=== PATIENT | male | born 1965 | race Caucasian/White ===

== ENCOUNTER 2016-09-28 15:09 | Emergency (ER) | payer OTHER ==
[2016-09-28 15:30] VITALS: BMI 36.4
--- NOTE | 2016-09-28 16:57 | PDOC ---
History of Present Illness - General History Source: Patient Exam Limitations: No Limitations - History of Present Illness Initial Comments: CHIEF COMPLAINT: 51 y/o afebrile male with PMH HTN, HLD, daily drinker (1/2 pint vodka daily) c/o lower extremity cramping. HISTORY OF PRESENT ILLNESS: The patient states he was at his doctor's office today when he got very sweaty and vomited once. The patient was also c/o left lower chest "heaviness" so his PCP called an ambulance to bring him here. He states his only symptom now is lower extremity cramping. He denies f/c, LYNN, dizziness, nausea, SOB, abd pain, back pain, hematuria, dysuria. Vital signs on arrival are within normal limits. REVIEW OF SYSTEMS: GENERAL/CONSTITUTIONAL: No fever/chills. No weakness. No weight change. HEAD, EYES, EARS, NOSE AND THROAT: No change in vision. No ear pain or discharge. No sore throat. CARDIOVASCULAR: +chest "heaviness". No shortness of breath. RESPIRATORY: No cough, wheezing, or hemoptysis. GASTROINTESTINAL: +vomiting x 1. No nausea, diarrhea, constipation. GENITOURINARY: No dysuria, frequency, or change in urination. MUSCULOSKELETAL: +lower extremity cramping. No neck or back pain. SKIN: No rash or easy bruising. NEUROLOGIC: No headache, vertigo, loss of consciousness, or loss of sensation. PHYSICAL EXAM: GENERAL: The patient is awake, alert, and fully oriented, in no acute distress. he is well appearing and ambulatory. He is currently chewing tobacco in the ER. HEAD: Normal with no signs of trauma. ENT: Pupils equal, round and reactive to light, extraocular movements intact, sclera anicteric, conjunctiva clear. Neck supple. LUNGS: Clear to auscultation bilaterally. Normal excursion. No respiratory distress or use of accessory muscles. CV: RRR, S1/S2, no MRG. Cap refill < 2 sec. CHEST WALL: No reproducible chest wall pain with palpation. ABDOMEN: Soft, non-distended, non-tender even to deep palpation, no hepatomegaly or splenomegaly, no masses. EXTREMITIES: Normal range of motion, no edema. NEUROLOGICAL: Normal speech, normal gait. CN II-XII grossly intact. PSYCH: Normal mood, normal affect. SKIN: Warm, dry, normal turgor, no rashes or lesions noted. <Doreen Santiago - Last Filed: 09/28/16 18:41> <Liliana Toro - Last Filed: 09/29/16 00:34> - General Chief Complaint: Nausea/Vomiting Stated Complaint: Nausea/Vomiting Time Seen by Provider: 09/28/16 16:54 Past History - Past Medical History Anemia: No Asthma: No Cancer: No Cardiac Disorders: Yes CVA: No COPD: No CHF: No Dementia: No Diabetes: No GI Disorders: No Disorders: No HTN: Yes Hypercholesterolemia: Yes Liver Disease: No Seizures: No Thyroid Disease: No - Surgical History Abdominal Surgery: No Appendectomy: No Cardiac Surgery: Yes (CARDIAC STENTS,OPEN HEART SX) Cholecystectomy: No Lung Surgery: No Neurologic Surgery: No Orthopedic Surgery: No - Psycho/Social/Smoking Cessation Hx Anxiety: No Suicidal Ideation: No Smoking Status: Yes Smoking History: Former smoker Have you smoked in the past 12 months: No Number of Cigarettes Smoked Daily: 10 Information on smoking cessation initiated: No 'Breaking Loose' booklet given: 01/16/15 Hx Alcohol Use: Yes (DAILY) Drug/Substance Use Hx: No Substance Use Type: None Hx Substance Use Treatment: No <Doreen Santiago - Last Filed: 09/28/16 18:41> <Liliana Toro - Last Filed: 09/29/16 00:34> - Past Medical History Allergies/Adverse Reactions: Allergies Allergy/AdvReac Type Severity Reaction Status Date / Time No Known Allergies Allergy Verified 04/27/16 13:14 Home Medications: Ambulatory Orders Aspirin [Aspirin EC] 162 mg PO DAILY #60 tablet. 01/16/15 Atorvastatin Ca [Lipitor -] 80 mg PO HS #30 tab 01/16/15 Lisinopril 5 mg PO DAILY #30 tablet 01/16/15 Ibuprofen [Motrin -] 800 mg PO Q6H #30 tablet 09/24/15 *Physical Exam - Vital Signs Last Vital Signs Temp Pulse Resp BP Pulse Ox 97.5 F L 68 18 120/70 97 09/28/16 15:27 09/28/16 15:27 09/28/16 15:27 09/28/16 15:27 09/28/16 15:27 <Doreen Santiago - Last Filed: 09/28/16 18:41> - Vital Signs Last Vital Signs Temp Pulse Resp BP Pulse Ox 97.5 F L 68 18 120/70 97 09/28/16 15:27 09/28/16 15:27 09/28/16 15:27 09/28/16 15:27 09/28/16 15:27 <Liliana Toro - Last Filed: 09/29/16 00:34> Heart Score/ECG Review - ECG Intrepretation Comment:: Twelve-lead EKG was performed and reviewed by Dr. Jung. There is normal sinus rhythm with a normal rate. The axis is normal. The intervals are normal. Nonspecific T wave abnormality. Impression: Abnormal twelve-lead EKG <Doreen Santiago - Last Filed: 09/28/16 18:41> ED Treatment Course - LABORATORY CBC & Chemistry Diagram: 09/28/16 17:47 09/28/16 17:47 <Doreen Santiago - Last Filed: 09/28/16 18:41> - LABORATORY CBC & Chemistry Diagram: 09/28/16 17:47 09/28/16 17:47 - ADDITIONAL ORDERS Additional order review: Laboratory Results 09/28/16 09/28/16 17:47 17:47 Sodium 141 Potassium 3.5 Chloride 103 Carbon Dioxide 29 Anion Gap 9 BUN 13 Creatinine 0.8 Creat Clearance w eGFR > 60 Random Glucose 90 Calcium 9.3 Magnesium 1.8 Total Bilirubin 2.8 H D AST 224 H D ALT 96 H D Alkaline Phosphatase 117 D Creatine Kinase 228 D Creatine Kinase Index CK-MB (CK-2) < 1.000 CK-MB (CK-2) Rel Index Cancelled Troponin I < 0.02 D Total Protein 7.6 Albumin 4.1 09/28/16 17:47 RBC 4.21 MCV 93.1 MCHC 33.2 RDW 14.4 MPV 8.5 D Neutrophils % 70.0 D Lymphocytes % 21.2 D Monocytes % 7.7 Eosinophils % 0.4 Basophils % 0.7 <Liliana Toro - Last Filed: 09/29/16 00:34> Medical Decision Making - Medical Decision Making A/P: 51 y/o male with HTN, HLD and daily ETOH use c/o 1 episode of vomiting, chest heaviness, and leg cramping today. All symptoms have resolved except for leg cramping. Plan is as follows: 1. Labs 2. EKG 3. CXR I am signing this patient out to my colleague: EFFIE Toro In brief, this patient is being seen in the ED for a chief complaint of: vomiting x 1, leg cramps, chest "heaviness" I have completed the initial assessment interview note and have ordered: labs, ekg, CXR I have reviewed the following results: Ekg, some labs Pending results are: Cardiac profile Please call the PCP: Dr. Crowley Plan for disposition is as follows: 2nd troponin at midnight, CXR, reassess <Doreen Santiago - Last Filed: 09/28/16 18:41> *DC/Admit/Observation/Transfer <Doreen Santiago - Last Filed: 09/28/16 18:41> - Discharge Dispostion Admit: No <Liliana Toro - Last Filed: 09/29/16 00:34> Diagnosis at time of Disposition: Leg cramping, Atypical chest pain Vomiting Qualifiers: Vomiting type: unspecified Vomiting Intractability: non-intractable Nausea presence: without nausea Qualified Code(s): R11.11 - Vomiting without nausea - Discharge Dispostion Disposition: HOME Condition at time of disposition: Improved - Referrals Referrals: Nikolas Crowley MD [Primary Care Provider] - - Patient Instructions Printed Discharge Instructions: DI for Vomiting -- Adult, DI for Atypical Chest Pain Additional Instructions: Follow up with your primary care provider this week for further evaluation. Return if symptoms worsen, or return, or any concerns for further evaluation. Print Language: TELUGU
[2016-09-28 18:03] LABS: BASOPHIL 0.7 % (0-2.0); EOSINOPHIL 0.4 % (0-4.5); MCH 30.9 pg (25.7-33.7); MCHC 33.2 g/dl (32.0-35.9); MEAN CELL VOLUME 93.1 fl (80-96); MEAN PLT VOLUME 8.5 fl (7.5-11.1); PLATELET COUNT 136 K/MM3 (134-434); RDW 14.4 % (11.9-15.9); WHITE BLOOD COUNT 7.9 K/mm3 (4.0-10.0)
[2016-09-28 18:26] LABS: ALBUMIN 4.1 g/dl (3.4-5.0); ANION GAP 9 (8-16); CALCIUM 9.3 mg/dL (8.5-10.1); CO2 29 mmol/L (21-32); COCKROFT - GAULT 160.17; CREATININE 0.8 mg/dL (0.7-1.3); GLUCOSE,RANDOM 90 mg/dL (74-106); MAGNESIUM 1.8 mg/dL (1.8-2.4); SGOT/AST 224 U/L (15-37); SGPT/ALT 96 U/L (12-78)
[2016-09-28 18:29] LABS: ALK PHOS 117 U/L (45-117); BILIRUBIN,TOTAL 2.8 mg/dL (0.2-1.0); TOT PROT 7.6 g/dl (6.4-8.2); TROPONIN I < 0.02 ng/ml (0.00-0.05)
[2016-09-28 23:50] VITALS: BP 134/77; PULSE 72; TEMP 98.1
[2016-09-29 00:01] LABS: TROPONIN I < 0.02 ng/ml (0.00-0.05)
--- NOTE | 2016-09-29 19:18 | EKG ---
Test Reason : Blood Pressure : / mmHG Vent. Rate : 059 BPM Atrial Rate : 059 BPM P-R Int : 126 ms QRS Dur : 088 ms QT Int : 448 ms P-R-T Axes : 060 045 092 degrees QTc Int : 443 ms POOR DATA QUALITY, INTERPRETATION MAY BE ADVERSELY AFFECTED SINUS BRADYCARDIA NONSPECIFIC ST AND T WAVE ABNORMALITY ABNORMAL ECG WHEN COMPARED WITH ECG OF 16-JAN-2015 10:33, QRS DURATION HAS DECREASED Confirmed by PABLO GRIGSBY MD ([id number]) on 09/29/2016 7:18:02 PM Referred By: Confirmed By:PABLO GRIGSBY MD
--- NOTE | 2016-09-30 16:29 | EKG ---
Test Reason : Blood Pressure : / mmHG Vent. Rate : 061 BPM Atrial Rate : 061 BPM P-R Int : 128 ms QRS Dur : 092 ms QT Int : 454 ms P-R-T Axes : 020 038 085 degrees QTc Int : 457 ms NORMAL SINUS RHYTHM NONSPECIFIC T WAVE ABNORMALITY ABNORMAL ECG WHEN COMPARED WITH ECG OF 28-SEP-2016 15:59, NO SIGNIFICANT CHANGE WAS FOUND Confirmed by PABLO GRIGSBY MD ([id number]) on 09/30/2016 4:29:23 PM Referred By: Confirmed By:PABLO GRIGSBY MD
== END 2016-09-29 00:47 | disposition home or self-care (01) ==
LOC: JER 15:09
DX: R07.89 Other chest pain (principal); R25.2 Cramp and spasm; I10 Essential (primary) hypertension; E78.5 Hyperlipidemia, unspecified; Z87.891 Personal history of nicotine dependence; Z95.5 Presence of coronary angioplasty implant and graft
CPT/HCPCS: 36415; 71020-TC; 76705-TC; 80053; 82550; 82553; 83735; 84484; 85025; 93005; 93010; 99283-25

== ENCOUNTER 2017-07-09 18:41 | Emergency (ER) | payer OTHER ==
--- NOTE | 2017-07-09 18:47 | PDOC ---
Rapid Medical Evaluation Time Seen by Provider: 07/09/17 18:46 Medical Evaluation: Allergies Allergy/AdvReac Type Severity Reaction Status Date / Time No Known Allergies Allergy Verified 07/09/17 18:43 07/09/17 18:48 52 year old male with a history of HTN, HLD, CAD s/p CABG x 4 yrs ago at [facility] and chronic EtOH abuse (1 pint vodka daily, last drink this morning, history of withdrawal tremors) presenting with hiccups x 4 hours. Also endorses left-sided chest "tightness". Stopped taking all meds about 2 months ago because they gave him "suicide feelings." Denies SI currently. Wants detox. V/s notable for HR 107, BP 149/96. No tremors EKG CXR Cardiac labs To Main ED for further evaluation
[2017-07-09 19:00] VITALS: BMI 36.0
[2017-07-09 19:04] LABS: BASO % 0.8 % (0-2.0); EOS % 0.3 % (0-4.5); LYMPH % 18.8 % (8-40); MCH 32.9 pg (25.7-33.7); MCHC 34.3 g/dl (32.0-35.9); MEAN CELL VOLUME 95.8 fl (80-96); MEAN PLT VOLUME 9.2 fl (7.5-11.1); MONO % 11.3 % (3.8-10.2); NEUT % 68.8 % (42.8-82.8); PLATELET COUNT 102 K/MM3 (134-434); RBC 3.97 M/mm3 (4.00-5.60); RDW 15.8 % (11.9-15.9); WHITE BLOOD COUNT 6.8 K/mm3 (4.0-10.0)
[2017-07-09 19:16] LABS: INR 1.66 (0.82-1.09); PROTHROMBIN TIME (PATIENT) 18.8 SEC (9.98-11.88)
[2017-07-09] MEDS ORDERED: ASPIRIN 81 MG CHEWABLE TABLETS PO ONE (19:23)
--- NOTE | 2017-07-09 19:23 | PDOC ---
History of Present Illness - General History Source: Patient Exam Limitations: No Limitations - History of Present Illness Initial Comments: 07/09/17 19:30 The patient is a 52 year old male with a significant PMH of CAD (s/p CABG 2013) , HTN, hyperlipidemia, and chronic EtOH abuse (1 pt. yumiko daily) who presents to the emergency department with chest pain beginning approximately 2 weeks ago. He describes his chest pain as a pressure-like squeezing sensation localized in the left sternal border with radiation to his left shoulder. He also notes intermittent hiccups over the past 4 hours. He currently denies hiccups. As per triage, the patient has been non-compliant with his medications for about 2 months. The patient reports he generally does not have PCP follow- up care. The patient denies shortness of breath, headache and dizziness. Denies fever, chills, nausea, vomit, diarrhea and constipation. Denies dysuria, frequency, urgency and hematuria. Allergies: NKA Past surgical history: CABG 2013. Cardiac stent placement. Social history: Everyday alcohol abuse. Chewing tobacco use. No reported drug use. PCP: None reported. <Issa Richard - Last Filed: 07/09/17 19:47> <Edmund Nguyen - Last Filed: 07/10/17 07:23> - General History Source: Patient <Venancio Rojas - Last Filed: 07/10/17 19:24> - General Chief Complaint: Chest Pain Stated Complaint: HICCUPS Time Seen by Provider: 07/09/17 18:46 Past History <Issa Richard - Last Filed: 07/09/17 19:47> <Edmund Nguyen - Last Filed: 07/10/17 07:23> - Past Medical History Anemia: No Asthma: No Cancer: No Cardiac Disorders: Yes CVA: No COPD: No CHF: No Dementia: No Diabetes: No GI Disorders: No Disorders: No HTN: Yes (non compliant with meds) Hypercholesterolemia: Yes Liver Disease: No Seizures: No Thyroid Disease: No - Surgical History Abdominal Surgery: No Appendectomy: No Cardiac Surgery: Yes (CARDIAC STENTS,OPEN HEART SX) Cholecystectomy: No Lung Surgery: No Neurologic Surgery: No Orthopedic Surgery: No - Immunization History Immunization Up to Date: No - Suicide/Smoking/Psychosocial Hx Smoking Status: Yes Smoking History: Never smoked Have you smoked in the past 12 months: No Number of Cigarettes Smoked Daily: 10 Information on smoking cessation initiated: No 'Breaking Loose' booklet given: 01/16/15 Hx Alcohol Use: Yes Drug/Substance Use Hx: No Substance Use Type: None Hx Substance Use Treatment: No <Venancio Rojas - Last Filed: 07/10/17 19:24> - Past Medical History Allergies/Adverse Reactions: Allergies Allergy/AdvReac Type Severity Reaction Status Date / Time No Known Allergies Allergy Verified 07/10/17 11:20 Home Medications: Ambulatory Orders Atorvastatin Ca [Lipitor -] 80 mg PO HS #30 tab 01/16/15 Lisinopril 5 mg PO DAILY #30 tablet 01/16/15 Aspirin [Aspirin EC] 81 mg PO DAILY 07/10/17 Review of Systems - Review of Systems Able to Perform ROS?: Yes Comments:: 07/09/17 19:31 CONSTITUTIONAL: Absent: fever, chills, diaphoresis, generalized weakness, malaise, loss of appetite HEENT: Absent: rhinorrhea, nasal congestion, throat pain, throat swelling, difficulty swallowing, mouth swelling, ear pain, eye pain, visual Changes CARDIOVASCULAR: (+) Chest pressure. Absent: syncope, palpitations, irregular heart rate, lightheadedness, peripheral edema RESPIRATORY: (+) Hiccups (resolved). Absent: cough, shortness of breath, dyspnea with exertion, orthopnea, wheezing, stridor, hemoptysis GASTROINTESTINAL: Absent: abdominal pain, abdominal distension, nausea, vomiting, diarrhea, constipation, melena, hematochezia GENITOURINARY: Absent: dysuria, frequency, urgency, hesitancy, hematuria, flank pain, genital pain MUSCULOSKELETAL: Absent: myalgia, arthralgia, joint swelling SKIN: Absent: rash, itching, pallor HEMATOLOGIC/IMMUNOLOGIC: Absent: easy bleeding, easy bruising, lymphadenopathy, frequent infections ENDOCRINE: Absent: unexplained weight gain, unexplained weight loss, heat intolerance, cold intolerance NEUROLOGIC: Absent: headache, focal weakness or paresthesias, dizziness, unsteady gait, seizure, mental status changes, bladder or bowel incontinence PSYCHIATRIC: Absent: anxiety, depression, suicidal or homicidal ideation, hallucinations. <Issa Richard - Last Filed: 07/09/17 19:47> *Physical Exam - Vital Signs Last Vital Signs Temp Pulse Resp BP Pulse Ox 98.4 F 108 H 20 149/96 97 07/09/17 18:43 07/09/17 18:43 07/09/17 18:43 07/09/17 18:43 07/09/17 18:43 - Physical Exam Comments: 07/09/17 19:31 GENERAL: Well developed, well nourished. Awake and alert. No acute distress. HEENT: Normocephalic, atraumatic. PERRLA, EOMI. No conjunctival pallor. Sclera are non- icteric. Moist mucous membranes. Oropharynx is clear. NECK: Supple. Full ROM. No JVD. Carotid pulses 2+ and symmetric, without bruits. No thyromegaly. No lymphadenopathy. CARDIOVASCULAR: Regular rate and rhythm. No murmurs, rubs, or gallops. Distal pulses are 2+ and symmetric. PULMONARY: No evidence of respiratory distress. Lungs clear to auscultation bilaterally. No wheezing, rales or rhonchi. ABDOMINAL: Soft. Non-tender. Non-distended. No rebound or guarding. No organomegaly. Normoactive bowel sounds. MUSCULOSKELETAL Normal range of motion at all joints. No bony deformities or tenderness. No CVA tenderness. EXTREMITIES: No cyanosis. No clubbing. No edema. No calf tenderness. SKIN: Warm and dry. Normal capillary refill. No rashes. No jaundice. NEUROLOGICAL: Alert, awake, appropriate. Cranial nerves 2-12 intact. No deficits to light touch and temperature in face, upper extremities and lower extremities. No motor deficits in the in face, upper extremities and lower extremities. Normoreflexic in the upper and lower extremities. Normal speech. Toes are downgoing bilaterally. Gait is normal without ataxia. PSYCHIATRIC: Cooperative. Good eye contact. Appropriate mood and affect. <Issa Richard - Last Filed: 07/09/17 19:47> - Vital Signs Last Vital Signs Temp Pulse Resp BP Pulse Ox 98.4 F 100 H 18 138/87 96 07/09/17 18:43 07/09/17 23:00 07/09/17 23:00 07/09/17 23:00 07/09/17 23:00 <Edmund Nguyen - Last Filed: 07/10/17 07:23> - Vital Signs Last Vital Signs Temp Pulse Resp BP Pulse Ox 98.4 F 108 H 20 149/96 97 07/09/17 18:43 07/09/17 18:43 07/09/17 18:43 07/09/17 18:43 07/09/17 18:43 <Venancio Rojas - Last Filed: 07/10/17 19:24> Heart Score/ECG Review #1 07/09/17 19:32 Vent rate 99 bpm Normal sinus rhythm Nonspecific T wave abnormality Prolonged QT Abnormal ECG <Issa Richard - Last Filed: 07/09/17 19:47> ED Treatment Course - LABORATORY CBC & Chemistry Diagram: 07/09/17 18:55 07/09/17 18:55 - ADDITIONAL ORDERS Additional order review: 07/09/17 18:55 RBC 3.97 L MCV 95.8 MCHC 34.3 RDW 15.8 MPV 9.2 Neutrophils % 68.8 Lymphocytes % 18.8 Monocytes % 11.3 H Eosinophils % 0.3 Basophils % 0.8 - Medications Given in the ED: ED Medications Discontinued Medications Generic Name Dose Route Start Last Admin Trade Name Freq PRN Reason Stop Dose Admin Aspirin 324 mg 07/09/17 19:23 07/09/17 19:28 Asa - PO 07/09/17 19:24 324 mg ONCE ONE Administration <Issa Richard - Last Filed: 07/09/17 19:47> - LABORATORY CBC & Chemistry Diagram: 07/09/17 18:55 07/10/17 01:03 - ADDITIONAL ORDERS Additional order review: Laboratory Results 07/10/17 07/10/17 07/09/17 01:03 00:29 18:55 PT with INR 18.80 H INR 1.66 H Sodium 140 Potassium 3.7 Chloride 101 Carbon Dioxide 25 Anion Gap 14 BUN 7 Creatinine 0.5 L Creat Clearance w eGFR > 60 Random Glucose 76 Calcium 8.1 L Total Bilirubin 5.8 H AST 209 H ALT 51 Alkaline Phosphatase 92 Creatine Kinase 469 H Creatine Kinase Index 0.5 CK-MB (CK-2) 2.396 Troponin I 0.03 D Total Protein 7.1 Albumin 2.7 L 07/09/17 18:55 PT with INR INR Sodium 137 Potassium 3.3 L Chloride 98 Carbon Dioxide 24 Anion Gap 15 BUN 8 D Creatinine 0.6 L D Creat Clearance w eGFR > 60 Random Glucose 93 Calcium 7.7 L Total Bilirubin 6.8 H D AST 241 H ALT 61 D Alkaline Phosphatase 110 Creatine Kinase 542 H Creatine Kinase Index 0.5 CK-MB (CK-2) 3.048 Troponin I 0.02 Total Protein 8.1 Albumin 3.2 L D 07/09/17 18:55 RBC 3.97 L MCV 95.8 MCHC 34.3 RDW 15.8 MPV 9.2 Neutrophils % 68.8 Lymphocytes % 18.8 Monocytes % 11.3 H Eosinophils % 0.3 Basophils % 0.8 - Medications Given in the ED: ED Medications Discontinued Medications Generic Name Dose Route Start Last Admin Trade Name Freq PRN Reason Stop Dose Admin Aspirin 324 mg 07/09/17 19:23 07/09/17 19:28 Asa - PO 07/09/17 19:24 324 mg ONCE ONE Administration Calcium Gluconate 1,000 mg 07/09/17 19:46 07/09/17 20:09 Calcium Gluconate 10% - IVPB 07/09/17 19:47 1,000 mg ONCE ONE Administration Chlordiazepoxide HCl 50 mg 07/09/17 22:48 07/09/17 22:49 Librium - PO 07/09/17 22:49 50 mg ONCE ONE Administration Pantoprazole Sodium 40 mg/ 100 mls @ 200 mls/hr 07/09/17 20:00 07/09/17 20:14 Sodium Chloride IVPB 07/09/17 20:29 200 mls/hr ONCE ONE Administration Ondansetron HCl 4 mg 07/09/17 20:08 07/09/17 20:14 Zofran Injection IVPUSH 07/09/17 20:09 4 mg ONCE STA Administration Potassium Chloride 20 meq 07/09/17 19:47 07/09/17 20:09 K-Dur - PO 07/09/17 19:48 20 meq ONCE ONE Administration <Edmund Nguyen - Last Filed: 07/10/17 07:23> - LABORATORY CBC & Chemistry Diagram: 07/09/17 18:55 07/10/17 01:03 - ADDITIONAL ORDERS Additional order review: 07/09/17 18:55 RBC 3.97 L MCV 95.8 MCHC 34.3 RDW 15.8 MPV 9.2 Neutrophils % 68.8 Lymphocytes % 18.8 Monocytes % 11.3 H Eosinophils % 0.3 Basophils % 0.8 <Venancio Rojas - Last Filed: 07/10/17 19:24> Medical Decision Making - Medical Decision Making 07/10/17 07:23 pt with mild tremor, [facility] will administer librium-50mg po. <Edmund Nguyen - Last Filed: 07/10/17 07:23> - Medical Decision Making 07/10/17 19:24 Dr. Rojas: The scribe's documentation has been prepared under my direction and personally reviewed by me in its entirery. I confirm that the note above accurately reflects all work, treatment, procedures, and medical decision making performed by me. <Venancio Rojas - Last Filed: 07/10/17 19:24> *DC/Admit/Observation/Transfer - Attestations Scribe Attestion: 07/09/17 19:31 Documentation prepared by Issa Richard, acting as medical equipment sales for Venancio Rojas DO. <Issa Richard - Last Filed: 07/09/17 19:47> <Edmund Nguyen - Last Filed: 07/10/17 07:23> - Discharge Dispostion Admit: No <Venancio Rojas - Last Filed: 07/10/17 19:24> Diagnosis at time of Disposition: Atypical chest pain, Alcohol dependence - Discharge Dispostion Disposition: HOME Condition at time of disposition: Stable - Patient Instructions Printed Discharge Instructions: DI for Alcohol Abuse, DI for Chest Pain Additional Instructions: Please report to [facility] after 8 am.
[2017-07-09] MEDS ORDERED: ASPIRIN 81 MG CHEWABLE TABLETS ONE (19:24)
[2017-07-09 19:38] LABS: ALBUMIN 3.2 g/dl (3.4-5.0); ANION GAP 15 (8-16); BILIRUBIN,TOTAL 6.8 mg/dL (0.2-1.0); BLOOD UREA NITROGEN 8 mg/dL (7-18); CALCIUM 7.7 mg/dL (8.5-10.1); CHLORIDE 98 mmol/L (98-107); CO2 24 mmol/L (21-32); CREATININE 0.6 mg/dL (0.7-1.3); GLUCOSE,RANDOM 93 mg/dL (74-106); SGPT/ALT 61 U/L (12-78); SODIUM 137 mmol/L (136-145); TOT PROT 8.1 g/dl (6.4-8.2)
[2017-07-09 19:40] LABS: ALK PHOS 110 U/L (45-117)
[2017-07-09 19:41] LABS: POTASSIUM 3.3 mmol/L (3.5-5.1); SGOT/AST 241 U/L (15-37)
[2017-07-09] MEDS ORDERED: CALCIUM GLUCONATE 10% - 1,000 MG/10 ML VIAL IVPB ONE (19:46)
[2017-07-09] MEDS ORDERED: POTASSIUM CHLORIDE TABS 10 MEQ TABLET.ER (FP) PO ONE (19:47)
[2017-07-09] MEDS ORDERED: CALCIUM GLUCONATE 10% - 1,000 MG/10 ML VIAL ONE (19:56)
[2017-07-09] MEDS ORDERED: POTASSIUM CHLORIDE TABS 20 MEQ TABLET.ER (FP) PO ONE (19:56)
[2017-07-09] MEDS ORDERED: PANTOPRAZOLE SODIUM 40 MG in SODIUM CHLORIDE 100 ML IVPB ONE (20:00)
[2017-07-09] MEDS ORDERED: PANTOPRAZOLE SODIUM 40 MG VIAL ONE (20:00)
[2017-07-09] MEDS ORDERED: ONDANSETRON 4 MG/2 ML VIAL IVPUSH STA (20:08)
[2017-07-09] MEDS ORDERED: ONDANSETRON 4 MG/2 ML VIAL ONE (20:09)
[2017-07-09] MEDS ORDERED: chlordiazePOXIDE HCL 25 MG CAPSULE ONE (22:48)
[2017-07-09] MEDS ORDERED: chlordiazePOXIDE HCL 25 MG CAPSULE PO ONE (22:48)
[2017-07-10 04:04] LABS: ALBUMIN 2.7 g/dl (3.4-5.0); ANION GAP 14 (8-16); BILIRUBIN,TOTAL 5.8 mg/dL (0.2-1.0); BLOOD UREA NITROGEN 7 mg/dL (7-18); CALCIUM 8.1 mg/dL (8.5-10.1); CHLORIDE 101 mmol/L (98-107); CO2 25 mmol/L (21-32); CREATININE 0.5 mg/dL (0.7-1.3); GLUCOSE,RANDOM 76 mg/dL (74-106); POTASSIUM 3.7 mmol/L (3.5-5.1); SGOT/AST 209 U/L (15-37); SGPT/ALT 51 U/L (12-78); SODIUM 140 mmol/L (136-145); TOT PROT 7.1 g/dl (6.4-8.2)
[2017-07-10 04:05] LABS: ALK PHOS 92 U/L (45-117)
[2017-07-10] MEDS ORDERED: chlordiazePOXIDE HCL 25 MG CAPSULE PO ONE (07:23)
[2017-07-10] MEDS ORDERED: chlordiazePOXIDE HCL 25 MG CAPSULE ONE (07:28)
[2017-07-10 08:34] VITALS: BP 130/77; PULSE 92; TEMP 98.1
--- NOTE | 2017-07-10 12:37 | EKG ---
Test Reason : Blood Pressure : / mmHG Vent. Rate : 099 BPM Atrial Rate : 099 BPM P-R Int : 140 ms QRS Dur : 098 ms QT Int : 390 ms P-R-T Axes : 043 057 066 degrees QTc Int : 500 ms NORMAL SINUS RHYTHM NONSPECIFIC T WAVE ABNORMALITY PROLONGED QT ABNORMAL ECG WHEN COMPARED WITH ECG OF 28-SEP-2016 18:01, VENT. RATE HAS INCREASED BY 38 BPM NONSPECIFIC T WAVE ABNORMALITY HAS REPLACED INVERTED T WAVES IN ANTEROLATERAL LEADS Confirmed by WILDER CHURCH MD ([id number]) on 07/10/2017 12:36:48 PM Referred By: Confirmed By:WILDER CHURCH MD
== END 2017-07-10 08:33 | disposition home or self-care (01) ==
LOC: JER 18:41
PROC: 3E033GC Introduction of Other Therapeutic Substance into Peripheral Vein, Percutaneous Approach (ICD-10-PCS; principal; 2017-07-09)
PROC: 3E0337Z Introduction of Electrolytic and Water Balance Substance into Peripheral Vein, Percutaneous Approach (ICD-10-PCS; 2017-07-09)
PROC: 3E033GC Introduction of Other Therapeutic Substance into Peripheral Vein, Percutaneous Approach (ICD-10-PCS; 2017-07-09)
DX: R07.89 Other chest pain (principal); F10.20 Alcohol dependence, uncomplicated; I25.10 Atherosclerotic heart disease of native coronary artery without angina pectoris; I25.83 Coronary atherosclerosis due to lipid rich plaque; I10 Essential (primary) hypertension; Z95.1 Presence of aortocoronary bypass graft; Z95.5 Presence of coronary angioplasty implant and graft; E78.00 Pure hypercholesterolemia, unspecified; Z91.14 Patient's other noncompliance with medication regimen
CPT/HCPCS: 36415; 71046-TC-FY; 80053; 82550; 82553; 84484; 85025; 85610; 93005; 93010; 99285-25

== ENCOUNTER 2017-07-13 13:44 | Inpatient (IN) | payer OTHER ==
--- NOTE | 2017-07-13 13:53 | PDOC ---
History of Present Illness - General Chief Complaint: Revisit, Lab Variance Stated Complaint: ABNORMAL LABS Time Seen by Provider: 07/13/17 13:51 - History of Present Illness Initial Comments: 52 year old male with PMH of CAD (s/p CABG 2013), HTN, hyperlipidemia, and chronic EtOH abuse (1 pt. vodka daily) who presents to the emergency department from 5 days of detox for worsening liver synthetic function. The patient appears well and only admits top occasional diarrhea. He hasn't seen anyone for his liver pathology in [address] in our system from 4 years prior was fine but ultrasound from 8 months ago demonstrates some fatty infiltration. Admits to some occasional diarrhea since starting detox. Denies nausea, vomiting, constipation,or chest pain. 07/13/17 14:36 Past History - Past Medical History Allergies/Adverse Reactions: Allergies Allergy/AdvReac Type Severity Reaction Status Date / Time No Known Allergies Allergy Verified 07/13/17 13:52 Home Medications: Ambulatory Orders Amlodipine Besylate [Norvasc -] 10 mg PO DAILY 07/13/17 Benzocaine Ointment [Americaine] 1 applic TP ASDIR 07/13/17 Chlordiazepoxide [Librium -] 25 mg PO TID 07/13/17 Clonidine HCl [Clonidine HCl ER] 0.1 mg PO BID 07/13/17 Lactulose 20 gm PO DAILY 07/13/17 Loperamide HCl [Loperamide] 4 mg PO QID 07/13/17 Mag Hydrox/Al Hydrox/Simeth [Mylanta *Suspension*] 30 ml PO Q6H 07/13/17 Magnesium Citrate [Citroma] 296 ml PO ASDIR 07/13/17 Magnesium Hydroxide [Milk of Magnesia] 400 mg PO DAILY 07/13/17 Multivitamins [Tab-A-Vit -] 1 tab PO DAILY 07/13/17 Potassium Chloride 20 meq PO DAILY 07/13/17 Thiamine HCl [B-1] 100 mg PO DAILY 07/13/17 Zolpidem Tartrate [Ambien] 5 mg PO DAILY 07/13/17 Anemia: No Asthma: No Cancer: No Cardiac Disorders: Yes (Hx. of Arterial Blockage.) CVA: No COPD: No CHF: No Dementia: No Diabetes: No GI Disorders: Yes (acid reflux) Disorders: No HTN: Yes (Non-Compliant with meds. due to sdie effects.) Hypercholesterolemia: Yes Kidney Stones: No Liver Disease: No Seizures: No Thyroid Disease: No - Surgical History Abdominal Surgery: No Appendectomy: No Cardiac Surgery: Yes (3 cardiac stents/open heart sx in 2012) Cholecystectomy: No Lung Surgery: No Neurologic Surgery: No Orthopedic Surgery: No - Reproductive History Testicular Surgery: No - Immunization History Immunization Up to Date: No - Suicide/Smoking/Psychosocial Hx Smoking Status: Yes Smoking History: Former smoker Have you smoked in the past 12 months: No Number of Cigarettes Smoked Daily: 10 If you are a former smoker, when did you quit?: 2010 Cigars Per Day: 0 'Breaking Loose' booklet given: 07/10/17 Hx Alcohol Use: Yes Drug/Substance Use Hx: Yes Substance Use Type: Alcohol Hx Substance Use Treatment: No Review of Systems - Review of Systems Constitutional: No: Chills, Diaphoresis, Fever HEENTM: No: Blurred Vision, Recent change in vision Respiratory: No: Cough, Orthopnea, Shortness of Breath Cardiac (ROS): No: Chest Pain, Lightheadedness, Palpitations ABD/GI: Yes: Diarrhea. No: Constipated, Nausea, Vomiting, Indigestion, Tarry Stools Musculoskeletal: No: Back Pain, Joint Pain, Muscle Weakness Integumentary: No: Bruising, Change in Color, Erythema Neurological: No: Headache, Numbness, Paresthesia Psychiatric: No: Anxiety, Depression *Physical Exam - Physical Exam General Appearance: Yes: Nourished, Appropriately Dressed. No: Apparent Distress HEENT: positive: EOMI, MARLENY, Scleral Icterus (R), Scleral Icterus (L), Other ( Poor dentition and gingivitis). negative: Normal ENT Inspection Neck: positive: Trachea midline, Normal Thyroid, Supple. negative: Tender, Rigid Respiratory/Chest: positive: Lungs Clear, Normal Breath Sounds. negative: Chest Tender, Respiratory Distress Cardiovascular: positive: Regular Rate, Tachycardia. negative: Regular Rhythm, Edema, JVD, Murmur Gastrointestinal/Abdominal: positive: Normal Bowel Sounds, Flat, Soft. negative : Tender Musculoskeletal: positive: Normal Inspection. negative: CVA Tenderness Extremity: positive: Normal Capillary Refill, Normal Inspection, Normal Range of Motion. negative: Tender Integumentary: positive: Normal Color, Dry, Warm Neurologic: positive: Fully Oriented, Alert, Normal Mood/Affect, Normal Response , Motor Strength 5/5. negative: Numbness ED Treatment Course - LABORATORY CBC & Chemistry Diagram: 07/13/17 14:20 07/13/17 14:25 Medical Decision Making - Medical Decision Making 52 year old worsening EtOH abuse history currently at detox but presenting to the ED for worsening liver synthetic function. Patient has no GI follow up and has a MELD of 22 which carries a 7-8% 90 day mortality. Although there is no acute intervention to perform, this gentleman deserves admission for his liver lab derangement. Will admit to med/ surg with agreement to stay at least 2 days. 07/13/17 15:12 *DC/Admit/Observation/Transfer Diagnosis at time of Disposition: Hepatic failure due to alcoholism - Discharge Dispostion Condition at time of disposition: Stable Admit: Yes - Referrals Referrals: Bebeto Yu MD [Primary Care Provider] - - Patient Instructions - Post Discharge Activity
[2017-07-13] MEDS ORDERED: LACTULOSE 20 GM/30 ML UDC (FOR ORAL USE ONLY) PO PRN (14:56)
[2017-07-13 15:10] LABS: ALBUMIN 2.5 g/dl (3.4-5.0); ANION GAP 8 (8-16); BLOOD UREA NITROGEN 7 mg/dL (7-18); CALCIUM 8.3 mg/dL (8.5-10.1); CHLORIDE 104 mmol/L (98-107); CO2 29 mmol/L (21-32); CREATININE 0.8 mg/dL (0.7-1.3); GLUCOSE,RANDOM 91 mg/dL (74-106); SGOT/AST 148 U/L (15-37); SGPT/ALT 50 U/L (12-78); SODIUM 141 mmol/L (136-145); TOT PROT 7.1 g/dl (6.4-8.2)
[2017-07-13 15:11] LABS: ALK PHOS 104 U/L (45-117)
[2017-07-13 15:16] LABS: INR 2.03 (0.82-1.09); PROTHROMBIN TIME (PATIENT) 22.9 SEC (9.98-11.88)
--- NOTE | 2017-07-13 15:32 | PDOC ---
Attending Attestation - Resident Resident Name: Romulo Talamantes - ED Attending Attestation I have performed the following: I have examined & evaluated the patient, The case was reviewed & discussed with the resident, I agree w/resident's findings & plan, Exceptions are as noted - HPI HPI: 07/13/17 15:26 "The patient is a 52-year-old male with a significant past medical history of HTN, HLD, CAD s/p CABG, chronic ETOH abuse, who is sent from [facility] to the emergency department for abnormal labs. He was at [facility] for about 5 days and blood tests were taken that demonstrated elevated ammonia levels. The patient states that he is feeling fine however, and denies any acute symptoms. He denies any changes in mental status, changes in movement, slurred speech, or other changes in behavior. The patient denies chest pain, shortness of breath, headache and dizziness. The patient denies fever, chills, nausea, vomit, diarrhea and constipation. The patient denies dysuria, frequency, urgency and hematuria. Allergies: NKDA Past Surgical History: s/p CABG Social History: ETOH abuse. " - Physicial Exam PE: 07/13/17 15:28 "GENERAL: Awake, alert, and fully oriented, in no acute distress HEAD: No signs of trauma EYES: PERRLA, EOMI, sclera anicteric, conjunctiva clear ENT: Auricles normal inspection, hearing grossly normal, nares patent, oropharynx clear without exudates. Moist mucosa NECK: Nontender, no stepoffs, Normal ROM, supple, no lymphadenopathy, JVD, or masses LUNGS: Breath sounds equal, clear to auscultation bilaterally. No wheezes, and no crackles HEART: Regular rate and rhythm, normal S1 and S2, no murmurs, rubs or gallops ABDOMEN: Soft, nontender, normoactive bowel sounds. No guarding, no rebound. No masses EXTREMITIES: Normal range of motion, no edema. No clubbing or cyanosis. No cords, erythema, or tenderness NEUROLOGICAL: No asterixis, Cranial nerves II through XII intact. 5/5 strength and sensation in all extremities, Normal speech, normal cerebellar function SKIN: +Jaundice, Warm, Dry, normal turgor, no rashes or lesions noted. - Medical Decision Making 07/13/17 15:32 52 M with h/o ETOH dependence presenting from [facility] with elevated ammonia levels. Pt with labs also notable for increasing INR (not on AC), elevated bilirubin, and low protein, concerning for worsening liver failure. Pt at this time without signs of hepatic encephalopathy but has been treated with lactulose in the past. Possible cirrhosis but no obvious fluid wave on exam. no abdominal pain or tenderness to suggest SBP. - Repeat labs - Lactulose - Admit for GI consultation
--- NOTE | 2017-07-13 15:41 | HP ---
CHIEF COMPLAINT: abnormal labs PCP: does not remember HISTORY OF PRESENT ILLNESS: This is a 52 year old male with PMHx of cardiac stents (10 years ago), CAD s/p CABG 5 years ago (on ASA 81mg daily), who presented to the ED from [facility] with elevated ammonia level, total bili, INR. The patient denies any liver disease, stating he has never been told he has liver dysfunction. The patient denies having a pcp or GI doctor. He states he drinks about 5.5 pints of vodka per day. He finished detox at [facility] today. He states over the past few months he has noticed yellowing of his skin and eyes and an increase in abdominal girth. He denies any nausea, vomiting, diarrhea, abdominal pain, dizziness, chest pain, palpitations, syncope, headache, urinary symptoms. The patient does state that for about 1 month he has noticed that his urine is " very dark". ER course was notable for: (1) INR 2.03 (2) Total bilirubin 7, AST 148 (3) Liver ultrasound pending Recent Travel: denies PAST MEDICAL HISTORY: as above PAST SURGICAL HISTORY: as above Social History: Smoking: denies Alcohol: 5.5 pints of vodka per day Drugs: denies Family History: Allergies No Known Allergies Allergy (Verified 07/13/17 13:52) HOME MEDICATIONS: Home Medications Medication Instructions Recorded Amlodipine Besylate [Norvasc -] 10 mg PO DAILY 07/13/17 Benzocaine Ointment [Americaine] 1 applic TP ASDIR 07/13/17 Chlordiazepoxide [Librium -] 25 mg PO TID 07/13/17 Clonidine HCl [Clonidine HCl ER] 0.1 mg PO BID 07/13/17 Lactulose 20 gm PO DAILY 07/13/17 Loperamide HCl [Loperamide] 4 mg PO QID 07/13/17 Mag Hydrox/Al Hydrox/Simeth 30 ml PO Q6H 07/13/17 [Mylanta *Suspension*] Magnesium Citrate [Citroma] 296 ml PO ASDIR 07/13/17 Magnesium Hydroxide [Milk of 400 mg PO DAILY 07/13/17 Magnesia] Multivitamins [Tab-A-Vit -] 1 tab PO DAILY 07/13/17 Potassium Chloride 20 meq PO DAILY 07/13/17 Thiamine HCl [B-1] 100 mg PO DAILY 07/13/17 Zolpidem Tartrate [Ambien] 5 mg PO DAILY 07/13/17 REVIEW OF SYSTEMS CONSTITUTIONAL: Absent: fever, chills, diaphoresis, generalized weakness, malaise, loss of appetite, weight change HEENT: Absent: rhinorrhea, nasal congestion, throat pain, throat swelling, difficulty swallowing, mouth swelling, ear pain, eye pain, visual changes CARDIOVASCULAR: Absent: chest pain, syncope, palpitations, irregular heart rate , lightheadedness, peripheral edema RESPIRATORY: Absent: cough, shortness of breath, dyspnea with exertion, orthopnea, wheezing, stridor, hemoptysis GASTROINTESTINAL:Absent: abdominal pain, abdominal distension, nausea, vomiting , diarrhea, constipation, melena, hematochezia GENITOURINARY: Dark colored urine Absent: dysuria, frequency, urgency, hesitancy , hematuria, flank pain, genital pain MUSCULOSKELETAL: Absent: myalgia, arthralgia, joint swelling, back pain, neck pain SKIN: Skin yellowing and increased abdominal girth for a few months. Absent: rash, itching, pallor HEMATOLOGIC/IMMUNOLOGIC: Absent: easy bleeding, easy bruising, lymphadenopathy, frequent infections ENDOCRINE:Absent: unexplained weight gain, unexplained weight loss, heat intolerance, cold intolerance NEUROLOGIC: Absent: headache, focal weakness or paresthesias, dizziness, unsteady gait, seizure, mental status changes, bladder or bowel incontinence PSYCHIATRIC: Absent: anxiety, depression, suicidal or homicidal ideation, hallucinations. PHYSICAL EXAMINATION Vital Signs - 24 hr 07/13/17 13:53 Temperature 98.9 F Pulse Rate 96 H Respiratory 17 Rate Blood Pressure 125/79 O2 Sat by Pulse 98 Oximetry (%) GENERAL: Awake, alert, and fully oriented, in no acute distress. HEAD: Normal with no signs of trauma. EYES: Sclera icteric. Pupils equal, round and reactive to light, extraocular movements intact, conjunctiva clear. No lid lag. EARS, NOSE, THROAT: Ears normal, nares patent, oropharynx clear without exudates. Moist mucous membranes. NECK: Normal range of motion, supple without lymphadenopathy, or masses. LUNGS: Breath sounds equal, clear to auscultation bilaterally. No wheezes, and no crackles. No accessory muscle use. HEART: Regular rate and rhythm, normal S1 and S2 without murmur ABDOMEN: Abdominal distention R>L. Soft, nontender, normoactive bowel sounds, no guarding, no rebound MUSCULOSKELETAL: Normal range of motion at all joints. No bony deformities or tenderness. No CVA tenderness. UPPER EXTREMITIES: 2+ pulses, warm, well-perfused. No cyanosis. No clubbing. No peripheral edema. LOWER EXTREMITIES: 2+ pulses, warm, well-perfused. No calf tenderness. No peripheral edema. NEUROLOGICAL: Cranial nerves II-XII intact. Normal speech. Gait not observed PSYCHIATRIC: Cooperative. Good eye contact. Appropriate mood and affect. SKIN: Jaundice. Warm, dry, normal turgor, no rashes or lesions noted, normal capillary refill. Laboratory Results - last 24 hr 07/13/17 07/13/17 07/13/17 14:20 14:20 14:25 WBC Cancelled Corrected WBC (auto) Cancelled RBC Cancelled Hgb Cancelled Hct Cancelled MCV Cancelled MCH Cancelled MCHC Cancelled RDW Cancelled Plt Count Cancelled MPV Cancelled Neutrophils % Cancelled Lymphocytes % Cancelled Monocytes % Cancelled Eosinophils % Cancelled Basophils % Cancelled Nucleated RBC % Cancelled Platelet Estimate Cancelled Platelet Comment Cancelled PT with INR 22.90 H INR 2.03 H Sodium 141 Potassium 4.0 Chloride 104 Carbon Dioxide 29 Anion Gap 8 BUN 7 Creatinine 0.8 D Creat Clearance w eGFR > 60 Random Glucose 91 Calcium 8.3 L Total Bilirubin 7.0 H AST 148 H ALT 50 Alkaline Phosphatase 104 Ammonia Total Protein 7.1 Albumin 2.5 L 07/13/17 14:25 WBC Corrected WBC (auto) RBC Hgb Hct MCV MCH MCHC RDW Plt Count MPV Neutrophils % Lymphocytes % Monocytes % Eosinophils % Basophils % Nucleated RBC % Platelet Estimate Platelet Comment PT with INR INR Sodium Potassium Chloride Carbon Dioxide Anion Gap BUN Creatinine Creat Clearance w eGFR Random Glucose Calcium Total Bilirubin AST ALT Alkaline Phosphatase Ammonia 31.49 Total Protein Albumin Assessment: This is a 52 year old male with PMHx of cardiac stents (10 years ago ), CAD s/p CABG 5 years ago (on ASA 81mg daily), who presented to the ED from [facility] with elevated ammonia level, total bili, INR. Plan: 1) Liver failure Acute alcoholic hepatitis - MELD score 22 - Discriminant function 62. May benefit from steroids, will defer starting to GI at this time - F/u direct bili - F/u liver ultrasound - Ammonia level 101.9->31.5. Continue Lactulose - F/u GI consult 2) Chronic alcohol abuse - Completed detox today - Folic acid - MVI - Thiamine 3) CAD s/p CABG, cardiac stents - Hold ASA 2/2 thrombocytopenia and coagulopathy 4) F/E/N: - Regular diet - Monitor electrolytes 5) Prophylaxis: - Hold all chemical DVT prophylaxis 2/2 elevated INR and thrombocytopenia 6) Dispo: - Requires continued inpatient care CODE STATUS: FULL CODE Visit type - Emergency Visit Emergency Visit: Yes ED Registration Date: 07/13/17 Care time: The patient presented to the Emergency Department on the above date and was hospitalized for further evaluation of their emergent condition. - New Patient This patient is new to me today: Yes Date on this admission: 07/13/17 - Critical Care Critical Care patient: No Hospitalist Screening - Colonoscopy Questionnaire Colonoscopy Questionnaire: Colonoscopy Questionnaire - Patient: 50 - 75 years old and never had a screening colonoscopy: Yes History of colon or rectal polyps, or CA: Unknown History of IBD, Crohn's disease or UC: Unknown History of abdominal radiation therapy as a child: Unknown - Relative: 1 with colon or rectal CA, or polyps at age 60 or younger: Unknown Colon or rectal CA diagnosed at age 45 or younger: Unknown Multiple relatives with colon or rectal CA: Unknown - Outcome: Screening Result: Positive Screen
[2017-07-13 16:31] LABS: BASO % 1.1 % (0-2.0); EOS % 1.5 % (0-4.5); HEMATOCRIT 40.8 % (35.4-49); HEMOGLOBIN 13.5 GM/dL (11.7-16.9); LYMPH % 20.8 % (8-40); MCHC 33.2 g/dl (32.0-35.9); MEAN CELL VOLUME 99.3 fl (80-96); MEAN PLT VOLUME 9.5 fl (7.5-11.1); MONO % 10.5 % (3.8-10.2); NEUT % 66.1 % (42.8-82.8); PLATELET COUNT 121 K/MM3 (134-434); RBC 4.11 M/mm3 (4.00-5.60); RDW 16.3 % (11.9-15.9); WHITE BLOOD COUNT 8.7 K/mm3 (4.0-10.0)
[2017-07-13 17:41] VITALS: BMI 35.6
--- NOTE | 2017-07-13 18:13 | CON.GI ---
Consult Consult Specialty:: GI: Dr. Amezquita covering for Dr. Grace Referred by:: Hospitalist Reason for Consultation:: Abnormal liver chemistries - History of Present Illness Chief Complaint: "I was sent from detox" History of Present Illness: 52M admitted through [facility] for evaluation. He was initially seen at the [facility] ER 07/09 for tremors (He has been drinking a pint and a half of Vodka daily for the last 2 years and he says prior to that he drank socially) and was transferred to [facility]. He was there from 07/10-07/13 and was transferred back to the [facility] ER for eval of elevated liver chemistries. of note LFTs on 07/09: AST: 241 ALT: 61 ALP: 110 TB: 6.8 Alb: 3.2. Transaminases improved while bilirubin remained elevated. On 07/10 bilirubin was 7.6 and 07/13 it was 7.0 (direct of 6.2). Abdominal US performed today revealed an enlarged heterogeneous liver with ascites in the upper abdomen. Abdominal US 09/28/16 revealed a normal sized liver with steatosis and a non contrast CT scan 06/13 was read as normal. He denies any abdominal pain. He denies any previous knowledge of liver disease / family history of liver disease and has poor medical follow-up. He denies a h/o IVDA/ DU. He has never had a colonoscopy. - History Source History Provided By: Patient, Medical Record - Past Medical History Cardio/Vascular: Yes: CAD, HTN, Hyperlipdemia Pulmonary: Yes: Sleep Apnea (pt may have this; ? 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 (year[place] 1995 History of Recent Travel: No Home Medications - Allergies Allergies/Adverse Reactions: Allergies Allergy/AdvReac Type Severity Reaction Status Date / Time No Known Allergies Allergy Verified 07/13/17 13:52 - Home Medications Home Medications: Ambulatory Orders Amlodipine Besylate [Norvasc -] 10 mg PO DAILY 07/13/17 Benzocaine Ointment [Americaine] 1 applic TP ASDIR 07/13/17 Chlordiazepoxide [Librium -] 25 mg PO TID 07/13/17 Clonidine HCl [Clonidine HCl ER] 0.1 mg PO BID 07/13/17 Lactulose 20 gm PO DAILY 07/13/17 Loperamide HCl [Loperamide] 4 mg PO QID 07/13/17 Mag Hydrox/Al Hydrox/Simeth [Mylanta *Suspension*] 30 ml PO Q6H 07/13/17 Magnesium Citrate [Citroma] 296 ml PO ASDIR 07/13/17 Magnesium Hydroxide [Milk of Magnesia] 400 mg PO DAILY 07/13/17 Multivitamins [Tab-A-Vit -] 1 tab PO DAILY 07/13/17 Potassium Chloride 20 meq PO DAILY 07/13/17 Thiamine HCl [B-1] 100 mg PO DAILY 07/13/17 Zolpidem Tartrate [Ambien] 5 mg PO DAILY 07/13/17 Family Disease History - Family Disease History Family Disease History: Diabetes: Grandparent (- GA), Heart Disease: Grandparent, Father (Alive: CAD), CA: Mother (: 35 Ovarian Ca.), Other: Brother (2 and 2 1/2 brothers: Healthy), Sister (2: 1 with BCA), Son (Down's Syndrome.) Other Family History: no family history of colorectal cancer / Liver disease Review of Systems - Review of Systems Constitutional: denies: Chills, Fever Cardiovascular: denies: Chest Pain Respiratory: denies: SOB Gastrointestinal: denies: Abdominal Pain, Constipation, Diarrhea, Melena, Nausea , Rectal Bleeding, Vomiting, Vomiting Blood Physical Exam-GI Vital Signs: Vital Signs Temperature 98.2 F 07/13/17 17:24 Pulse Rate 83 07/13/17 17:24 Respiratory Rate 18 07/13/17 17:24 Blood Pressure 124/72 07/13/17 17:24 O2 Sat by Pulse Oximetry (%) 100 07/13/17 17:24 Constitutional: Yes: Calm Eyes: Yes: Sclera Icterus Cardiovascular: Yes: Regular Rate and Rhythm. No: Murmur Respiratory: Yes: CTA Bilaterally Gastrointestinal Inspection: Yes: Scars (sternotomy scar extending to upper abdomen). No: Distention ...Auscultate: Yes: Normoactive Bowel Sounds ...Palpate: Yes: Hepatomegaly, Soft (large pannus). No: Guarding, Splenomegaly , Tenderness ...Percussion: No: Tympanitic Edema: LLE: Trace, RLE: Trace Neurological: Yes: Alert, Oriented (x3). No: Asterixis Labs: CBC, BMP 07/13/17 16:10 07/13/17 14:25 INR, PTT INR 2.03 (0.82-1.09) H 07/13/17 14:20 Hepatic Panel Total Bilirubin 7.0 mg/dL (0.2-1.0) H 07/13/17 14:25 Direct Bilirubin 6.2 mg/dL (0.0-0.2) H 07/13/17 16:10 AST 148 U/L (15-37) H 07/13/17 14:25 ALT 50 U/L (12-78) 07/13/17 14:25 Alkaline Phosphatase 104 U/L (45-117) 07/13/17 14:25 Albumin 2.5 g/dl (3.4-5.0) L 07/13/17 14:25 Laboratory Tests 07/11/17 07/13/17 07/13/17 08:00 07:40 14:25 Ammonia 71.19 H 101.90 H 31.49 Laboratory Tests 07/10/17 07/13/17 13:00 16:10 Hepatitis A IgM Ab Pending Hep Bs Antigen Pending Hep B Core IgM Ab Pending Hep C Ab Diagnostic <0.1 Pending Hepatitis C Antibody Pending Hepatitis Discriminant Function: 58 Problem List - Problems (1) Alcoholic hepatitis with ascites Assessment/Plan: Suspected acute alcoholic hepatitis superimposed over chronic liver disease. Patient without cliical evidence of hepatic encephalopathy and ammonia level has normalized Bilirubin levels may lag in improvement as compared to transaminases so would continue to monitor for now. Ordered triple phase MRI of the abdomen wiht MRCP for further evaluation of biliary tract and liver parenchyma If hyperbilirubinemia fail to continue to impprove or development of encephalopathy, trial of Prednisolone would considered Acute hepatitis serologies are pending. Would check hepatitis B surface antibody. Will need Immunization of not. Will need EGD to exclude varices and screening colonoscopy. These can be pursued as an outpatient once acute issues are resolved Advised patient he will need complete abstinence from alcohol. Aware fo potential diagnosis of cirrhosis and complications from that as well and need for follow-up. Code(s): K70.11 - ALCOHOLIC HEPATITIS WITH ASCITES
[2017-07-13] MEDS ORDERED: PNEUMOC 13-VAL CONJ-DIP CRM/PF 0.5 ML DISP.SYRIN IM ONE (19:00)
[2017-07-13] MEDS ORDERED: FLU VACCINE QUAD 60 MCG/0.5 ML (MDV 17-18) IM ONE (19:00)
[2017-07-13 19:04] LABS: URINE APPEARANCE CLEAR; URINE BLOOD NEGATIVE (NEGATIVE); URINE COLOR AMBER; URINE GLUCOSE (UA) NEGATIVE (NEGATIVE); URINE KETONE NEGATIVE (NEGATIVE); URINE LEUK ESTERASE NEGATIVE (NEGATIVE); URINE NITRITE NEGATIVE (NEGATIVE); URINE PROTEIN NEGATIVE (NEGATIVE); URINE UROBILINOGEN 4.0 E.U/dl mg/dL (0.2-1.0)
[2017-07-14 07:47] LABS: EOS % 2.8 % (0-4.5); HEMATOCRIT 36.3 % (35.4-49); HEMOGLOBIN 12.2 GM/dL (11.7-16.9); LYMPH % 25.5 % (8-40); MCH 33.4 pg (25.7-33.7); MCHC 33.7 g/dl (32.0-35.9); MEAN CELL VOLUME 99.1 fl (80-96); MEAN PLT VOLUME 9.4 fl (7.5-11.1); MONO % 12.9 % (3.8-10.2); NEUT % 57.8 % (42.8-82.8); PLATELET COUNT 98 K/MM3 (134-434); RBC 3.66 M/mm3 (4.00-5.60); WHITE BLOOD COUNT 6.5 K/mm3 (4.0-10.0)
[2017-07-14 08:16] LABS: INR 2.1 (0.82-1.09); PROTHROMBIN TIME (PATIENT) 23.7 SEC (9.98-11.88)
[2017-07-14 08:32] LABS: ALBUMIN 2.4 g/dl (3.4-5.0); ALK PHOS 83 U/L (45-117); ANION GAP 19 (8-16); BILIRUBIN,TOTAL 6.8 mg/dL (0.2-1.0); BLOOD UREA NITROGEN 7 mg/dL (7-18); CALCIUM 7.9 mg/dL (8.5-10.1); CHLORIDE 104 mmol/L (98-107); CO2 16 mmol/L (21-32); CREATININE 0.7 mg/dL (0.7-1.3); GLUCOSE,RANDOM 78 mg/dL (74-106); POTASSIUM 3.8 mmol/L (3.5-5.1); SGOT/AST 115 U/L (15-37); SGPT/ALT 43 U/L (12-78); SODIUM 139 mmol/L (136-145); TOT PROT 6.3 g/dl (6.4-8.2)
[2017-07-14 08:39] LABS: MAGNESIUM 0.3 mg/dL (1.8-2.4)
[2017-07-14] MEDS ORDERED: FLU VACCINE QUAD 60 MCG/0.5 ML (MDV 17-18) IM ONE (09:00)
[2017-07-14] MEDS ORDERED: PNEUMOC 13-VAL CONJ-DIP CRM/PF 0.5 ML DISP.SYRIN IM ONE (09:00)
[2017-07-14] MEDS ORDERED: MAGNESIUM SULF 50% (8.12 MEQ/2 ML-1 GM VIAL) IVPB ONE ×2 (09:02→12:00)
[2017-07-14] MEDS: FOLIC ACID 1 MG TABLET (FP) PO SCH (09:40)
[2017-07-14] MEDS: MULTIVITAMINS (DAILY MVI) TABLET (FP) PO SCH (09:40)
[2017-07-14] MEDS: THIAMINE HCL 100 MG TABLET (FP) PO SCH (09:40)
--- NOTE | 2017-07-14 11:13 | PN ---
Progress Note (short form) - Note Progress Note: Subjective: the patient was seen and examined at the bedside, he reports left upper tooth pain, appears more lethargic today. Only received Lactulose this AM once Current Medications Generic Name Dose Route Start Last Admin Trade Name Mikey PRN Reason Stop Dose Admin Folic Acid 1 mg 07/14/17 10:00 07/14/17 09:40 Folic Acid - PO 1 mg DAILY NABILA Administration Lactulose 20 gm 07/14/17 14:00 Cephulac (Oral Use) PO TID NABILA Magnesium Sulfate 2 gm 07/14/17 12:00 Magnesium Sulfate IVPB 07/14/17 12:01 ONCE ONE Multivitamins/Minerals/Vitamin C 1 tab 07/14/17 10:00 07/14/17 09:40 Tab-A-Vit - PO 1 tab DAILY NABILA Administration Thiamine HCl 100 mg 07/14/17 10:00 07/14/17 09:40 Vitamin B1 - PO 100 mg DAILY NABILA Administration Objective: Vital Signs Period Temp Pulse Resp BP Sys/Wolfe Pulse Ox Last 24 Hr 98.1 F-98.9 F 76-96 17-18 109-126/70-85 98-100 Physical Exam: General: NAD, A&Ox3, lethargic HEENT: Sclera icteric. No mandibular tenderness. No obvious lesions in oral cavity Lungs: CTA bilaterally Heart: RRR, S1S2 Abd: Soft, non-tender, non-distended. Normoactive bowel sounds Ext: Warm, well-perfused. 2+ DP/PT bilaterally Skin: Jaundice CBCD WBC 6.5 K/mm3 (4.0-10.0) 07/14/17 06:35 RBC 3.66 M/mm3 (4.00-5.60) L 07/14/17 06:35 Hgb 12.2 GM/dL (11.7-16.9) 07/14/17 06:35 Hct 36.3 % (35.4-49) 07/14/17 06:35 MCV 99.1 fl (80-96) H 07/14/17 06:35 MCHC 33.7 g/dl (32.0-35.9) 07/14/17 06:35 RDW 16.0 % (11.9-15.9) H 07/14/17 06:35 Plt Count 98 K/MM3 (134-434) L 07/14/17 06:35 MPV 9.4 fl (7.5-11.1) 07/14/17 06:35 CMP Sodium 139 mmol/L (136-145) 07/14/17 06:35 Potassium 3.8 mmol/L (3.5-5.1) 07/14/17 06:35 Chloride 104 mmol/L (98-107) 07/14/17 06:35 Carbon Dioxide 16 mmol/L (21-32) L D 07/14/17 06:35 Anion Gap 19 (8-16) H 07/14/17 06:35 BUN 7 mg/dL (7-18) 07/14/17 06:35 Creatinine 0.7 mg/dL (0.7-1.3) 07/14/17 06:35 Creat Clearance w eGFR > 60 (>60) 07/14/17 06:35 Random Glucose 78 mg/dL (74-106) 07/14/17 06:35 Calcium 7.9 mg/dL (8.5-10.1) L 07/14/17 06:35 Total Bilirubin 6.8 mg/dL (0.2-1.0) H 07/14/17 06:35 AST 115 U/L (15-37) H D 07/14/17 06:35 ALT 43 U/L (12-78) 07/14/17 06:35 Alkaline Phosphatase 83 U/L (45-117) D 07/14/17 06:35 Total Protein 6.3 g/dl (6.4-8.2) L 07/14/17 06:35 Albumin 2.4 g/dl (3.4-5.0) L 07/14/17 06:35 Assessment: This is a 52 year old male with PMHx of cardiac stents (10 years ago ), CAD s/p CABG 5 years ago (on ASA 81mg daily), who presented to the ED from [facility] with elevated ammonia level, total bili, INR. Plan: 1) Liver failure Acute alcoholic hepatitis - MELD score 22 - Discriminant function 60.6, steroids per GI - Direct bili 6.2 - Liver ultrasound: cirrhosis and ascites - Patient more lethargic today, f/u ammonia level, change Lactulose to scheduled - F/u triple phase MRI - Appreciate GI consult 2) Chronic alcohol abuse - Completed detox prior to arrival in ED - Folic acid - MVI - Thiamine 3) CAD s/p CABG, cardiac stents - Hold ASA 2/2 thrombocytopenia and coagulopathy 4) F/E/N: - Regular diet - Monitor electrolytes 5) Prophylaxis: - Hold all chemical DVT prophylaxis 2/2 elevated INR and thrombocytopenia 6) Dispo: - Requires continued inpatient care CODE STATUS: FULL CODE Visit type - Emergency Visit Emergency Visit: Yes ED Registration Date: 07/13/17 Care time: The patient presented to the Emergency Department on the above date and was hospitalized for further evaluation of their emergent condition. - New Patient This patient is new to me today: No - Critical Care Critical Care patient: No
[2017-07-14] MEDS ORDERED: LACTULOSE 20 GM/30 ML UDC (FOR ORAL USE ONLY) PO SCH (14:00)
--- NOTE | 2017-07-14 15:19 | PN ---
GI Progress Note Subjective: GI: For Dr. Grace No acute events States feeling well - Objective Vital Signs: Vital Signs Temperature 99 F 07/14/17 14:10 Pulse Rate 107 H 07/14/17 14:10 Respiratory Rate 17 07/14/17 14:10 Blood Pressure 136/77 07/14/17 14:10 O2 Sat by Pulse Oximetry (%) 98 07/14/17 09:00 Constitutional: Calm Eyes: Yes: Sclera Icterus Cardiovascular: Yes: Regular Rate and Rhythm Respiratory: Yes: CTA Bilaterally Gastrointestinal Inspection: No: Distention ...Auscultate: Yes: Normoactive Bowel Sounds ...Palpate: Yes: Hepatomegaly. No: Tenderness ...Percussion: No: Tympanitic Edema: Yes Edema: LLE: Trace, RLE: Trace Neurological: Yes: Alert, Oriented (x3). No: Asterixis Labs: CBC, BMP 07/14/17 06:35 07/14/17 06:35 INR, PTT INR 2.10 (0.82-1.09) H 07/14/17 06:35 Laboratory Tests 07/14/17 11:20 Ammonia 60.76 H Laboratory Tests 07/13/17 16:10 Hepatitis A IgM Ab Pending Hep Bs Antigen Pending Hep B Core IgM Ab Pending Hep C Ab Diagnostic Pending Hepatitis C Antibody Pending Hepatic Panel Total Bilirubin 6.8 mg/dL (0.2-1.0) H 07/14/17 06:35 Direct Bilirubin 6.2 mg/dL (0.0-0.2) H 07/13/17 16:10 AST 115 U/L (15-37) H D 07/14/17 06:35 ALT 43 U/L (12-78) 07/14/17 06:35 Alkaline Phosphatase 83 U/L (45-117) D 07/14/17 06:35 Albumin 2.4 g/dl (3.4-5.0) L 07/14/17 06:35 Problem List - Problems (1) Alcoholic hepatitis with ascites Assessment/Plan: Bilirubin with a slight downward trend Continue to monitor For MRI/MRCP today hopefully Correct lytes Code(s): K70.11 - ALCOHOLIC HEPATITIS WITH ASCITES
[2017-07-14] MEDS: LACTULOSE 20 GM/30 ML UDC (FOR ORAL USE ONLY) PO SCH (15:46)
[2017-07-14] MEDS ORDERED: MORPHINE SULFATE 10 MG/1 ML *VIAL IVPUSH ONE (20:20)
--- NOTE | 2017-07-15 00:14 | EKG ---
Test Reason : Blood Pressure : / mmHG Vent. Rate : 094 BPM Atrial Rate : 094 BPM P-R Int : 140 ms QRS Dur : 088 ms QT Int : 366 ms P-R-T Axes : 029 028 070 degrees QTc Int : 457 ms POOR DATA QUALITY, INTERPRETATION MAY BE ADVERSELY AFFECTED NORMAL SINUS RHYTHM NORMAL ECG WHEN COMPARED WITH ECG OF 10-JUL-2017 13:41, NO SIGNIFICANT CHANGE WAS FOUND Confirmed by CALISTA ROACH, PABLO ([id number]) on 07/15/2017 12:13:34 AM Referred By: Confirmed By:PABLO GRIGSBY MD
[2017-07-15] MEDS ORDERED: BENZOCAINE 20 % GEL 9 GM TUBE MM PRN (04:36)
[2017-07-15 08:03] LABS: BASO % 0.9 % (0-2.0); EOS % 2.4 % (0-4.5); HEMATOCRIT 37.5 % (35.4-49); HEMOGLOBIN 12.7 GM/dL (11.7-16.9); LYMPH % 14.2 % (8-40); MCH 33.4 pg (25.7-33.7); MCHC 33.9 g/dl (32.0-35.9); MEAN CELL VOLUME 98.8 fl (80-96); MEAN PLT VOLUME 8.9 fl (7.5-11.1); MONO % 13.4 % (3.8-10.2); NEUT % 69.1 % (42.8-82.8); PLATELET COUNT 107 K/MM3 (134-434); RBC 3.79 M/mm3 (4.00-5.60); RDW 16.2 % (11.9-15.9)
[2017-07-15 08:20] LABS: ALBUMIN 2.6 g/dl (3.4-5.0); ANION GAP 8 (8-16); BLOOD UREA NITROGEN 8 mg/dL (7-18); CALCIUM 7.6 mg/dL (8.5-10.1); CHLORIDE 103 mmol/L (98-107); CO2 27 mmol/L (21-32); CREATININE 0.6 mg/dL (0.7-1.3); GLUCOSE,RANDOM 77 mg/dL (74-106); MAGNESIUM 1.9 mg/dL (1.8-2.4); POTASSIUM 3.6 mmol/L (3.5-5.1); SGOT/AST 104 U/L (15-37); SGPT/ALT 38 U/L (12-78); SODIUM 138 mmol/L (136-145)
[2017-07-15 08:21] LABS: INR 1.89 (0.82-1.09); PROTHROMBIN TIME (PATIENT) 21.4 SEC (9.98-11.88)
[2017-07-15 08:23] LABS: ALK PHOS 89 U/L (45-117); BILIRUBIN,TOTAL 7.6 mg/dL (0.2-1.0); TOT PROT 6.6 g/dl (6.4-8.2)
[2017-07-15] MEDS ORDERED: PT OWN MED DRAWER 7, Y5N ONE (10:37)
[2017-07-15] MEDS: THIAMINE HCL 100 MG TABLET (FP) PO SCH (10:40)
[2017-07-15] MEDS: FOLIC ACID 1 MG TABLET (FP) PO SCH (10:40)
[2017-07-15] MEDS: LACTULOSE 20 GM/30 ML UDC (FOR ORAL USE ONLY) PO SCH (10:40)
[2017-07-15] MEDS: MULTIVITAMINS (DAILY MVI) TABLET (FP) PO SCH (10:40)
--- NOTE | 2017-07-15 12:04 | PN ---
Physical Exam: SUBJECTIVE: Patient seen and examined. He has had 2 bowel movements today, watery brown. Denies n/v, abdominal pain. OBJECTIVE: Vital Signs Period Temp Pulse Resp BP Sys/Wolfe Pulse Ox Last 24 Hr 98.3 F-99.6 F 98-121 17-20 120-156/63-87 96-98 PE: Neuro: alert, awake, cn 2-12intact HEENT: sclera icteric Pulm: CTAB CV: s1 s2 rrr no mrg Abd: s nt nd +bs Ext: +1 pitting edema LLE Skin: jaundice Laboratory Results - last 24 hr 07/14/17 07/14/17 07/15/17 11:20 16:05 06:30 WBC 6.0 RBC 3.79 L Hgb 12.7 Hct 37.5 MCV 98.8 H MCH 33.4 MCHC 33.9 RDW 16.2 H Plt Count 107 L MPV 8.9 Neutrophils % 69.1 Lymphocytes % 14.2 D Monocytes % 13.4 H Eosinophils % 2.4 Basophils % 0.9 PT with INR INR Sodium Potassium Chloride Carbon Dioxide Anion Gap BUN Creatinine Creat Clearance w eGFR Random Glucose Calcium Magnesium 2.5 H D Total Bilirubin AST ALT Alkaline Phosphatase Ammonia 60.76 H Total Protein Albumin 07/15/17 07/15/17 07/15/17 06:30 06:30 06:30 WBC RBC Hgb Hct MCV MCH MCHC RDW Plt Count MPV Neutrophils % Lymphocytes % Monocytes % Eosinophils % Basophils % PT with INR 21.40 H INR 1.89 H Sodium 138 Potassium 3.6 Chloride 103 Carbon Dioxide 27 D Anion Gap 8 BUN 8 Creatinine 0.6 L Creat Clearance w eGFR > 60 Random Glucose 77 Calcium 7.6 L Magnesium 1.9 D Total Bilirubin 7.6 H AST 104 H ALT 38 Alkaline Phosphatase 89 Ammonia 57.79 H Total Protein 6.6 Albumin 2.6 L Active Medications Generic Name Dose Route Start Last Admin Trade Name Freq PRN Reason Stop Dose Admin Benzocaine 1 applic 07/15/17 04:36 07/15/17 04:44 Anbesol - MM 1 applic Q2H PRN Administration MODERATE PAIN Folic Acid 1 mg 07/14/17 10:00 07/15/17 10:40 Folic Acid - PO 1 mg DAILY NABILA Administration Lactulose 20 gm 07/14/17 15:30 07/15/17 10:40 Cephulac (Oral Use) PO 20 gm DAILY NABILA Administration Multivitamins/Minerals/Vitamin C 1 tab 07/14/17 10:00 07/15/17 10:40 Tab-A-Vit - PO 1 tab DAILY NABILA Administration Thiamine HCl 100 mg 07/14/17 10:00 07/15/17 10:40 Vitamin B1 - PO 100 mg DAILY NABILA Administration Assessment: 52 year old male with PMHx of cardiac stents (10 years ago), CAD s/ p CABG 5 years ago (on ASA 81mg daily), who presented to the ED from [facility] with elevated ammonia level, total bili, INR. Plan: 1. Liver failure/Acute alcoholic hepatitis - Ammonia level down, can hold on prednisolone - Increase lactulose 20mg daily - For triple phase MRI/MRCP today - Hep panel pending - Pt does not want to return to rehab, he would like to go home 2 Chronic alcohol abuse - Completed detox prior to arrival in ED - Folic acid - MVI - Thiamine 3 CAD s/p CABG, cardiac stents - Hold ASA 2/2 thrombocytopenia and coagulopathy 4. DVT - Hold all chemical DVT prophylaxis 2/2 elevated INR and thrombocytopenia Visit type - Emergency Visit Emergency Visit: Yes ED Registration Date: 07/13/17 Care time: The patient presented to the Emergency Department on the above date and was hospitalized for further evaluation of their emergent condition. - New Patient This patient is new to me today: Yes Date on this admission: 07/15/17 - Critical Care Critical Care patient: No
--- NOTE | 2017-07-15 12:34 | PN ---
Progress Note, Physician History of Present Illness: Chart reviewed. Events noted. No new developments overnight. AAOx3. NO astirexis. Awaiting MRI - Current Medication List Current Medications: Active Medications Benzocaine (Anbesol -) 1 applic MM Q2H PRN PRN Reason: MODERATE PAIN Last Admin: 07/15/17 04:44 Dose: 1 applic Folic Acid (Folic Acid -) 1 mg PO DAILY [facility] Last Admin: 07/15/17 10:40 Dose: 1 mg Lactulose (Cephulac (Oral Use)) 20 gm PO DAILY [facility] Last Admin: 07/15/17 10:40 Dose: 20 gm Multivitamins/Minerals/Vitamin C (Tab-A-Vit -) 1 tab PO DAILY [facility] Last Admin: 07/15/17 10:40 Dose: 1 tab Thiamine HCl (Vitamin B1 -) 100 mg PO DAILY [facility] Last Admin: 07/15/17 10:40 Dose: 100 mg - Objective Vital Signs: Vital Signs Temperature 98.3 F 07/15/17 08:02 Pulse Rate 101 H 07/15/17 08:02 Respiratory Rate 18 07/15/17 08:02 Blood Pressure 120/63 07/15/17 08:02 O2 Sat by Pulse Oximetry (%) 98 07/15/17 09:00 Constitutional: Yes: Well Nourished, No Distress, Calm Eyes: Yes: Sclera Icterus HENT: Yes: Atraumatic Neck: Yes: Supple Cardiovascular: Yes: Regular Rate and Rhythm Respiratory: Yes: Regular Gastrointestinal: Yes: Soft, Distention. No: Melena, Rectal Bleeding, Tenderness, Tenderness, Rebound, Vomiting Edema: No Neurological: Yes: Alert, Oriented. No: Asterixis, Lethargy, Tremors Labs: CBC, BMP 07/15/17 06:30 07/15/17 06:30 INR, PTT INR 1.89 (0.82-1.09) H 07/15/17 06:30 Problem List - Problems (1) Alcoholic hepatitis with ascites Code(s): K70.11 - ALCOHOLIC HEPATITIS WITH ASCITES (2) Hepatic failure due to alcoholism Code(s): K70.40 - ALCOHOLIC HEPATIC FAILURE WITHOUT COMA (3) Alcohol dependence with uncomplicated withdrawal Code(s): F10.230 - ALCOHOL DEPENDENCE WITH WITHDRAWAL, UNCOMPLICATED (4) History of coronary artery stent placement Code(s): Z95.5 - PRESENCE OF CORONARY ANGIOPLASTY IMPLANT AND GRAFT Assessment/Plan A 52F with ongoing alcohol abuse and very likely underlying liver cirrhosis. MELD 21 Await MRI AFP, viral, autoimmune serologies Consider empiric nadolol while planing for screening EGD Total abstinence from alcohol/rehab
[2017-07-15] MEDS: NADOLOL 20 MG TABLET (FP) PO SCH (13:28)
[2017-07-15 14:12] LABS: HEP.C VIRUS AB <0.1 s/co ratio (0.0-0.9)
[2017-07-16 08:46] LABS: ALBUMIN 2.5 g/dl (3.4-5.0); ANION GAP 8 (8-16); BILIRUBIN,TOTAL 6.5 mg/dL (0.2-1.0); BLOOD UREA NITROGEN 7 mg/dL (7-18); CALCIUM 7.8 mg/dL (8.5-10.1); CHLORIDE 104 mmol/L (98-107); CO2 25 mmol/L (21-32); CREATININE 0.6 mg/dL (0.7-1.3); GLUCOSE,RANDOM 86 mg/dL (74-106); MAGNESIUM 1.9 mg/dL (1.8-2.4); POTASSIUM 3.8 mmol/L (3.5-5.1); SGOT/AST 94 U/L (15-37); SGPT/ALT 38 U/L (12-78); SODIUM 137 mmol/L (136-145); TOT PROT 6.8 g/dl (6.4-8.2)
[2017-07-16 08:47] LABS: ALK PHOS 91 U/L (45-117)
[2017-07-16] MEDS ORDERED: PT OWN MED DRAWER 7, Y5N ONE (10:31)
[2017-07-16] MEDS: NADOLOL 20 MG TABLET (FP) PO SCH (10:32)
[2017-07-16] MEDS: LACTULOSE 20 GM/30 ML UDC (FOR ORAL USE ONLY) PO SCH (10:32)
[2017-07-16] MEDS: FOLIC ACID 1 MG TABLET (FP) PO SCH (10:32)
[2017-07-16] MEDS: THIAMINE HCL 100 MG TABLET (FP) PO SCH (10:32)
[2017-07-16] MEDS: MULTIVITAMINS (DAILY MVI) TABLET (FP) PO SCH (10:32)
[2017-07-16 12:15] VITALS: TEMP 98.2
[2017-07-16] MEDS ORDERED: traMADol HCL 50 MG TABLET PO ONE (12:30)
[2017-07-16 14:27] VITALS: BP 124/95; PULSE 78
--- NOTE | 2017-07-16 14:47 | DS ---
Physical Exam: SUBJECTIVE: Patient seen and examined. He feels well, no complaints, eager to go home and return to work OBJECTIVE: Vital Signs Period Temp Pulse Resp BP Sys/Wolfe Pulse Ox Last 24 Hr 98.2 F-99.2 F 78-94 18-20 108-124/68-95 96-96 PE: Neuro: alert, awake, cn 2-12intact HEENT: sclera icteric Pulm: CTAB CV: s1 s2 rrr no mrg Abd: s nt nd +bs Ext: +1 pitting edema LLE Skin: jaundice Laboratory Results - last 24 hr 07/16/17 07/16/17 07/16/17 07:35 07:35 07:35 Sodium 137 Potassium 3.8 Chloride 104 Carbon Dioxide 25 Anion Gap 8 BUN 7 Creatinine 0.6 L Creat Clearance w eGFR > 60 Random Glucose 86 Calcium 7.8 L Magnesium 1.9 Ferritin Cancelled Total Bilirubin 6.5 H AST 94 H ALT 38 Alkaline Phosphatase 91 Ammonia 57.93 H Total Protein 6.8 Albumin 2.5 L HOSPITAL COURSE: Date of Admission:07/13/17 Date of Discharge: 07/16/17 Minutes to complete discharge: 37 Discharge Summary Reason For Visit: ALCOHOL LIVER FAILURE Current Active Problems Alcoholic hepatitis with ascites (Acute) Hepatic failure due to alcoholism (Acute) Hospital Course: Initial Hospital Course: Briefly, this 52 year old male with PMHx of cardiac stents (10 years ago), CAD s /p CABG 5 years ago (on ASA 81mg daily) presented to the ED from [facility] with elevated ammonia level, total bili, INR. The patient denies any liver disease, stating he has never been told he has liver dysfunction. The patient denied having a pcp or GI doctor. He drinks about 5.5 pints of vodka per day. He finished detox at [facility]. He stated over the past few months he has noticed yellowing of his skin and eyes and an increase in abdominal girth. He denies any nausea, vomiting, diarrhea, abdominal pain, dizziness, chest pain, palpitations, syncope, headache, urinary symptoms. The patient does state that for about 1 month he has noticed that his urine is "very dark". Subsequent Hospital Course/Progress Note/DC summary: Assessment: 52 year old male with PMHx of cardiac stents (10 years ago), CAD s/ p CABG 5 years ago (on ASA 81mg daily), who presented to the ED from [facility] with elevated ammonia level, total bili, INR. Plan: 1. Liver failure/Acute alcoholic hepatitis - Abd MRI shows liver cirrhosis, mild spleanomegaly - Ammonia level down, pt MS at baseline - Lactulose 20mg daily - Nadolol 20mg daily - Stop norvasc - Outpt follow up with Dr. Cisneros in 1 week for blood work and EGD evaluation for esophageal varices - Hep panel neg thus far 2 Chronic alcohol abuse - Completed detox prior to arrival in ED - Folic acid - MVI - Thiamine 3 CAD s/p CABG, cardiac stents - Hold ASA 2/2 thrombocytopenia and coagulopathy Dispo: - Home with above meds and GI follow up -Pt and aware and agree to above plan Condition: Stable - Instructions Diet, Activity, Other Instructions: Please return to the ED for any new, persistent, or worsening symptoms. Follow up with Dr. Cisneros in 1 week for blood work and EGD evaluation Resume home medications as directed Take new medication nadolol 20mg daily and lactulose 20mg daily Referrals: Jesús Cisneros MD [Staff Physician] - 1 Week (Follow up in 1 week for blood work and EGD evaluation ) Disposition: HOME - Home Medications Comprehensive Discharge Medication List: Ambulatory Orders Benzocaine Ointment [Americaine Ointment -] 1 applic TP ASDIR 07/13/17 Chlordiazepoxide [Librium -] 25 mg PO TID 07/13/17 Clonidine HCl [Clonidine HCl ER] 0.1 mg PO BID 07/13/17 Lactulose 20 gm PO DAILY 07/13/17 Loperamide HCl [Loperamide] 4 mg PO QID 07/13/17 Magnesium Citrate [Citroma -] 296 ml PO ASDIR 07/13/17 Multivitamins [Multivit ([facility] Formulary)] 1 tab PO DAILY 07/13/17 Thiamine HCl [B-1] 100 mg PO DAILY 07/13/17 Zolpidem Tartrate [Ambien] 5 mg PO DAILY 07/13/17 Lactulose (Oral Use) [Cephulac -] 20 gm PO DAILY #30 udc 07/16/17 Nadolol 20 mg PO DAILY #30 tablet 07/16/17 This patient is new to me today: No Emergency Visit: Yes ED Registration Date: 07/13/17 Care time: The patient presented to the Emergency Department on the above date and was hospitalized for further evaluation of their emergent condition. Critical Care patient: No - Discharge Referral [facility]erred to [facility] No
[2017-07-17 08:08] LABS: SERUM IRON SATURATION 36 % (15-55); TOTAL IRON BINDING CAPACITY 179 ug/dL (250-450); UIBC 114 ug/dL (111-343)
[2017-07-17 14:14] LABS: TRANSGLUTAMINASE IGA 6 U/mL (0-3); TRANSGLUTAMINASE IGG 3 U/mL (0-5)
[2017-07-20 00:06] LABS: HBSAG SCREEN Negative (Negative); HEP A AB, IGM Negative (Negative); HEP B CORE AB, TOT Negative (Negative)
== END 2017-07-16 17:39 | disposition home or self-care (01) | DRG 433 ==
LOC: JER 13:44 → JERBED 15:31 → J6S 16:56
PROVIDERS: ADMIT Internal Medicine; ATTEND Nurse Practitioner Acute Care
PROC: HZ2ZZZZ Detoxification Services for Substance Abuse Treatment (ICD-10-PCS; principal; 2017-07-13)
DX: K70.40 Alcoholic hepatic failure without coma (principal); I25.110 Atherosclerotic heart disease of native coronary artery with unstable angina pectoris; K70.11 Alcoholic hepatitis with ascites; F10.230 Alcohol dependence with withdrawal, uncomplicated; D69.6 Thrombocytopenia, unspecified; I10 Essential (primary) hypertension; E78.5 Hyperlipidemia, unspecified; G47.30 Sleep apnea, unspecified; K76.0 Fatty (change of) liver, not elsewhere classified; Z95.1 Presence of aortocoronary bypass graft; Z95.5 Presence of coronary angioplasty implant and graft; Z87.891 Personal history of nicotine dependence
CPT/HCPCS: 36415; 74183-TC; 76705-TC; 80053; 80074; 81003; 82105; 82140; 82248; 83516; 83540; 83550; 83735; 84100; 85025; 85610; 86038; 86704; 86706; 86708; 87340; 90670; 90688; 93005; 93010; 99283-25; G0008; G0009

== ENCOUNTER 2019-12-21 05:16 | Inpatient (IN) | payer BC ==
--- NOTE | 2019-12-21 05:21 | PDOC ---
History of Present Illness - General Stated Complaint: SHORTNESS OF BREATH AND DIZZY Time Seen by Provider: 12/21/19 05:20 History Source: Patient Exam Limitations: No Limitations - History of Present Illness Initial Comments: 12/21/19 05:28 54yM w PMHx morbid obesity, constipation, etoh abuse, HTN, HLD, CAD s/p CABG and 3 stents, GI bleed, hepatic cirrhosis presenting w 2d nausea, vomiting w bright red blood, tarry stool, mild epigastric pain. Had bright red hematemesis on day 2 after vomiting brown emesis 1st day. Takes aspirin, not on anticoagulation. Admitted at [facility] last year for similar hematemesis and rectal bleeding attributed to liver dysfunction. Denies recent etoh use, drank a lot in past leading to cirrhosis. Didnt drink etoh in the past 2wks. Denies fever, cough, chest pain, SOB, dysuria. Past History - Medical History Allergies/Adverse Reactions: Allergies Allergy/AdvReac Type Severity Reaction Status Date / Time No Known Allergies Allergy Verified 12/21/19 05:43 Home Medications: Ambulatory Orders Benzocaine Ointment [Americaine Ointment -] 1 applic TP ASDIR 07/13/17 Chlordiazepoxide [Librium -] 25 mg PO TID 07/13/17 Clonidine HCl [Clonidine HCl ER] 0.1 mg PO BID 07/13/17 Lactulose 20 gm PO DAILY 07/13/17 Loperamide HCl [Loperamide] 4 mg PO QID 07/13/17 Magnesium Citrate [Citroma -] 296 ml PO ASDIR 07/13/17 Multivitamins [Multivit ([facility] Formulary)] 1 tab PO DAILY 07/13/17 Thiamine HCl [B-1] 100 mg PO DAILY 07/13/17 Zolpidem Tartrate [Ambien] 5 mg PO DAILY 07/13/17 Lactulose (Oral Use) [Cephulac -] 20 gm PO DAILY #30 udc 07/16/17 Nadolol 20 mg PO DAILY #30 tablet 07/16/17 Anemia: No Asthma: No Cancer: No Cardiac Disorders: Yes (Hx. of Arterial Blockage.) CVA: No COPD: No CHF: No Dementia: No Diabetes: No GI Disorders: Yes (acid reflux) Disorders: No HTN: Yes (Non-Compliant with meds. due to sdie effects.) Hypercholesterolemia: Yes Kidney Stones: No Liver Disease: Yes Seizures: No Thyroid Disease: No - Surgical History Abdominal Surgery: No Appendectomy: No Cardiac Surgery: Yes (3 cardiac stents/open heart sx in 2012) Cholecystectomy: No Lung Surgery: No Neurologic Surgery: No Orthopedic Surgery: No - Reproductive History Testicular Surgery: No - Immunization History Immunization Up to Date: No - Psycho-Social/Smoking History Smoking Status: Yes Smoking History: Former smoker Have you smoked in the past 12 months: No Number of Cigarettes Smoked Daily: 10 If you are a former smoker, when did you quit?: 2010 Cigars Per Day: 0 'Breaking Loose' booklet given: 07/10/17 Review of Systems - Review of Systems Constitutional: No: Chills, Fever HEENTM: No: Eye Pain, Nose Congestion Respiratory: No: Cough, Shortness of Breath Cardiac (ROS): No: Chest Pain, Palpitations ABD/GI: Yes: Blood Streaked Bowels, Nausea, Vomiting. No: Abdominal Distended : No: Burning, Dysuria Musculoskeletal: No: Back Pain, Joint Pain Integumentary: No: Bruising, Flushing Neurological: No: Headache, Seizure Psychiatric: No: Anxiety, Depression Endocrine: No: Intolerance to Cold, Intolerance to Heat Hematologic/Lymphatic: No: Anemia, Blood Clots *Physical Exam - Physical Exam General Appearance: Yes: Nourished, Appropriately Dressed, Moderate Distress, Obese HEENT: positive: EOMI, MARLENY, Normal Voice, Scleral Icterus (R), Scleral Icterus (L), Hearing Grossly Normal Respiratory/Chest: positive: Lungs Clear, Normal Breath Sounds. negative: Chest Tender, Respiratory Distress Cardiovascular: positive: Regular Rhythm, Regular Rate, S1, S2. negative: Murmur Gastrointestinal/Abdominal: positive: Tender (minimal epigastric), Flat, Soft Rectal Exam: positive: normal exam, heme positive stool. negative: hemorrhoids Extremity: positive: Delayed Capillary Refill Integumentary: positive: Normal Color, Dry, Warm Neurologic: positive: Fully Oriented, Alert, Normal Mood/Affect, Normal Response ED Treatment Course - LABORATORY CBC & Chemistry Diagram: 12/21/19 05:45 12/21/19 05:45 Medical Decision Making - Medical Decision Making 12/21/19 05:59 EKG - NSR, HR 99, QTc 456, unchanged TWI V2 CXR INR 2.2, AST 350 ALT 110, bili 9.6 --- 54yM w PMHx morbid obesity, constipation, etoh abuse, HTN, HLD, CAD s/p CABG and 3 stents, GI bleed, hepatic cirrhosis presenting w 2d nausea, vomiting w bright red blood, tarry stool, mild epigastric pain. 1. Gastritis. Low concern for ACS (neg trop, unchanged EKG) 2. GI bleed. Hematemesis likely [place] from persistent vomiting. Cannot r/o variceal bleed 3. HERI Cr 1.5 likely dehydration 4. elevated bili 9.6, jaundice Low concern for hepatic encephalopathy (AOx3) Given 2L NS, 8 zofran, protonix push/drip, octreotide, rocephin Anticipate admit tele for GI bleed, HERI Signed out to day team - pending lab results, CXR Discharge - Discharge Information Problems reviewed: Yes Clinical Impression/Diagnosis: GI bleed Qualifiers: GI bleed type/associated pathology: unspecified gastrointestinal hemorrhage type Qualified Code(s): K92.2 - Gastrointestinal hemorrhage, unspecified Vomiting Qualifiers: Vomiting type: unspecified Vomiting Intractability: non-intractable Nausea presence: with nausea Qualified Code(s): R11.2 - Nausea with vomiting, unspecified Condition: Guarded - Follow up/Referral Referrals: Devan Hagen MD [Primary Care Provider] - - Patient Discharge Instructions - Post Discharge Activity
--- NOTE | 2019-12-21 05:42 | PDOC ---
Attending Attestation - Resident Resident Name: Rodriguez Lora - ED Attending Attestation I have performed the following: I have examined & evaluated the patient, The case was reviewed & discussed with the resident, I agree w/resident's findings & plan - HPI HPI: 12/21/19 07:03 Pt comes with multiple complaints: abd pain and chest discomfort that kept him awake all night - Physicial Exam PE: 12/21/19 07:03 Agree with resident exam; pt has a GI bleed; guaiac + stool - Medical Decision Making 12/21/19 07:04 pt will be admitted to the day team all labs pending Heart Score/ECG Review - ECG Intrepretation Rhythm: Regular Rhythm - [place]: Normal - P and [place] Wave(s) Present: No WPW: No - QRS Poor R Wave Progression: No Q Wave Present: No - ST and T Early Repolarization: No Non Specific ST-T Wave changes: No Flattened T Waves: No Prolonged Q-T Interval: No - ECG Impressions Normal ECG: Yes Non-specific ST Elevation: No Ischemic Changes: No Bradycardia: No Torsades ahsan Pointes: No WPW: No Discharge - Discharge Information Problems reviewed: Yes Clinical Impression/Diagnosis: GI bleed Qualifiers: GI bleed type/associated pathology: unspecified gastrointestinal hemorrhage type Qualified Code(s): K92.2 - Gastrointestinal hemorrhage, unspecified Vomiting Qualifiers: Vomiting type: unspecified Vomiting Intractability: non-intractable Nausea presence: with nausea Qualified Code(s): R11.2 - Nausea with vomiting, unspecified Condition: Good Disposition: HOME - Follow up/Referral - Patient Discharge Instructions - Post Discharge Activity
[2019-12-21] MEDS ORDERED: SODIUM CHLORIDE 0.9% 500 ML INFUS.BAG IV ONE ×2 (05:47→06:45)
[2019-12-21] MEDS ORDERED: ONDANSETRON 4 MG/2 ML VIAL IVPUSH ONE ×2 (05:47→06:54)
[2019-12-21 06:06] LABS: INR 2.29 (0.83-1.09); PROTHROMBIN TIME (PATIENT) 27.2 SEC (9.7-13.0)
[2019-12-21] MEDS ORDERED: PANTOPRAZOLE SODIUM 40 MG VIAL IVPUSH ONE (06:08)
[2019-12-21 06:25] LABS: ALBUMIN 2.8 g/dl (3.4-5.0); ALK PHOS 124 U/L (45-117); ANION GAP 15 MMOL/L (8-16); BILIRUBIN,TOTAL 9.6 mg/dL (0.2-1); BLOOD UREA NITROGEN 18.7 mg/dL (7-18); CALCIUM 8.1 mg/dL (8.5-10.1); CHLORIDE 101 mmol/L (98-107); CO2 20 mmol/L (21-32); CREATININE 1.5 mg/dL (0.55-1.3); GLUCOSE,RANDOM 113 mg/dL (74-106); POTASSIUM 3.7 mmol/L (3.5-5.1); SGOT/AST 356 U/L (15-37); SGPT/ALT 118 U/L (13-61); SODIUM 136 mmol/L (136-145); TOT PROT 6.4 g/dl (6.4-8.2)
[2019-12-21] MEDS ORDERED: PANTOPRAZOLE SODIUM 40 MG VIAL ONE ×2 (06:28→13:53)
[2019-12-21] MEDS ORDERED: OCTREOTIDE ACETATE 500 MCG/1 ML - 1 ML VIAL IVPUSH ONE (06:36)
[2019-12-21] MEDS: PANTOPRAZOLE SODIUM 80 MG in SODIUM CHLORIDE 100 ML IVPB SCH ×2 (06:44→15:30)
[2019-12-21] MEDS ORDERED: OCTREOTIDE ACETATE 500 MCG/1 ML - 1 ML VIAL ONE ×2 (06:47→12:33)
[2019-12-21] MEDS ORDERED: CEFTRIAXONE 1 GM in DEXTROSE 5%-WATER - 100 ML IVPB ONE (06:48)
[2019-12-21] MEDS ORDERED: CEFTRIAXONE 1 GM/50 ML BAG ONE (06:56)
--- NOTE | 2019-12-21 07:24 | PDOC ---
*Physical Exam - Vital Signs Last Vital Signs Temp Pulse Resp BP Pulse Ox 98.1 F 72 20 107/62 100 12/21/19 05:26 12/21/19 05:26 12/21/19 05:26 12/21/19 05:26 12/21/19 06:52 ED Treatment Course - LABORATORY CBC & Chemistry Diagram: 12/24/19 06:15 12/24/19 06:15 - ADDITIONAL ORDERS Additional order review: Laboratory Results 12/21/19 12/21/19 05:45 05:45 PT with INR 27.20 H INR 2.29 H Sodium 136 Potassium 3.7 Chloride 101 Carbon Dioxide 20 L Anion Gap 15 BUN 18.7 H Creatinine 1.5 H Est GFR (CKD-EPI)AfAm 60.73 Est GFR (CKD-EPI)NonAf 52.40 Random Glucose 113 H Calcium 8.1 L Total Bilirubin 9.6 H AST 356 H ALT 118 H Alkaline Phosphatase 124 H Creatine Kinase 224 Creatine Kinase Index 0.6 CK-MB (CK-2) 1.5 Troponin I < 0.02 Total Protein 6.4 Albumin 2.8 L - Medications Given in the ED: ED Medications Discontinued Medications Generic Name Dose Route Start Last Admin Trade Name Freq PRN Reason Stop Dose Admin Ceftriaxone Sodium 1 gm/ 100 mls @ 200 mls/hr 12/21/19 06:48 12/21/19 07:16 Dextrose IVPB 12/21/19 07:17 200 mls/hr ONCE ONE Administration Octreotide Acetate 500 mcg 12/21/19 06:36 12/21/19 06:51 Sandostatin - IVPUSH 12/21/19 06:37 500 mcg ONCE ONE Administration Ondansetron HCl 4 mg 12/21/19 05:47 12/21/19 05:58 Zofran Injection IVPUSH 12/21/19 05:48 4 mg ONCE ONE Administration Ondansetron HCl 4 mg 12/21/19 06:54 12/21/19 07:16 Zofran Injection IVPUSH 12/21/19 06:55 4 mg ONCE ONE Administration Pantoprazole Sodium 40 mg 12/21/19 06:08 12/21/19 06:35 Protonix Iv IVPUSH 12/21/19 06:09 40 mg ONCE ONE Administration Sodium Chloride 1,000 ml 12/21/19 05:47 12/21/19 05:58 Normal Saline - IV 08/24/20 05:48 1,000 ml ONCE ONE Administration Sodium Chloride 1,000 ml 12/21/19 06:45 12/21/19 07:17 Normal Saline - IV 12/21/19 06:46 1,000 ml ONCE ONE Administration Medical Decision Making - Medical Decision Making 12/21/19 07:25 54yM w PMHx morbid obesity, constipation, etoh abuse, HTN, HLD, CAD s/p CABG and 3 stents, GI bleed, hepatic cirrhosis presenting w 2d nausea, vomiting w bright red blood, tarry stool, mild epigastric pain ddx: gi bleed, hai meds; zofran x 2, NS 2L, protonix, push+ drip octreotide cbc pending admit for gi bleed, Pt still feels nauseous but not actively retching at this time. 12/21/19 07:29 12/21/19 09:[address] Pacheco, 2 units of FFP due to patients elevated INR 2.29 Discharge - Discharge Information Problems reviewed: Yes Clinical Impression/Diagnosis: Vomiting GI bleed Qualifiers: GI bleed type/associated pathology: unspecified gastrointestinal hemorrhage type Qualified Code(s): K92.2 - Gastrointestinal hemorrhage, unspecified Condition: Good Disposition: HOME - Follow up/Referral - Patient Discharge Instructions - Post Discharge Activity
[2019-12-21] MEDS: OCTREOTIDE ACETATE 200 MCG, OCTREOTIDE ACETATE 1,000 MCG in DEXTROSE 5%-WATER - 496 ML IVPB SCH ×2 (07:30→12:27)
[2019-12-21 07:56] LABS: BASO % 0.7 % (0-2.0); EOS % 0.1 % (0-4.5); HEMOGLOBIN 8.9 GM/dL (11.7-16.9); MCH 23.1 pg (25.7-33.7); MCHC 30.7 g/dl (32.0-35.9); MEAN CELL VOLUME 75.2 fl (80-96); MEAN PLT VOLUME 9.4 fl (7.5-11.1); MONO % 10.8 % (3.8-10.2); NEUT % 65.4 % (42.8-82.8); PLATELET COUNT 166 K/MM3 (134-434); RBC 3.86 M/mm3 (4.00-5.60); RDW 24.6 % (11.9-15.9); WHITE BLOOD COUNT 13.1 K/mm3 (4.0-10.0)
[2019-12-21] MEDS: METOCLOPRAMIDE HCL INJECTION 10 MG/2 ML VIAL IVPB SCH ×2 (10:02→22:40)
[2019-12-21] MEDS ORDERED: METOCLOPRAMIDE HCL INJECTION 10 MG/2 ML VIAL ONE (10:03)
[2019-12-21 13:52] LABS: OVALOCYTE 1+; TARGET CELLS 1+; TEAR DROP CELLS 1+
[2019-12-21 13:53] LABS: PLATELET ESTIMATE ADEQUATE
[2019-12-21] MEDS ORDERED: DEXTROSE 5%-0.45% SALINE 1,000 ML IV SCH (17:45)
[2019-12-21] MEDS ORDERED: ONDANSETRON 4 MG/2 ML VIAL IVPUSH PRN (17:47)
--- NOTE | 2019-12-21 18:14 | EKG ---
Test Reason : Blood Pressure : / mmHG Vent. Rate : 099 BPM Atrial Rate : 099 BPM P-R Int : 136 ms QRS Dur : 096 ms QT Int : 356 ms P-R-T Axes : 052 060 071 degrees QTc Int : 456 ms NORMAL SINUS RHYTHM NORMAL ECG WHEN COMPARED WITH ECG OF 13-JUL-2017 13:48, NO SIGNIFICANT CHANGE WAS FOUND Confirmed by EDDIE LEVIN MD ([id number]) on 12/21/2019 6:13:33 PM Referred By: Confirmed By:EDDIE LEVIN MD
[2019-12-21 20:48] VITALS: BMI 41.2
--- NOTE | 2019-12-21 21:48 | HP ---
Admitting History and Physical - Past Medical History Cardiovascular: Yes: CAD, HTN, Hyperlipdemia Pulmonary: Yes: Sleep Apnea (pt may have this; ? not worked up in the past) Hepatobiliary: Yes: Other (Fatty liver) - Past Surgical History Past Surgical History: Yes: CABG, Stent - Smoking History Smoking history: Former smoker Have you smoked in the past 12 months: No Aproximately how many cigarettes per day: 10 If you are a former smoker, when did you quit?: 2010 - Alcohol/Substance Use Hx Alcohol Use: Yes (1 1/2 pints of vodka daily) History of Substance Use: reports: None - Social History ADL: Independent Occupation: [employer] History of Recent Travel: No Home Medications - Allergies Allergies/Adverse Reactions: Allergies Allergy/AdvReac Type Severity Reaction Status Date / Time No Known Allergies Allergy Verified 12/21/19 05:43 - Home Medications Home Medications: Ambulatory Orders Benzocaine Ointment [Americaine Ointment -] 1 applic TP ASDIR 07/13/17 Chlordiazepoxide [Librium -] 25 mg PO TID 07/13/17 Clonidine HCl [Clonidine HCl ER] 0.1 mg PO BID 07/13/17 Lactulose 20 gm PO DAILY 07/13/17 Loperamide HCl [Loperamide] 4 mg PO QID 07/13/17 Magnesium Citrate [Citroma -] 296 ml PO ASDIR 07/13/17 Multivitamins [Multivit ([facility] Formul[facility])] 1 tab PO DAILY 07/13/17 Thiamine HCl [B-1] 100 mg PO DAILY 07/13/17 Zolpidem Tartrate [Ambien] 5 mg PO DAILY 07/13/17 Lactulose (Oral Use) [Cephulac -] 20 gm PO DAILY #30 udc 07/16/17 Nadolol 20 mg PO DAILY #30 tablet 07/16/17 Physical Examination Vital Signs: Vital Signs Temperature 98.7 F 12/21/19 20:00 Pulse Rate 78 12/21/19 20:00 Respiratory Rate 20 12/21/19 20:00 Blood Pressure 108/62 12/21/19 20:00 O2 Sat by Pulse Oximetry (%) 97 12/21/19 20:00 Labs: CBC, BMP 12/21/19 05:45 12/21/19 05:45
[2019-12-22] MEDS: METOCLOPRAMIDE HCL INJECTION 10 MG/2 ML VIAL IVPB SCH ×2 (03:10→09:57)
[2019-12-22] MEDS: PANTOPRAZOLE SODIUM 80 MG in SODIUM CHLORIDE 100 ML IVPB SCH ×2 (04:43→14:48)
[2019-12-22] MEDS: OCTREOTIDE ACETATE 200 MCG, OCTREOTIDE ACETATE 1,000 MCG in DEXTROSE 5%-WATER - 496 ML IVPB SCH (06:13)
--- NOTE | 2019-12-22 07:01 | CON.GI ---
Consult Consult Specialty:: GI - History of Present Illness History of Present Illness: I saw the patient yesterday in the ED 54 y/o with PMH of ALcohol cirrhosis, elevated Ca19-9 (156) was admitted with 2 days of intermittent hematemesis.His last episode was yesterday morning. He is receiving IV Pantoprazole and IV OCtreotide. - Past Medical History Cardio/Vascular: Yes: CAD, HTN, Hyperlipdemia Pulmonary: Yes: Sleep Apnea (pt may have this; ? 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 [employer] History of Recent Travel: No Home Medications - Allergies Allergies/Adverse Reactions: Allergies Allergy/AdvReac Type Severity Reaction Status Date / Time No Known Allergies Allergy Verified 12/21/19 05:43 - Home Medications Home Medications: Ambulatory Orders Benzocaine Ointment [Americaine Ointment -] 1 applic TP ASDIR 07/13/17 Chlordiazepoxide [Librium -] 25 mg PO TID 07/13/17 Clonidine HCl [Clonidine HCl ER] 0.1 mg PO BID 07/13/17 Lactulose 20 gm PO DAILY 07/13/17 Loperamide HCl [Loperamide] 4 mg PO QID 07/13/17 Magnesium Citrate [Citroma -] 296 ml PO ASDIR 07/13/17 Multivitamins [Multivit ([facility] Formul[facility])] 1 tab PO DAILY 07/13/17 Thiamine HCl [B-1] 100 mg PO DAILY 07/13/17 Zolpidem Tartrate [Ambien] 5 mg PO DAILY 07/13/17 Lactulose (Oral Use) [Cephulac -] 20 gm PO DAILY #30 udc 07/16/17 Nadolol 20 mg PO DAILY #30 tablet 07/16/17 Physical Exam-GI Vital Signs: Vital Signs Temperature 98.7 F 08/24/20 20:00 Pulse Rate 78 12/21/19 20:00 Respiratory Rate 20 12/21/19 20:00 Blood Pressure 108/62 12/21/19 20:00 O2 Sat by Pulse Oximetry (%) 97 12/21/19 20:00 Constitutional: Yes: No Distress Eyes: Yes: Sclera Icterus Neck: No: Lymphadenopathy Cardiovascular: Yes: Regular Rate and Rhythm Respiratory: Yes: CTA Bilaterally ...Palpate: Yes: Soft. No: Firm/Rigid, Guarding, Hepatomegaly, Mass, Pulsatile Mass, Splenomegaly, Tenderness Labs: CBC, BMP 12/21/19 05:45 12/21/19 05:45 INR, PTT INR 2.29 (0.83-1.09) H 12/21/19 05:45 Problem List - Problems (1) Hematemesis Assessment/Plan: R. for EGD awaitng COVID test continue Octreotide and Pantoprazole drip repeat CBC Code(s): K92.0 - HEMATEMESIS
[2019-12-22 08:20] LABS: EOS % 2.1 % (0-4.5); HEMATOCRIT 22.5 % (35.4-49); HEMOGLOBIN 7.1 GM/dL (11.7-16.9); LYMPH % 29.4 % (8-40); MCH 23.3 pg (25.7-33.7); MCHC 31.5 g/dl (32.0-35.9); MEAN CELL VOLUME 74.1 fl (80-96); MEAN PLT VOLUME 9.3 fl (7.5-11.1); MONO % 16.3 % (3.8-10.2); NEUT % 51.2 % (42.8-82.8); PLATELET COUNT 96 K/MM3 (134-434); RBC 3.04 M/mm3 (4.00-5.60); RDW 23.7 % (11.9-15.9); WHITE BLOOD COUNT 5.5 K/mm3 (4.0-10.0)
[2019-12-22 08:49] LABS: ALBUMIN 2.3 g/dl (3.4-5.0); BLOOD UREA NITROGEN 17.6 mg/dL (7-18); CALCIUM 7.5 mg/dL (8.5-10.1); CREATININE 1.2 mg/dL (0.55-1.3); POTASSIUM 3.5 mmol/L (3.5-5.1); TOT PROT 5.3 g/dl (6.4-8.2)
[2019-12-22 08:54] LABS: BILIRUBIN,TOTAL 7.2 mg/dL (0.2-1)
[2019-12-22] MEDS ORDERED: cefTRIAXone SODIUM 1 GM VIAL ONE (09:19)
[2019-12-22] MEDS ORDERED: DEXTROSE 5%-WATER - 50 ML IVPB ONE (09:19)
[2019-12-22] MEDS ORDERED: CEFTRIAXONE 1 GM in DEXTROSE 5%-WATER - 50 ML IVPB SCH (10:00)
[2019-12-22] MEDS: THIAMINE HCL 100 MG TABLET (FP) PO SCH (10:00)
[2019-12-22] MEDS: NADOLOL 20 MG TABLET (FP) PO SCH (10:01)
--- NOTE | 2019-12-22 11:15 | CON.ID ---
Consult Consult Specialty:: infectious diseases Referred by:: Reason for Consultation:: leukocytosis, uti - History of Present Illness Chief Complaint: vomiting of blood,blood perrectum,abd discomfort History of Present Illness: 54yM w PMHx morbid obesity, constipation, etoh abuse, HTN, HLD, CAD s/p CABG and 3 stents, GI bleed, hepatic cirrhosis presenting w 2d nausea, vomiting w bright red blood, tarry stool, mild epigastric pain. Had bright red hematemesis on day 2 after vomiting brown emesis 1st day. Takes aspirin, not on anticoagulation. Admitted at [facility] last year for similar hematemesis and rectal bleeding attributed to liver dysfunction. Denies recent etoh use, drank a lot in past leading to cirrhosis. Didnt drink etoh in the past 2wks. Denies fever, cough, chest pain, SOB, dysuria. also mentions that he was treated that had uti and was treated for the same - History Source History Provided By: Patient Limitations to Obtaining History: No Limitations - Past Medical History Cardio/Vascular: Yes: CAD, HTN, Hyperlipdemia Pulmonary: Yes: Sleep Apnea (pt may have this; ? 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 History of Recent Travel: No Home Medications - Allergies Allergies/Adverse Reactions: Allergies Allergy/AdvReac Type Severity Reaction Status Date / Time No Known Allergies Allergy Verified 12/21/19 05:43 - Home Medications Home Medications: Ambulatory Orders Benzocaine Ointment [Americaine Ointment -] 1 applic TP ASDIR 07/13/17 Chlordiazepoxide [Librium -] 25 mg PO TID 07/13/17 Clonidine HCl [Clonidine HCl ER] 0.1 mg PO BID 07/13/17 Lactulose 20 gm PO DAILY 07/13/17 Loperamide HCl [Loperamide] 4 mg PO QID 07/13/17 Magnesium Citrate [Citroma -] 296 ml PO ASDIR 07/13/17 Multivitamins [Multivit ([facility])] 1 tab PO DAILY 07/13/17 Thiamine HCl [B-1] 100 mg PO DAILY 07/13/17 Zolpidem Tartrate [Ambien] 5 mg PO DAILY 07/13/17 Lactulose (Oral Use) [Cephulac -] 20 gm PO DAILY #30 udc 07/16/17 Nadolol 20 mg PO DAILY #30 tablet 07/16/17 Review of Systems - Review of Systems Constitutional: reports: No Symptoms Eyes: reports: No Symptoms HENT: reports: No Symptoms Neck: reports: No Symptoms Cardiovascular: reports: No Symptoms Respiratory: reports: No Symptoms Gastrointestinal: reports: Abdominal Pain, Nausea, Rectal Bleeding, Vomiting Blood Genitourinary: reports: No Symptoms Musculoskeletal: reports: No Symptoms Integumentary: reports: No Symptoms Neurological: reports: No Symptoms Endocrine: reports: No Symptoms Hematology/Lymphatic: reports: No Symptoms Psychiatric: reports: No Symptoms Physical Exam Vital Signs: Vital Signs Temperature 98.7 F 12/22/19 06:00 Pulse Rate 77 12/22/19 06:00 Respiratory Rate 20 12/22/19 06:00 Blood Pressure 105/51 L 12/22/19 06:00 O2 Sat by Pulse Oximetry (%) 96 12/22/19 06:00 Constitutional: Yes: Well Nourished, Calm Eyes: Yes: Conjunctiva Clear HENT: Yes: Atraumatic, Normocephalic Cardiovascular: Yes: Regular Rate and Rhythm Respiratory: Yes: Regular, CTA Bilaterally Gastrointestinal: Yes: Normal Bowel Sounds, Soft Musculoskeletal: Yes: WNL Extremities: Yes: WNL Integumentary: Yes: WNL Neurological: Yes: Alert, Oriented Psychiatric: Yes: Alert, Oriented Labs: CBC, BMP 12/22/19 06:40 12/22/19 06:40 Imaging - Results Chest X-ray: Report Reviewed, Image Reviewed Assessment/Plan Problem List - Problems (1) Hematemesis Code(s): K92.0 - HEMATEMESIS cirrhoesis rectal bleed plan continue as per gi might need endoscopy txins as needed will old off on starting abx rest as per the team
[2019-12-22] MEDS ORDERED: PHENYLEPHRINE HCL 10 MG/1 ML SINGLE DOSE VIAL ONE (14:53)
--- NOTE | 2019-12-22 17:42 | PN ---
Progress Note, Physician History of Present Illness: s/p egd - Current Medication List Current Medications: Active Medications Ceftriaxone Sodium 1 gm/ (Dextrose) 50 mls @ 100 mls/hr IVPB DAILY NABILA; Prot ocol Last Admin: 12/22/19 10:00 Dose: 100 mls/hr Documented by: Nadolol (Corgard -) 20 mg PO DAILY [facility] Last Admin: 12/22/19 10:01 Dose: 20 mg Documented by: Ondansetron HCl (Zofran Injection) 4 mg IVPUSH Q8H PRN PRN Reason: NAUSEA Pantoprazole Sodium (Protonix -) 40 mg PO BID [facility] Thiamine HCl (Vitamin B1 -) 100 mg PO DAILY [facility] Last Admin: 12/22/19 10:00 Dose: 100 mg Documented by: - Objective Vital Signs: Vital Signs Temperature 98.3 F 12/22/19 15:42 Pulse Rate 64 12/22/19 16:48 Respiratory Rate 14 12/22/19 16:48 Blood Pressure 124/68 12/22/19 16:48 O2 Sat by Pulse Oximetry (%) 100 12/22/19 16:48 Constitutional: Yes: No Distress HENT: Yes: Atraumatic Neck: Yes: Supple Cardiovascular: Yes: Regular Rate and Rhythm Respiratory: Yes: CTA Bilaterally Gastrointestinal: Yes: Normal Bowel Sounds Extremities: Yes: WNL Edema: No Neurological: Yes: Alert, Oriented Labs: CBC, BMP 12/22/19 06:40 12/22/19 06:40 INR, PTT INR 2.29 (0.83-1.09) H 12/21/19 05:45 Problem List - Problems (1) GI bleed Assessment/Plan: s/p egd varices /ulcers probably bleeding is variceal?on iv protonix BB monitor cbc Code(s): K92.2 - GASTROINTESTINAL HEMORRHAGE, UNSPECIFIED Qualifiers: GI bleed type/associated pathology: unspecified gastrointestinal hemorrhage type Qualified Code(s): K92.2 - Gastrointestinal hemorrhage, unspecified (2) Hematemesis Code(s): K92.0 - HEMATEMESIS (3) Alcohol dependence Assessment/Plan: monitor for withdrawl Code(s): F10.20 - ALCOHOL DEPENDENCE, UNCOMPLICATED (4) Alcoholic hepatitis with ascites Code(s): K70.11 - ALCOHOLIC HEPATITIS WITH ASCITES (5) HLD (hyperlipidemia) Code(s): E78.5 - HYPERLIPIDEMIA, UNSPECIFIED Qualifiers: Hyperlipidemia type: unspecified Qualified Code(s): E78.5 - Hyperlipidemia, unspecified (6) Hypertension Code(s): I10 - ESSENTIAL (PRIMARY) HYPERTENSION Qualifiers: Hypertension type: essential hypertension Qualified Code(s): I10 - Essential (primary) hypertension Assessment/Plan COVERING FOR DR VALDIVIA TODAY
[2019-12-22 22:03] LABS: BASO % 0.6 % (0-2.0); EOS % 2.5 % (0-4.5); HEMATOCRIT 29.6 % (35.4-49); HEMOGLOBIN 9.3 GM/dL (11.7-16.9); LYMPH % 34.9 % (8-40); MCHC 31.6 g/dl (32.0-35.9); MONO % 12.2 % (3.8-10.2); NEUT % 49.8 % (42.8-82.8); PLATELET COUNT 116 K/MM3 (134-434); RBC 3.89 M/mm3 (4.00-5.60); RDW 23.5 % (11.9-15.9); WHITE BLOOD COUNT 7.4 K/mm3 (4.0-10.0)
[2019-12-22] MEDS: PANTOPRAZOLE 40 MG TABLET PO SCH (22:37)
[2019-12-23 08:46] LABS: INR 2.09 (0.83-1.09); PROTHROMBIN TIME (PATIENT) 24.9 SEC (9.7-13.0)
--- NOTE | 2019-12-23 08:52 | PN ---
Progress Note, Physician History of Present Illness: stable for ct scan - Current Medication List Current Medications: Active Medications Ceftriaxone Sodium 1 gm/ (Dextrose) 50 mls @ 100 mls/hr IVPB DAILY [facility]; Protocol Last Admin: 12/22/19 10:00 Dose: 100 mls/hr Documented by: Nadolol (Corgard -) 20 mg PO DAILY [facility] Last Admin: 12/22/19 10:01 Dose: 20 mg Documented by: Ondansetron HCl (Zofran Injection) 4 mg IVPUSH Q8H PRN PRN Reason: NAUSEA Pantoprazole Sodium (Protonix -) 40 mg PO BID [facility] Last Admin: 12/22/19 22:37 Dose: 40 mg Documented by: Thiamine HCl (Vitamin B1 -) 100 mg PO DAILY [facility] Last Admin: 12/22/19 10:00 Dose: 100 mg Documented by: - Objective Vital Signs: Vital Signs Temperature 99 F 12/23/19 06:00 Pulse Rate 60 12/23/19 06:00 Respiratory Rate 20 12/23/19 06:00 Blood Pressure 99/57 L 12/23/19 06:00 O2 Sat by Pulse Oximetry (%) 98 12/23/19 06:00 Constitutional: Yes: No Distress, Calm Cardiovascular: Yes: S1, S2 Respiratory: Yes: Regular, CTA Bilaterally Gastrointestinal: Yes: Normal Bowel Sounds, Soft Musculoskeletal: Yes: WNL Extremities: Yes: WNL Neurological: Yes: Alert, Oriented Psychiatric: Yes: Alert, Oriented Labs: CBC, BMP 12/22/19 06:40 INR, PTT INR 2.09 (0.83-1.09) H 12/23/19 06:50 Assessment/Plan Problem List - Problems (1) GI bleed Code(s): K92.2 - GASTROINTESTINAL HEMORRHAGE, UNSPECIFIED Qualifiers: GI bleed type/associated pathology: unspecified gastrointestinal hemorrhage type Qualified Code(s): K92.2 - Gastrointestinal hemorrhage, unspecified (2) Hematemesis Code(s): K92.0 - HEMATEMESIS (3) Alcohol dependence Code(s): F10.20 - ALCOHOL DEPENDENCE, UNCOMPLICATED (4) Alcoholic hepatitis with ascites Code(s): K70.11 - ALCOHOLIC HEPATITIS WITH ASCITES (5) HLD (hyperlipidemia) Code(s): E78.5 - HYPERLIPIDEMIA, UNSPECIFIED Qualifiers: Hyperlipidemia type: unspecified Qualified Code(s): E78.5 - Hyperlipidemia, unspecified (6) Hypertension Code(s): I10 - ESSENTIAL (PRIMARY) HYPERTENSION Qualifiers: Hypertension type: essential hypertension Qualified Code(s): I10 - Essential (primary) hypertension plan continue supportive treatment imaging studies rest as per the team
[2019-12-23 09:05] LABS: BASO % 1.3 % (0-2.0); EOS % 2.6 % (0-4.5); HEMATOCRIT 30.1 % (35.4-49); HEMOGLOBIN 9.6 GM/dL (11.7-16.9); LYMPH % 27.5 % (8-40); MCH 24.5 pg (25.7-33.7); MCHC 31.9 g/dl (32.0-35.9); MEAN CELL VOLUME 76.9 fl (80-96); MEAN PLT VOLUME 9.2 fl (7.5-11.1); MONO % 11.7 % (3.8-10.2); NEUT % 56.9 % (42.8-82.8); PLATELET COUNT 124 K/MM3 (134-434); RBC 3.92 M/mm3 (4.00-5.60); RDW 23.4 % (11.9-15.9); WHITE BLOOD COUNT 7.7 K/mm3 (4.0-10.0)
[2019-12-23] MEDS: NADOLOL 20 MG TABLET (FP) PO SCH (10:47)
[2019-12-23] MEDS: PANTOPRAZOLE 40 MG TABLET PO SCH ×2 (10:47→21:57)
[2019-12-23] MEDS: THIAMINE HCL 100 MG TABLET (FP) PO SCH (10:47)
[2019-12-23] MEDS ORDERED: PHYTONADIONE 10 MG/1 ML AMP IM ONE (10:58)
[2019-12-23] MEDS ORDERED: PT OWN MED DRAWER 7, Y5N ONE (17:19)
[2019-12-23] MEDS ORDERED: ZOLPIDEM TARTRATE 5 MG TABLET PO PRN (20:00)
--- NOTE | 2019-12-23 20:05 | PN ---
Progress Note, Physician History of Present Illness: Pt complains of pain to his neck Pt also complains of insomnia - Current Medication List Current Medications: Active Medications Cyclobenzaprine HCl (Cyclobenzaprine Hcl) 5 mg PO TID PRN PRN Reason: PAIN Nadolol (Corgard -) 20 mg PO DAILY [facility] Last Admin: 12/23/19 10:47 Dose: 20 mg Documented by: Ondansetron HCl (Zofran Injection) 4 mg IVPUSH Q8H PRN PRN Reason: NAUSEA Pantoprazole Sodium (Protonix -) 40 mg PO BID [facility] Last Admin: 12/23/19 10:47 Dose: 40 mg Documented by: Thiamine HCl (Vitamin B1 -) 100 mg PO DAILY [facility] Last Admin: 12/23/19 10:47 Dose: 100 mg Documented by: Zolpidem Tartrate (Ambien -) 5 mg PO HS PRN PRN Reason: INSOMNIA - Objective Vital Signs: Vital Signs Temperature 98.4 F 12/23/19 16:30 Pulse Rate 88 12/23/19 16:30 Respiratory Rate 20 12/23/19 16:30 Blood Pressure 117/69 12/23/19 16:30 O2 Sat by Pulse Oximetry (%) 98 12/23/19 17:00 Neck: Yes: WNL, Supple Cardiovascular: Yes: WNL, Regular Rate and Rhythm Respiratory: Yes: WNL, Regular, CTA Bilaterally Gastrointestinal: Yes: Abdomen, Obese, Distention Labs: CBC, BMP 12/23/19 06:50 12/22/19 06:40 INR, PTT INR 2.09 (0.83-1.09) H 12/23/19 06:50 Problem List - Problems (1) GI bleed Assessment/Plan: No further hematemesis H/H remaining stable S/p blood transfusions Cont IV protonix/IV octrepride Code(s): K92.2 - GASTROINTESTINAL HEMORRHAGE, UNSPECIFIED Qualifiers: GI bleed type/associated pathology: unspecified gastrointestinal hemorrhage type Qualified Code(s): K92.2 - Gastrointestinal hemorrhage, unspecified (2) Alcoholic cirrhosis Code(s): K70.30 - ALCOHOLIC CIRRHOSIS OF LIVER WITHOUT ASCITES (3) Insomnia Assessment/Plan: Will give trial of ambien Code(s): G47.00 - INSOMNIA, UNSPECIFIED (4) Hypertension Assessment/Plan: BP stable Off antihypertensives Code(s): I10 - ESSENTIAL (PRIMARY) HYPERTENSION Qualifiers: Hypertension type: essential hypertension Qualified Code(s): I10 - Essential (primary) hypertension (5) CAD (coronary artery disease) Code(s): I25.10 - ATHSCL HEART DISEASE OF [place] CORONARY ARTERY W/O ANG PCTRS (6) HLD (hyperlipidemia) Code(s): E78.5 - HYPERLIPIDEMIA, UNSPECIFIED
[2019-12-23] MEDS: CYCLOBENZAPRINE HCL 5 MG TABLET PO PRN (20:32)
[2019-12-24 08:08] LABS: HEMATOCRIT 28.4 % (35.4-49); HEMOGLOBIN 9.1 GM/dL (11.7-16.9); MCH 24.7 pg (25.7-33.7); MCHC 31.9 g/dl (32.0-35.9); MEAN CELL VOLUME 77.5 fl (80-96); MEAN PLT VOLUME 9.1 fl (7.5-11.1); PLATELET COUNT 92 K/MM3 (134-434); RBC 3.67 M/mm3 (4.00-5.60); RDW 23.6 % (11.9-15.9); WHITE BLOOD COUNT 6.5 K/mm3 (4.0-10.0)
[2019-12-24 08:41] LABS: ALBUMIN 2.2 g/dl (3.4-5.0); BLOOD UREA NITROGEN 10.1 mg/dL (7-18); CALCIUM 7.6 mg/dL (8.5-10.1); POTASSIUM 3.5 mmol/L (3.5-5.1); TOT PROT 5.3 g/dl (6.4-8.2)
[2019-12-24 08:43] LABS: BILIRUBIN,TOTAL 9.2 mg/dL (0.2-1)
[2019-12-24 09:28] LABS: ANISOCYTOSIS 2+; MACROCYTOSIS 1+; PLATELET ESTIMATE DECREASED; TARGET CELLS 1+
[2019-12-24] MEDS: NADOLOL 20 MG TABLET (FP) PO SCH (09:45)
[2019-12-24] MEDS: THIAMINE HCL 100 MG TABLET (FP) PO SCH (09:45)
[2019-12-24] MEDS: PANTOPRAZOLE 40 MG TABLET PO SCH (09:45)
[2019-12-24] MEDS: CYCLOBENZAPRINE HCL 5 MG TABLET PO PRN (09:47)
--- NOTE | 2019-12-24 11:09 | PN ---
Progress Note, Physician History of Present Illness: c/o of pain in the neck weakness complete body ache - Current Medication List Current Medications: Active Medications Cyclobenzaprine HCl (Cyclobenzaprine Hcl) 5 mg PO TID PRN PRN Reason: PAIN Last Admin: 12/24/19 09:47 Dose: 5 mg Documented by: Nadolol (Corgard -) 20 mg PO DAILY [facility] Last Admin: 12/24/19 09:45 Dose: 20 mg Documented by: Ondansetron HCl (Zofran Injection) 4 mg IVPUSH Q8H PRN PRN Reason: NAUSEA Pantoprazole Sodium (Protonix -) 40 mg PO BID [facility] Last Admin: 12/24/19 09:45 Dose: 40 mg Documented by: Thiamine HCl (Vitamin B1 -) 100 mg PO DAILY [facility] Last Admin: 12/24/19 09:45 Dose: 100 mg Documented by: Zolpidem Tartrate (Ambien -) 5 mg PO HS PRN PRN Reason: INSOMNIA Last Admin: 12/23/19 21:57 Dose: 5 mg Documented by: - Objective Vital Signs: Vital Signs Temperature 98.6 F 12/24/19 06:00 Pulse Rate 67 12/24/19 06:00 Respiratory Rate 20 12/24/19 06:00 Blood Pressure 106/56 L 12/24/19 06:00 O2 Sat by Pulse Oximetry (%) 96 12/24/19 06:00 Constitutional: Yes: Calm, Mild Distress HENT: Yes: Atraumatic Neck: Yes: Supple, Trachea Midline Cardiovascular: Yes: Regular Rate and Rhythm Respiratory: Yes: Regular, CTA Bilaterally Gastrointestinal: Yes: Normal Bowel Sounds, Soft Musculoskeletal: Yes: WNL Extremities: Yes: WNL Neurological: Yes: Alert, Oriented Psychiatric: Yes: Alert, Oriented Labs: CBC, BMP 12/24/19 06:15 12/24/19 06:15 INR, PTT INR 2.09 (0.83-1.09) H 12/23/19 06:50 Assessment/Plan Problem List - Problems (1) GI bleed Code(s): K92.2 - GASTROINTESTINAL HEMORRHAGE, UNSPECIFIED Qualifiers: GI bleed type/associated pathology: unspecified gastrointestinal hemorrhage type Qualified Code(s): K92.2 - Gastrointestinal hemorrhage, unspecified (2) Hematemesis Code(s): K92.0 - HEMATEMESIS (3) Alcohol dependence Code(s): F10.20 - ALCOHOL DEPENDENCE, UNCOMPLICATED (4) Alcoholic hepatitis with ascites Code(s): K70.11 - ALCOHOLIC HEPATITIS WITH ASCITES (5) HLD (hyperlipidemia) Code(s): E78.5 - HYPERLIPIDEMIA, UNSPECIFIED Qualifiers: Hyperlipidemia type: unspecified Qualified Code(s): E78.5 - Hyperlipidemia, unspecified (6) Hypertension Code(s): I10 - ESSENTIAL (PRIMARY) HYPERTENSION Qualifiers: Hypertension type: essential hypertension Qualified Code(s): I10 - Essential (primary) hypertension plan continue supportive treatment imaging studies noted rest as per the team
[2019-12-24 15:34] VITALS: BP 118/54; PULSE 88; TEMP 97.9
== END 2019-12-24 15:56 | disposition home or self-care (01) | DRG 378 ==
LOC: JER 05:16 → JERBED 11:11 → J8W 18:58
PROVIDERS: ADMIT Internal Medicine; ATTEND Internal Medicine
PROC: 30233K1 Transfusion of Nonautologous Frozen Plasma into Peripheral Vein, Percutaneous Approach (ICD-10-PCS; principal; 2019-12-21)
PROC: 0DJ08ZZ Inspection of Upper Intestinal Tract, Via Natural or Artificial Opening Endoscopic (ICD-10-PCS; 2019-12-21)
DX: K25.4 Chronic or unspecified gastric ulcer with hemorrhage (principal); N17.9 Acute kidney failure, unspecified; Z68.41 Body mass index [BMI] 40.0-44.9, adult; K92.0 Hematemesis; E66.01 Morbid (severe) obesity due to excess calories; I10 Essential (primary) hypertension; I25.10 Atherosclerotic heart disease of native coronary artery without angina pectoris; E78.5 Hyperlipidemia, unspecified; K25.9 Gastric ulcer, unspecified as acute or chronic, without hemorrhage or perforation; K70.11 Alcoholic hepatitis with ascites; E86.0 Dehydration; G47.00 Insomnia, unspecified; I85.00 Esophageal varices without bleeding; F10.20 Alcohol dependence, uncomplicated; K29.70 Gastritis, unspecified, without bleeding; K26.9 Duodenal ulcer, unspecified as acute or chronic, without hemorrhage or perforation; G47.30 Sleep apnea, unspecified; K76.0 Fatty (change of) liver, not elsewhere classified; K70.30 Alcoholic cirrhosis of liver without ascites; K21.9 Gastro-esophageal reflux disease without esophagitis; Z91.14 Patient's other noncompliance with medication regimen; Z95.5 Presence of coronary angioplasty implant and graft; Z95.1 Presence of aortocoronary bypass graft
CPT/HCPCS: 36415; 36430; 36511; 71045-TC-FY; 74178-TC; 80053; 82272; 82550; 82553; 84484; 85025; 85610; 86850; 86900; 86901; 86922; 93005; 93010; 99285-25; P9017; P9038; P9058; Q9967; U0003

== ENCOUNTER 2020-01-12 13:04 | Emergency (ER) | payer BC ==
[2020-01-12 13:10] VITALS: BMI 41.4
--- NOTE | 2020-01-12 13:10 | PDOC ---
Rapid Medical Evaluation Chief Complaint: Pain Time Seen by Provider: 01/12/20 13:09 Medical Evaluation: Allergies Allergy/AdvReac Type Severity Reaction Status Date / Time No Known Allergies Allergy Verified 01/12/20 13:08 01/12/20 13:09 I have performed a brief in-person evaluation of this patient The patient presents with a chief complaint of:back pain w/ ? LUE weakness. H/o ETOH cirrhosis Pertinent physical exam findings:appears uncomfortable I have ordered the following:labs The patient will proceed to the ED for further evaluation Discharge Disposition - Diagnosis Back pain Qualifiers: Back pain location: low back pain Chronicity: unspecified Back pain laterality: unspecified Sciatica presence: unspecified whether sciatica present Qualified Code(s): M54.5 - Low back pain - Referrals - Patient Instructions - Post Discharge Activity
--- NOTE | 2020-01-12 14:29 | PDOC ---
History of Present Illness - General Chief Complaint: Pain Stated Complaint: LEG PAIN Time Seen by Provider: 01/12/20 13:09 History Source: Patient Exam Limitations: No Limitations - History of Present Illness Initial Comments: 01/12/20 14:27 55-year-old male presents to ED with complaints of bilateral leg pain worsening on the left side along with low back pain. Patient denies weakness, paresthesia, swelling, or skin discoloration. Patient states history of liver cirrhosis, GI bleed, obesity, CAD, hypertension, and dyslipidemia along with low back pain. Is this a multiple visit Asthma Patient?: No Timing/Duration: constant Severity: mild Associated Symptoms: reports: other Past History - Travel History Traveled outside of the country in the last 30 days: No Close contact w/someone who was outside of country & ill: No - Medical History Allergies/Adverse Reactions: Allergies Allergy/AdvReac Type Severity Reaction Status Date / Time No Known Allergies Allergy Verified 01/12/20 13:08 Home Medications: Ambulatory Orders Multivitamins [Multivit ([facility])] 1 tab PO DAILY 07/13/17 Thiamine HCl [B-1] 100 mg PO DAILY 07/13/17 Lactulose (Oral Use) [Cephulac -] 20 gm PO DAILY #30 udc 07/16/17 Nadolol 20 mg PO DAILY #30 tablet 07/16/17 Pantoprazole Sodium [Protonix -] 40 mg PO BID #60 tablet 12/24/19 Anemia: No Asthma: No Cancer: No Cardiac Disorders: Yes (Hx. of Arterial Blockage.) CVA: No COPD: No CHF: No Dementia: No Diabetes: No GI Disorders: Yes (acid reflux) Disorders: No HTN: Yes (Non-Compliant with meds. due to sdie effects.) Hypercholesterolemia: Yes Kidney Stones: No Liver Disease: Yes Seizures: No Thyroid Disease: No - Surgical History Abdominal Surgery: No Appendectomy: No Cardiac Surgery: Yes (3 cardiac stents/open heart sx in 2012) Cholecystectomy: No Lung Surgery: No Neurologic Surgery: No Orthopedic Surgery: No - Reproductive History Testicular Surgery: No - Immunization History Immunization Up to Date: No - Psycho-Social/Smoking History Patient Lives Alone: No Lives with/in: spouse/SO Smoking Status: Yes Smoking History: Never smoked Have you smoked in the past 12 months: No Number of Cigarettes Smoked Daily: 10 If you are a former smoker, when did you quit?: 2010 Cigars Per Day: 0 'Breaking Loose' booklet given: 07/10/17 Review of Systems - Review of Systems Able to Perform ROS?: Yes Constitutional: No: Symptoms Reported HEENTM: No: Symptoms Reported Respiratory: No: Symptoms reported Cardiac (ROS): No: Symptoms Reported ABD/GI: No: Symptoms Reported : No: Symptoms Reported Musculoskeletal: Yes: Back Pain, Joint Pain, Muscle Pain Integumentary: No: Symptoms Reported Neurological: No: Symptoms reported Endocrine: No: Symptoms Reported Hematologic/Lymphatic: No: Symptoms Reported *Physical Exam - Vital Signs Last Vital Signs Temp Pulse Resp BP Pulse Ox 95 H 18 127/72 99 01/12/20 13:01/12/20 13:01/12/20 13:01/12/20 13:09 - Physical Exam General Appearance: Yes: Nourished, Appropriately Dressed. No: Apparent Distress HEENT: positive: Scleral Icterus (R), Scleral Icterus (L). negative: Pale Conjunctivae Neck: positive: Supple Respiratory/Chest: positive: Lungs Clear, Normal Breath Sounds. negative: Respiratory Distress, Accessory Muscle Use Cardiovascular: positive: Regular Rhythm, Regular Rate. negative: Murmur Gastrointestinal/Abdominal: positive: Soft. negative: Tenderness Musculoskeletal: positive: Vertebral Tenderness (L4-L5). negative: CVA Tenderness Integumentary: positive: Dry, Warm, Jaundice Neurologic: positive: Normal Mood/Affect, Motor Strength 5/5 (Ambulatory) ED Treatment Course - LABORATORY CBC & Chemistry Diagram: 01/12/20 14:15 01/12/20 14:15 - RADIOLOGY Radiology Studies Ordered: Category Date Time Status LUMBAR SPINE CT W/O CONTRAST [CT] Stat CT Scan 01/12/20 14:07 Ordered Medical Decision Making - Medical Decision Making 01/12/20 14:42 Chief complaint: Bilateral lower extremity pain worsening over the past few days along with low back pain. Exam: Patient with 5 out of 5 lower extremity strength with L4-L5 tenderness. Vital signs stable. Patient transferred from wheelchair to stretcher without assistance Plan: CBC, comp, urine along with lumbar CT 01/12/20 16:59 Laboratory Tests 12/22/19 12/24/19 01/12/20 06:40 06:15 14:15 WBC 9.7 Hgb 8.9 L Hct 27.9 L RDW 22.9 H Monocytes % 11.7 H Sodium Potassium Chloride Carbon Dioxide Anion Gap BUN Creatinine Est GFR (CKD-EPI)AfAm Est GFR (CKD-EPI)NonAf Random Glucose Calcium Total Bilirubin AST 456 H 558 H ALT 130 H 189 H Albumin Urine Protein Urine Ketones Urine Blood Urine Nitrite Urine Bilirubin Ur Leukocyte Esterase Urine WBC (Auto) Urine Bacteria (Auto) 01/12/20 01/12/20 14:15 14:15 WBC Hgb Hct RDW Monocytes % Sodium 137 Potassium 4.7 Chloride 103 Carbon Dioxide 25 Anion Gap 9 BUN 13.0 Creatinine 1.3 Est GFR (CKD-EPI)AfAm 71.69 Est GFR (CKD-EPI)NonAf 61.86 Random Glucose 89 Calcium 8.1 L Total Bilirubin 5.3 H D AST 1304 H ALT 223 H Albumin 2.6 L Urine Protein 3+ H Urine Ketones Negative Urine Blood 3+ H Urine Nitrite Negative Urine Bilirubin 2+ H Ur Leukocyte Esterase 1+ H Urine WBC (Auto) 33 Urine Bacteria (Auto) 2 . .Patient sitting upright and eating. Awaiting CT report. Noted patient's elevated LFTs. Although patient has no signs of increased lower extremity edema or abdominal pain with nausea vomiting, Call placed to patient's primary care physician Dr. Devan Hagen. 01/12/20 17:03 CT shows mild degenerative spinal stenosis at L3-L4 and L4-L5 level. L5-S1 with mild central disc bulge and mild bilateral lateral disc osteophyte complex reaching both L5 nerve roots, possibly slightly impinging the right. There is also mild to moderate bilateral facet hyper hypertrophy. Small amount of free fluid/ascites again seen around the liver as well as minimal left pleural effusion. 01/12/20 17:35 Laboratory Tests 01/12/20 14:15 U Pathogenic Cast Auto Moderate U Sm Round Cell (Auto) None seen Call again placed to Dr. Alvarez/ Xiao. Patient otherwise comfortable sitting in chair. 01/12/20 17:45 After discussing the plan with patient patient disclosed that his medication was changed recently by Dr. Pacheco last week. This is a concern for his elevated LFT call placed to Dr. Pacheco. 01/12/20 18:[address] Alvarez who is aware of patient's complaint along with physical findings and CT findings. She understands the patient may require admission and I will contact her after speaking with Dr. Pacheco. 01/12/20 18:44 Patient requesting to leave and wants to sign out AMA. I have contacted Dr. Pacheco service who has placed on other call to him. Patient states will call Dr. Pacheco tomorrow and discuss findings 01/13/20 15:22 Called patient to see how he is doing because he left and did not want want to stay. He states he feels tired and did not get to speak with as he had discussed with me prior to leaving. I told hiyung I did speak with Dr. Pacheco who wanted him to be admitted for acute hepatic failure. I recommended for him to call ambulance but he says if he wants to leave the hospital, he will have no transportation. I again recommended someone to drive him or call for ambulance. He said no but agreed to come back to the ED Discharge - Discharge Information Problems reviewed: Yes Clinical Impression/Diagnosis: Jaundice, Elevated LFTs Back pain Qualifiers: Back pain location: low back pain Chronicity: unspecified Back pain laterality: unspecified Sciatica presence: unspecified whether sciatica present Qualified Code(s): M54.5 - Low back pain Condition: Fair Disposition: AGAINST MEDICAL ADVICE - Follow up/Referral Referrals: Devan Hagen MD [Primary Care Provider] - Talha Pacheco MD [Staff Physician] - - Patient Discharge Instructions Patient Printed Discharge Instructions: DI for Cirrhosis Additional Instructions: Please follow-up with Dr. Rodriguez tomorrow as discussed. Dr. Alvarez was also aware of today's visit and findings. Return to ED if your symptoms worsen otherwise you could take Motrin 400 to 600 mg every 8 hours for discomfort - Post Discharge Activity
[2020-01-12 15:35] LABS: BASO % 0.6 % (0-2.0); EOS % 0.8 % (0-4.5); HEMATOCRIT 27.9 % (35.4-49); HEMOGLOBIN 8.9 GM/dL (11.7-16.9); MCH 24.5 pg (25.7-33.7); MEAN CELL VOLUME 76.5 fl (80-96); MEAN PLT VOLUME 9.2 fl (7.5-11.1); MONO % 11.7 % (3.8-10.2); NEUT % 68.9 % (42.8-82.8); PLATELET COUNT 144 K/MM3 (134-434); RBC 3.64 M/mm3 (4.00-5.60); RDW 22.9 % (11.9-15.9); WHITE BLOOD COUNT 9.7 K/mm3 (4.0-10.0)
[2020-01-12 16:08] LABS: ALBUMIN 2.6 g/dl (3.4-5.0); BILIRUBIN,TOTAL 5.3 mg/dL (0.2-1); CALCIUM 8.1 mg/dL (8.5-10.1); CREATININE 1.3 mg/dL (0.55-1.3); POTASSIUM 4.7 mmol/L (3.5-5.1); TOT PROT 6.4 g/dl (6.4-8.2)
[2020-01-12 16:38] LABS: EPI CELLS >36 /uL (0-25.1); HYALINE CASTS 24 /uL (0-3.1); PH,URINE 5.5 (5.0-8.0); URINE APPEARANCE CLOUDY; URINE BACTERIA 2 /uL (0-1359); URINE BILIRUBIN 2+ (NEGATIVE); URINE COLOR ORANGE; URINE GLUCOSE (UA) NEGATIVE (NEGATIVE); URINE KETONE NEGATIVE (NEGATIVE); URINE LEUK ESTERASE 1+ (NEGATIVE); URINE NITRITE NEGATIVE (NEGATIVE); URINE PROTEIN 3+ (NEGATIVE); URINE RBC 14 /uL (0-23.9); URINE WBC 33 /uL (0-25.8)
[2020-01-12 18:59] VITALS: BP 124/68; PULSE 81; TEMP 98.2
== END 2020-01-12 18:59 | disposition left against medical advice (07) ==
LOC: JER 13:04
DX: M54.5 Low back pain (principal); R17 Unspecified jaundice
CPT/HCPCS: 36415; 72131-TC; 80053; 81003; 85025; 87086; 99284-25

== ENCOUNTER 2020-01-13 15:55 | Inpatient (IN) | payer BC ==
--- NOTE | 2020-01-13 16:52 | PDOC ---
History of Present Illness - General Chief Complaint: Weakness Stated Complaint: BODY ACHE/WEAKNESS Time Seen by Provider: 01/13/20 15:58 - History of Present Illness Initial Comments: Pt is a 55yo M with PMH cirrhosis, GI bleed, CAD s/p CABG and stents, HTN, HLD who presents with with weakness, SOB. Pt was seen here yesterday for leg pain and was subsequently found to have elevated LFTs - pt left AMA and COMPUTATIONAL CHEMIST called patient who agreed to return to ED. Pt states that he has had noticeable weakness and worsening SOB for two days. Reports confusion - "pain is so bad, it is hard to think." Pt states that he has been taking Motrin for his leg pain without improvement Denies f/c, chest pain, abdominal pain, n/v,diarrhea/constip ation, melena/hematochezia. PCP: Devan Hagen GI: [facility] PMH: see above Meds: see chart Allergies: NKDA Social: denies RAMIREZ; states last etoh use was 40 days ago, prior to last admission Review of Systems CONSTITUTIONAL: reports generalized weakness; denies fever, chills, diaphoresis, malaise, loss of appetite HEENT: denies rhinorrhea, nasal congestion, sore throat, visual changes CARDIOVASCULAR: denies chest pain, syncope, palpitations, irregular heart rate, lightheadedness, peripheral edema RESPIRATORY: report SOB, ARTIS; denies cough, orthopnea, wheezing, hemoptysis GASTROINTESTINAL: denies abdominal pain, nausea, vomiting, diarrhea, constipation, melena, hematochezia GENITOURINARY: denies dysuria, frequency, urgency, hematuria, flank pain MUSCULOSKELETAL: reports back pain HEMATOLOGIC/IMMUNOLOGIC: denies easy bleeding, easy bruising ENDOCRINE: denies unexplained weight gain, unexplained weight loss NEUROLOGIC: denies headache, loss of consciousness, focal weakness or paresthesias, dizziness, bladder or bowel incontinence SKIN: denies rash, itching, pallor Physical Exam General: awake, alert, fully oriented, in no acute distress, well developed, well nourished Head: normocephalic, atraumatic Eyes: PERRL, EOMI, icteric sclera, conjunctiva clear ENT: hearing grossly normal, oropharynx clear without exudates, dry mucous membr anes Neck: supple, normal ROM Lung: equal breath sounds b/l, CTA b/l, no crackles, wheezes; no distress, speaks full sentences Heart: RRR, normal S1, S2, no murmurs appreciated Abdomen: soft, non tender, normoactive bowel sounds, no guarding, rebound, masses Extremities: no edema, no erythema or tenderness, DP/PT pulses 2+ and symmetric, no clubbing, cyanosis Neuro: CN2-12 grossly intact, moves all extremities 5/5 motor strength in bl UE, normal speech, sensation intact Skin: warm, dry, normal skin turgor, capillary refill <2 seconds, no rashes or lesions noted MDM Pt is a 55yo M with PMH cirrhosis, GI bleed, CAD s/p CABG and stents, HTN, HLD who presents with with weakness, SOB. Vitals WNL DDx including but not limited to: acute liver failure, hepatic encephalopathy, rhabdomyolysis, HERI, elevated troponin Workup: labs, cxr, ekg EKG: normal sinus rhythm, HR 82bpm, ID 150ms, QRS 96ms, QTc 490ms, new TWI in V3 CXR - no pneumothorax or pleural effusion. midline airway, appropriate vascular markings, no blunting of costophrenic angle, no cardiomegaly, as read by ED staff ED course Labs: no leukocytosis, anemia, thrombocytopenia, slight hyponatremia, HERI, transaminitis (AST 1605, ALT 272), Ammonia 74.20, rhabdomyolysis, elevated troponin (0.07) - Will order 1L NS 01/13/20 17:[address] Alicea(?) covering for Dr. Pacheco, who notes that Dr. Pacheco will follow patient tomorrow. Pt reported melena to attending; w/specks of hematemesis during her interview - ordered Protonix, Zofran 01/13/20 18:48 Will order 1g Rocephin Will order lactulose Pending Spiral CT (given UA from yesterday with hematuria concern for kidney stones) Pending RUQ US (given elevated LFTs) Pending labs Pt signed out to night team Disposition Admit Past History - Medical History Allergies/Adverse Reactions: Allergies Allergy/AdvReac Type Severity Reaction Status Date / Time No Known Allergies Allergy Verified 01/12/20 13:08 Home Medications: Ambulatory Orders Multivitamins [Multivit ([facility] Form[facility])] 1 tab PO DAILY 07/13/17 Thiamine HCl [B-1] 100 mg PO DAILY 07/13/17 Lactulose (Oral Use) [Cephulac -] 20 gm PO DAILY #30 udc 07/16/17 Nadolol 20 mg PO DAILY #30 tablet 07/16/17 Pantoprazole Sodium [Protonix -] 40 mg PO BID #60 tablet 12/24/19 Anemia: No Asthma: No Cancer: No Cardiac Disorders: Yes (Hx. of Arterial Blockage.) CVA: No COPD: No CHF: No Dementia: No Diabetes: No GI Disorders: Yes (acid reflux) Disorders: No HTN: Yes (Non-Compliant with meds. due to sdie effects.) Hypercholesterolemia: Yes Kidney Stones: No Liver Disease: Yes Seizures: No Thyroid Disease: No Other medical history: ? cirrhosis of liver - Surgical History Abdominal Surgery: No Appendectomy: No Cardiac Surgery: Yes (3 cardiac stents/open heart sx in 2012) Cholecystectomy: No Lung Surgery: No Neurologic Surgery: No Orthopedic Surgery: No - Reproductive History Testicular Surgery: No - Immunization History Immunization Up to Date: No - Psycho-Social/Smoking History Smoking Status: Yes Smoking History: Former smoker Have you smoked in the past 12 months: No Number of Cigarettes Smoked Daily: 10 If you are a former smoker, when did you quit?: 2010 Cigars Per Day: 0 Information on smoking cessation initiated: No 'Breaking Loose' booklet given: 07/10/17 - Substance Abuse Hx (Audit-C & DAST Scrn) How often the patient has a drink containing alcohol: Monthly or less Number of drinks the patient has on a typical day: 1 or 2 How often the patient has six or more drinks on one occasion: Monthly Score: In Men: 4 or > Positive; In Women: 3 or > Positive: 3 Screen Result (Pos requires Nsg. Audit-10AR): Negative In the last yr the pt used illegal drug/Rx for NonMed reason: No Score: Yes response is considered Positive: 0 Screen Result (Positive result requires Nsg. DAST-10): Negative *Physical Exam - Vital Signs Last Vital Signs Temp Pulse Resp BP Pulse Ox 98.5 F 82 16 134/68 99 01/13/20 15:57 01/13/20 15:57 01/13/20 15:57 01/13/20 15:57 01/13/20 16:15 ED Treatment Course - LABORATORY CBC & Chemistry Diagram: 01/17/20 05:35 01/23/20 05:45 Discharge - Discharge Information Problems reviewed: Yes Clinical Impression/Diagnosis: Leg cramping, Vomiting, Hyperammonemia, HERI (acute kidney injury), Rhabdomyolysis, Transaminitis Condition: Guarded - Follow up/Referral - Patient Discharge Instructions - Post Discharge Activity
[2020-01-13 17:06] LABS: BASO % 0.7 % (0-2.0); EOS % 2.2 % (0-4.5); HEMATOCRIT 29.1 % (35.4-49); HEMOGLOBIN 9.2 GM/dL (11.7-16.9); MCHC 31.6 g/dl (32.0-35.9); MEAN CELL VOLUME 75.7 fl (80-96); MONO % 11.2 % (3.8-10.2); NEUT % 67.9 % (42.8-82.8); PLATELET COUNT 158 K/MM3 (134-434); RBC 3.85 M/mm3 (4.00-5.60); RDW 22.6 % (11.9-15.9); WHITE BLOOD COUNT 9.8 K/mm3 (4.0-10.0)
[2020-01-13 17:39] LABS: ALBUMIN 2.5 g/dl (3.4-5.0); ALK PHOS 84 U/L (45-117); ANION GAP 10 MMOL/L (8-16); BILIRUBIN,TOTAL 4.6 mg/dL (0.2-1); CALCIUM 8.2 mg/dL (8.5-10.1); CHLORIDE 103 mmol/L (98-107); CO2 21 mmol/L (21-32); CREATININE 2.7 mg/dL (0.55-1.3); GLUCOSE,RANDOM 100 mg/dL (74-106); POTASSIUM 3.7 mmol/L (3.5-5.1); SGPT/ALT 272 U/L (13-61); SODIUM 134 mmol/L (136-145)
[2020-01-13] MEDS ORDERED: SODIUM CHLORIDE 0.9% 500 ML INFUS.BAG IV ONE (17:47)
[2020-01-13 18:20] LABS: SGOT/AST 1605 U/L (15-37)
[2020-01-13] MEDS ORDERED: PANTOPRAZOLE SODIUM 40 MG VIAL IVPUSH ONE (18:31)
[2020-01-13] MEDS ORDERED: ONDANSETRON 4 MG/2 ML VIAL IVPUSH ONE (18:31)
[2020-01-13] MEDS ORDERED: LACTULOSE 20 GM/30 ML UDC (FOR ORAL USE ONLY) PO ONE (18:49)
[2020-01-13] MEDS ORDERED: CEFTRIAXONE 1 GM in DEXTROSE 5%-WATER - 50 ML IVPB ONE (18:49)
--- NOTE | 2020-01-13 18:51 | PDOC ---
Documentation entered by Essence Hutchinson SCRIBE, acting as scribe for Sofiya Wong DO. Sofiya Wong DO: This documentation has been prepared by the lizeth, Essence Hutchinson SCRIBE, under my direction and personally reviewed by me in its entirety. I confirm that the documentation accurately reflects all work, treatment, procedures, and medical decision making performed by me. Attending Attestation - Resident Resident Name: Rachel Connolly - ED Attending Attestation I have performed the following: I have examined & evaluated the patient, The case was reviewed & discussed with the resident, I agree w/resident's findings & plan, Exceptions are as noted - HPI HPI: 01/13/20 17:25 Patient is a 55 year old male with a significant past medical history of hypertension, hyperlipidemia, cirrhosis, GI bleed, CAD s/p CABG, and stents, who presents to the ED for further eval of elevated lft. Pt was seen yesterday for leg pain, labs showed elevated lft, the patient left AMA. Today he returns for further evaluation. No abd pain. C/o nausea. States he saw Dr. Pacheco 2 days ago and states he did have blood in his stool at that time. Pt states he has been taking motrin for leg and back pain every 4-5 hours. Pt states he also has had a change in his sleep/wake cycle. Allergies: NKDA 01/13/20 18:51 - Physicial Exam PE: 01/13/20 18:36 Gen: awake, but sleepy heent: EOMI, icteric eyes, dry mm neck: supple heart: +s1s2 reg lungs: diminished bs b/l bases otherwise clear abd: soft, obese, no fluid wave, no ttp ext: swelling to b/l LE, pulses intact neuro: sleepy but arousable, aaox3, but drowsy, no focal deficits - Medical Decision Making 01/13/20 18:45 a/p: 55yo male with cirrhosis, hepatic encephalopathy, elevated lft from yesterday -pt left ama -pt returns for transaminitis to 1300, left ama, returns today for admission -no abd pain -1 episode of vomiting with specks of blood -pt today with HERI, has been taking motrin, also with ck >[id number] -ivf hydration running -ct abd/pelvis and RUQ ultrasound ordered -no fevers, no abd pain - low suspicion for SBP, but will cover with rocephin -will need admission 01/13/20 18:50 trop 0.07, but no cp pt only c/o lbp and leg pain suspect leg pain for which he is taking motrin from [facility] will need admission 01/13/20 18:51 cxr clear 01/13/20 23:36 cirrhosis on ultrasound with ascites and pt with ascites on ct no abd pain resident discussed the case with DR. Alvarez who accepts the patient to service Heart Score/ECG Review - ECG Intrepretation Comment:: 01/13/20 18:49 sinus at 82, nl axis, nl interval, t wave inversions v2,v3, abnl ekg Discharge - Discharge Information Problems reviewed: Yes Clinical Impression/Diagnosis: Leg cramping, Vomiting, Hyperammonemia, HERI (acute kidney injury), Rhabdomyolysis, Transaminitis Condition: Guarded - Admission Yes - Follow up/Referral - Patient Discharge Instructions - Post Discharge Activity
[2020-01-13] MEDS ORDERED: PANTOPRAZOLE SODIUM 40 MG VIAL ONE (19:30)
[2020-01-13] MEDS ORDERED: CEFTRIAXONE 1 GM/50 ML BAG ONE (19:30)
[2020-01-13] MEDS ORDERED: LACTULOSE 20 GM/30 ML UDC (FOR ORAL USE ONLY) ONE (19:30)
[2020-01-13 20:08] LABS: INR 1.79 (0.83-1.09); PROTHROMBIN TIME (PATIENT) 21.3 SEC (9.7-13.0)
[2020-01-13 20:10] LABS: ACTIVATED PTT 38.3 SECONDS (25.2-36.5)
[2020-01-13 20:51] LABS: EPI CELLS >36 /uL (0-25.1); HYALINE CASTS 21 /uL (0-3.1); URINE APPEARANCE TURBID; URINE BACTERIA 24 /uL (0-1359); URINE BILIRUBIN 2+ (NEGATIVE); URINE COLOR DK YELLOW; URINE GLUCOSE (UA) TRACE (NEGATIVE); URINE KETONE TRACE (NEGATIVE); URINE LEUK ESTERASE TRACE (NEGATIVE); URINE NITRITE NEGATIVE (NEGATIVE); URINE PROTEIN 2+ (NEGATIVE); URINE WBC 334 /uL (0-25.8)
[2020-01-13 20:57] LABS: COCAINE, UR NEGATIVE ng/ml (CUTOFF=300); METHADONE, UR NEGATIVE ng/ml (CUTOFF=300); PHENCYCLIDINE,URINE NEGATIVE ng/ml (CUTOFF=25); URINE AMPHETAMINES NEGATIVE ng/ml (CUTOFF=500); URINE BARBITURATES NEGATIVE ng/ml (CUTOFF=200); URINE BENZODIAZEPINES NEGATIVE ng/ml (CUTOFF=200)
[2020-01-13 21:02] LABS: OPIATES, URI NEGATIVE ng/ml (CUTOFF=300)
[2020-01-13 21:20] LABS: URINE RBC 285.8 /uL (0-23.9)
--- OUTSIDE RECORDS SUMMARY | 2020-01-13 21:32 | XMS ---
:1965 Author Organization [facility] Care Team Providers Name Role Phone MICHELLE KEVINNICOLA Unavailable Unavailable LYNNETTE CARBAJAL Unavailable Unavailable JUS MADSEN Unavailable Unavailable PITER YUN Unavailable Unavailable Re-disclosure Warning The records that you are about to access may contain information from federally- assisted alcohol or drug abuse programs. If such information is present, then the following federally mandated warning applies: This information has been disclosed to you from records protected by federal confidentiality rules (42 CFR part 2). The federal rules prohibit you from making any further disclosure of this information unless further disclosure is expressly permitted by the written consent of the person to whom it pertains or as otherwise permitted by 42 CFR part 2. A general authorization for the release of medical or other information is NOT sufficient for this purpose. The Federal rules restrict any use of the information to criminally investigate or prosecute any alcohol or drug abuse patient.The records that you are about to access may contain highly sensitive health information, the redisclosure of which is protected by Article 27-F of the [facility] Public Health law. If you continue you may haveaccess to information: Regarding HIV / AIDS; Provided by facilities licensed or operated by the [facility] Office of Mental Health; or Provided by the [facility] Office for People With Developmental Disabilities. If such information is present, then the following [facility] mandated warning applies: This information has been disclosed to you from confidential records which are protected by state law. State law prohibits you from making any further disclosure of this information without the specific written consent of the person to whom it pertains, or as otherwise permitted by law. Any unauthorized further disclosure in violation of state law may result in a fine or nursing home sentence or both. A general authorization for the release of medical or other information is NOT sufficient authorization for further disclosure. Encounters Encounter Providers Location Date Indications Data Source(s ) Inpatient Attender: COURT, 11/07/2018 ALCOHOL WITHDRAWAL [facility] ARIFAttender: 09:34:00 AM Health Car e [facility], MICHELLE EDT - Corporat ion SASIDHARAttender: 11/11/2018 TENA, 07:14:00 PM TEJINDERANILAdmitt EDT er: LYNNETTE CARBAJAL ALCOHOL WITHDRAWAL Outpatient Attender: TENA, 11/06/2018 ALCOHOL [facility] TEJINDERPALAttender: 06:07:00 PM EDT [facility], MICHELLE Care Cor poration SASIDHARAttender: RAVEN ERICAdmitter: LYNNETTE CARBAJAL ALCOHOL WITHDRAWAL Outpatient Attender: RAVEN, 11/06/2018 11:56:00 CHEST PAIN [facility] ERICAdmitter: RAVEN AM EDT [facility] [employer]NN[employer] CHEST PAIN Immunizations Vaccine Date Status Description Data Source(s) This code applies to any completed [facility] standard pediatric Care Elissa oration formulation of Hepatitis B vaccine. It should not be used for the 2-dose hepatitis B schedule for adolescents (11-15 year olds). It requires Merck's Recombivax HB adult formulation. Use code 43 for that vaccine. Medications Medication Brand Start Product Dose Route Administrative Pharmacy [facility] Indications Reaction Description Data Name Date Form Instructions Instructions Source(s) Metoprolol Metopr complet [place] Tartrate 25 olol ed r County MG Oral Tartra Health Tablet te [25 Care Metoprolol mg Corporati o Tartrate Tablet n [25 mg ]: 25 Tablet]: 25 MG MG Oral Oral EVERY 12 EVERY HOURS 12 HOURS Thiamine Vitami complet [place] 100 MG Oral n B-1 ed r Count y Tablet ([facility] Vitamin B-1 ine Care (Thiamine HCl) Corporatio HCl) [100 [100 n mg Tablet]: mg 1 Tablet Tablet Oral DAILY ]: 1 Tablet Oral DAILY Folic Acid Folic complet [facility] heste 1 MG Oral Acid ed r [facility] Tablet [1 mg Health Folic Acid Tablet Care [1 mg ]: 1 Corporatio Tablet]: 1 MG n MG Oral Oral DAILY IN DAILY MORNING IN MORNIN G Aspirin 81 Childr complet [place] MG Chewable en's ed [facility] Tablet [facility] Care Aspirin (Aspir Corporatio (Aspirin) in) n [81 mg [81 mg Tablet]: 81 Tablet MG Oral ]: 81 DAILY IN MG MORNING Oral DAILY IN MORNIN G Rosuvastati Rosuva complet Sunday tcheste n calcium statin ed [facility] 10 MG Oral [10 mg Health Tablet Tablet Care Rosuvastati ]: 10 Corpora alea n [10 mg MG n Tablet]: 10 Oral MG Oral DAILY DAILY IN IN EVENING JESSICA G Insurance Providers Payer name Policy type Policy ID Covered Covered constitution party's Policy P dinah / Coverage constitution party ID relationship to [facility] ormation type lucas BC OUT OF [id number] SP [id number] [facility] [id number] SP [id number] SOLUTIONS HMO [id number] SP [id number] [employer] [id number] SP [id number] HMO [employer] [id number] SP [id number] [facility] [id number] SP [id number] PLAN CIGNA [id number] SP [id number] [id number] SP [id number] PLAN CIGNA [id number] SP [id number] SELF PAY [facility] [id number] SP [id number] SOLUTIONS PPO [id number] SP [id number] Problems, Conditions, and Diagnoses Code Display Name Description Problem Type Effective Data Sour ce(s) Dates Z87.891 Personal history of PERSONAL HISTORY Diagnosis 11/11/2018 [place] nicotine dependence OF NICOTINE 07:14:00 PM [facility] DEPENDENCE EDT Care InboxQ E78.5 Hyperlipidemia, HYPERLIPIDEMIA, Diagnosis 11/11/2018 [place] unspecified UNSPECIFIED 07:14:00 PM [facility] [employer] Z95.1 Presence of PRESENCE OF Diagnosis 11/11/2018 [place] aortocoronary AORTOCORONARY 07:14:00 [facility] bypass graft BYPASS GRAFT EDT Care InboxQ I25.10 Atherosclerotic ATHSCL HEART Diagnosis 11/11/2018 [facility] heart disease of DISEASE OF [place] 07:14:00 PM [facility] [place] coronary CORONARY ARTERY EDT Care artery without W/O ANG PCTRS Corpora tion angina pectoris K70.30 Alcoholic cirrhosis ALCOHOLIC Diagnosis 11/11/2018 [facility] velasquez of liver without CIRRHOSIS OF 07:14:00 PM [facility] ascites LIVER WITHOUT EDT Care ASCITES InboxQ F10.239 Alcohol dependence ALCOHOL Diagnosis 11/11/2018 [facility] dean with withdrawal, DEPENDENCE WITH 07:14:00 PM [facility] unspecified WITHDRAWAL, EDT Care UNSPECIFIED InboxQ R07.9 Chest pain, CHEST PAIN, Diagnosis 11/07/2018 [place] unspecified UNSPECIFIED 09:34:00 AM [facility] EDT Care InboxQ Results ID Date Data Source [id number] 12/21/2019 07:45:00 AM EDT [facility] Name Value Range Interpretation Description Data Sup porting Code Source(s) Document(s ) SARS [facility] coronavirus 2 RNA This lab was ordered by [facility] and reported by [facility]. ID Date Data Source [id number] 11/11/2018 06:05:48 PM EDT [facility] [id number] Corporation Name Value Range Interpretation Description Data Sup porting Code Source(s) Document(s ) Echo 2D [id number] [facility] <td> 11/07/2018 [facility] er M-Mode [id number] 13:49</td><td> [facility] [id number] Echo 2D M-Mode Health Care (TTE) Non-Invasive Complete (TTE) InboxQ Cardiology </td><td> Laboratory [id number] Advanced
[facility] Physician
Services, PC [id number] [address] [place] [address]
[place], [place] [id number] Phone [phone]

[phone] Fax Non-Invasive
Adult Cardiology Echocardiogram
Report Name: Jacquelin ZUNIGA
ROBERT Contreras Advanced
Study Date: Physician 11/07/2018
01:49 PM MRN: Services, PC [id number]
[address] BP: 151/75
mmHg : [place] 1965
[id number] Gender:
Male Age: 53 Phone [phone] yrs
[phone] Fax Height: 67 in
Account Number:
[id number] Adult Echocardiogram Weight: 240 lb Report BSA: 2.2 m2
Name: Patient ROBERT ZUNIGA Location: CDU F Reason For Study Date: Study: CHEST 11/07/2018 01:49 PAIN, PM UNSPECIFIED
MRN: Ordering [id number] Physician: RAINA MARSHALL, BP: 151/75 Performed By: Rebecca David
: KATIE Weber 1965 Interpretation Summary The Gender: Male left ventricle
is normal in Age: 53 yrs size. There is normal left ventricular Height: 67 in wall thickness.
Left Account Number: ventricular [id number] systolic Weight: function is 240 lb normal. Left
BSA: ventricular 2.2 m2 ejection
fraction is Patient 60%. There is Location: CDU hypokinesis and
scarring of the Reason For basal to mid Study: CHEST inferolateral PAIN, wall. The UNSPECIFIED right ventricle

is normal in Ordering size. The Physician: RAINA Rios, ventricular
systolic Performed By: function is Tia David, normal. Mild KATIE mitral valve

regurgitation. Interpretation There is no Summary pericardial
The effusion. left ventricle ICD-10 Chest is normal in pain, unspec - size. R07.9.
There Procedure A is normal left complete ventricular wall two-dimensional thickness. transthoracic
echocardiogram Left ventricular was performed systolic (2D, M-mode, function is spectral and normal. color flow
Left Doppler). ventricular (33840). Study ejection quality is fraction is 60%. good. A
Definity There is contrast hypokinesis and injection was scarring of the performed to basal to mid opacify the inferolateral left ventricle. wall. Left
The Ventricle The right ventricle left ventricle is normal in is normal in size. size. There is
The normal left right ventricular ventricular wall systolic thickness. Left function is ventricular normal. systolic
Mild function is mitral valve normal. Left regurgitation. ventricular
ejection There is no fraction is pericardial 60%. There is effusion. hypokinesis and

scarring of the ICD-10 basal to mid
inferolateral Chest pain, wall. unspec - R07.9. Right Ventricle The right

ventricle is Procedure normal in size.
A The right complete ventricular two-dimensional systolic transthoracic function is echocardiogram normal. was performed Left Atrium (2D, Indexed left
atrial volume M-mode, spectral is normal. and color flow Right Atrium Doppler). Normal right ([id number]). Study atrial size. quality is good. Aortic Valve A The aortic
valve is Definity trileaflet. contrast Normal injection was thickness performed to aortic valve opacify the left leaflets. ventricle. There is no

aortic Left stenosis. No Ventricle aortic
regurgitation. The left Mitral ventricle is Valve Normal normal in size. thickness There is normal mitral valve left ventricular leaflets. There wall is no mitral
valve stenosis. thickness. Left Mild mitral ventricular valve systolic regurgitation. function is Tricuspid normal. Left Valve Normal ventricular thickness
tricuspid valve ejection leaflets. There fraction is 60%. is no tricuspid There is stenosis. hypokinesis and Trivial scarring of the tricuspid valve basal to regurgitation.
mid Pulmonic inferolateral Valve Normal wall. thickness

pulmonic valve Right leaflets. There Ventricle is no pulmonic
valve The right stenosis. ventricle is Trivial normal in size. pulmonic valve The right regurgitation. ventricular Aorta The systolic aortic root is
normal in size. function is The visualized normal. area of

ascending aorta Left Atrium is normal in
size. The Indexed left visualized area atrial volume is of aortic arch normal. is normal in

size. Right Atrium Pulmonary
Artery There Normal right was atrial size. insufficient tricuspid

regurgitation Aortic Valve detected to
calculate The aortic valve pulmonary is trileaflet. artery systolic Normal thickness pressure. aortic valve Venous The leaflets. inferior vena
cava was not There is no visualized aortic stenosis. during the No aortic exam. regurgitation. Pericardium There is no

pericardial Mitral Valve effusion.
MMode/2D Normal thickness Measurements & mitral valve Calculations leaflets. There IVSd: 0.94 cm is no mitral valve stenosis. LVIDd: 4.8 cm
Mild mitral Ao root diam: valve LVIDs: 3.0 cm regurgitation. 3.2 cm LVPWd:

0.96 cm Tricuspid Valve LA
dimension: Normal 3.5 cm thickness tricuspid valve leaflets. There is no tricuspid stenosis. _ Asc Aorta
diam: 3.2 cm Trivial Left atrial tricuspid valve volume (2c): regurgitation. TAPSE: 1.8 cm Ao arch diam:

2.7 cm Pulmonic 53.9 ml Left Valve atrial volume
Normal (4c): 62.2 ml thickness pulmonic valve leaflets. There is no pulmonic valve
_ Left atrial stenosis. volume index Trivial pulmonic Left atrial valve volume index regurgitation. (2c): 24.7 ml/m2

(4c): 28.5 Aorta ml/m2
The Doppler aortic root is Measurements & normal in size. Calculations The visualized MV E max elizabeth: area of MV dec ascending aorta time:
Lat E' elizabeth: is normal in 10.2 cm/sec size. The 106.0 cm/sec visualized area 0.29 of aortic arch sec MV A max is normal in elizabeth: 74.6 size. cm/sec MV

E/A: 1.4 Pulmonary Artery
There was insufficient tricuspid _ Med E' regurgitation elizabeth: 9.8 cm/sec detected to E/E' Lateral: calculate 10.4 AV v max:
138.5 cm/sec pulmonary artery E/E' Medial: systolic 10.8 AV max pressure. P.7 mmHg

Venous
The inferior vena cava was not _ LVOT max visualized P.8 mmHg during the exam. PA v max: Pulm venous

sys elizabeth: LVOT Pericardium v max:
132.6 cm/sec There is no 75.4 pericardial cm/sec 120.8 effusion. cm/sec PA max PG:

7.0 mmHg Pulm MMode/2D venous way Measurements & elizabeth: 72.0 Calculations cm/sec Pulm A
venous revs IVSd: 0.94 cm elizabeth: 27.4 cm/sec Pulm LVIDd: 4.8 cm venous A Revs Ao Dur: 0.13 sec root diam: Pulm S/D: 1.0
LVIDs: 3.0 cm 3.2 cm
LVPWd: 0.96 cm _ RV E' LA elizabeth: 8.8 cm/sec dimension: E/E' Average:
10.6 RV S 3.5 cm elizabeth: 8.3 cm/sec

Asc Aorta diam: _ 3.2 cm Reading Left atrial Physician: MD volume (2c): Taylor Anders TAPSE: 1.8 cm 11/07/2018
04:46 PM Ao arch diam: 2.7 cm 53.9 ml
Left atrial volume (4c):
62.2 ml

Left atrial volume index Left atrial volume index

(2c): 24.7 ml/m2 (4c): 28.5 ml/m2

Doppler Measurements & Calculations
MV E max elizabeth: MV dec time: Lat E' elizabeth: 10.2 cm/sec
106.0 cm/sec 0.29 sec
MV A max elizabeth:
74.6 cm/sec
MV E/A: 1.4

Med E' elizabeth: 9.8 cm/sec E/E' Lateral: 10.4 AV v max: 138.5 cm/sec
E/E' Medial: 10.8 AV max P.7 mmHg

LVOT max P.8 mmHg PA v max: Pulm venous sys elizabeth:
LVOT v max: 132.6 cm/sec 75.4 cm/sec
120.8 cm/sec PA max P.[address] elizabeth:
72.0 cm/sec
Pulm A venous revs elizabeth:
27.4 cm/sec
Pulm venous A Revs Dur:
0.13 sec
Pulm S/D: 1.0

RV E' elizabeth: 8.8 cm/sec E/E' Average: 10.6
RV S elizabeth: 8.3 cm/sec

< br/>

Reading Physician:
MD Taylor Anders 11/07/2018 04:46 PM

</td> Nuclear [id number] [facility] <td> 11/10/2018 [facility] er Stress [id number] 12:52</td><td> County Test,Walk [id number] Nuclear Stress Health Care ing Non-Invasive Test,[facility] </td><td> Laboratory [id number] Advanced
[facility] Physician
Services, [id number] [address] [facility]
[place], [place] [id number] Phone [phone]

[phone] Fax Non-Invasive
Myocardial Cardiology Perfusion
Imaging Laboratory Regadenoson
(Lexiscan) Advanced Name: NADIA
ROBERT Contreras Physician
Study Date: Services, 11/10/2018
12:52 PM MRN: [address] [facility] [id number] :
1965 [place], [place]
Gender: [id number] Male Age: 53
yrs Phone [phone]
Height: 67 in [phone] Fax Account
Number: [id number]

Weight: 236 lb Myocardial BSA: 2.2 m2 Perfusion Patient Imaging Location: U
Reason For Regadenoson Study: Chest (Lexiscan) pain, unspec -
R07.9. Name: NADIA, History: CABG, ROBERT Contreras ETOH Hepatitis Study Medications: Date: 11/10/2018 ASA, Lopressor, 12:52 PM Vitamin B1
Ordering Physician:
RAINA MARSHALL, : 1965 Referring Physician: Gender: KANAPARTHY, Male MICHELLE STEWART
Age: 53 yrs Interpretation Summary Height: 67 in Normal
pharmacological Account stress and rest Number: [id number] perfusion imaging. Normal Weight: 236 lb global and
regional wall BSA: 2.2 m2 motion in all
territories. Patient Stress Location: CDU Results
Maximum Reason For Predicted HR: Study: Chest 168 bpm pain, unspec - Target HR: 143 R07.9. bpm %

Maximum History: CABG, Predicted HR: ETOH Hepatitis 49 %
Duration Heart Medications: Stage ASA, Lopressor, (mm:ss) Rate Vitamin B1 BP
Comment Ordering (bpm) Physician: Baseline RAINA MARSHALL, 73
120/87Sinus Referring Rhythm, Q-waves Physician: in III, AVF MICHELLE KEVIN Lexjosiasan; 1 SASIDHAR 1:00 83

122/62Sinus Interpretation Rhythm, Q-waves Summary in III, AVF/
min Normal pharmacological Dizziness stress and rest Lexiscan; 2 perfusion 1:00 75 imaging. Normal 106/63Sinus global and Rhythm, Q-waves
in III, AVF/ regional wall mins motion in all territories. Dizziness, Nausea

Lexiscan; 3 Stress Results 1:00 78
103/60Sinus Maximum Rhythm, Q-waves Predicted HR: in III, AVF/ 168 bpm mins
Target HR: 143 Dizziness, bpm % Nausea Maximum Recovery; 2 Predicted HR: 49 75 % 99/61Sinus

Rhythm, Q-waves Duration Heart in III, AVF/
mins Stage (mm:ss) Rate Dizziness BP Recovery; 4 Comment 75
114/88Sinus (bpm) Rhythm, Q-waves
in III, AVF/ Baseline mins 73 120/87Sinus Dizziness Rhythm, Q-waves Stress in III, AVF Duration:
3:00 mm:ss Lexiscan; 1 Maximum Stress 1:00 83 HR: 83 bpm 122/62Sinus ICD-10 Chest Rhythm, Q-waves pain, unspec - in III, AVF/ R07.9.
Risk Factors min The patient has a previous Dizziness history of
Hypertension. Lexiscan; 2 The patient has 1:00 75 a previous 106/63Sinus history of Rhythm, Q-waves Dyslipidemia. in III, AVF/ Former Smoker.
mins Medications/All ergies This Dizziness, patient has no Nausea known drug
allergies. Lexiscan; 3 Consent This 1:00 78 patient has 103/60Sinus been consented Rhythm, Q-waves for this in III, AVF/ procedure.
Procedure The mins patient was injected with Dizziness, 11.2mCi Tc99m Nausea Sestamibi IV at
rest. The Recovery; 2 patient was 75 injected with 99/61Sinus 33.5mCi Tc99m Rhythm, Q-waves Sestamibi IV at in III, AVF/ stress.
Injected by mins KA. Injection Site: left arm. Dizziness Lexiscan stress
with isotope. Recovery; 4 Rest ECG 75 Sinus Rhythm, 114/88Sinus Q-waves in III, Rhythm, Q-waves AVF. in III, AVF/ Stress ECG At
peak stress ECG mins showed No ST-T wave changes Dizziness from baseline. At peak

stress the Stress rhythm showedNo Duration: 3:00 significant mm:ss changes from
baseline. Maximum Stress Rest Perfusion HR: 83 bpm This is a

normal rest ICD-10 perfusion
study. Chest pain, Stress unspec - R07.9. Perfusion There are no

stress Risk Factors perfusion
defects. The patient has Wall Motion a previous The patient's history of ejection Hypertension. fraction was The patient has calculated at a 64%. Normal
global and previous history regional wall of Dyslipidemia. motion in all Former Smoker. territories. LV/RV Size

The left ventricle size Medications/Miquel is normal. The rgies right ventricle
This size is normal. patient has no Study known drug Quality allergies. Overall image

quality for Consent this study is
Good. Rest This patient has images are of been consented Good quality. for this Stress images procedure. are of Good

quality. Procedure
The patient was injected with 11.2mCi Tc99m Sestamibi IV at __ rest. The Reading
Physician: patient was Tabitha Trinh, injected with 11/10/2018 33.5mCi Tc99m 04:20 PM Sestamibi IV at Ordering stress. Injected Physician: by RAINA MARSHALL
RUDY. Referring Injection Site: Physician: left arm. Benji KEVIN stress MICHELLE PAT with isotope.

Rest ECG
Sinus Rhythm, Q-waves in III, AVF.

Stress ECG
At peak stress ECG showed No ST-T wave changes from baseline. At peak
stress the rhythm showedNo significant changes from baseline.

Rest Perfusion
This is a normal rest perfusion study.

Stress Perfusion
There are no stress perfusion defects.

Wall Motion
The patient's ejection fraction was calculated at 64%. Normal global and
regional wall motion in all territories.

LV/RV Size
The left ventricle size is normal. The right ventricle size is normal.

Study Quality
Overall image quality for this study is Good. Rest images are of Good
quality. Stress images are of Good quality.

< br/>
Reading Physician:
Tabitha Trinh MD 11/10/2018 04:20 PM
Ordering Physician: RAINA MARSHALL,
Referring Physician: MICHELLE KEVIN

</td> ID Date Data Source [id number] 11/11/2018 06:05:48 PM EDT [facility] [id number] Corporation Name Value Range Interpretation Description Data Sup porting Code Source(s) Document(s ) Dplx (PACSIMAGE <td> [place] Abdomen 11/07/2018 [facility]- ) Final 14:46</td><td> Care S Result Dplx Abdomen Corporation Name: Xenia ZUNIGA-US MOHAMMGUY F </td><td><para graph Sex: M : styleCode="Bridgette 1965 lics">(PACSIMA Location: [facility] Admitting Physician: )</paragraph>< TEJINDERPAL br/>
TENA Final Result Requesting Physician:

JAMIN Name: TERRY ZUNIGA Exam: US DPLX
ABDOMEN LIMITED Sex: M 11/07/2018
15:12 : INDICATION: 1965 Rule out Location: cirrhosis
TECHNIQUE: Admitting Limited Physician: ultrasound of TEJINDERPAL the abdomen TENA was performed
utilizing Requesting grayscale, Physician: color Doppler JAMIN and spectral TERRY display. COMPARISON:

None Exam: US DPLX FINDINGS: ABDOMEN The liver is LIMITED dense and 11/07/2018 echogenic, 15:12 limiting evaluation for

<br/ hepatic > masses. The INDICATION: liver measures Rule out 16.5 cm in cirrhosis longitudinal dimension.

The francisco TECHNIQUE: hepatis is not Limited identified and ultrasound of the common the abdomen bile duct is was performed not measured. utilizing Evidence of
intrahepatic grayscale, duct color Doppler dilatation. and spectral The display. gallbladder is not

identified. COMPARISON: The spleen None is normal in

echotexture FINDINGS: and measures 12.5 cm in

longitudinal The liver is dimension. dense and Trace ascites echogenic, is present. limiting DUPLEX: evaluation for Doppler hepatic evaluation of
the masses. The vasculature liver measures could not be 16.5 cm in performed// longitudinal IMPRESSION: dimension. Very
echogenic The francisco liver, may hepatis is not represent identified and steatosis. the common Limited bile duct evaluation..
is not Resident measured. Radiologist: Evidence of Laurie Keller MD duct Radiolody dilatation. Resident Attending

Radiologist: The Jessika Robles gallbladder is MD not Finalizing identified. Radiologist: Jessika Robles

The spleen is Transcribed normal in Date: echotexture 11/07/2018 and measures 15:17 12.5 cm in Finalized longitudinal Date:
11/07/2018 dimension. 18:39

Trace ascites is present.

DUPLEX:

Doppler evaluation of the vasculature could not be performed//

IMPRESSION:

Very echogenic liver, may represent steatosis. Limited evaluation..

<br/ >
Resident Radiologist: Laurie Keller MD Radiolody Resident
Attending Radiologist: Jessika Robles MD
Finalizing Radiologist: Jessika Robles MD
Transcribed Date: 11/07/2018 15:17
Finalized Date: 11/07/2018 18:39

</td > ID Date Data Source [id number] 11/11/2018 06:05:48 PM EDT [facility] [id number] Corporation Name Value Range Interpretation Description Data Sup porting Code Source(s) Document(s ) Hemoglobin 12.6 g/dL 14.0-1 <td> 11/11/2018 [place] [Mass/volume] 8.0 05:51</td><td> [facility] in Blood g/dL [facility] </td><td><[employer] styleCode="Bold "> 12.6 L </paragraph>
(14.0-18.0) g/dL </td> Erythrocytes 4.05 m/mm3 4.70-6 <td> 11/11/2018 [facility] [#/volume] in .10 05:51</td><td> [facility] Blood m/mm3 [facility] </td><td><[employer] styleCode="Bold "> 4.05 L </paragraph>
(4.70-6.10) m/mm3 </td> Erythrocyte 92.3 fL 80.0-9 <td> 11/11/2018 [place] mean 4.0 fL 05:51</td><td> [facility] [facility] corpus[facility] MCV </td><td> [facility] volume Corporation [Entitic 92.3 volume] by Automated
count (80.0-94.0) fL </td> Hematocrit 37.4 % 40.8-4 <td> 11/11/2018 [place] [Volume 6.9 % 05:51</td><td> [facility] Fraction] of HCT Health Care Blood by </td><td><yvonne InboxQ Automated raph count styleCode="Bold "> 37.4 L </paragraph>
(40.8-46.9) % </td> Leukocytes 7.2 k/mm3 4.8-10 <td> 11/11/2018 [place] [#/volume] in .8 05:51</td><td> [facility] Blood by k/mm3 WBC </td><td> [facility] Automated [employer] count 7.2
(4.8-10.8) k/mm3 </td> Erythrocyte 33.7 % 32.0-3 <td> 11/11/2018 [place] mean 6.0 % 05:51</td><td> [facility] corpuscular MCHC </td><td> Health Care hemoglobin Corporation concentration 33.7 [Mass/volume] in Blood from
Fetus by (32.0-36.0) % Automated </td> count Erythrocyte 19.6 % 11.5-1 <td> 11/11/2018 [place] distribution 4.5 % 05:51</td><td> [facility] width [Entitic RDW Health Care volume] by </td><td><[employer] Automated raph count styleCode="Bold "> 19.6 H </paragraph>
(11.5-14.5) % </td> Erythrocyte 31.1 pg 27.0-3 <td> 11/11/2018 [place] mean 1.5 pg 05:51</td><td> [facility] corpuscular MCH </td><td> [facility] Care hemoglobin [employer] [Entitic mass] 31.1 by Automated count
(27.0-31.5) pg </td> Platelet mean 11.3 fL 9.8-12 <td> 11/11/2018 [facility] r volume .8 fL 05:51</td><td> [facility] [Entitic MPV </td><td> Health Care volume] in InboxQ Blood by 11.3 Automated count
(9.8-12.8) fL </td> Basophils+Eosi 3.2 % 0.0-5. <td> 11/11/2018 [facility] er nophils+Monocy 0 % 05:51</td><td> [facility] domi [#/volume] Eosinophils Health Care in Blood by </td><td> [employer] Automated count 3.2
(0.0-5.0) % </td> Platelets 86 k/mm3 160-41 <td> 11/11/2018 [place] [#/volume] in 0 05:51</td><td> [facility] Blood by k/mm3 Platelet Count Health Care Automated </td><td><[employer] count raph styleCode="Bold "> 86 L </paragraph>
(160-410) k/mm3 </td> Lymphocytes 31.7 % 16.0-5 <td> 11/11/2018 [place] [#/volume] in 0.0 % 05:51</td><td> [facility] Blood by Lymphocytes Health Care Automated </td><td> Corporation count 31.7
(16.0-50.0) % </td> Monocytes/Leuk 11.3 % 0.0-11 <td> 11/11/2018 [facility] er ocytes [Pure .0 % 05:51</td><td> [facility] number Monocytes. Health Care fraction] in </td><td><yvonne Corporation Blood by raph Automated styleCode="Bold count "> 11.3 H </paragraph>
(0.0-11.0) % </td> Basophils 0.6 % 0.0-2. <td> 11/11/2018 [place] [#/volume] in 0 % 05:51</td><td> [facility] Blood by Basophils Health Care Automated </td><td> Corporation count 0.6
(0.0-2.0) % </td> Glucose 87 mg/dL 70-105 <td> 11/11/2018 [place] [Mass/volume] mg/dL 05:51</td><td> [facility] in Blood Glucose-Serum Health Care </td><td> InboxQ 87
(70-105) mg/dL </td> Potassium 4.0 mEq/L 3.5-5. <td> 11/11/2018 [place] [Moles/volume] 1 05:51</td><td> [facility] in Serum or mEq/L Potassium-Serum Health Care Plasma </td><td> InboxQ 4.0
(3.5-5.1) mEq/L </td> Neutrophils 52.6 % 34.0-7 <td> 11/11/2018 [place] [#] in Body 6.0 % 05:51</td><td> [facility] fluid by Neutrophils Health Care Manual count </td><td> InboxQ 52.6
(34.0-76.0) % </td> Sodium 136 mEq/L 135-14 <td> 11/11/2018 [place] [Moles/volume] 5 05:51</td><td> [facility] in Serum or mEq/L Sodium-Serum Health Care Plasma </td><td> InboxQ 136
(135-145) mEq/L </td> Immature 0.6 % 0.0-0. <td> 11/11/2018 [place] granulocytes/1 5 % 05:51</td><td> [facility] 00 leukocytes IG% Health Care in Blood by </td><td><[employer] Automated raph count styleCode="Bold "> 0.6 H </paragraph>
(0.0-0.5) %
The IG fraction represents metamyelocytes, myelocytes and/or
promyelocytes and is only reported as part of the automated
differential when found at a percentage of less than 6.
If higher than 6%, a manual differential will be performed.

(0.0-0.5) % </td> Chloride 107 mEq/L 98-107 <td> 11/11/2018 [place] [Moles/volume] mEq/L 05:51</td><td> [facility] in Serum or Chloride Health Care Plasma </td><td> InboxQ 107
(98-107) mEq/L </td> Creatinine 0.67 mg/dL 0.72-1 <td> 11/11/2018 [place] [Moles/volume] .25 05:51</td><td> [facility] in Serum or mg/dL Creatinine. Health Care Plasma </td><td><[employer] raph styleCode="Bold "> 0.67 L </paragraph>
(0.72-1.25) mg/dL </td> Carbon 24 mEq/L 22-30 <td> 11/11/2018 [place] dioxide, total mEq/L 05:51</td><td> [facility] [Moles/volume] CO2 </td><td> Health Car e in Serum or Corporation Plasma 24
(22-30) mEq/L </td> Urea nitrogen 9 mg/dL 6-22 <td> 11/11/2018 [facility] r [Mass/volume] mg/dL 05:51</td><td> [facility] in Blood BUN </td><td> [facility] Corporation 9
(6-22) mg/dL </td> Bilirubin.tota 6.2 mg/dL 0.2-1. <td> 11/11/2018 [facility] er l 3 05:51</td><td> [facility] [Mass/volume] mg/dL Bilirubin - Health Care in Blood [place] </td><td><Haload raph styleCode="Bold "> 6.2 H </paragraph>
(0.2-1.3) mg/dL </td> Aspartate 102 U/L 4-35 <td> 11/11/2018 [place] aminotransfera U/L 05:51</td><td> [facility] se [Enzymatic AST (SGOT) Health Care activity/volum </td><td><yvonne Corporati on e] in Serum or raph Plasma styleCode="Bold "> 102 H </paragraph>
(4-35) U/L </td> Albumin 2.6 g/dL 3.4-4. <td> 11/11/2018 [place] [Mass/volume] 8 g/dL 05:51</td><td> [facility] in Serum or Albumin Health Care Plasma </td><td><[employer] raph styleCode="Bold "> 2.6 L </paragraph>
(3.4-4.8) g/dL </td> Proteins - 5.9 g/dL 6.4-8. <td> 11/11/2018 [place] Total 3 g/dL 05:51</td><td> [facility] Proteins - [facility] Care [place] </td><td><yvonne raph styleCode="Bold "> 5.9 L </paragraph>
(6.4-8.3) g/dL </td> Alanine 40 U/L 6-55 <td> 11/11/2018 [place] aminotransfera U/L 05:51</td><td> [facility] se [Enzymatic ALT (SGPT) Health Care activity/volum </td><td> Corporation e] in Serum or Plasma 40
(6-55) U/L </td> Anion gap in 5 mEq/L 7-13 <td> 11/11/2018 [place] Serum or mEq/L 05:51</td><td> [facility] Plasma Anion Gap Health Care </td><td><[employer] raph styleCode="Bold "> 5 L </paragraph>
(7-13) mEq/L </td> Hemolysis No <td> 11/11/2018 [place] index of Serum Hemolysis 05:51</td><td> [facility] or Plasma Hemolysis Index Health Care </td><td> InboxQ No Hemolysis
</td> Calcium 8.3 mg/dL 8.6-10 <td> 11/11/2018 [place] [Mass/volume] .2 05:51</td><td> [facility] in Blood mg/dL Calcium Health Care </td><td><[employer] raph styleCode="Bold "> 8.3 L </paragraph>
(8.6-10.2) mg/dL </td> Globulin 3.3 gm/dL 2.9-4. <td> 11/11/2018 [place] [Mass/volume] 0 05:51</td><td> [facility] in Serum gm/dL Globulin Health Care </td><td> InboxQ 3.3
(2.9-4.0) gm/dL </td> Lipemic index No Lipemia <td> 11/11/2018 [facility] er of Serum or 05:51</td><td> [facility] Plasma Lipemia Index Health Care </td><td> InboxQ No Lipemia
</td> Prothrombin 18.5 secs 9.8-12 <td> 11/11/2018 [place] time (PT) .0 05:51</td><td> [facility] secs Prothrombin Health Care Time. [facility] </td><td><Haload raph styleCode="Bold "> 18.5 H </paragraph>
(9.8-12.0) secs
Result confirmed. Test repeated.

(9.8-12.0) secs </td> Phosphate 3.4 mg/dL 2.3-4. <td> 11/10/2018 [place] [Mass/volume] 7 07:56</td><td> [facility] in Serum or mg/dL Inorganic Health Care Plasma Phosphorus Corporation </td><td> 3.4
(2.3-4.7) mg/dL </td> Icteric index Moderately <td> 11/11/2018 [facility] er of Serum or 05:51</td><td> [facility] Plasma Icteric Index Health Care </td><td> InboxQ Moderately
</td> aPTT panel - 32.3 secs 25.0-3 <td> 11/11/2018 [place] Platelet poor 2.0 05:51</td><td> [facility] plasma secs Partial [facility] Thromboplastin InboxQ Time </td><td><yvonne raph styleCode="Bold "> 32.3 H </paragraph>
(25.0-32.0) secs </td> Magnesium 1.5 mg/dL 1.6-2. <td> 11/10/2018 [place] [Mass/volume] 6 07:56</td><td> [facility] in Serum or mg/dL Magnesium Level Health Care Plasma </td><td><para Corporation graph styleCode="Bold "> 1.5 L </paragraph>
(1.6-2.6) mg/dL </td> Procedure Social History Code Duration Value Status Description Data Source(s ) Smoking Current some day completed Current some day [facility] smoker smoker Health Care InboxQ Vital Signs ID Date Data Source UNK Name Value Range Interpretation Code Description Data Source(s) Diastolic blood 69 {} Normal (applies to 69 {} [place] pressure non-numeric results) [facility] Corpor[facility] on Systolic blood 118 {} Normal (applies to 118 {} [place] pressure non-numeric results) [facility] ty [facility] Corpor[facility] on First Respiration 18.0000 {} Normal (applies to 18.0000 {} [place] rate Set non-numeric results) Coun ty [facility] Corpor[facility] on Heart rate 76.0000 {} Normal (applies to 76.0000 {} [place] non-numeric results) [facility] ty [facility] Corpor[facility] on Body temperature 99.0000 {} Normal (applies to 99.0000 {} [place] non-numeric results) [facility] ty [facility] Corpor[facility] on wt - obtain Normal (applies to {} Cristian velasquez non-numeric results) [facility] ty [facility] Corpor[facility] on weight - kg 107.1000 {} Normal (applies to 107.1000 {} [place] figueroa non-numeric results) Coun ty [facility] Corporati on
[2020-01-13] MEDS ORDERED: DEXTROSE 5%-0.45% SALINE 1,000 ML IV SCH (23:45)
[2020-01-14] MEDS ORDERED: MAG HYDROX/AL HYDROX/SIMETH 30 ML UNIT-DOSE CUP PO ONE ×2 (04:59→05:00)
[2020-01-14] MEDS ORDERED: MAG HYDROX/AL HYDROX/SIMETH 30 ML UNIT-DOSE CUP ONE (05:00)
[2020-01-14 07:01] LABS: BASO % 0.6 % (0-2.0); EOS % 1.2 % (0-4.5); LYMPH % 11.9 % (8-40); MCH 23.9 pg (25.7-33.7); MEAN PLT VOLUME 8.8 fl (7.5-11.1); MONO % 12.5 % (3.8-10.2); NEUT % 73.8 % (42.8-82.8); PLATELET COUNT 151 K/MM3 (134-434); RBC 3.76 M/mm3 (4.00-5.60); RDW 22.8 % (11.9-15.9); WHITE BLOOD COUNT 12.3 K/mm3 (4.0-10.0)
--- NOTE | 2020-01-14 07:14 | CONSULT ---
Consult Consult Specialty:: Nephrology Reason for Consultation:: HERI - History of Present Illness Chief Complaint: leg pain History of Present Illness: Pt is a 55 year old male with pmhx of htn, etoh abuse, hld, liver cirrhosis, GI bleed, cad with cabg who presents for bilater leg pain. He was in the hospital but left ama. He is actively drinking. He was found to have worsening renal function and I was called to evaluate him. He took motrin 600 mg tables for the leg pain. He denies nause or vomiting. He is not sure how many doses he took but he says that he has been taking them every 4 hours. He was also found to have rhabdo. He denies shortness of breath or chest pain. - History Source History Provided By: Patient - Past Medical History Cardio/Vascular: Yes: CAD, HTN, Hyperlipdemia Pulmonary: Yes: Sleep Apnea (pt may have this; ? 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 History of Recent Travel: No Home Medications - Allergies Allergies/Adverse Reactions: Allergies Allergy/AdvReac Type Severity Reaction Status Date / Time No Known Allergies Allergy Verified 01/12/20 13:08 - Home Medications Home Medications: Ambulatory Orders Multivitamins [Multivit ([facility] Formulary)] 1 tab PO DAILY 07/13/17 Thiamine HCl [B-1] 100 mg PO DAILY 07/13/17 Lactulose (Oral Use) [Cephulac -] 20 gm PO DAILY #30 udc 07/16/17 Nadolol 20 mg PO DAILY #30 tablet 07/16/17 Pantoprazole Sodium [Protonix -] 40 mg PO BID #60 tablet 12/24/19 Family Medical History Family History: Denies Review of Systems - Review of Systems Constitutional: reports: Malaise, Weakness Eyes: reports: No Symptoms HENT: reports: No Symptoms Neck: reports: No Symptoms Cardiovascular: reports: No Symptoms Respiratory: reports: No Symptoms Gastrointestinal: reports: No Symptoms Genitourinary: reports: No Symptoms Musculoskeletal: reports: No Symptoms Integumentary: reports: No Symptoms Neurological: reports: No Symptoms Endocrine: reports: No Symptoms Hematology/Lymphatic: reports: No Symptoms Psychiatric: reports: No Symptoms Physical Exam Vital Signs: Vital Signs Temperature 98.5 F 01/13/20 15:57 Pulse Rate 82 01/13/20 15:57 Respiratory Rate 16 01/13/20 15:57 Blood Pressure 134/68 01/13/20 15:57 O2 Sat by Pulse Oximetry (%) 99 01/13/20 16:15 Constitutional: Yes: Calm Eyes: Yes: Sclera Icterus HENT: Yes: Normocephalic Neck: Yes: Trachea Midline Cardiovascular: Yes: S1, S2 Respiratory: Yes: CTA Bilaterally Gastrointestinal: Yes: Soft, Abdomen, Obese Renal/: Yes: WNL Musculoskeletal: Yes: Muscle Weakness Edema: No Integumentary: Yes: WNL Neurological: Yes: Oriented Psychiatric: Yes: Oriented Labs: Laboratory Tests 12/22/19 12/24/19 01/12/20 06:40 06:15 14:15 Creatinine 1.2 1.0 1.3 AST ALT Creatine Kinase Urine Protein Urine Blood Urine RBC (Auto) COVID-19 (PRANEETH) 01/13/20 01/13/20 01/13/20 00:54 16:06 19:57 Creatinine 2.7 H AST ALT Creatine Kinase > 83963 H > 93489 H Urine Protein 2+ H Urine Blood 3+ H Urine RBC (Auto) 285.8 COVID-19 (PRANEETH) 01/13/20 01/14/20 19:57 05:54 Creatinine 3.9 H AST 1888 H ALT 344 H Creatine Kinase > 44752 H Urine Protein Urine Blood Urine RBC (Auto) COVID-19 (PRANEETH) Pending Imaging - Results Chest X-ray: Report Reviewed Cat Scan: Report Reviewed Problem List - Problems (1) HERI (acute kidney injury) Code(s): N17.9 - ACUTE KIDNEY FAILURE, UNSPECIFIED (2) Rhabdomyolysis Code(s): M62.82 - RHABDOMYOLYSIS Assessment/Plan Current Medications Generic Name Dose Route Start Last Admin Trade Name Freq PRN Reason Stop Dose Admin Heparin Sodium (Porcine) 5,000 unit 01/14/20 10:00 Heparin - SQ BID [facility] Dextrose/Sodium Chloride 1,000 mls @ 75 mls/hr 01/13/20 23:45 01/14/20 01:35 D5-1/2ns - IV 75 mls/hr ASDIR [facility] Administration Lactulose 20 gm 01/14/20 10:00 Cephulac (Oral Use) PO DAILY [facility] Morphine Sulfate 2 mg 01/13/20 23:48 Morphine Sulfate IVPUSH Q6H PRN PAIN LEVEL 6-10 Multivitamins/Minerals/Vitamin C 1 tab 01/14/20 10:00 Tab-A-Vit - PO DAILY [facility] Nadolol 20 mg 01/14/20 10:00 Corgard - PO DAILY [facility] Thiamine HCl 100 mg 01/14/20 10:00 Vitamin B1 - PO DAILY [facility] Impression 1. HERI 2. nsaid use 3. liver cirrhosis 4. etoh abuse 5. cad 6. hld 7. htn Plan - start fluids - monitor cmp - monitor cpk - check bladder and kidney ultrasound - monitor bp - stop nsaids - heri likely secondary to rhabdo and nsaids - cont to monitor renal function closely - replace potassium - monitor lytes
[2020-01-14 07:30] LABS: ALK PHOS 92 U/L (45-117); BILIRUBIN,TOTAL 4.1 mg/dL (0.2-1); CHLORIDE 102 mmol/L (98-107); CREATININE 3.9 mg/dL (0.55-1.3); POTASSIUM 3.5 mmol/L (3.5-5.1); SGPT/ALT 344 U/L (13-61); SODIUM 134 mmol/L (136-145)
[2020-01-14 07:58] LABS: ALBUMIN 2.6 g/dl (3.4-5.0); SGOT/AST 1888 U/L (15-37); TOT PROT 6.2 g/dl (6.4-8.2)
[2020-01-14 09:32] LABS: ANION GAP 13 MMOL/L (8-16); BLOOD UREA NITROGEN 29.9 mg/dL (7-18); CALCIUM 8.3 mg/dL (8.5-10.1); CO2 20 mmol/L (21-32); GLUCOSE,RANDOM 77 mg/dL (74-106)
--- NOTE | 2020-01-14 09:51 | EKG ---
Test Reason : Blood Pressure : / mmHG Vent. Rate : 082 BPM Atrial Rate : 082 BPM P-R Int : 150 ms QRS Dur : 096 ms QT Int : 420 ms P-R-T Axes : 045 046 048 degrees QTc Int : 490 ms NORMAL SINUS RHYTHM T WAVE ABNORMALITY, CONSIDER ANTERIOR ISCHEMIA ABNORMAL ECG WHEN COMPARED WITH ECG OF 21-DEC-2019 05:35, NO SIGNIFICANT CHANGE WAS FOUND Confirmed by CHARITY BATES MD ([id number]) on 01/14/2020 9:51:43 AM Referred By: Confirmed By:CHARITY BATES MD
[2020-01-14] MEDS ORDERED: HEPARIN NA (PORCINE) 5,000 UNITS/ML 1ML VIAL ONE ×2 (09:56→20:54)
[2020-01-14] MEDS ORDERED: MULTIVITAMINS (DAILY MVI) TABLET (FP) ONE (09:56)
[2020-01-14] MEDS ORDERED: THIAMINE HCL 100 MG TABLET (FP) ONE (09:56)
[2020-01-14] MEDS ORDERED: LACTULOSE 20 GM/30 ML UDC (FOR ORAL USE ONLY) ONE (09:56)
[2020-01-14] MEDS: LACTULOSE 20 GM/30 ML UDC (FOR ORAL USE ONLY) PO SCH (10:02)
[2020-01-14] MEDS: THIAMINE HCL 100 MG TABLET (FP) PO SCH (10:02)
[2020-01-14] MEDS: NADOLOL 20 MG TABLET (FP) PO SCH (10:02)
[2020-01-14] MEDS: MULTIVITAMINS (DAILY MVI) TABLET (FP) PO SCH (10:02)
[2020-01-14] MEDS: HEPARIN NA (PORCINE) 5,000 UNITS/ML 1ML VIAL SQ SCH ×2 (10:02→21:05)
--- NOTE | 2020-01-14 10:24 | CON.CARD ---
Consult Consult Specialty:: cardiology Reason for Consultation:: s/p CABG and coronary stents; bleed; elevated LFTs; rhabomyolysis - History of Present Illness Chief Complaint: Pt A&Ox3; c/o bilateral leg heaviness; no chest pain History of Present Illness: Mr. Mann is a 55 year old male (b. [place]), with a significant past medical history of hypertension, hyperlipidemia, cirrhosis, GI bleed, CAD s/p coronary stents followed by CABG, morbid obesity, who presents to the ED for further evaluation of elevated LFTs. Pt was seen yesterday for leg pain; labs showed elevated LFTs,but the patient left AMA. Today he returns for further evaluation. No abd pain. C/o nausea. States he saw Dr. Pacheco 2 days ago and had blood in his stool at that time. Pt states he has been taking Motrin for leg and back pain every 4-5 hours. Pt states he also has had a change in his sleep/wake cycle. - History Source History Provided By: Patient, Medical Record - Past Medical History Cardio/Vascular: Yes: CAD, HTN, Hyperlipdemia Pulmonary: Yes: Sleep Apnea (pt may have this; ? 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 History of Recent Travel: No Home Medications - Allergies Allergies/Adverse Reactions: Allergies Allergy/AdvReac Type Severity Reaction Status Date / Time No Known Allergies Allergy Verified 01/12/20 13:08 - Home Medications Home Medications: Ambulatory Orders Multivitamins [Multivit ([facility] Formulary)] 1 tab PO DAILY 07/13/17 Thiamine HCl [B-1] 100 mg PO DAILY 07/13/17 Lactulose (Oral Use) [Cephulac -] 20 gm PO DAILY #30 udc 07/16/17 Nadolol 20 mg PO DAILY #30 tablet 07/16/17 Pantoprazole Sodium [Protonix -] 40 mg PO BID #60 tablet 12/24/19 Family Medical History Family Hx Cardiac Disorders: Father Review of Systems - Review of Systems Constitutional: reports: Weakness Eyes: reports: No Symptoms HENT: reports: No Symptoms Neck: reports: No Symptoms Cardiovascular: reports: No Symptoms Respiratory: reports: No Symptoms Gastrointestinal: reports: No Symptoms Genitourinary: reports: No Symptoms Breasts: reports: No Symptoms Reported Musculoskeletal: reports: Joint Swelling, Muscle Weakness Integumentary: reports: Other (swelling) Neurological: reports: Weakness Endocrine: reports: No Symptoms Hematology/Lymphatic: reports: No Symptoms Psychiatric: reports: Anxiety, Other - Risk Factors Known Risk Factors: Yes: Age, Gender, Hypercholesterolemia, Hypertension, Prior [place] /Emb Stroke (hx CABG) Vital Signs: Vital Signs Temperature 98.5 F 01/13/20 15:57 Pulse Rate 82 01/13/20 15:57 Respiratory Rate 16 01/13/20 15:57 Blood Pressure 134/68 01/13/20 15:57 O2 Sat by Pulse Oximetry (%) 99 01/13/20 16:15 Constitutional: Yes: Calm, Obese Eyes: Yes: WNL HENT: Yes: WNL Neck: Yes: WNL Respiratory: Yes: Regular Gastrointestinal: Yes: Soft Renal/: No: Anuria Heart Sounds: Yes: S1, S2, S4 Murmur: Yes: Systolic Murmur, Grade 1 Musculoskeletal: Yes: Joint Stiffness, Muscle Pain Extremities: Yes: Cool Edema: Yes Edema: LLE: 2+, RLE: Trace Peripheral Pulses WNL: Yes Integumentary: Yes: Venous Stasis Changes Neurological: Yes: Alert, Oriented, Weakness Psychiatric: Yes: Other (anxiety) - Other Data Labs, Other Data: CBC, BMP 01/14/20 05:54 01/14/20 05:54 INR, PTT INR 1.79 (0.83-1.09) H 01/13/20 18:45 Troponin, BNP 01/13/20 01/13/20 00:54 16:06 Troponin I 0.06 H 0.07 H Troponin, BNP 01/13/20 01/13/20 00:54 16:06 Troponin I 0.06 H 0.07 H Abnormal Lab Results 01/14/20 01/14/20 01/14/20 05:54 05:54 22:15 WBC 12.3 H RBC 3.76 L Hgb 9.0 L Hct 29.0 L MCV 77.0 L MCH 23.9 L MCHC 31.0 L RDW 22.8 H Absolute Neuts (auto) 9.1 H Monocytes % 12.5 H Sodium 134 L Carbon Dioxide 20 L BUN 29.9 H Creatinine 3.9 H Calcium 8.3 L Total Bilirubin 4.1 H AST 1888 H ALT 344 H Creatine Kinase > 24295 H CK-MB (CK-2) 35.9 H Total Protein 6.2 L Albumin 2.6 L HDL Cholesterol 29 L Urine Protein 2+ H Urine Ketones Trace H Urine Blood 3+ H Ur Random Creatinine Ur Random Sodium Ur Random Chloride 01/14/20 22:15 WBC RBC Hgb Hct MCV MCH MCHC RDW Absolute Neuts (auto) Monocytes % Sodium Carbon Dioxide BUN Creatinine Calcium Total Bilirubin AST ALT Creatine Kinase CK-MB (CK-2) Total Protein Albumin HDL Cholesterol Urine Protein Urine Ketones Urine Blood Ur Random Creatinine 181.0 H Ur Random Sodium < 18 L Ur Random Chloride < 11 L Echo: Pending Imaging - Results Chest X-ray: Image Reviewed EKG: Image Reviewed Assessment/Plan Liver disease markedly elevated LFTs; hyperbilirubinemia Rhabdomyolysis acute renal failure (ARF) Hx CABG (?2013); coronary stents HTN HDL (elevated LDL, triglycerides in 2014) Diastolic CHF (2011 ECHO) Mildlly elevated TNIs (0.07; was >3.0 in 2015); demand ischemia from multiple contributers, including ARF, rhabdo, CHF, liver disease) EKG: NSR: T wave changes anteriorly (no significant change from 11/2019 EKG). anemia since at least 11/2019; INR, PT elevated hematuria morbid obesity NSAID use for leg pain Pl: COVID pending Plan for ECHO for LVEF, wall motion, valve status, done after COVID status known (ideally negative). On carvedilol. Rhabdomyolysis: IVF; f/u electrolytes and BUN/Cr; serial CK and LFTs; nephrology evaluation in progress. F/u past cardiac hx/workup. f/u TSH, lipids Continue GI w/u Stop all NSAIDs; f/u etiology of LE pain (low threshold for vascular studies).
[2020-01-14 11:42] LABS: CHOLESTEROL 104 mg/dL (50-200); HDL CHOLESTEROL 29 mg/dL (40-60); LDL CHOLESTEROL (ONLY SJRH) 71 mg/dL (5-100); TRIGLYCERIDES 99 mg/dL (0-150)
[2020-01-14] MEDS ORDERED: POTASSIUM CHLORIDE ORAL LIQUID 20 MEQ/15 ML PO ONE (13:40)
[2020-01-14] MEDS ORDERED: SODIUM CHLORIDE 1,000 ML IV SCH (13:45)
--- NOTE | 2020-01-14 15:35 | CON.GI ---
Consult Consult Specialty:: gastroenterology Reason for Consultation:: elevated LFTs, Alcoholic cirhosis - History of Present Illness History of Present Illness: Mr. Mann is a 55 year old male seen in the ER with a significant past medical history of hypertension, hyperlipidemia, cirrhosis, GI bleed, CAD s/p CABG, and stents, morbid obesity, who presents to the ED for further evaluation of elevated LFTs. Pt was seen day before yesterday for leg pain, labs showed elevated LFTs, the patient left AMA. He returned yesterday for further evaluation. No abd pain. C/o nausea and vomiting- 2 episodes. Pt reports fatigue and leg pain - History Source History Provided By: Patient Limitations to Obtaining History: No Limitations - Past Medical History Cardio/Vascular: Yes: CAD, HTN, Hyperlipdemia Pulmonary: Yes: Sleep Apnea (pt may have this; ? not worked up in the past) Hepatobiliary: Yes: Other (Fatty liver) - Past Surgical History Past Surgical History: Yes: CABG, Stent - Alcohol/Substance Use Hx Alcohol Use: Yes (1 1/2 pints of vodka daily) History of Substance Use: reports: None - Smoking History Smoking history: Former smoker Have you smoked in the past 12 months: No Aproximately how many cigarettes per day: 10 If you are a former smoker, when did you quit?: 2010 - Social History Usual Living Arrangement: With Spouse ADL: Independent Occupation: [employer] History of Recent Travel: No <Talha Pacheco - Last Filed: 01/14/20 15:49> Home Medications <Talha Pacheco - Last Filed: 01/14/20 15:49> <Grace Carbajal - Last Filed: 01/14/20 16:35> - Allergies Allergies/Adverse Reactions: Allergies Allergy/AdvReac Type Severity Reaction Status Date / Time No Known Allergies Allergy Verified 01/12/20 13:08 - Home Medications Home Medications: Ambulatory Orders Multivitamins [Multivit ([facility] Formulary)] 1 tab PO DAILY 07/13/17 Thiamine HCl [B-1] 100 mg PO DAILY 07/13/17 Lactulose (Oral Use) [Cephulac -] 20 gm PO DAILY #30 udc 07/16/17 Nadolol 20 mg PO DAILY #30 tablet 07/16/17 Pantoprazole Sodium [Protonix -] 40 mg PO BID #60 tablet 12/24/19 Family Medical History Family History: Denies <Talha Pacheco - Last Filed: 01/14/20 15:49> Review of Systems - Review of Systems Respiratory: reports: SOB Gastrointestinal: reports: Bloating, Nausea, Vomiting. denies: Constipation, Diarrhea, Melena, Rectal Bleeding <Talha Pacheco - Last Filed: 01/14/20 15:49> Physical Exam-GI Vital Signs: Vital Signs Temperature 98.5 F 01/13/20 15:57 Pulse Rate 78 01/14/20 07:42 Respiratory Rate 15 01/14/20 07:42 Blood Pressure 128/65 01/14/20 07:42 O2 Sat by Pulse Oximetry (%) 99 01/14/20 07:42 Constitutional: Yes: Well Nourished, Calm Eyes: Yes: Sclera Icterus HENT: Yes: Atraumatic Neck: Yes: Supple Cardiovascular: Yes: Regular Rate and Rhythm Respiratory: Yes: CTA Bilaterally Gastrointestinal Inspection: No: Distention ...Auscultate: Yes: Normoactive Bowel Sounds ...Palpate: Yes: Soft. No: Firm/Rigid, Guarding, Hepatomegaly, Tenderness Labs: CBC, [facility] 01/14/20 05:54 01/14/20 05:54 INR, PTT INR 1.79 (0.83-1.09) H 01/13/20 18:45 <Talha Pacheco - Last Filed: 01/14/20 15:49> Vital Signs: Vital Signs Temperature 98.5 F 01/13/20 15:57 Pulse Rate 78 01/14/20 07:42 Respiratory Rate 15 01/14/20 07:42 Blood Pressure 128/65 01/14/20 07:42 O2 Sat by Pulse Oximetry (%) 99 01/14/20 07:42 Labs: CBC, [facility] 01/14/20 05:54 01/14/20 05:54 INR, PTT INR 1.79 (0.83-1.09) H 01/13/20 18:45 CBC,CMP WBC 12.3 K/mm3 (4.0-10.0) H 01/14/20 05:54 RBC 3.76 M/mm3 (4.00-5.60) L 01/14/20 05:54 Hgb 9.0 GM/dL (11.7-16.9) L 01/14/20 05:54 Hct 29.0 % (35.4-49) L 01/14/20 05:54 MCV 77.0 fl (80-96) L 01/14/20 05:54 MCH 23.9 pg (25.7-33.7) L 01/14/20 05:54 MCHC 31.0 g/dl (32.0-35.9) L 01/14/20 05:54 RDW 22.8 % (11.9-15.9) H 01/14/20 05:54 Plt Count 151 K/MM3 (134-434) 01/14/20 05:54 MPV 8.8 fl (7.5-11.1) 01/14/20 05:54 Absolute Neuts (auto) 9.1 K/mm3 (1.5-8.0) H 01/14/20 05:54 Neutrophils % 73.8 % (42.8-82.8) 01/14/20 05:54 Lymphocytes % 11.9 % (8-40) D 01/14/20 05:54 Monocytes % 12.5 % (3.8-10.2) H 01/14/20 05:54 Eosinophils % 1.2 % (0-4.5) 01/14/20 05:54 Basophils % 0.6 % (0-2.0) 01/14/20 05:54 Nucleated RBC % 0 % (0-0) 01/14/20 05:54 Sodium 134 mmol/L (136-145) L 01/14/20 05:54 Potassium 3.5 mmol/L (3.5-5.1) 01/14/20 05:54 Chloride 102 mmol/L (98-107) 01/14/20 05:54 Carbon Dioxide 20 mmol/L (21-32) L 01/14/20 05:54 Anion Gap 13 MMOL/L (8-16) 01/14/20 05:54 BUN 29.9 mg/dL (7-18) H 01/14/20 05:54 Creatinine 3.9 mg/dL (0.55-1.3) H 01/14/20 05:54 Est GFR (CKD-EPI)AfAm 19.00 01/14/20 05:54 Est GFR (CKD-EPI)NonAf 16.39 01/14/20 05:54 Random Glucose 77 mg/dL (74-106) 01/14/20 05:54 Calcium 8.3 mg/dL (8.5-10.1) L 01/14/20 05:54 Total Bilirubin 4.1 mg/dL (0.2-1) H 01/14/20 05:54 AST 1888 U/L (15-37) H 01/14/20 05:54 ALT 344 U/L (13-61) H 01/14/20 05:54 Alkaline Phosphatase 92 U/L (45-117) 01/14/20 05:54 Ammonia 74.20 umol/L (11-32) H 01/13/20 16:20 Creatine Kinase > 11693 U/L (26-308) H 01/14/20 05:54 Creatine Kinase Index 0.0 % (0.0-5.0) 01/14/20 05:54 CK-MB (CK-2) 35.9 ng/mL (0.5-3.6) H 01/14/20 05:54 Troponin I 0.07 ng/ml (0.00-0.05) H 01/13/20 16:06 Total Protein 6.2 g/dl (6.4-8.2) L 01/14/20 05:54 Albumin 2.6 g/dl (3.4-5.0) L 01/14/20 05:54 Triglycerides 99 mg/dL (0-150) 01/14/20 05:54 Cholesterol 104 mg/dL (50-200) 01/14/20 05:54 Total LDL Cholesterol 71 mg/dL (5-100) 01/14/20 05:54 HDL Cholesterol 29 mg/dL (40-60) L 01/14/20 05:54 TSH 2.21 uIU/ml (0.358-3.74) 01/14/20 05:54 <Grace Carbajal - Last Filed: 01/14/20 16:35> Imaging - Results Cat Scan: Report Reviewed (--cirrhosis, mild splenomegaly) <Grace Carbajal - Last Filed: 01/14/20 16:35> Problem List - Problems (1) Rhabdomyolysis Assessment/Plan: IV hydration Code(s): M62.82 - RHABDOMYOLYSIS (2) Alcoholic cirrhosis Code(s): K70.30 - ALCOHOLIC CIRRHOSIS OF LIVER WITHOUT ASCITES <Talha Pacheco - Last Filed: 01/14/20 15:49> - Problems (1) HERI (acute kidney injury) Assessment/Plan: iv hydration Code(s): N17.9 - ACUTE KIDNEY FAILURE, UNSPECIFIED (2) Alcoholic cirrhosis Assessment/Plan: complicated by Ischemic hepatitis R> LFTS will continue to improve as IV hydration is given Code(s): K70.30 - ALCOHOLIC CIRRHOSIS OF LIVER WITHOUT ASCITES (3) Rhabdomyolysis Assessment/Plan: continue IV hydration serial LFTS Code(s): M62.82 - RHABDOMYOLYSIS <Grace Carbajal - Last Filed: 01/14/20 16:35>
--- NOTE | 2020-01-14 21:50 | HP ---
Admitting History and Physical - Admission History of Present Illness: Pt is a 55yo M with PMH cirrhosis, GI bleed, CAD s/p CABG and stents, HTN, HLD who presents with with weakness, SOB. Pt was seen here yesterday for leg pain and was subsequently found to have elevated LFTs - pt left AMA and [facility] [employer] [employer] called patient who agreed to return to ED. Pt states that he has had noticeable weakness and worsening SOB for two days. Reports confusion - "pain is so bad, it is hard to think." Pt states that he has been taking Motrin for his leg pain without improvement Denies f/c, chest pain, abdominal pain, n/v,diarrhea/constipation, melena/hematochezia. - Past Medical History Cardiovascular: Yes: CAD, HTN, Hyperlipdemia Pulmonary: Yes: Sleep Apnea (pt may have this; ? 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 History of Recent Travel: No Home Medications - Allergies Allergies/Adverse Reactions: Allergies Allergy/AdvReac Type Severity Reaction Status Date / Time No Known Allergies Allergy Verified 01/12/20 13:08 - Home Medications Home Medications: Ambulatory Orders Multivitamins [Multivit ([facility] Formul[facility])] 1 tab PO DAILY 07/13/17 Thiamine HCl [B-1] 100 mg PO DAILY 07/13/17 Lactulose (Oral Use) [Cephulac -] 20 gm PO DAILY #30 udc 07/16/17 Nadolol 20 mg PO DAILY #30 tablet 07/16/17 Pantoprazole Sodium [Protonix -] 40 mg PO BID #60 tablet 12/24/19 Family Medical History Family History: Unremarkable Review of Systems - Review of Systems Constitutional: reports: Loss of Appetite, Weakness Eyes: reports: No Symptoms HENT: reports: No Symptoms Neck: reports: No Symptoms Cardiovascular: reports: Shortness of Breath Respiratory: reports: SOB Gastrointestinal: reports: No Symptoms Genitourinary: reports: No Symptoms Physical Examination Vital Signs: Vital Signs Temperature 97.5 F L 01/14/20 17:06 Pulse Rate 72 01/14/20 17:06 Respiratory Rate 15 01/14/20 17:06 Blood Pressure 132/67 01/14/20 17:06 O2 Sat by Pulse Oximetry (%) 99 01/14/20 17:06 Constitutional: Yes: Well Nourished Eyes: Yes: Sclera Icterus Neck: Yes: WNL, Supple Cardiovascular: Yes: WNL, Regular Rate and Rhythm Respiratory: Yes: Diminished Gastrointestinal: Yes: Normal Bowel Sounds, Soft, Distention Edema: LUE: 2+, RUE: 2+ Neurological: Yes: WNL, Alert, Oriented ...Motor Strength: WNL Labs: CBC, BMP 01/14/20 05:54 01/14/20 05:54 Problem List - Problems (1) Alcoholic cirrhosis Assessment/Plan: Elevated LFT's Cont nadolol GI consult Code(s): K70.30 - ALCOHOLIC CIRRHOSIS OF LIVER WITHOUT ASCITES (2) HERI (acute kidney injury) Assessment/Plan: ?Due to rhabdo vs acute kidney injury ?Hepatorenal syndrome Cont to monitor labs Renal consult Code(s): N17.9 - ACUTE KIDNEY FAILURE, UNSPECIFIED (3) Anemia Assessment/Plan: Monitor H/H Pt does have h/o GI bleed Code(s): D64.9 - ANEMIA, UNSPECIFIED (4) Rhabdomyolysis Assessment/Plan: Cont IV fluids Monitor for fluid overload Renal consult Code(s): M62.82 - RHABDOMYOLYSIS (5) Transaminitis Assessment/Plan: Due to alcoholic cirrhosis Code(s): R74.0 - NONSPEC ELEV OF LEVELS OF TRANSAMNS & LACTIC ACID DEHYDRGNSE (6) Vomiting Code(s): R11.10 - VOMITING, UNSPECIFIED (7) CAD (coronary artery disease) Code(s): I25.10 - ATHSCL HEART DISEASE OF [place] CORONARY ARTERY W/O ANG PCTRS (8) HLD (hyperlipidemia) Assessment/Plan: Statin on hold due to elevated LFT's/cirrhosis Code(s): E78.5 - HYPERLIPIDEMIA, UNSPECIFIED (9) Hypertension Assessment/Plan: BP stable Pt is off antihypertensives Code(s): I10 - ESSENTIAL (PRIMARY) HYPERTENSION Qualifiers: Hypertension type: essential hypertension Qualified Code(s): I10 - Esse ntial (primary) hypertension (10) History of coronary artery stent placement Code(s): Z95.5 - PRESENCE OF CORONARY ANGIOPLASTY IMPLANT AND GRAFT
[2020-01-14 22:35] LABS: EPI CELLS 29 /uL (0-25.1); HYALINE CASTS 11 /uL (0-3.1); URINE APPEARANCE TURBID; URINE BACTERIA 9 /uL (0-1359); URINE BILIRUBIN NEGATIVE (NEGATIVE); URINE COLOR DK YELLOW; URINE GLUCOSE (UA) TRACE (NEGATIVE); URINE KETONE TRACE (NEGATIVE); URINE LEUK ESTERASE TRACE (NEGATIVE); URINE NITRITE NEGATIVE (NEGATIVE); URINE PROTEIN 2+ (NEGATIVE); URINE WBC 178 /uL (0-25.8)
[2020-01-14 23:34] LABS: URINE RBC 323.8 /uL (0-23.9); YEAST NEGATIVE (NEGATIVE)
[2020-01-15 08:02] LABS: POTASSIUM 4.4 mmol/L (3.5-5.1)
[2020-01-15 08:37] LABS: ALBUMIN 2.3 g/dl (3.4-5.0); BLOOD UREA NITROGEN 41.5 mg/dL (7-18); CALCIUM 8.3 mg/dL (8.5-10.1); CREATININE 5.1 mg/dL (0.55-1.3); TOT PROT 5.7 g/dl (6.4-8.2)
--- NOTE | 2020-01-15 08:53 | PN ---
Progress Note, Physician History of Present Illness: Mr. Mann is a 55 year old male (b. [place]), with a significant past medical history of hypertension, hyperlipidemia, cirrhosis, GI bleed, CAD s/p coronary stents followed by CABG, morbid obesity, who presents to the ED for further evaluation of elevated LFTs. Pt was seen yesterday for leg pain; labs showed elevated LFTs,but the patient left AMA. Today he returns for further evaluation. No abd pain. C/o nausea. States he saw Dr. Pacheco 2 days ago and had blood in his stool at that time. Pt states he has been taking Motrin for leg and back pain every 4-5 hours. Pt states he also has had a change in his sleep/wake cycle. - Current Medication List Current Medications: Active Medications Heparin Sodium (Porcine) (Heparin -) 5,000 unit SQ BID [facility] Last Admin: 01/14/20 21:05 Dose: 5,000 unit Documented by: Sodium Chloride (Normal Saline -) 1,000 mls @ 100 mls/hr IV ASDIR [facility] Last Admin: 01/14/20 13:55 Dose: 100 mls/hr Documented by: Lactulose (Cephulac (Oral Use)) 20 gm PO DAILY [facility] Last Admin: 01/14/20 10:02 Dose: 20 gm Documented by: Morphine Sulfate (Morphine Sulfate) 2 mg IVPUSH Q6H PRN PRN Reason: PAIN LEVEL 6-10 Multivitamins/Minerals/Vitamin C (Tab-A-Vit -) 1 tab PO DAILY [facility] Last Admin: 01/14/20 10:02 Dose: 1 tab Documented by: Nadolol (Corgard -) 20 mg PO DAILY [facility] Last Admin: 01/14/20 10:02 Dose: 20 mg Documented by: Thiamine HCl (Vitamin B1 -) 100 mg PO DAILY [facility] Last Admin: 01/14/20 10:02 Dose: 100 mg Documented by: - Objective Vital Signs: Vital Signs Temperature 98 F 01/15/20 01:25 Pulse Rate 68 01/15/20 06:00 Respiratory Rate 20 01/15/20 06:00 Blood Pressure 134/82 01/15/20 06:00 O2 Sat by Pulse Oximetry (%) 100 01/15/20 06:00 Eyes: Yes: WNL, Conjunctiva Clear, EOM Intact HENT: Yes: WNL, Atraumatic, Normocephalic Neck: Yes: WNL, Supple, Trachea Midline Cardiovascular: Yes: WNL, Regular Rate and Rhythm Respiratory: Yes: WNL, Regular, CTA Bilaterally Gastrointestinal: Yes: WNL, Normal Bowel Sounds Genitourinary: Yes: WNL Musculoskeletal: Yes: WNL Extremities: Yes: WNL Edema: No Integumentary: Yes: WNL Neurological: Yes: WNL, Alert, Oriented ...Motor Strength: WNL Psychiatric: Yes: WNL Labs: CBC, BMP 01/14/20 05:54 01/15/20 06:45 INR, PTT INR 1.79 (0.83-1.09) H 01/13/20 18:45 Assessment/Plan Liver disease ETOH abuse. markedly elevated LFTs; hyperbilirubinemia Rhabdomyolysis acute renal failure (ARF) Hx CABG (2013 [facility]); coronary stents HTN HDL (elevated LDL, triglycerides in 2014) Diastolic CHF (2011 [facility]) Mildlly elevated TNIs (0.07; was >3.0 in 2014); demand ischemia from multiple contributers, including ARF, rhabdo, CHF, liver disease) EKG: NSR: T wave changes anteriorly (no significant change from 11/2019 EKG). anemia since at least 11/2019; INR, PT elevated hematuria morbid obesity NSECHO nl EF Pl: COVID pending On carvedilol. Rhabdomyolysis: IVF; f/u electrolytes and BUN/Cr; serial CK and LFTs; nephrology evaluation in progress. F/u past cardiac hx/workup. f/u TSH, lipids Continue GI w/u Stop all NSAIDs; f/u etiology of LE pain MIBI stress test when stable.
[2020-01-15] MEDS: NADOLOL 20 MG TABLET (FP) PO SCH (09:56)
[2020-01-15] MEDS: LACTULOSE 20 GM/30 ML UDC (FOR ORAL USE ONLY) PO SCH (09:56)
[2020-01-15] MEDS: MULTIVITAMINS (DAILY MVI) TABLET (FP) PO SCH (09:56)
[2020-01-15] MEDS: HEPARIN NA (PORCINE) 5,000 UNITS/ML 1ML VIAL SQ SCH ×2 (09:56→21:39)
[2020-01-15] MEDS: THIAMINE HCL 100 MG TABLET (FP) PO SCH (09:57)
--- NOTE | 2020-01-15 13:06 | PN ---
Progress Note, Physician History of Present Illness: Pt seen and examined at bedside. He is awake and alert. He denies shortness of breath. He complains of lower ext edema. - Current Medication List Current Medications: Active Medications Heparin Sodium (Porcine) (Heparin -) 5,000 unit SQ BID [facility] Last Admin: 01/15/20 09:56 Dose: 5,000 unit Documented by: Sodium Chloride (Normal Saline -) 1,000 mls @ 100 mls/hr IV ASDIR [facility] Last Admin: 01/14/20 13:55 Dose: 100 mls/hr Documented by: Lactulose (Cephulac (Oral Use)) 20 gm PO DAILY [facility] Last Admin: 01/15/20 09:56 Dose: 20 gm Documented by: Morphine Sulfate (Morphine Sulfate) 2 mg IVPUSH Q6H PRN PRN Reason: PAIN LEVEL 6-10 Multivitamins/Minerals/Vitamin C (Tab-A-Vit -) 1 tab PO DAILY [facility] Last Admin: 01/15/20 09:56 Dose: 1 tab Documented by: Nadolol (Corgard -) 20 mg PO DAILY [facility] Last Admin: 01/15/20 09:56 Dose: 20 mg Documented by: Thiamine HCl (Vitamin B1 -) 100 mg PO DAILY [facility] Last Admin: 01/15/20 09:57 Dose: 100 mg Documented by: - Objective Vital Signs: Vital Signs Temperature 98 F 01/15/20 01:25 Pulse Rate 68 01/15/20 06:00 Respiratory Rate 20 01/15/20 06:00 Blood Pressure 134/82 01/15/20 06:00 O2 Sat by Pulse Oximetry (%) 100 01/15/20 06:00 Constitutional: Yes: Calm Eyes: Yes: Sclera Icterus HENT: Yes: Atraumatic Neck: Yes: Supple Cardiovascular: Yes: S1, S2 Respiratory: Yes: CTA Bilaterally Gastrointestinal: Yes: Soft, Abdomen, Obese, Ascites Genitourinary: Yes: WNL Musculoskeletal: Yes: WNL Edema: Yes Edema: LLE: 1+, RLE: 1+ Neurological: Yes: Oriented Psychiatric: Yes: Oriented Labs: CBC, BMP 01/14/20 05:54 01/15/20 06:45 INR, PTT INR 1.79 (0.83-1.09) H 01/13/20 18:45 Problem List - Problems (1) HERI (acute kidney injury) Code(s): N17.9 - ACUTE KIDNEY FAILURE, UNSPECIFIED (2) Rhabdomyolysis Code(s): M62.82 - RHABDOMYOLYSIS Assessment/Plan Current Medications Generic Name Dose Route Start Last Admin Trade Name Freq PRN Reason Stop Dose Admin Heparin Sodium (Porcine) 5,000 unit 01/14/20 10:00 01/15/20 09:56 Heparin - SQ 5,000 unit BID NABILA Administration Sodium Chloride 1,000 mls @ 100 mls/hr 01/14/20 13:45 01/14/20 13:55 Normal Saline - IV 100 mls/hr ASDIR NABILA Administration Lactulose 20 gm 01/14/20 10:00 01/15/20 09:56 Cephulac (Oral Use) PO 20 gm DAILY NABILA Administration Morphine Sulfate 2 mg 01/13/20 23:48 Morphine Sulfate IVPUSH Q6H PRN PAIN LEVEL 6-10 Multivitamins/Minerals/Vitamin C 1 tab 01/14/20 10:00 01/15/20 09:56 Tab-A-Vit - PO 1 tab DAILY NABILA Administration Nadolol 20 mg 01/14/20 10:00 01/15/20 09:56 Corgard - PO 20 mg DAILY NABILA Administration Thiamine HCl 100 mg 01/14/20 10:00 01/15/20 09:57 Vitamin B1 - PO 100 mg DAILY NABILA Administration Impression 1. HERI 2. nsaid use 3. liver cirrhosis 4. etoh abuse 5. cad 6. hld 7. htn Plan - renal function worsening - place wood - will order more extensive serologic workup - cpk reported several times as being over 14k, cont to monitor - cont fluids - lasix prn for volume control - monitor lfts as well - GI follow up - no indication for HD at this point - monitor urine output - stop nsaids - heri likely secondary to rhabdo and nsaids
[2020-01-15] MEDS ORDERED: FUROSEMIDE 40 MG/4 ML INJECTABLE VIAL IVPUSH ONE (13:15)
--- NOTE | 2020-01-15 13:45 | ECHO ---
Version: 1 Name: ROBERT ZUNIGA Exam: Adult Echocardiogram Study Date: 01/15/2020, 12:25 PM Age: 55 Years MMode/2D Measurements & Calculations IVSd: 0.95 cm LVIDs: 3.0 cm LVIDd: 4.6 cm LVPWd: 0.87 cm LAV (MOD-bp): 66.0 ml ACS: 2.18 cm Ao root diam: 2.9 cm LVOT diam: 2.19 cm LA dimension: 3.7 cm Doppler Measurements & Calculations MV E max david: 94.4 cm/sec Med E/e': 8.1 MV A max david: 103.7 cm/sec Med Peak E' David: 11.6 cm/sec MV E/A: 0.91 Lat E/e': 6.7 Lat Peak E' David: 14.0 cm/sec Ao max P.7 mmHg JOHNNY(I,D): 4.4 cm Ao mean P.1 mmHg LV V1 mean: 85.7 cm/sec Ao V2 max: 138.5 cm/sec LV V1 mean P.6 mmHg TR max david: 172.8 cm/sec TR max P.1 mmHg Procedure The study was technically difficult with many images being suboptimal in quality. Left Ventricle Left ventricular systolic function is grossly normal. Regional wall motion abnormalities cannot be e xcluded due to limited visualization. Right Ventricle The right ventricle is mildly dilated. The right ventricular systolic function is grossly normal. Atria The left atrium is mildly dilated. Mitral Valve The mitral valve is normal in structure and function. There is no mitral valve stenosis. There is mi ld mitral regurgitation. Tricuspid Valve The tricuspid valve is normal in structure and function. There is mild tricuspid regurgitation. Righ t ventricular systolic pressure is normal. Aortic Valve The aortic valve opens well. No hemodynamically significant valvular aortic stenosis. No aortic regu rgitation is present. Pulmonic Valve The pulmonic valve is not well seen, but is grossly normal. There is no pulmonic valvular stenosis. Great Vessels The aortic root is normal size. Pericardium/Pleura There is no pericardial effusion. Tech Comments TDS due to morbid obesity. Patient scanned supine. Summary Statements The study was technically difficult with many images being suboptimal in quality. Regional wall motion abnormalities cannot be excluded due to limited visualization. Left ventricular systolic function is grossly normal. The right ventricle is mildly dilated. The right ventricular systolic function is grossly normal. The left atrium is mildly dilated. There is mild mitral regurgitation. There is mild tricuspid regurgitation. There is no pericardial effusion. MD Aden *Phil 01/15/2020, 1:44 PM Ordering Physician: Adi Grigsby Referring Physician: ADI GRIGSBY Performed By: Kaelyn Pathak
--- NOTE | 2020-01-15 15:39 | PN ---
Progress Note, Physician - Current Medication List Current Medications: Active Medications Heparin Sodium (Porcine) (Heparin -) 5,000 unit SQ BID [facility] Last Admin: 01/15/20 09:56 Dose: 5,000 unit Documented by: Sodium Chloride (Normal Saline -) 1,000 mls @ 125 mls/hr IV ASDIR [facility] Lactulose (Cephulac (Oral Use)) 20 gm PO DAILY [facility] Last Admin: 01/15/20 09:56 Dose: 20 gm Documented by: Morphine Sulfate (Morphine Sulfate) 2 mg IVPUSH Q6H PRN PRN Reason: PAIN LEVEL 6-10 Multivitamins/Minerals/Vitamin C (Tab-A-Vit -) 1 tab PO DAILY [facility] Last Admin: 01/15/20 09:56 Dose: 1 tab Documented by: Nadolol (Corgard -) 20 mg PO DAILY [facility] Last Admin: 01/15/20 09:56 Dose: 20 mg Documented by: Thiamine HCl (Vitamin B1 -) 100 mg PO DAILY [facility] Last Admin: 01/15/20 09:57 Dose: 100 mg Documented by: - Objective Vital Signs: Vital Signs Temperature 98.3 F 01/15/20 14:00 Pulse Rate 89 01/15/20 14:00 Respiratory Rate 01/15/20 15:00 Blood Pressure 151/89 01/15/20 14:00 O2 Sat by Pulse Oximetry (%) 100 01/15/20 15:00 Constitutional: Yes: No Distress HENT: Yes: Atraumatic Neck: Yes: Supple Cardiovascular: Yes: Regular Rate and Rhythm Respiratory: Yes: CTA Bilaterally Gastrointestinal: Yes: Normal Bowel Sounds Extremities: Yes: WNL Neurological: Yes: Alert, Oriented Labs: CBC, BMP 01/14/20 05:54 01/15/20 06:45 INR, PTT INR 1.79 (0.83-1.09) H 01/13/20 18:45 Problem List - Problems (1) HERI (acute kidney injury) Assessment/Plan: ON IVF MONITOR CR RENAL ON BOARD Code(s): N17.9 - ACUTE KIDNEY FAILURE, UNSPECIFIED (2) Alcoholic cirrhosis Code(s): K70.30 - ALCOHOLIC CIRRHOSIS OF LIVER WITHOUT ASCITES (3) Liver cirrhosis Code(s): K74.60 - UNSPECIFIED CIRRHOSIS OF LIVER (4) Rhabdomyolysis Assessment/Plan: IVF MONITOR CPK Code(s): M62.82 - RHABDOMYOLYSIS (5) Transaminitis Assessment/Plan: MONITOR ETOH RELATED? Code(s): R74.0 - NONSPEC ELEV OF LEVELS OF TRANSAMNS & LACTIC ACID DEHYDRGNSE (6) Alcohol dependence Code(s): F10.20 - ALCOHOL DEPENDENCE, UNCOMPLICATED (7) HLD (hyperlipidemia) Code(s): E78.5 - HYPERLIPIDEMIA, UNSPECIFIED (8) Hypertension Assessment/Plan: MONITOR Code(s): I10 - ESSENTIAL (PRIMARY) HYPERTENSION Qualifiers: Hypertension type: essential hypertension Qualified Code(s): I10 - Essential (primary) hypertension (9) Anemia Assessment/Plan: STOOL OCCULT BLOOD ORDERED MONITOR CBC Code(s): D64.9 - ANEMIA, UNSPECIFIED Assessment/Plan Impression 1. HERI 2. nsaid use 3. liver cirrhosis 4. etoh abuse 5. cad 6. hld 7. htn 8.rhabdomyolysis MEDICINE COVERAGE FOR DR VALDIVIA TODAY
[2020-01-15] MEDS: SODIUM CHLORIDE 1,000 ML IV SCH ×2 (15:45→21:41)
--- NOTE | 2020-01-15 18:54 | PN.GI ---
GI Progress Note Subjective: asymptomatic - Objective Vital Signs: Vital Signs Temperature 97.9 F 01/15/20 16:32 Pulse Rate 87 01/15/20 16:32 Respiratory Rate 20 01/15/20 16:32 Blood Pressure 146/84 01/15/20 16:32 O2 Sat by Pulse Oximetry (%) 100 01/15/20 16:32 Constitutional: Obese Eyes: Yes: Sclera Icterus Neck: Yes: Supple Respiratory: Yes: CTA Bilaterally ...Palpate: Yes: Soft. No: Firm/Rigid, Guarding, Hepatomegaly, Mass, Pulsatile Mass, Splenomegaly Labs: CBC, BMP 01/14/20 05:54 01/15/20 06:45 INR, PTT INR 1.79 (0.83-1.09) H 01/13/20 18:45 Problem List - Problems (1) Rhabdomyolysis Assessment/Plan: continue IV hydration Code(s): M62.82 - RHABDOMYOLYSIS (2) Alcoholic cirrhosis Code(s): K70.30 - ALCOHOLIC CIRRHOSIS OF LIVER WITHOUT ASCITES (3) Hepatocellular injury Assessment/Plan: severe seccondary to ischemia R> contiue IV hydration repat LFTS in 48 hours Code(s): K76.9 - LIVER DISEASE, UNSPECIFIED
[2020-01-16 07:00] LABS: BASO % 0.8 % (0-2.0); EOS % 2.9 % (0-4.5); HEMATOCRIT 27.1 % (35.4-49); HEMOGLOBIN 8.5 GM/dL (11.7-16.9); LYMPH % 20.4 % (8-40); MCH 23.7 pg (25.7-33.7); MCHC 31.3 g/dl (32.0-35.9); MEAN CELL VOLUME 75.8 fl (80-96); MEAN PLT VOLUME 8.5 fl (7.5-11.1); MONO % 9.9 % (3.8-10.2); PLATELET COUNT 161 K/MM3 (134-434); RBC 3.57 M/mm3 (4.00-5.60); RDW 22.4 % (11.9-15.9); WHITE BLOOD COUNT 11.4 K/mm3 (4.0-10.0)
--- NOTE | 2020-01-16 07:10 | PN ---
Progress Note (short form) - Note Progress Note: Coverage for Dr. Liv Bledsoe Chief Complaint: Events noted, notes reviewed, resting in bed, continues to report dyspnea with exertion, denies chest discomfort History of Present Illness: Seen and examined on telemetry. Events noted, notes reviewed, resting in bed, continues to report dyspnea with exertion, denies chest discomfort Patient had coronary artery bypass graft surgery performed at [facility] 7-8 years ago and has not followed up with a superintendent power Medications: Current Medications Generic Name Dose Route Start Last Admin Trade Name Freq PRN Reason Stop Dose Admin Heparin Sodium (Porcine) 5,000 unit 01/14/20 10:00 01/15/20 21:39 Heparin - SQ 5,000 unit BID NABILA Administration Sodium Chloride 1,000 mls @ 125 mls/hr 01/15/20 13:06 01/15/20 21:41 Normal Saline - IV 125 mls/hr ASDIR NABILA Administration Lactulose 20 gm 01/14/20 10:00 01/15/20 09:56 Cephulac (Oral Use) PO 20 gm DAILY NABILA Administration Morphine Sulfate 2 mg 01/13/20 23:48 Morphine Sulfate IVPUSH Q6H PRN PAIN LEVEL 6-10 Multivitamins/Minerals/Vitamin C 1 tab 01/14/20 10:00 01/15/20 09:56 Tab-A-Vit - PO 1 tab DAILY NABILA Administration Nadolol 20 mg 01/14/20 10:00 01/15/20 09:56 Corgard - PO 20 mg DAILY NABILA Administration Thiamine HCl 100 mg 01/14/20 10:00 01/15/20 09:57 Vitamin B1 - PO 100 mg DAILY NABILA Administration Review of Systems - Review of Systems Constitutional: no symptoms reported Respiratory: as noted above Cardiovascular: as noted above Gastrointestinal: denies Nausea, Vomiting, Diarrhea, Constipation or Abdominal Pain Genitourinary: no symptoms reported Musculoskeletal: no symptoms reported Endocrine: no symptoms reported Vital Signs: Last Vital Signs Temp Pulse Resp BP Pulse Ox 97.8 F 87 20 117/41 L 95 01/16/20 06:00 01/15/20 16:32 01/16/20 06:00 01/16/20 06:00 01/16/20 02:00 Intake & Output 01/13/20 01/14/20 01/15/20 01/16/20 23:59 23:59 23:59 23:59 Intake Total 3320 1065 Output Total 150 700 Balance 3170 365 Weight 260 lb 277 lb Neck: Supple Negative JVD Respiratory: Diminished Breath Sounds at the Bases Cardiovascular: S1 S2 Regular Rate Rhythm Gastrointestinal: Soft Benign Normal Bowel Sounds Ext: Negative Edema Labs: CBC, BMP 01/16/20 05:20 01/16/20 05:20 Hepatic Panel Total Bilirubin 3.5 mg/dL (0.2-1) H 01/16/20 05:20 AST 2015 U/L (15-37) H 01/16/20 05:20 ALT 436 U/L (13-61) H 01/16/20 05:20 Alkaline Phosphatase 86 U/L (45-117) 01/16/20 05:20 Albumin 2.2 g/dl (3.4-5.0) L 01/16/20 05:20 Hepatic Panel Total Bilirubin 4.0 mg/dL (0.2-1) H 01/15/20 06:45 AST 1851 U/L (15-37) H 01/15/20 06:45 ALT 377 U/L (13-61) H 01/15/20 06:45 Alkaline Phosphatase 83 U/L (45-117) 01/15/20 06:45 Albumin 2.3 g/dl (3.4-5.0) L 01/15/20 06:45 INR, PTT INR 1.79 (0.83-1.09) H 01/13/20 18:45 Assessment/Plan ASSESSMENT: 1. CAD post CABG with evidence of demand ischemic injury angina pectoris 2. Diastolic LV dysfunction with clinical class 0 NYHA classification LV failure 3. HTN 4. Dyslipidemia 5. Evidence of acute hepatitis etiology to be determined 6. Acute renal insufficiency/failure 7. Evidence of rhabdomyolysis 8. Anemia 9. Morbid obesity PLAN: 1. Continue Nadolol therapy 2. Ideally patient should be on HALEY inhibitor or angiotensin receptor allyson therapy considering the above-noted comorbidities, therapy initiation is to be deferred in view of the above-noted evidence of acute renal insufficiency/failure- pending resolution 3. Ideally patient should be on statin therapy considering the above-noted comorbidities, therapy initiation is to be deferred in view of the above-noted evidence of acute liver disease- pending resolution 4. Ideally patient should be on ASA therapy considering the above-noted comorbidities, therapy initiation is to be deferred in view of the above-noted evidence of anemia- pending completion of evaluation Michelle Pennington MD
[2020-01-16 07:28] LABS: ALBUMIN 2.2 g/dl (3.4-5.0); ALK PHOS 86 U/L (45-117); ANION GAP 10 MMOL/L (8-16); BILIRUBIN,TOTAL 3.5 mg/dL (0.2-1); BLOOD UREA NITROGEN 51.1 mg/dL (7-18); CALCIUM 7.6 mg/dL (8.5-10.1); CHLORIDE 104 mmol/L (98-107); CO2 20 mmol/L (21-32); CREATININE 5.4 mg/dL (0.55-1.3); GLUCOSE,RANDOM 90 mg/dL (74-106); POTASSIUM 4.3 mmol/L (3.5-5.1); SGPT/ALT 436 U/L (13-61); SODIUM 133 mmol/L (136-145); TOT PROT 5.5 g/dl (6.4-8.2)
--- NOTE | 2020-01-16 07:49 | PN.GI ---
GI Progress Note Subjective: no new complaints -- awake alert but states he did not sleep overnight - Objective Vital Signs: Vital Signs Temperature 97.8 F 01/16/20 06:00 Pulse Rate 87 01/15/20 16:32 Respiratory Rate 01/16/20 06:00 Blood Pressure 117/41 L 01/16/20 06:00 O2 Sat by Pulse Oximetry (%) 95 01/16/20 02:00 Constitutional: No Distress, Calm Eyes: Yes: Sclera Icterus HENT: Yes: WNL Neck: Yes: WNL Respiratory: Yes: WNL, Regular, CTA Bilaterally Gastrointestinal Inspection: Yes: WNL ...Auscultate: Yes: Normoactive Bowel Sounds, Other (obese) Labs: CBC, BMP 01/16/20 05:20 01/16/20 05:20 INR, PTT INR 1.79 (0.83-1.09) H 01/13/20 18:45 Problem List - Problems (1) HERI (acute kidney injury) Assessment/Plan: ast rising / CK noted -- c/w IVF's for rhabdo monitor lft / inr daily avoid hepatotoxic medications diet as tolerated c/w nadalol / lactulose Code(s): N17.9 - ACUTE KIDNEY FAILURE, UNSPECIFIED (2) Alcoholic cirrhosis Code(s): K70.30 - ALCOHOLIC CIRRHOSIS OF LIVER WITHOUT ASCITES (3) Anemia Code(s): D64.9 - ANEMIA, UNSPECIFIED (4) Leg cramping Code(s): R25.2 - CRAMP AND SPASM (5) Rhabdomyolysis Code(s): M62.82 - RHABDOMYOLYSIS
[2020-01-16 07:55] LABS: SGOT/AST 2015 U/L (15-37)
[2020-01-16] MEDS ORDERED: PT OWN MED DRAWER 7, Y5N ONE (10:18)
[2020-01-16] MEDS: LACTULOSE 20 GM/30 ML UDC (FOR ORAL USE ONLY) PO SCH (10:22)
[2020-01-16] MEDS: NADOLOL 20 MG TABLET (FP) PO SCH (10:23)
[2020-01-16] MEDS: HEPARIN NA (PORCINE) 5,000 UNITS/ML 1ML VIAL SQ SCH ×2 (10:23→21:18)
[2020-01-16] MEDS: THIAMINE HCL 100 MG TABLET (FP) PO SCH (10:23)
[2020-01-16] MEDS: MULTIVITAMINS (DAILY MVI) TABLET (FP) PO SCH (10:23)
[2020-01-16] MEDS: SODIUM CHLORIDE 1,000 ML IV SCH ×2 (10:24→14:50)
[2020-01-16] MEDS: MORPHINE SULFATE 2 MG/ML VIAL IVPUSH PRN ×2 (12:59→21:25)
[2020-01-16 13:17] LABS: ANISOCYTOSIS 2+; MACROCYTOSIS 1+; PLATELET ESTIMATE DECREASED
--- NOTE | 2020-01-16 14:18 | CON.ID ---
Consult Consult Specialty:: infectious diseases Referred by:: Reason for Consultation:: confusion,r/o infection - History of Present Illness Chief Complaint: confusion,weakness History of Present Illness: 55yo M with PMH cirrhosis, GI bleed, CAD s/p CABG and stents, HTN, HLD who presents with with weakness, SOB. Pt was seen here yesterday for leg pain and was subsequently found to have elevated LFTs - pt left AMA and [employer]CH[employer] called patient who agreed to return to ED. Pt states that he has had noticeable weakness and w orsening SOB for two days. Reports confusion - "pain is so bad, it is hard to think." Pt states that he has been taking Motrin for his leg pain without improvement Denies f/c, chest pain, abdominal pain, n/v,diarrhea/constipation, melena/hematochezia. patient says also why did his legs became so big - History Source History Provided By: Patient Limitations to Obtaining History: No Limitations - Past Medical History Cardio/Vascular: Yes: CAD, HTN, Hyperlipdemia Pulmonary: Yes: Sleep Apnea (pt may have this; ? 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 History of Recent Travel: No Home Medications - Allergies Allergies/Adverse Reactions: Allergies Allergy/AdvReac Type Severity Reaction Status Date / Time No Known Allergies Allergy Verified 01/12/20 13:08 - Home Medications Home Medications: Ambulatory Orders RX: Multivitamins [Multivit ([facility] Formulary)] 1 tab PO DAILY 07/13/17 RX: Thiamine HCl [B-1] 100 mg PO DAILY 07/13/17 RX: Lactulose (Oral Use) [Cephulac -] 20 gm PO DAILY #30 udc 07/16/17 RX: Nadolol 20 mg PO DAILY #30 tablet 07/16/17 RX: Pantoprazole Sodium [Protonix -] 40 mg PO BID #60 tablet 12/24/19 Family Medical History Family History: Denies Family Hx Cardiac Disorders: Father Review of Systems - Review of Systems Constitutional: reports: Weakness Eyes: reports: No Symptoms HENT: reports: No Symptoms Neck: reports: No Symptoms Cardiovascular: reports: No Symptoms Respiratory: reports: No Symptoms Gastrointestinal: reports: No Symptoms Genitourinary: reports: No Symptoms Musculoskeletal: reports: Other Integumentary: reports: No Symptoms Neurological: reports: No Symptoms Endocrine: reports: No Symptoms Hematology/Lymphatic: reports: No Symptoms Psychiatric: reports: No Symptoms Physical Exam Vital Signs: Vital Signs Temperature 97 F L 01/16/20 10:00 Pulse Rate 88 01/16/20 10:00 Respiratory Rate 18 01/16/20 10:00 Blood Pressure 108/69 01/16/20 10:00 O2 Sat by Pulse Oximetry (%) 96 01/16/20 10:00 Constitutional: Yes: Well Nourished, Calm, Mild Distress Eyes: Yes: Conjunctiva Clear HENT: Yes: Atraumatic, Normocephalic Neck: Yes: Supple, Trachea Midline Cardiovascular: Yes: Regular Rate and Rhythm Respiratory: Yes: Regular, CTA Bilaterally Gastrointestinal: Yes: Normal Bowel Sounds, Soft Musculoskeletal: Yes: Other Extremities: Yes: Other Edema: LLE: 2+, RLE: 2+ Neurological: Yes: Alert, Oriented Psychiatric: Yes: Alert, Oriented Labs: CBC, BMP 01/16/20 05:20 01/16/20 05:20 Imaging - Results Chest X-ray: Report Reviewed, Image Reviewed Cat Scan: Report Reviewed, Image Reviewed Ultrasound: Report Reviewed, Image Reviewed Assessment/Plan Problem List - Problems (1) Alcoholic cirrhosis Code(s): K70.30 - ALCOHOLIC CIRRHOSIS OF LIVER WITHOUT ASCITES (2) HERI (acute kidney injury) Code(s): N17.9 - ACUTE KIDNEY FAILURE, UNSPECIFIED (3) Anemia Code(s): D64.9 - ANEMIA, UNSPECIFIED (4) Rhabdomyolysis Code(s): M62.82 - RHABDOMYOLYSIS (5) Transaminitis Code(s): R74.0 - NONSPEC ELEV OF LEVELS OF TRANSAMNS & LACTIC ACID DEHYDRGNSE (6) Vomiting Code(s): R11.10 - VOMITING, UNSPECIFIED (7) CAD (coronary artery disease) Code(s): I25.10 - ATHSCL HEART DISEASE OF [place] CORONARY ARTERY W/O ANG PCTRS (8) HLD (hyperlipidemia) Code(s): E78.5 - HYPERLIPIDEMIA, UNSPECIFIED (9) Hypertension Code(s): I10 - ESSENTIAL (PRIMARY) HYPERTENSION Qualifiers: Hypertension type: essential hypertension Qualified Code(s): I10 - Essential (primary) hypertension (10) History of coronary artery stent placement Code(s): Z95.5 - PRESENCE OF CORONARY ANGIOPLASTY IMPLANT AND GRAFT plan await for all results will not start abx close watch gi on board rest as per the team
--- NOTE | 2020-01-16 16:58 | PN ---
Progress Note (short form) - Note Progress Note: hai rhabdo Active Medications Heparin Sodium (Porcine) (Heparin -) 5,000 unit SQ BID [facility] Last Admin: 01/16/20 10:23 Dose: 5,000 unit Documented by: Sodium Chloride (Normal Saline -) 1,000 mls @ 125 mls/hr IV ASDIR [facility] Last Admin: 01/16/20 14:50 Dose: Not Given Documented by: Lactulose (Cephulac (Oral Use)) 20 gm PO DAILY [facility] Last Admin: 01/16/20 10:22 Dose: 20 gm Documented by: Morphine Sulfate (Morphine Sulfate) 2 mg IVPUSH Q6H PRN PRN Reason: PAIN LEVEL 6-10 Last Admin: 01/16/20 12:59 Dose: 2 mg Documented by: Multivitamins/Minerals/Vitamin C (Tab-A-Vit -) 1 tab PO DAILY [facility] Last Admin: 01/16/20 10:23 Dose: 1 tab Documented by: Nadolol (Corgard -) 20 mg PO DAILY [facility] Last Admin: 01/16/20 10:23 Dose: 20 mg Documented by: Thiamine HCl (Vitamin B1 -) 100 mg PO DAILY [facility] Last Admin: 01/16/20 10:23 Dose: 100 mg Documented by: Last Vital Signs Temp Pulse Resp BP Pulse Ox 98.3 F 82 18 140/77 98 01/16/20 14:00 01/16/20 14:00 01/16/20 14:00 01/16/20 14:00 01/16/20 14:00 CBC, BMP 01/16/20 05:20 01/16/20 05:20 IMP- hai hyponatremia Plan- continue to monitor
--- NOTE | 2020-01-16 22:15 | PN ---
Progress Note, Physician History of Present Illness: Pt complains of lower extremity weakness/pain - Current Medication List Current Medications: Active Medications Heparin Sodium (Porcine) (Heparin -) 5,000 unit SQ BID [facility] Last Admin: 01/16/20 21:18 Dose: 5,000 unit Documented by: Sodium Chloride (Normal Saline -) 1,000 mls @ 125 mls/hr IV ASDIR [facility] Last Admin: 01/16/20 14:50 Dose: Not Given Documented by: Lactulose (Cephulac (Oral Use)) 20 gm PO DAILY [facility] Last Admin: 01/16/20 10:22 Dose: 20 gm Documented by: Morphine Sulfate (Morphine Sulfate) 2 mg IVPUSH Q6H PRN PRN Reason: PAIN LEVEL 6-10 Last Admin: 01/16/20 21:25 Dose: 2 mg Documented by: Multivitamins/Minerals/Vitamin C (Tab-A-Vit -) 1 tab PO DAILY [facility] Last Admin: 01/16/20 10:23 Dose: 1 tab Documented by: Nadolol (Corgard -) 20 mg PO DAILY [facility] Last Admin: 01/16/20 10:23 Dose: 20 mg Documented by: Thiamine HCl (Vitamin B1 -) 100 mg PO DAILY [facility] Last Admin: 01/16/20 10:23 Dose: 100 mg Documented by: - Objective Vital Signs: Vital Signs Temperature 98.3 F 01/16/20 18:28 Pulse Rate 91 H 01/16/20 18:28 Respiratory Rate 18 01/16/20 20:59 Blood Pressure 113/54 L 01/16/20 18:28 O2 Sat by Pulse Oximetry (%) 98 01/16/20 20:59 Constitutional: Yes: Obese Eyes: Yes: Sclera Icterus Neck: Yes: WNL, Supple Cardiovascular: Yes: WNL, Regular Rate and Rhythm Respiratory: Yes: WNL, Regular, CTA Bilaterally Gastrointestinal: Yes: Normal Bowel Sounds, Abdomen, Obese, Distention Labs: CBC, BMP 01/16/20 05:20 01/16/20 05:20 INR, PTT INR 1.79 (0.83-1.09) H 01/13/20 18:45 Problem List - Problems (1) HERI (acute kidney injury) Assessment/Plan: ?Due to rhabdo vs acute kidney injury ?Hepatorenal syndrome Cont to monitor labs Renal consult Code(s): N17.9 - ACUTE KIDNEY FAILURE, UNSPECIFIED (2) Alcoholic cirrhosis Assessment/Plan: Elevated LFT's Cont nadolol GI consult Code(s): K70.30 - ALCOHOLIC CIRRHOSIS OF LIVER WITHOUT ASCITES (3) Rhabdomyolysis Assessment/Plan: Cont IV fluids Monitor for fluid overload Renal consult Code(s): M62.82 - RHABDOMYOLYSIS (4) Transaminitis Assessment/Plan: Due to alcoholic cirrhosis Code(s): R74.0 - NONSPEC ELEV OF LEVELS OF TRANSAMNS & LACTIC ACID DEHYDRGNSE (5) Vomiting Code(s): R11.10 - VOMITING, UNSPECIFIED (6) HLD (hyperlipidemia) Assessment/Plan: Statin on hold due to elevated LFT's/cirrhosis Code(s): E78.5 - HYPERLIPIDEMIA, UNSPECIFIED (7) Hypertension Assessment/Plan: BP stable Pt is off antihypertensives Code(s): I10 - ESSENTIAL (PRIMARY) HYPERTENSION Qualifiers: Hypertension type: essential hypertension Qualified Code(s): I10 - Essential (primary) hypertension (8) History of coronary artery stent placement Code(s): Z95.5 - PRESENCE OF CORONARY ANGIOPLASTY IMPLANT AND GRAFT (9) Morbid obesity Code(s): E66.01 - MORBID (SEVERE) OBESITY DUE TO EXCESS CALORIES (10) CAD (coronary artery disease) Code(s): I25.10 - ATHSCL HEART DISEASE OF [place] CORONARY ARTERY W/O ANG PCTRS
[2020-01-17 06:41] LABS: BASO % 0.7 % (0-2.0); HEMOGLOBIN 9.2 GM/dL (11.7-16.9); LYMPH % 17.8 % (8-40); MCH 23.9 pg (25.7-33.7); MCHC 31.7 g/dl (32.0-35.9); MEAN CELL VOLUME 75.3 fl (80-96); MONO % 10.6 % (3.8-10.2); NEUT % 67.9 % (42.8-82.8); PLATELET COUNT 190 K/MM3 (134-434); RBC 3.85 M/mm3 (4.00-5.60); WHITE BLOOD COUNT 14.5 K/mm3 (4.0-10.0)
--- NOTE | 2020-01-17 06:54 | PN ---
Progress Note (short form) - Note Progress Note: Coverage for Dr. Liv Bledsoe Chief Complaint: Events noted, notes reviewed, sitting in bed, continues to report dyspnea with exertion, denies chest discomfort History of Present Illness: Seen and examined on telemetry. Events noted, notes reviewed, sitting in bed, continues to report dyspnea with exertion, denies chest discomfort Long discussion with the patient in reference to his clinical presentation and active comorbidities which are being addressed, eventually patient will require additional cardiovascular evaluation which can be performed as outpatient Patient had coronary artery bypass graft surgery performed at 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 Medications: Current Medications Generic Name Dose Route Start Last Admin Trade Name Freq PRN Reason Stop Dose Admin Heparin Sodium (Porcine) 5,000 unit 01/14/20 10:00 01/16/20 21:18 Heparin - SQ 5,000 unit BID NABILA Administration Sodium Chloride 1,000 mls @ 125 mls/hr 01/15/20 13:06 01/16/20 14:50 Normal Saline - IV Not Given ASDIR NABILA Lactulose 20 gm 01/14/20 10:00 01/16/20 10:22 Cephulac (Oral Use) PO 20 gm DAILY NABILA Administration Multivitamins/Minerals/Vitamin C 1 tab 01/14/20 10:00 01/16/20 10:23 Tab-A-Vit - PO 1 tab DAILY NABILA Administration Nadolol 20 mg 01/14/20 10:00 01/16/20 10:23 Corgard - PO 20 mg DAILY NABILA Administration Thiamine HCl 100 mg 01/14/20 10:00 01/16/20 10:23 Vitamin B1 - PO 100 mg DAILY NABILA Administration Review of Systems - Review of Systems Constitutional: no symptoms reported Respiratory: as noted above Cardiovascular: as noted above Gastrointestinal: denies Nausea, Vomiting, Diarrhea, Constipation or Abdominal Pain Genitourinary: no symptoms reported Musculoskeletal: no symptoms reported Endocrine: no symptoms reported Vital Signs: Last Vital Signs Temp Pulse Resp BP Pulse Ox 98.4 F 94 H 18 131/84 98 01/17/20 05:58 01/17/20 05:58 01/17/20 05:58 01/17/20 05:58 01/16/20 20:59 Intake & Output 01/14/20 01/15/20 01/16/20 01/17/20 23:59 23:59 23:59 23:59 Intake Total 3320 2280 1200 Output Total 150 2025 700 Balance 3170 255 500 Weight 277 lb Neck: Supple Negative JVD Respiratory: Diminished Breath Sounds at the Bases Cardiovascular: S1 S2 Regular Rate Rhythm Gastrointestinal: Soft Benign Normal Bowel Sounds Ext: Negative Edema Labs: CBC, BMP 01/17/20 05:35 01/17/20 05:35 Hepatic Panel Total Bilirubin 3.8 mg/dL (0.2-1) H 01/17/20 05:35 AST 2179 U/L (15-37) H 01/17/20 05:35 ALT 537 U/L (13-61) H 01/17/20 05:35 Alkaline Phosphatase 93 U/L (45-117) 01/17/20 05:35 Albumin 2.4 g/dl (3.4-5.0) L 01/17/20 05:35 Hepatic Panel Total Bilirubin 3.5 mg/dL (0.2-1) H 01/16/20 05:20 AST 2015 U/L (15-37) H 01/16/20 05:20 ALT 436 U/L (13-61) H 01/16/20 05:20 Alkaline Phosphatase 86 U/L (45-117) 01/16/20 05:20 Albumin 2.2 g/dl (3.4-5.0) L 01/16/20 05:20 INR, PTT INR 1.79 (0.83-1.09) H 01/13/20 18:45 Assessment/Plan ASSESSMENT: 1. CAD post CABG with evidence of demand ischemic injury angina pectoris 2. Diastolic LV dysfunction with clinical class 0 NYHA classification LV failure 3. HTN 4. Dyslipidemia 5. Evidence of acute hepatitis etiology to be determined 6. Acute renal insufficiency/failure 7. Evidence of rhabdomyolysis 8. Anemia 9. Morbid obesity PLAN: 1. Continue Nadolol therapy and dose titration as needed, hemodynamics permitting 2. Ideally patient should be on HALEY inhibitor or angiotensin receptor allyson therapy considering the above-noted comorbidities, therapy initiation is to be deferred in view of the above-noted evidence of acute renal insufficiency/failure- pending resolution 3. Ideally patient should be on statin therapy considering the above-noted comorbidities, therapy initiation is to be deferred in view of the above-noted e vidence of acute liver disease- pending resolution 4. Ideally patient should be on ASA therapy considering the above-noted comorbidities, therapy initiation is to be deferred in view of the above-noted evidence of anemia- pending completion of evaluation Michelle Pennington MD
[2020-01-17 07:13] LABS: ALBUMIN 2.4 g/dl (3.4-5.0); BILIRUBIN,TOTAL 3.8 mg/dL (0.2-1); BLOOD UREA NITROGEN 54.3 mg/dL (7-18); CREATININE 3.8 mg/dL (0.55-1.3); POTASSIUM 4.3 mmol/L (3.5-5.1); TOT PROT 6.2 g/dl (6.4-8.2)
[2020-01-17 07:34] LABS: CALCIUM 7.7 mg/dL (8.5-10.1)
--- NOTE | 2020-01-17 08:23 | PN.GI ---
GI Progress Note Subjective: complains of difficulty sleeping; no other new complaints - Objective Vital Signs: Vital Signs Temperature 98.4 F 01/17/20 05:58 Pulse Rate 94 H 01/17/20 05:58 Respiratory Rate 18 01/17/20 05:58 Blood Pressure 131/84 01/17/20 05:58 O2 Sat by Pulse Oximetry (%) 98 01/16/20 20:59 Constitutional: Well Nourished, No Distress Neck: Yes: WNL Cardiovascular: Yes: WNL, Regular Rate and Rhythm Respiratory: Yes: WNL, Regular, CTA Bilaterally Gastrointestinal Inspection: Yes: WNL ...Auscultate: Yes: Normoactive Bowel Sounds Edema: Yes Labs: CBC, BMP 01/17/20 05:35 01/17/20 05:35 INR, PTT INR 1.79 (0.83-1.09) H 01/13/20 18:45 Problem List - Problems (1) HERI (acute kidney injury) Assessment/Plan: ast rising / CK noted -- c/w IVF's for rhabdo monitor lft / inr daily avoid hepatotoxic medications diet as tolerated c/w nadalol / lactulose Code(s): N17.9 - ACUTE KIDNEY FAILURE, UNSPECIFIED (2) Alcoholic cirrhosis Code(s): K70.30 - ALCOHOLIC CIRRHOSIS OF LIVER WITHOUT ASCITES (3) Anemia Code(s): D64.9 - ANEMIA, UNSPECIFIED (4) Leg cramping Code(s): R25.2 - CRAMP AND SPASM (5) Rhabdomyolysis Code(s): M62.82 - RHABDOMYOLYSIS
--- NOTE | 2020-01-17 08:50 | PN ---
Progress Note, Physician History of Present Illness: weakness swelling of the legs - Current Medication List Current Medications: Active Medications Heparin Sodium (Porcine) (Heparin -) 5,000 unit SQ BID [facility] Last Admin: 01/16/20 21:18 Dose: 5,000 unit Documented by: Sodium Chloride (Normal Saline -) 1,000 mls @ 125 mls/hr IV ASDIR [facility] Last Admin: 01/16/20 14:50 Dose: Not Given Documented by: Lactulose (Cephulac (Oral Use)) 20 gm PO DAILY [facility] Last Admin: 01/16/20 10:22 Dose: 20 gm Documented by: Multivitamins/Minerals/Vitamin C (Tab-A-Vit -) 1 tab PO DAILY [facility] Last Admin: 01/16/20 10:23 Dose: 1 tab Documented by: Nadolol (Corgard -) 20 mg PO DAILY [facility] Last Admin: 01/16/20 10:23 Dose: 20 mg Documented by: Thiamine HCl (Vitamin B1 -) 100 mg PO DAILY [facility] Last Admin: 01/16/20 10:23 Dose: 100 mg Documented by: - Objective Vital Signs: Vital Signs Temperature 98.4 F 01/17/20 05:58 Pulse Rate 94 H 01/17/20 05:58 Respiratory Rate 18 01/17/20 05:58 Blood Pressure 131/84 01/17/20 05:58 O2 Sat by Pulse Oximetry (%) 98 01/16/20 20:59 Constitutional: Yes: Calm, Mild Distress Cardiovascular: Yes: S1, S2 Respiratory: Yes: Regular, CTA Bilaterally Gastrointestinal: Yes: Normal Bowel Sounds, Soft Musculoskeletal: Yes: WNL Extremities: Yes: Other Edema: LLE: 2+, RLE: 2+ Neurological: Yes: Alert, Oriented Psychiatric: Yes: Alert, Oriented Labs: CBC, BMP 01/17/20 05:35 01/17/20 05:35 INR, PTT INR 1.79 (0.83-1.09) H 01/13/20 18:45 Assessment/Plan Problem List - Problems (1) Alcoholic cirrhosis Code(s): K70.30 - ALCOHOLIC CIRRHOSIS OF LIVER WITHOUT ASCITES (2) HERI (acute kidney injury) Code(s): N17.9 - ACUTE KIDNEY FAILURE, UNSPECIFIED (3) Anemia Code(s): D64.9 - ANEMIA, UNSPECIFIED (4) Rhabdomyolysis Code(s): M62.82 - RHABDOMYOLYSIS (5) Transaminitis Code(s): R74.0 - NONSPEC ELEV OF LEVELS OF TRANSAMNS & LACTIC ACID DEHYDRGNSE (6) Vomiting Code(s): R11.10 - VOMITING, UNSPECIFIED (7) CAD (coronary artery disease) Code(s): I25.10 - ATHSCL HEART DISEASE OF [place] CORONARY ARTERY W/O ANG PCTRS (8) HLD (hyperlipidemia) Code(s): E78.5 - HYPERLIPIDEMIA, UNSPECIFIED (9) Hypertension Code(s): I10 - ESSENTIAL (PRIMARY) HYPERTENSION Qualifiers: Hypertension type: essential hypertension Qualified Code(s): I10 - Essential (primary) hypertension (10) History of coronary artery stent placement Code(s): Z95.5 - PRESENCE OF CORONARY ANGIOPLASTY IMPLANT AND GRAFT plan continue current mgmt as per gi close watch rest as per the tem
[2020-01-17] MEDS ORDERED: PT OWN MED DRAWER 7, Y5N ONE (09:36)
[2020-01-17] MEDS: HEPARIN NA (PORCINE) 5,000 UNITS/ML 1ML VIAL SQ SCH ×2 (09:51→21:07)
[2020-01-17] MEDS: LACTULOSE 20 GM/30 ML UDC (FOR ORAL USE ONLY) PO SCH ×2 (09:51→11:56)
[2020-01-17] MEDS: THIAMINE HCL 100 MG TABLET (FP) PO SCH (09:51)
[2020-01-17] MEDS: MULTIVITAMINS (DAILY MVI) TABLET (FP) PO SCH (09:51)
[2020-01-17] MEDS: NADOLOL 20 MG TABLET (FP) PO SCH (09:51)
[2020-01-17] MEDS: SODIUM CHLORIDE 1,000 ML IV SCH (13:05)
[2020-01-17] MEDS: MORPHINE SULFATE 2 MG/ML VIAL IVPUSH PRN (17:05)
--- NOTE | 2020-01-17 19:34 | PN ---
Progress Note (short form) - Note Progress Note: hai rhabdo Active Medications Gabapentin (Neurontin -) 200 mg PO TID [facility] Heparin Sodium (Porcine) (Heparin -) 5,000 unit SQ BID [facility] Last Admin: 01/17/20 09:51 Dose: 5,000 unit Documented by: Sodium Chloride (Normal Saline -) 1,000 mls @ 125 mls/hr IV ASDIR [facility] Last Admin: 01/17/20 13:05 Dose: 125 mls/hr Documented by: Lactulose (Cephulac (Oral Use)) 20 gm PO DAILY [facility] Last Admin: 01/17/20 11:56 Dose: Not Given Documented by: Morphine Sulfate (Morphine Sulfate) 2 mg IVPUSH Q6H PRN PRN Reason: PAIN 6-10 Last Admin: 01/17/20 17:05 Dose: 2 mg Documented by: Multivitamins/Minerals/Vitamin C (Tab-A-Vit -) 1 tab PO DAILY [facility] Last Admin: 01/17/20 09:51 Dose: 1 tab Documented by: Nadolol (Corgard -) 20 mg PO DAILY [facility] Last Admin: 01/17/20 09:51 Dose: 20 mg Documented by: Thiamine HCl (Vitamin B1 -) 100 mg PO DAILY [facility] Last Admin: 01/17/20 09:51 Dose: 100 mg Documented by: Last Vital Signs Temp Pulse Resp BP Pulse Ox 97.3 F L 80 20 138/69 98 01/17/20 18:00 01/17/20 18:00 01/17/20 18:00 01/17/20 18:00 01/17/20 10:00 CBC, BMP 01/17/20 05:35 01/17/20 05:35 CBC, BMP 01/16/20 05:20 01/16/20 05:20 IMP- hai hyponatremia Plan- continue to monitor
--- NOTE | 2020-01-17 19:52 | PN ---
Progress Note, Physician History of Present Illness: No new complaints - Current Medication List Current Medications: Active Medications Gabapentin (Neurontin -) 200 mg PO TID [facility] Heparin Sodium (Porcine) (Heparin -) 5,000 unit SQ BID [facility] Last Admin: 01/17/20 09:51 Dose: 5,000 unit Documented by: Sodium Chloride (Normal Saline -) 1,000 mls @ 125 mls/hr IV ASDIR [facility] Last Admin: 01/17/20 13:05 Dose: 125 mls/hr Documented by: Lactulose (Cephulac (Oral Use)) 20 gm PO DAILY [facility] Last Admin: 01/17/20 11:56 Dose: Not Given Documented by: Morphine Sulfate (Morphine Sulfate) 2 mg IVPUSH Q6H PRN PRN Reason: PAIN 6-10 Last Admin: 01/17/20 17:05 Dose: 2 mg Documented by: Multivitamins/Minerals/Vitamin C (Tab-A-Vit -) 1 tab PO DAILY [facility] Last Admin: 01/17/20 09:51 Dose: 1 tab Documented by: Nadolol (Corgard -) 20 mg PO DAILY [facility] Last Admin: 01/17/20 09:51 Dose: 20 mg Documented by: Thiamine HCl (Vitamin B1 -) 100 mg PO DAILY [facility] Last Admin: 01/17/20 09:51 Dose: 100 mg Documented by: - Objective Vital Signs: Vital Signs Temperature 97.3 F L 01/17/20 18:00 Pulse Rate 80 01/17/20 18:00 Respiratory Rate 20 01/17/20 18:00 Blood Pressure 138/69 01/17/20 18:00 O2 Sat by Pulse Oximetry (%) 98 01/17/20 10:00 Eyes: Yes: Sclera Icterus Neck: Yes: WNL, Supple Cardiovascular: Yes: WNL, Regular Rate and Rhythm Respiratory: Yes: WNL, Regular, CTA Bilaterally Gastrointestinal: Yes: Normal Bowel Sounds, Abdomen, Obese, Ascites Edema: LLE: 2+, RLE: 2+ Labs: CBC, BMP 01/17/20 05:35 01/17/20 05:35 INR, PTT INR 1.79 (0.83-1.09) H 01/13/20 18:45 Problem List - Problems (1) HERI (acute kidney injury) Assessment/Plan: ?Due to rhabdo vs acute kidney injury ?Hepatorenal syndrome Cont to monitor labs Renal consult Code(s): N17.9 - ACUTE KIDNEY FAILURE, UNSPECIFIED (2) Alcoholic cirrhosis Assessment/Plan: Elevated LFT's Cont nadolol GI consult Code(s): K70.30 - ALCOHOLIC CIRRHOSIS OF LIVER WITHOUT ASCITES (3) Rhabdomyolysis Assessment/Plan: Cont IV fluids Monitor for fluid overload Renal consult Code(s): M62.82 - RHABDOMYOLYSIS (4) Transaminitis Assessment/Plan: Due to alcoholic cirrhosis Code(s): R74.0 - NONSPEC ELEV OF LEVELS OF TRANSAMNS & LACTIC ACID DEHYDRGNSE (5) Vomiting Code(s): R11.10 - VOMITING, UNSPECIFIED (6) HLD (hyperlipidemia) Assessment/Plan: Statin on hold due to elevated LFT's/cirrhosis Code(s): E78.5 - HYPERLIPIDEMIA, UNSPECIFIED (7) Hypertension Assessment/Plan: BP stable Pt is off antihypertensives Code(s): I10 - ESSENTIAL (PRIMARY) HYPERTENSION Qualifiers: Hypertension type: essential hypertension Qualified Code(s): I10 - Essential (primary) hypertension (8) History of coronary artery stent placement Code(s): Z95.5 - PRESENCE OF CORONARY ANGIOPLASTY IMPLANT AND GRAFT (9) Morbid obesity Code(s): E66.01 - MORBID (SEVERE) OBESITY DUE TO EXCESS CALORIES (10) CAD (coronary artery disease) Code(s): I25.10 - ATHSCL HEART DISEASE OF [place] CORONARY ARTERY W/O ANG PCTRS
[2020-01-17] MEDS: GABAPENTIN 100 MG CAPSULE PO SCH (21:07)
[2020-01-18] MEDS: GABAPENTIN 100 MG CAPSULE PO SCH (06:34)
[2020-01-18] MEDS: SODIUM CHLORIDE 1,000 ML IV SCH ×2 (06:34→14:34)
[2020-01-18] MEDS ORDERED: PT OWN MED DRAWER 7, Y5N ONE (09:05)
--- NOTE | 2020-01-18 09:19 | PN ---
Progress Note, Physician - Current Medication List Current Medications: Active Medications Gabapentin (Neurontin -) 200 mg PO TID [facility] Last Admin: 01/18/20 06:34 Dose: 200 mg Documented by: Heparin Sodium (Porcine) (Heparin -) 5,000 unit SQ BID [facility] Last Admin: 01/17/20 21:07 Dose: 5,000 unit Documented by: Sodium Chloride (Normal Saline -) 1,000 mls @ 125 mls/hr IV ASDIR [facility] Last Admin: 01/18/20 06:34 Dose: 125 mls/hr Documented by: Lactulose (Cephulac (Oral Use)) 20 gm PO DAILY [facility] Last Admin: 01/17/20 11:56 Dose: Not Given Documented by: Morphine Sulfate (Morphine Sulfate) 2 mg IVPUSH Q6H PRN PRN Reason: PAIN 6-10 Last Admin: 01/17/20 17:05 Dose: 2 mg Documented by: Multivitamins/Minerals/Vitamin C (Tab-A-Vit -) 1 tab PO DAILY [facility] Last Admin: 01/17/20 09:51 Dose: 1 tab Documented by: Nadolol (Corgard -) 20 mg PO DAILY [facility] Last Admin: 01/17/20 09:51 Dose: 20 mg Documented by: Thiamine HCl (Vitamin B1 -) 100 mg PO DAILY [facility] Last Admin: 01/17/20 09:51 Dose: 100 mg Documented by: - Objective Vital Signs: Vital Signs Temperature 98.3 F 01/18/20 02:00 Pulse Rate 89 01/18/20 02:00 Respiratory Rate 20 01/18/20 02:00 Blood Pressure 118/57 L 01/18/20 02:00 O2 Sat by Pulse Oximetry (%) 99 01/17/20 22:00 HENT: Yes: WNL, Atraumatic, Normocephalic Neck: Yes: WNL, Supple, Trachea Midline Cardiovascular: Yes: WNL, Regular Rate and Rhythm Respiratory: Yes: WNL, Regular, CTA Bilaterally Gastrointestinal: Yes: WNL, Normal Bowel Sounds Genitourinary: Yes: WNL Musculoskeletal: Yes: WNL Extremities: Yes: WNL Edema: No Integumentary: Yes: WNL Neurological: Yes: WNL, Alert, Oriented ...Motor Strength: WNL Psychiatric: Yes: WNL Labs: CBC, BMP 01/17/20 05:35 01/17/20 05:35 INR, PTT INR 1.79 (0.83-1.09) H 01/13/20 18:45 Assessment/Plan ASSESSMENT: 1. CAD post CABG with evidence of demand ischemic injury angina pectoris 2. Diastolic LV dysfunction with clinical class 0 NYHA classification LV failure 3. HTN 4. Dyslipidemia 5. Evidence of acute hepatitis etiology to be determined 6. Acute renal insufficiency/failure 7. Evidence of rhabdomyolysis 8. Anemia 9. Morbid obesity PLAN: 1. Continue Nadolol therapy and dose titration as needed, hemodynamics permitting 2. Ideally patient should be on HALEY inhibitor or angiotensin receptor allyson therapy considering the above-noted comorbidities, therapy initiation is to be deferred in view of the above-noted evidence of acute renal insufficiency/failure- pending resolution 3. Ideally patient should be on statin therapy considering the above-noted comorbidities, therapy initiation is to be deferred in view of the above-noted evidence of acute liver disease- pending resolution 4. Ideally patient should be on ASA therapy considering the above-noted comorbidities, therapy initiation is to be deferred in view of the above-noted evidence of anemia- pending completion of evaluation
[2020-01-18] MEDS: MULTIVITAMINS (DAILY MVI) TABLET (FP) PO SCH (10:20)
[2020-01-18] MEDS: HEPARIN NA (PORCINE) 5,000 UNITS/ML 1ML VIAL SQ SCH ×2 (10:20→22:00)
[2020-01-18] MEDS: NADOLOL 20 MG TABLET (FP) PO SCH (10:20)
[2020-01-18] MEDS: THIAMINE HCL 100 MG TABLET (FP) PO SCH (10:21)
[2020-01-18] MEDS: LACTULOSE 20 GM/30 ML UDC (FOR ORAL USE ONLY) PO SCH (10:24)
--- NOTE | 2020-01-18 13:01 | PN ---
Progress Note, Physician History of Present Illness: Pt seen and examined at bedside. He is awake and alert. He complains of worsening lower ext edema. - Current Medication List Current Medications: Active Medications Heparin Sodium (Porcine) (Heparin -) 5,000 unit SQ BID [facility] Last Admin: 01/18/20 10:20 Dose: 5,000 unit Documented by: Sodium Chloride (Normal Saline -) 1,000 mls @ 125 mls/hr IV ASDIR [facility] Last Admin: 01/18/20 06:34 Dose: 125 mls/hr Documented by: Lactulose (Cephulac (Oral Use)) 20 gm PO DAILY [facility] Last Admin: 01/18/20 10:24 Dose: Not Given Documented by: Morphine Sulfate (Morphine Sulfate) 2 mg IVPUSH Q6H PRN PRN Reason: PAIN 6-10 Last Admin: 01/17/20 17:05 Dose: 2 mg Documented by: Multivitamins/Minerals/Vitamin C (Tab-A-Vit -) 1 tab PO DAILY [facility] Last Admin: 01/18/20 10:20 Dose: 1 tab Documented by: Nadolol (Corgard -) 20 mg PO DAILY [facility] Last Admin: 01/18/20 10:20 Dose: 20 mg Documented by: Thiamine HCl (Vitamin B1 -) 100 mg PO DAILY [facility] Last Admin: 01/18/20 10:21 Dose: 100 mg Documented by: - Objective Vital Signs: Vital Signs Temperature 98.3 F 01/18/20 10:00 Pulse Rate 98 H 01/18/20 10:00 Respiratory Rate 20 01/18/20 10:00 Blood Pressure 111/74 01/18/20 10:00 O2 Sat by Pulse Oximetry (%) 99 01/18/20 10:00 Constitutional: Yes: Calm Eyes: Yes: Conjunctiva Clear HENT: Yes: Atraumatic Cardiovascular: Yes: S1, S2 Respiratory: Yes: CTA Bilaterally Gastrointestinal: Yes: Soft, Abdomen, Obese Genitourinary: Yes: Wood Present Edema: Yes Edema: LLE: 2+, RLE: 2+ Neurological: Yes: Oriented Psychiatric: Yes: Oriented Labs: CBC, BMP 01/17/20 05:35 01/17/20 05:35 INR, PTT INR 1.79 (0.83-1.09) H 01/13/20 18:45 Problem List - Problems (1) HERI (acute kidney injury) Code(s): N17.9 - ACUTE KIDNEY FAILURE, UNSPECIFIED (2) Rhabdomyolysis Code(s): M62.82 - RHABDOMYOLYSIS Assessment/Plan Current Medications Generic Name Dose Route Start Last Admin Trade Name Freq PRN Reason Stop Dose Admin Heparin Sodium (Porcine) 5,000 unit 01/14/20 10:00 01/18/20 10:20 Heparin - SQ 5,000 unit BID [facility] Administration Sodium Chloride 1,000 mls @ 125 mls/hr 01/15/20 13:06 01/18/20 06:34 Normal Saline - IV 125 mls/hr ASDIR [facility] Administration Lactulose 20 gm 01/14/20 10:00 01/18/20 10:24 Cephulac (Oral Use) PO Not Given DAILY [facility] Morphine Sulfate 2 mg 01/17/20 16:59 01/17/20 17:05 Morphine Sulfate IVPUSH 2 mg Q6H PRN Administration PAIN 6-10 Multivitamins/Minerals/Vitamin C 1 tab 01/14/20 10:00 01/18/20 10:20 Tab-A-Vit - PO 1 tab DAILY [facility] Administration Nadolol 20 mg 01/14/20 10:00 01/18/20 10:20 Corgard - PO 20 mg DAILY [facility] Administration Thiamine HCl 100 mg 01/14/20 10:00 01/18/20 10:21 Vitamin B1 - PO 100 mg DAILY [facility] Administration Impression 1. HERI 2. nsaid use 3. liver cirrhosis 4. etoh abuse 5. cad 6. hld 7. htn Plan - cont with fluids - will give lasix for volume control - cont to monitor renal function - monitor cpk - follow serologic workup, still pending - renal function is improving - maintain wood for now - heri likely secondary to rhabdo and nsaids
[2020-01-18 13:06] LABS: ANTIGLOMERULAR BASEMENT MEN.AB 7 units (0-20)
[2020-01-18] MEDS ORDERED: FUROSEMIDE 40 MG/4 ML INJECTABLE VIAL IVPUSH ONE (14:00)
--- NOTE | 2020-01-18 15:02 | PN ---
Progress Note, Physician History of Present Illness: no specific complaints except weakness - Current Medication List Current Medications: Active Medications Heparin Sodium (Porcine) (Heparin -) 5,000 unit SQ BID [facility] Last Admin: 01/18/20 10:20 Dose: 5,000 unit Documented by: Sodium Chloride (Normal Saline -) 1,000 mls @ 125 mls/hr IV ASDIR [facility] Last Admin: 01/18/20 14:34 Dose: 125 mls/hr Documented by: Lactulose (Cephulac (Oral Use)) 20 gm PO DAILY [facility] Last Admin: 01/18/20 10:24 Dose: Not Given Documented by: Morphine Sulfate (Morphine Sulfate) 2 mg IVPUSH Q6H PRN PRN Reason: PAIN 6-10 Last Admin: 01/17/20 17:05 Dose: 2 mg Documented by: Multivitamins/Minerals/Vitamin C (Tab-A-Vit -) 1 tab PO DAILY [facility] Last Admin: 01/18/20 10:20 Dose: 1 tab Documented by: Nadolol (Corgard -) 20 mg PO DAILY [facility] Last Admin: 01/18/20 10:20 Dose: 20 mg Documented by: Thiamine HCl (Vitamin B1 -) 100 mg PO DAILY [facility] Last Admin: 01/18/20 10:21 Dose: 100 mg Documented by: - Objective Vital Signs: Vital Signs Temperature 98.3 F 01/18/20 10:00 Pulse Rate 98 H 01/18/20 10:00 Respiratory Rate 20 01/18/20 10:00 Blood Pressure 111/74 01/18/20 10:00 O2 Sat by Pulse Oximetry (%) 99 01/18/20 10:00 Constitutional: Yes: No Distress, Calm Cardiovascular: Yes: S1, S2 Respiratory: Yes: Regular, CTA Bilaterally Gastrointestinal: Yes: Normal Bowel Sounds, Soft Musculoskeletal: Yes: Other Extremities: Yes: Other Edema: LLE: 2+, RLE: 2+ Neurological: Yes: Alert, Oriented Psychiatric: Yes: Alert, Oriented Labs: CBC, BMP 01/17/20 05:35 01/17/20 05:35 INR, PTT INR 1.79 (0.83-1.09) H 01/13/20 18:45 Assessment/Plan Problem List - Problems (1) Alcoholic cirrhosis Code(s): K70.30 - ALCOHOLIC CIRRHOSIS OF LIVER WITHOUT ASCITES (2) HERI (acute kidney injury) Code(s): N17.9 - ACUTE KIDNEY FAILURE, UNSPECIFIED (3) Anemia Code(s): D64.9 - ANEMIA, UNSPECIFIED (4) Rhabdomyolysis Code(s): M62.82 - RHABDOMYOLYSIS (5) Transaminitis Code(s): R74.0 - NONSPEC ELEV OF LEVELS OF TRANSAMNS & LACTIC ACID DEHYDRGNSE (6) Vomiting Code(s): R11.10 - VOMITING, UNSPECIFIED (7) CAD (coronary artery disease) Code(s): I25.10 - ATHSCL HEART DISEASE OF [place] CORONARY ARTERY W/O ANG PCTRS (8) HLD (hyperlipidemia) Code(s): E78.5 - HYPERLIPIDEMIA, UNSPECIFIED (9) Hypertension Code(s): I10 - ESSENTIAL (PRIMARY) HYPERTENSION Qualifiers: Hypertension type: essential hypertension Qualified Code(s): I10 - Essential (primary) hypertension (10) History of coronary artery stent placement Code(s): Z95.5 - PRESENCE OF CORONARY ANGIOPLASTY IMPLANT AND GRAFT plan continue current mgmt as per gi close watch rest as per the tem
--- NOTE | 2020-01-18 15:14 | PN.GI ---
GI Progress Note Subjective: Pt seen and examined by Dr lima. He is awake and alert. He complains of vomiting after meals. Denies nausea, abdominal pain. Pt continues to report leg pain and edema. LFTs rising - Objective Vital Signs: Vital Signs Temperature 98.3 F 01/18/20 10:00 Pulse Rate 98 H 01/18/20 10:00 Respiratory Rate 20 01/18/20 10:00 Blood Pressure 111/74 01/18/20 10:00 O2 Sat by Pulse Oximetry (%) 99 01/18/20 10:00 Constitutional: Well Nourished, No Distress, Calm Eyes: Yes: Conjunctiva Clear, EOM Intact HENT: Yes: Atraumatic, Normocephalic Neck: Yes: Supple, Trachea Midline Cardiovascular: Yes: Regular Rate and Rhythm Respiratory: Yes: WNL, Regular, CTA Bilaterally Gastrointestinal Inspection: Yes: WNL ...Auscultate: Yes: Normoactive Bowel Sounds ...Palpate: Yes: Soft. No: Firm/Rigid, Guarding, Hepatomegaly, Mass, Pulsatile Mass, Splenomegaly, Tenderness ...Rectal Exam: Yes: WNL Labs: CBC, BMP 01/17/20 05:35 01/17/20 05:35 INR, PTT INR 1.79 (0.83-1.09) H 01/13/20 18:45 Problem List - Problems (1) Hepatocellular injury Assessment/Plan: plan discussed with Dr Lima elevated LFTs secondary to Ischemia/ drug toxicity. discontinue Gabapentin- as rhabdomyalosis is a rare adverse effect of the drug. Daily weights. R> LFTS will continue to improve as IV hydration is given Code(s): K76.9 - LIVER DISEASE, UNSPECIFIED (2) HERI (acute kidney injury) Assessment/Plan: IV hydration Code(s): N17.9 - ACUTE KIDNEY FAILURE, UNSPECIFIED (3) Alcoholic cirrhosis Assessment/Plan: elevated LFTs secondary to Ischemia/ drug toxicity. discontinue Gabapentin R> LFTS will continue to improve as IV hydration is given Code(s): K70.30 - ALCOHOLIC CIRRHOSIS OF LIVER WITHOUT ASCITES Code(s): K70.30 - ALCOHOLIC CIRRHOSIS OF LIVER WITHOUT ASCITES (4) Rhabdomyolysis Assessment/Plan: IV hydration Code(s): M62.82 - RHABDOMYOLYSIS
[2020-01-18 17:33] LABS: ALBUMIN 2.1 g/dl (3.4-5.0); BILIRUBIN,TOTAL 2.9 mg/dL (0.2-1); BLOOD UREA NITROGEN 49.7 mg/dL (7-18); CALCIUM 7.8 mg/dL (8.5-10.1); CREATININE 2.1 mg/dL (0.55-1.3); POTASSIUM 4.2 mmol/L (3.5-5.1); TOT PROT 5.6 g/dl (6.4-8.2)
--- NOTE | 2020-01-18 22:10 | PN ---
Progress Note, Physician History of Present Illness: No new complaints - Current Medication List Current Medications: Active Medications Heparin Sodium (Porcine) (Heparin -) 5,000 unit SQ BID [facility] Last Admin: 01/18/20 22:00 Dose: 5,000 unit Documented by: Sodium Chloride (Normal Saline -) 1,000 mls @ 125 mls/hr IV ASDIR [facility] Last Admin: 01/18/20 14:34 Dose: 125 mls/hr Documented by: Lactulose (Cephulac (Oral Use)) 20 gm PO DAILY [facility] Last Admin: 01/18/20 10:24 Dose: Not Given Documented by: Morphine Sulfate (Morphine Sulfate) 2 mg IVPUSH Q6H PRN PRN Reason: PAIN 6-10 Last Admin: 01/17/20 17:05 Dose: 2 mg Documented by: Multivitamins/Minerals/Vitamin C (Tab-A-Vit -) 1 tab PO DAILY [facility] Last Admin: 01/18/20 10:20 Dose: 1 tab Documented by: Nadolol (Corgard -) 20 mg PO DAILY [facility] Last Admin: 01/18/20 10:20 Dose: 20 mg Documented by: Thiamine HCl (Vitamin B1 -) 100 mg PO DAILY [facility] Last Admin: 01/18/20 10:21 Dose: 100 mg Documented by: - Objective Vital Signs: Vital Signs Temperature 98.2 F 01/18/20 18:00 Pulse Rate 78 01/18/20 18:00 Respiratory Rate 20 01/18/20 20:35 Blood Pressure 142/72 01/18/20 18:00 O2 Sat by Pulse Oximetry (%) 97 01/18/20 20:35 Cardiovascular: Yes: WNL, Regular Rate and Rhythm Respiratory: Yes: Diminished Gastrointestinal: Yes: Normal Bowel Sounds, Soft, Abdomen, Obese, Ascites, Distention Edema: LLE: 1+, RLE: 1+ Labs: CBC, BMP 01/17/20 05:35 01/18/20 16:35 INR, PTT INR 1.79 (0.83-1.09) H 01/13/20 18:45 Problem List - Problems (1) HERI (acute kidney injury) Assessment/Plan: ?Due to rhabdo vs acute kidney injury ?Hepatorenal syndrome Cont to monitor labs Renal consult Code(s): N17.9 - ACUTE KIDNEY FAILURE, UNSPECIFIED (2) Alcoholic cirrhosis Assessment/Plan: Elevated LFT's Cont nadolol GI consult Code(s): K70.30 - ALCOHOLIC CIRRHOSIS OF LIVER WITHOUT ASCITES (3) Rhabdomyolysis Assessment/Plan: Cont IV fluids Monitor for fluid overload Renal consult Code(s): M62.82 - RHABDOMYOLYSIS (4) Transaminitis Assessment/Plan: Due to alcoholic cirrhosis Code(s): R74.0 - NONSPEC ELEV OF LEVELS OF TRANSAMNS & LACTIC ACID DEHYDRGNSE (5) Vomiting Code(s): R11.10 - VOMITING, UNSPECIFIED (6) HLD (hyperlipidemia) Assessment/Plan: Statin on hold due to elevated LFT's/cirrhosis Code(s): E78.5 - HYPERLIPIDEMIA, UNSPECIFIED (7) Hypertension Assessment/Plan: BP stable Pt is off antihypertensives Code(s): I10 - ESSENTIAL (PRIMARY) HYPERTENSION Qualifiers: Hypertension type: essential hypertension Qualified Code(s): I10 - Essential (primary) hypertension (8) History of coronary artery stent placement Code(s): Z95.5 - PRESENCE OF CORONARY ANGIOPLASTY IMPLANT AND GRAFT (9) Morbid obesity Code(s): E66.01 - MORBID (SEVERE) OBESITY DUE TO EXCESS CALORIES (10) CAD (coronary artery disease) Code(s): I25.10 - ATHSCL HEART DISEASE OF [place] CORONARY ARTERY W/O ANG PCTRS
[2020-01-19 08:25] LABS: BILIRUBIN,TOTAL 3.4 mg/dL (0.2-1); CALCIUM 7.8 mg/dL (8.5-10.1); CREATININE 1.5 mg/dL (0.55-1.3); POTASSIUM 3.5 mmol/L (3.5-5.1); TOT PROT 5.5 g/dl (6.4-8.2)
[2020-01-19] MEDS ORDERED: PT OWN MED DRAWER 7, Y5N ONE ×3 (09:46→21:17)
[2020-01-19] MEDS: LACTULOSE 20 GM/30 ML UDC (FOR ORAL USE ONLY) PO SCH (09:48)
[2020-01-19] MEDS: NADOLOL 20 MG TABLET (FP) PO SCH (09:48)
[2020-01-19] MEDS: THIAMINE HCL 100 MG TABLET (FP) PO SCH (09:48)
[2020-01-19] MEDS: MULTIVITAMINS (DAILY MVI) TABLET (FP) PO SCH (09:48)
[2020-01-19] MEDS: HEPARIN NA (PORCINE) 5,000 UNITS/ML 1ML VIAL SQ SCH ×2 (09:48→21:49)
[2020-01-19] MEDS: MORPHINE SULFATE 2 MG/ML VIAL IVPUSH PRN (10:00)
--- NOTE | 2020-01-19 10:01 | PN.GI ---
GI Progress Note Subjective: pt seen and examined at bedside. He is awake and alert. He complains of nausea. Denies vomiting, abdominal pain. Pt continues to report leg pain and edema. LFTs trending down - Objective Vital Signs: Vital Signs Temperature 983 F H 01/19/20 06:00 Pulse Rate 95 H 01/19/20 06:00 Respiratory Rate 20 01/19/20 06:00 Blood Pressure 131/72 01/19/20 06:00 O2 Sat by Pulse Oximetry (%) 98 01/19/20 08:34 Constitutional: Well Nourished, No Distress, Calm Eyes: Yes: WNL, Conjunctiva Clear HENT: Yes: Atraumatic, Normocephalic Neck: Yes: Supple, Trachea Midline Cardiovascular: Yes: Regular Rate and Rhythm Respiratory: Yes: Regular, CTA Bilaterally Gastrointestinal Inspection: No: Distention ...Palpate: Yes: Soft. No: Firm/Rigid, Guarding, Hepatomegaly, Mass, Pulsatile Mass, Splenomegaly, Tenderness Labs: CBC, BMP 01/17/20 05:35 01/19/20 05:48 INR, PTT INR 1.79 (0.83-1.09) H 01/13/20 18:45 Problem List - Problems (1) Hepatocellular injury Assessment/Plan: plan discussed with Dr Pacheco elevated LFTs secondary to Ischemia/ drug toxicity. discontinued Gabapentin- LFTs trending down repeat LFTs in 48 hours Daily weights. Diuretics as per renal- discussed with Dr Partida Code(s): K76.9 - LIVER DISEASE, UNSPECIFIED (2) HERI (acute kidney injury) Assessment/Plan: IV hydration Code(s): N17.9 - ACUTE KIDNEY FAILURE, UNSPECIFIED (3) Alcoholic cirrhosis Assessment/Plan: elevated LFTs secondary to Ischemia/ drug toxicity. gabapentin d/ashleigh, LFTs trending down repeat LFTs in 48 hours Code(s): K70.30 - ALCOHOLIC CIRRHOSIS OF LIVER WITHOUT ASCITES (4) Rhabdomyolysis Assessment/Plan: resolving IV hydration Code(s): M62.82 - RHABDOMYOLYSIS
[2020-01-19] MEDS ORDERED: SODIUM CHLORIDE 1,000 ML IV SCH ×2 (13:03→13:35)
--- NOTE | 2020-01-19 13:03 | PN ---
Progress Note, Physician History of Present Illness: Pt seen and examined at bedside. He complains of edema. He also has shortness of breath at rest. - Current Medication List Current Medications: Active Medications Heparin Sodium (Porcine) (Heparin -) 5,000 unit SQ BID [facility] Last Admin: 01/19/20 09:48 Dose: 5,000 unit Documented by: Sodium Chloride (Normal Saline -) 1,000 mls @ 125 mls/hr IV ASDIR [facility] Last Admin: 01/18/20 14:34 Dose: 125 mls/hr Documented by: Lactulose (Cephulac (Oral Use)) 20 gm PO DAILY [facility] Last Admin: 01/19/20 09:48 Dose: Not Given Documented by: Morphine Sulfate (Morphine Sulfate) 2 mg IVPUSH Q6H PRN PRN Reason: PAIN 6-10 Last Admin: 01/19/20 10:00 Dose: 2 mg Documented by: Multivitamins/Minerals/Vitamin C (Tab-A-Vit -) 1 tab PO DAILY [facility] Last Admin: 01/19/20 09:48 Dose: 1 tab Documented by: Nadolol (Corgard -) 20 mg PO DAILY [facility] Last Admin: 01/19/20 09:48 Dose: 20 mg Documented by: Thiamine HCl (Vitamin B1 -) 100 mg PO DAILY [facility] Last Admin: 01/19/20 09:48 Dose: 100 mg Documented by: - Objective Vital Signs: Vital Signs Temperature 983 F H 01/19/20 06:00 Pulse Rate 88 01/19/20 10:00 Respiratory Rate 18 01/19/20 10:00 Blood Pressure 128/71 01/19/20 10:00 O2 Sat by Pulse Oximetry (%) 97 01/19/20 10:00 Constitutional: Yes: Calm Eyes: Yes: Sclera Icterus Cardiovascular: Yes: S1, S2 Respiratory: Yes: CTA Bilaterally Gastrointestinal: Yes: Soft, Abdomen, Obese Genitourinary: Yes: Wood Present Musculoskeletal: Yes: WNL Edema: Yes Edema: LLE: 2+, RLE: 2+ Neurological: Yes: Oriented Psychiatric: Yes: Oriented Labs: CBC, BMP 01/17/20 05:35 01/19/20 05:48 INR, PTT INR 1.79 (0.83-1.09) H 01/13/20 18:45 Problem List - Problems (1) HERI (acute kidney injury) Code(s): N17.9 - ACUTE KIDNEY FAILURE, UNSPECIFIED (2) Rhabdomyolysis Code(s): M62.82 - RHABDOMYOLYSIS Assessment/Plan Current Medications Generic Name Dose Route Start Last Admin Trade Name Freq PRN Reason Stop Dose Admin Heparin Sodium (Porcine) 5,000 unit 01/14/20 10:00 01/19/20 09:48 Heparin - SQ 5,000 unit BID [facility] Administration Sodium Chloride 1,000 mls @ 125 mls/hr 01/15/20 13:06 01/18/20 14:34 Normal Saline - IV 125 mls/hr ASDIR [facility] Administration Lactulose 20 gm 01/14/20 10:00 01/19/20 09:48 Cephulac (Oral Use) PO Not Given DAILY [facility] Morphine Sulfate 2 mg 01/17/20 16:59 01/19/20 10:00 Morphine Sulfate IVPUSH 2 mg Q6H PRN Administration PAIN 6-10 Multivitamins/Minerals/Vitamin C 1 tab 01/14/20 10:00 01/19/20 09:48 Tab-A-Vit - PO 1 tab DAILY [facility] Administration Nadolol 20 mg 01/14/20 10:00 01/19/20 09:48 Corgard - PO 20 mg DAILY [facility] Administration Thiamine HCl 100 mg 01/14/20 10:00 01/19/20 09:48 Vitamin B1 - PO 100 mg DAILY [facility] Administration Impression 1. HERI 2. nsaid use 3. liver cirrhosis 4. etoh abuse 5. cad 6. hld 7. htn 8. rhabdo Plan - cpk improving - repeat labs in am - replace potassium - will give lasix - decrease fluids - cont to monitor renal function - can d/c wood - heri likely secondary to rhabdo and nsaids
[2020-01-19] MEDS ORDERED: POTASSIUM CHLORIDE ORAL LIQUID 20 MEQ/15 ML PO ONE (13:30)
[2020-01-19] MEDS ORDERED: FUROSEMIDE 40 MG/4 ML INJECTABLE VIAL IVPUSH ONE (13:30)
--- NOTE | 2020-01-19 13:46 | PN ---
Progress Note, Physician History of Present Illness: no specific complaints except weakness - Current Medication List Current Medications: Active Medications Furosemide (Lasix Injection -) 40 mg IVPUSH BID@0600,1400 [facility] Heparin Sodium (Porcine) (Heparin -) 5,000 unit SQ BID [facility] Last Admin: 01/19/20 09:48 Dose: 5,000 unit Documented by: Sodium Chloride (Normal Saline -) 1,000 mls @ 50 mls/hr IV ASDIR [facility] Lactulose (Cephulac (Oral Use)) 20 gm PO DAILY [facility] Last Admin: 01/19/20 09:48 Dose: Not Given Documented by: Morphine Sulfate (Morphine Sulfate) 2 mg IVPUSH Q6H PRN PRN Reason: PAIN 6-10 Last Admin: 01/19/20 10:00 Dose: 2 mg Documented by: Multivitamins/Minerals/Vitamin C (Tab-A-Vit -) 1 tab PO DAILY [facility] Last Admin: 01/19/20 09:48 Dose: 1 tab Documented by: Nadolol (Corgard -) 20 mg PO DAILY [facility] Last Admin: 01/19/20 09:48 Dose: 20 mg Documented by: Thiamine HCl (Vitamin B1 -) 100 mg PO DAILY [facility] Last Admin: 01/19/20 09:48 Dose: 100 mg Documented by: - Objective Vital Signs: Vital Signs Temperature 983 F H 01/19/20 06:00 Pulse Rate 88 01/19/20 10:00 Respiratory Rate 18 01/19/20 10:00 Blood Pressure 128/71 01/19/20 10:00 O2 Sat by Pulse Oximetry (%) 97 01/19/20 10:00 Constitutional: Yes: No Distress, Calm Cardiovascular: Yes: S1, S2 Respiratory: Yes: Regular, CTA Bilaterally Gastrointestinal: Yes: Normal Bowel Sounds, Soft Musculoskeletal: Yes: WNL Extremities: Yes: Other Neurological: Yes: Alert, Oriented Psychiatric: Yes: Alert, Oriented Labs: CBC, BMP 01/17/20 05:35 01/19/20 05:48 INR, PTT INR 1.79 (0.83-1.09) H 01/13/20 18:45 Assessment/Plan Problem List - Problems (1) Alcoholic cirrhosis Code(s): K70.30 - ALCOHOLIC CIRRHOSIS OF LIVER WITHOUT ASCITES (2) HERI (acute kidney injury) Code(s): N17.9 - ACUTE KIDNEY FAILURE, UNSPECIFIED (3) Anemia Code(s): D64.9 - ANEMIA, UNSPECIFIED (4) Rhabdomyolysis Code(s): M62.82 - RHABDOMYOLYSIS (5) Transaminitis Code(s): R74.0 - NONSPEC ELEV OF LEVELS OF TRANSAMNS & LACTIC ACID DEHYDRGNSE (6) Vomiting Code(s): R11.10 - VOMITING, UNSPECIFIED (7) CAD (coronary artery disease) Code(s): I25.10 - ATHSCL HEART DISEASE OF [place] CORONARY ARTERY W/O ANG PCTRS (8) HLD (hyperlipidemia) Code(s): E78.5 - HYPERLIPIDEMIA, UNSPECIFIED (9) Hypertension Code(s): I10 - ESSENTIAL (PRIMARY) HYPERTENSION Qualifiers: Hypertension type: essential hypertension Qualified Code(s): I10 - Essential (primary) hypertension (10) History of coronary artery stent placement Code(s): Z95.5 - PRESENCE OF CORONARY ANGIOPLASTY IMPLANT AND GRAFT plan continue current mgmt as per gi close watch rest as per the tem
--- NOTE | 2020-01-19 14:53 | PN ---
Progress Note, Physician Chief Complaint: Pt A&Ox3; sitting up at bedside; frustrated and depressed over his health. Asks, pointing to his stomach, if "all this water can be removed, and they can cut out all this extra skin that is dragging me down?". History of Present Illness: Mr. Mann is a 55 year old male (b. [place]), with a significant past medical history of hypertension, hyperlipidemia, cirrhosis, GI bleed, CAD s/p coronary stents followed by CABG, morbid obesity, who presents to the ED for further evaluation of elevated LFTs. Pt was seen yesterday for leg pain; labs showed elevated LFTs,but the patient left AMA. Today he returns for further evaluation. No abd pain. C/o nausea. States he saw Dr. Pacheco 2 days ago and had blood in his stool at that time. Pt states he has been taking Motrin for leg and back pain every 4-5 hours. Pt states he also has had a change in his sleep/wake cycle. - Current Medication List Current Medications: Active Medications Albumin Human (Albumin Human 25%) 25 gm IVPB Q6H [facility] Stop: 01/19/20 20:46 Furosemide (Lasix Injection -) 40 mg IVPUSH BID@0600,1400 [facility] Heparin Sodium (Porcine) (Heparin -) 5,000 unit SQ BID [facility] Last Admin: 01/19/20 09:48 Dose: 5,000 unit Documented by: Lactulose (Cephulac (Oral Use)) 20 gm PO DAILY [facility] Last Admin: 01/19/20 09:48 Dose: Not Given Documented by: Morphine Sulfate (Morphine Sulfate) 2 mg IVPUSH Q6H PRN PRN Reason: PAIN 6-10 Last Admin: 01/19/20 10:00 Dose: 2 mg Documented by: Multivitamins/Minerals/Vitamin C (Tab-A-Vit -) 1 tab PO DAILY [facility] Last Admin: 01/19/20 09:48 Dose: 1 tab Documented by: Nadolol (Corgard -) 20 mg PO DAILY [facility] Last Admin: 01/19/20 09:48 Dose: 20 mg Documented by: Thiamine HCl (Vitamin B1 -) 100 mg PO DAILY [facility] Last Admin: 01/19/20 09:48 Dose: 100 mg Documented by: - Objective Vital Signs: Vital Signs Temperature 983 F H 01/19/20 06:00 Pulse Rate 88 09/22/20 10:00 Respiratory Rate 18 01/19/20 10:00 Blood Pressure 128/71 01/19/20 10:00 O2 Sat by Pulse Oximetry (%) 97 01/19/20 10:00 Constitutional: Yes: Moderate Distress, Obese Eyes: Yes: WNL HENT: Yes: WNL Neck: Yes: Supple Cardiovascular: Yes: S1, S2, S4 Respiratory: Yes: Regular, Diminished Gastrointestinal: Yes: Soft Labs: CBC, BMP 01/17/20 05:35 01/19/20 05:48 INR, PTT INR 1.79 (0.83-1.09) H 01/13/20 18:45 Assessment/Plan 1. CAD post CABG with evidence of demand ischemic injury angina pectoris 2. Diastolic LV dysfunction with clinical class 0 NYHA classification LV failure 3. HTN 4. Dyslipidemia 5. Evidence of acute hepatitis; etiology to be determined 6. Acute renal insufficiency/failure 7. Evidence of rhabdomyolysis (CK >14,000-->7,717). 8. Anemia 9. Morbid obesity PLAN: 1. Continue Nadolol 20 mg qd; dose titration as needed, hemodynamics permitting 2. Ideally patient should be on HALEY inhibitor or angiotensin receptor allyson t herapy, but considering the above-noted comorbidities, therapy initiation is to be deferred in view of evidence of acute renal insufficiency/failure- pending resolution 3. Ideally patient should be on statin therapy considering the above-noted comorbidities, therapy initiation is to be deferred in view of evidence of acute liver disease- pending resolution 4. Ideally patient should be on ASA therapy considering the above-noted comorbidities, therapy initiation is to be deferred in view of evidence of anemia- pending completion of evaluation 5. On furosemide 40 mg IVP bid; f/u BUN/Cr (improving), electrolytes, daily weight, Is and Os. F/u CK.
[2020-01-19 16:10] LABS: ATYPICAL pANCA <1:20 titer (Neg:<1:20); C-ANCA <1:20 titer (Neg:<1:20)
[2020-01-19] MEDS: ALBUMIN HUMAN 25% 100 ML VIAL IVPB SCH ×2 (16:39→21:48)
--- NOTE | 2020-01-19 20:58 | PN ---
Progress Note, Physician History of Present Illness: Pt not ambulating bc of increase weakness/pain/bloating - Current Medication List Current Medications: Active Medications Albumin Human (Albumin Human 25% -) 25 gm IVPB Q6H [facility] Stop: 01/19/20 21:16 Last Admin: 01/19/20 16:39 Dose: 25 gm Documented by: Furosemide (Lasix Injection -) 40 mg IVPUSH BID@0600,1400 [facility] Heparin Sodium (Porcine) (Heparin -) 5,000 unit SQ BID [facility] Last Admin: 01/19/20 09:48 Dose: 5,000 unit Documented by: Lactulose (Cephulac (Oral Use)) 20 gm PO DAILY [facility] Last Admin: 01/19/20 09:48 Dose: Not Given Documented by: Morphine Sulfate (Morphine Sulfate) 2 mg IVPUSH Q6H PRN PRN Reason: PAIN 6-10 Last Admin: 01/19/20 10:00 Dose: 2 mg Documented by: Multivitamins/Minerals/Vitamin C (Tab-A-Vit -) 1 tab PO DAILY [facility] Last Admin: 01/19/20 09:48 Dose: 1 tab Documented by: Nadolol (Corgard -) 20 mg PO DAILY [facility] Last Admin: 01/19/20 09:48 Dose: 20 mg Documented by: Thiamine HCl (Vitamin B1 -) 100 mg PO DAILY [facility] Last Admin: 01/19/20 09:48 Dose: 100 mg Documented by: - Objective Vital Signs: Vital Signs Temperature 97.7 F 01/19/20 18:24 Pulse Rate 85 01/19/20 18:24 Respiratory Rate 20 01/19/20 18:24 Blood Pressure 122/74 01/19/20 18:24 O2 Sat by Pulse Oximetry (%) 97 01/19/20 10:00 Eyes: Yes: Sclera Icterus Neck: Yes: WNL, Supple Cardiovascular: Yes: WNL, Regular Rate and Rhythm Respiratory: Yes: Diminished Gastrointestinal: Yes: Normal Bowel Sounds, Abdomen, Obese, Ascites, Distention Edema: LLE: 2+, RLE: 2+ Labs: CBC, BMP 01/17/20 05:35 01/19/20 05:48 INR, PTT INR 1.79 (0.83-1.09) H 01/13/20 18:45 Problem List - Problems (1) HERI (acute kidney injury) Assessment/Plan: ?Due to rhabdo vs acute kidney injury ?Hepatorenal syndrome Cont to monitor labs Improving BUN/creatinine Code(s): N17.9 - ACUTE KIDNEY FAILURE, UNSPECIFIED (2) Alcoholic cirrhosis Assessment/Plan: Elevated LFT's are improving Gabapentin dc'ed Cont nadolol Increase ascites Code(s): K70.30 - ALCOHOLIC CIRRHOSIS OF LIVER WITHOUT ASCITES (3) Rhabdomyolysis Assessment/Plan: Cont IV fluids Monitor for fluid overload Improving cpk Code(s): M62.82 - RHABDOMYOLYSIS (4) Transaminitis Code(s): R74.0 - NONSPEC ELEV OF LEVELS OF TRANSAMNS & LACTIC ACID DEHYDRGNSE (5) Vomiting Code(s): R11.10 - VOMITING, UNSPECIFIED (6) HLD (hyperlipidemia) Assessment/Plan: Statin on hold due to elevated LFT's/cirrhosis Code(s): E78.5 - HYPERLIPIDEMIA, UNSPECIFIED (7) Hypertension Assessment/Plan: BP stable Pt is off antihypertensives Code(s): I10 - ESSENTIAL (PRIMARY) HYPERTENSION Qualifiers: Hypertension type: essential hypertension Qualified Code(s): I10 - Essent ial (primary) hypertension (8) History of coronary artery stent placement Code(s): Z95.5 - PRESENCE OF CORONARY ANGIOPLASTY IMPLANT AND GRAFT (9) Morbid obesity Code(s): E66.01 - MORBID (SEVERE) OBESITY DUE TO EXCESS CALORIES (10) CAD (coronary artery disease) Code(s): I25.10 - ATHSCL HEART DISEASE OF [place] CORONARY ARTERY W/O ANG PCTRS
[2020-01-20] MEDS: FUROSEMIDE 40 MG/4 ML INJECTABLE VIAL IVPUSH SCH ×2 (06:55→13:16)
[2020-01-20 07:45] LABS: ALBUMIN 2.4 g/dl (3.4-5.0); BILIRUBIN,TOTAL 2.9 mg/dL (0.2-1); BLOOD UREA NITROGEN 32.8 mg/dL (7-18); CALCIUM 8.4 mg/dL (8.5-10.1); CREATININE 1.3 mg/dL (0.55-1.3); POTASSIUM 3.6 mmol/L (3.5-5.1); TOT PROT 5.4 g/dl (6.4-8.2)
[2020-01-20 07:48] LABS: MAGNESIUM 1.4 mg/dL (1.8-2.4)
[2020-01-20] MEDS ORDERED: PT OWN MED DRAWER 7, Y5N ONE (09:19)
[2020-01-20] MEDS: LACTULOSE 20 GM/30 ML UDC (FOR ORAL USE ONLY) PO SCH (09:23)
[2020-01-20] MEDS: HEPARIN NA (PORCINE) 5,000 UNITS/ML 1ML VIAL SQ SCH ×2 (09:23→21:38)
[2020-01-20] MEDS: THIAMINE HCL 100 MG TABLET (FP) PO SCH (09:23)
[2020-01-20] MEDS: NADOLOL 20 MG TABLET (FP) PO SCH (09:23)
[2020-01-20] MEDS: MULTIVITAMINS (DAILY MVI) TABLET (FP) PO SCH (09:23)
--- NOTE | 2020-01-20 09:55 | PN ---
Progress Note, Physician History of Present Illness: Mr. Mann is a 55 year old male (b. [place]), with a significant past medical history of hypertension, hyperlipidemia, cirrhosis, GI bleed, CAD s/p coronary stents followed by CABG, morbid obesity, who presents to the ED for further evaluation of elevated LFTs. Pt was seen yesterday for leg pain; labs showed elevated LFTs,but the patient left AMA. Today he returns for further evaluation. No abd pain. C/o nausea. States he saw Dr. Pacheco 2 days ago and had blood in his stool at that time. Pt states he has been taking Motrin for leg and back pain every 4-5 hours. Pt states he also has had a change in his sleep/wake cycle. - Current Medication List Current Medications: Active Medications Furosemide (Lasix Injection -) 40 mg IVPUSH BID@0600,1400 [facility] Last Admin: 01/20/20 06:55 Dose: 40 mg Documented by: Heparin Sodium (Porcine) (Heparin -) 5,000 unit SQ BID [facility] Last Admin: 01/20/20 09:23 Dose: 5,000 unit Documented by: Lactulose (Cephulac (Oral Use)) 20 gm PO DAILY [facility] Last Admin: 01/20/20 09:23 Dose: 20 gm Documented by: Morphine Sulfate (Morphine Sulfate) 2 mg IVPUSH Q6H PRN PRN Reason: PAIN 6-10 Last Admin: 01/19/20 10:00 Dose: 2 mg Documented by: Multivitamins/Minerals/Vitamin C (Tab-A-Vit -) 1 tab PO DAILY [facility] Last Admin: 01/20/20 09:23 Dose: 1 tab Documented by: Nadolol (Corgard -) 20 mg PO DAILY [facility] Last Admin: 01/20/20 09:23 Dose: 20 mg Documented by: Thiamine HCl (Vitamin B1 -) 100 mg PO DAILY [facility] Last Admin: 01/20/20 09:23 Dose: 100 mg Documented by: - Objective Vital Signs: Vital Signs Temperature 98.3 F 01/20/20 09:49 Pulse Rate 94 H 01/20/20 09:49 Respiratory Rate 20 01/20/20 09:49 Blood Pressure 148/76 01/20/20 09:49 O2 Sat by Pulse Oximetry (%) 99 01/20/20 09:49 Eyes: Yes: WNL, Conjunctiva Clear, EOM Intact HENT: Yes: WNL, Atraumatic, Normocephalic Neck: Yes: WNL, Supple, Trachea Midline Cardiovascular: Yes: WNL, Regular Rate and Rhythm Respiratory: Yes: WNL, Regular, CTA Bilaterally Gastrointestinal: Yes: WNL, Normal Bowel Sounds Genitourinary: Yes: WNL Musculoskeletal: Yes: WNL Extremities: Yes: WNL Edema: No Integumentary: Yes: WNL Neurological: Yes: WNL, Alert, Oriented ...Motor Strength: WNL Psychiatric: Yes: WNL Labs: CBC, BMP 01/17/20 05:35 01/20/20 06:36 INR, PTT INR 1.79 (0.83-1.09) H 01/13/20 18:45 Assessment/Plan 1. CAD post CABG with evidence of demand ischemic injury angina pectoris 2. Diastolic LV dysfunction with clinical class 0 NYHA classification LV failure 3. HTN 4. Dyslipidemia 5. Evidence of acute hepatitis; etiology to be determined 6. Acute renal insufficiency/failure 7. Evidence of rhabdomyolysis (CK >14,000-->7,717). 8. Anemia 9. Morbid obesity PLAN: 1. Continue Nadolol 20 mg qd; dose titration as needed, hemodynamics permitting 2. Ideally patient should be on HALEY inhibitor or angiotensin receptor allyson therapy, but considering the above-noted comorbidities, therapy initiation is to be deferred in view of evidence of acute renal insufficiency/failure- pending resolution 3. Ideally patient should be on statin therapy considering the above-noted comorbidities, therapy initiation is to be deferred in view of evidence of acute liver disease- pending resolution 4. Ideally patient should be on ASA therapy considering the above-noted comorbidities, therapy initiation is to be deferred in view of evidence of anemia- pending completion of evaluation 5. On furosemide 40 mg IVP bid; f/u BUN/Cr (improving), electrolytes, daily we ight, Is and Os. F/u CK.
--- NOTE | 2020-01-20 10:24 | PN ---
Progress Note, Physician History of Present Illness: Pt seen and examined at bedside. He is awake and alert. He feels that his breathing is improving. - Current Medication List Current Medications: Active Medications Furosemide (Lasix Injection -) 40 mg IVPUSH BID@0600,1400 [facility] Last Admin: 01/20/20 06:55 Dose: 40 mg Documented by: Heparin Sodium (Porcine) (Heparin -) 5,000 unit SQ BID [facility] Last Admin: 01/20/20 09:23 Dose: 5,000 unit Documented by: Lactulose (Cephulac (Oral Use)) 20 gm PO DAILY [facility] Last Admin: 01/20/20 09:23 Dose: 20 gm Documented by: Morphine Sulfate (Morphine Sulfate) 2 mg IVPUSH Q6H PRN PRN Reason: PAIN 6-10 Last Admin: 01/19/20 10:00 Dose: 2 mg Documented by: Multivitamins/Minerals/Vitamin C (Tab-A-Vit -) 1 tab PO DAILY [facility] Last Admin: 01/20/20 09:23 Dose: 1 tab Documented by: Nadolol (Corgard -) 20 mg PO DAILY [facility] Last Admin: 01/20/20 09:23 Dose: 20 mg Documented by: Thiamine HCl (Vitamin B1 -) 100 mg PO DAILY [facility] Last Admin: 01/20/20 09:23 Dose: 100 mg Documented by: - Objective Vital Signs: Vital Signs Temperature 98.3 F 01/20/20 09:49 Pulse Rate 94 H 01/20/20 09:49 Respiratory Rate 20 01/20/20 09:49 Blood Pressure 148/76 01/20/20 09:49 O2 Sat by Pulse Oximetry (%) 99 01/20/20 09:49 Constitutional: Yes: Calm Eyes: Yes: Sclera Icterus HENT: Yes: Atraumatic Neck: Yes: Supple Cardiovascular: Yes: S1, S2 Respiratory: Yes: CTA Bilaterally Gastrointestinal: Yes: Soft, Abdomen, Obese Genitourinary: Yes: WNL Musculoskeletal: Yes: WNL Edema: Yes Edema: LLE: 2+, RLE: 2+ Neurological: Yes: Oriented Psychiatric: Yes: Oriented Labs: CBC, BMP 01/17/20 05:35 01/20/20 06:36 INR, PTT INR 1.79 (0.83-1.09) H 01/13/20 18:45 Problem List - Problems (1) HERI (acute kidney injury) Code(s): N17.9 - ACUTE KIDNEY FAILURE, UNSPECIFIED (2) Rhabdomyolysis Code(s): M62.82 - RHABDOMYOLYSIS Assessment/Plan Current Medications Generic Name Dose Route Start Last Admin Trade Name Freq PRN Reason Stop Dose Admin Furosemide 40 mg 01/20/20 06:00 01/20/20 06:55 Lasix Injection - IVPUSH 40 mg BID@0600,1400 [facility] Administration Heparin Sodium (Porcine) 5,000 unit 01/14/20 10:00 01/20/20 09:23 Heparin - SQ 5,000 unit BID [facility] Administration Lactulose 20 gm 01/14/20 10:00 01/20/20 09:23 Cephulac (Oral Use) PO 20 gm DAILY [facility] Administration Morphine Sulfate 2 mg 01/17/20 16:59 01/19/20 10:00 Morphine Sulfate IVPUSH 2 mg Q6H PRN Administration PAIN 6-10 Multivitamins/Minerals/Vitamin C 1 tab 01/14/20 10:00 01/20/20 09:23 Tab-A-Vit - PO 1 tab DAILY [facility] Administration Nadolol 20 mg 01/14/20 10:00 01/20/20 09:23 Corgard - PO 20 mg DAILY [facility] Administration Thiamine HCl 100 mg 01/14/20 10:00 01/20/20 09:23 Vitamin B1 - PO 100 mg DAILY [facility] Administration Impression 1. HERI 2. nsaid use 3. liver cirrhosis 4. etoh abuse 5. cad 6. hld 7. htn 8. rhabdo Plan - cont lasix - replace mag - will give albumin - cpk improving - repeat labs in am - heri likely secondary to rhabdo and nsaids
[2020-01-20] MEDS ORDERED: ALBUMIN HUMAN 25% 12.5 GM/50 ML VIAL IVPB SCH (10:30)
[2020-01-20] MEDS ORDERED: POTASSIUM CHLORIDE TABS 20 MEQ TABLET.ER (FP) PO ONE (10:45)
[2020-01-20] MEDS ORDERED: MAGNESIUM 2GM/50ML STERILE WATER IVPB IVPB ONE (10:45)
[2020-01-20] MEDS: ALBUMIN HUMAN 25% 100 ML VIAL IVPB SCH ×2 (11:28→18:49)
--- NOTE | 2020-01-20 12:11 | PN ---
Progress Note, Physician History of Present Illness: no issues - Current Medication List Current Medications: Active Medications Albumin Human (Albumin Human 25% -) 25 gm IVPB Q6H [facility] Stop: 01/20/20 16:31 Last Admin: 01/20/20 11:28 Dose: 25 gm Documented by: Furosemide (Lasix Injection -) 40 mg IVPUSH BID@0600,1400 [facility] Last Admin: 01/20/20 06:55 Dose: 40 mg Documented by: Heparin Sodium (Porcine) (Heparin -) 5,000 unit SQ BID [facility] Last Admin: 01/20/20 09:23 Dose: 5,000 unit Documented by: Lactulose (Cephulac (Oral Use)) 20 gm PO DAILY [facility] Last Admin: 01/20/20 09:23 Dose: 20 gm Documented by: Magnesium Oxide (Mag-Ox -) 400 mg PO DAILY [facility] Morphine Sulfate (Morphine Sulfate) 2 mg IVPUSH Q6H PRN PRN Reason: PAIN 6-10 Last Admin: 01/19/20 10:00 Dose: 2 mg Documented by: Multivitamins/Minerals/Vitamin C (Tab-A-Vit -) 1 tab PO DAILY [facility] Last Admin: 01/20/20 09:23 Dose: 1 tab Documented by: Nadolol (Corgard -) 20 mg PO DAILY [facility] Last Admin: 01/20/20 09:23 Dose: 20 mg Documented by: Thiamine HCl (Vitamin B1 -) 100 mg PO DAILY [facility] Last Admin: 01/20/20 09:23 Dose: 100 mg Documented by: - Objective Vital Signs: Vital Signs Temperature 98.3 F 01/20/20 09:49 Pulse Rate 94 H 01/20/20 09:49 Respiratory Rate 20 01/20/20 09:49 Blood Pressure 148/76 01/20/20 09:49 O2 Sat by Pulse Oximetry (%) 99 01/20/20 09:49 Constitutional: Yes: No Distress, Calm Cardiovascular: Yes: S1, S2 Respiratory: Yes: Regular, CTA Bilaterally Gastrointestinal: Yes: Normal Bowel Sounds, Soft Musculoskeletal: Yes: WNL Extremities: Yes: Other Edema: LLE: 2+, RLE: 2+ Neurological: Yes: Alert, Oriented Psychiatric: Yes: Alert, Oriented Labs: CBC, BMP 01/17/20 05:35 01/20/20 06:36 INR, PTT INR 1.79 (0.83-1.09) H 01/13/20 18:45 Assessment/Plan Problem List - Problems (1) Alcoholic cirrhosis Code(s): K70.30 - ALCOHOLIC CIRRHOSIS OF LIVER WITHOUT ASCITES (2) HERI (acute kidney injury) Code(s): N17.9 - ACUTE KIDNEY FAILURE, UNSPECIFIED (3) Anemia Code(s): D64.9 - ANEMIA, UNSPECIFIED (4) Rhabdomyolysis Code(s): M62.82 - RHABDOMYOLYSIS (5) Transaminitis Code(s): R74.0 - NONSPEC ELEV OF LEVELS OF TRANSAMNS & LACTIC ACID DEHYDRGNSE (6) Vomiting Code(s): R11.10 - VOMITING, UNSPECIFIED (7) CAD (coronary artery disease) Code(s): I25.10 - ATHSCL HEART DISEASE OF [place] CORONARY ARTERY W/O ANG PCTRS (8) HLD (hyperlipidemia) Code(s): E78.5 - HYPERLIPIDEMIA, UNSPECIFIED (9) Hypertension Code(s): I10 - ESSENTIAL (PRIMARY) HYPERTENSION Qualifiers: Hypertension type: essential hypertension Qualified Code(s): I10 - Essential (primary) hypertension (10) History of coronary artery stent placement Code(s): Z95.5 - PRESENCE OF CORONARY ANGIOPLASTY IMPLANT AND GRAFT plan continue current mgmt as per gi close watch rest as per the tem
--- NOTE | 2020-01-20 13:58 | PN.GI ---
GI Progress Note Subjective: pt seen and examined at bedside. He is awake and alert. He reports one episode of nausea and vomiting last night. Reports diffuse abdominal pain and bloating. Pt continues to report leg pain and edema. LFTs trending down - Objective Vital Signs: Vital Signs Temperature 98.3 F 01/20/20 09:49 Pulse Rate 94 H 01/20/20 09:49 Respiratory Rate 20 01/20/20 09:49 Blood Pressure 148/76 01/20/20 09:49 O2 Sat by Pulse Oximetry (%) 99 01/20/20 09:49 Constitutional: Well Nourished, No Distress, Calm Eyes: Yes: WNL, Conjunctiva Clear, EOM Intact HENT: Yes: WNL, Atraumatic, Normocephalic Neck: Yes: WNL, Supple, Trachea Midline Cardiovascular: Yes: WNL, Regular Rate and Rhythm Respiratory: Yes: WNL, Regular, CTA Bilaterally Gastrointestinal Inspection: Yes: WNL ...Auscultate: Yes: Normoactive Bowel Sounds ...Palpate: Yes: Soft, Tenderness, Epigastium. No: Firm/Rigid, Guarding, Hepatomegaly, Mass, Pulsatile Mass, Splenomegaly, Tenderness Labs: CBC, BMP 01/17/20 05:35 01/20/20 06:36 INR, PTT INR 1.79 (0.83-1.09) H 01/13/20 18:45 Problem List - Problems (1) Nausea & vomiting Assessment/Plan: start PPI start Reglan 5mg TID before meals low fibre lactose free diet Code(s): R11.2 - NAUSEA WITH VOMITING, UNSPECIFIED (2) Hepatocellular injury Assessment/Plan: plan discussed with Dr Pacheco elevated LFTs secondary to Ischemia/ drug toxicity. LFTs trending down repeat LFTs in 48 hours Daily weights. Code(s): K76.9 - LIVER DISEASE, UNSPECIFIED (3) HERI (acute kidney injury) Assessment/Plan: IV hydration Code(s): N17.9 - ACUTE KIDNEY FAILURE, UNSPECIFIED (4) Alcoholic cirrhosis Assessment/Plan: elevated LFTs secondary to Ischemia/ drug toxicity. gabapentin d/ashleigh, LFTs trending down repeat LFTs in 48 hours Code(s): K70.30 - ALCOHOLIC CIRRHOSIS OF LIVER WITHOUT ASCITES (5) Rhabdomyolysis Assessment/Plan: resolving IV hydration Code(s): M62.82 - RHABDOMYOLYSIS
[2020-01-20] MEDS: METOCLOPRAMIDE HCL 10 MG TABLET (FP) PO SCH (17:06)
--- NOTE | 2020-01-20 17:15 | PN ---
Progress Note, Physician History of Present Illness: no complaints - Current Medication List Current Medications: Active Medications Furosemide (Lasix Injection -) 40 mg IVPUSH BID@0600,1400 [facility] Last Admin: 01/20/20 13:16 Dose: 40 mg Documented by: Heparin Sodium (Porcine) (Heparin -) 5,000 unit SQ BID [facility] Last Admin: 01/20/20 09:23 Dose: 5,000 unit Documented by: Lactulose (Cephulac (Oral Use)) 20 gm PO DAILY [facility] Last Admin: 01/20/20 09:23 Dose: 20 gm Documented by: Magnesium Oxide (Mag-Ox -) 400 mg PO DAILY [facility] Metoclopramide HCl (Reglan -) 5 mg PO TIDAC [facility] Last Admin: 01/20/20 17:06 Dose: 5 mg Documented by: Multivitamins/Minerals/Vitamin C (Tab-A-Vit -) 1 tab PO DAILY [facility] Last Admin: 01/20/20 09:23 Dose: 1 tab Documented by: Nadolol (Corgard -) 20 mg PO DAILY [facility] Last Admin: 01/20/20 09:23 Dose: 20 mg Documented by: Pantoprazole Sodium (Protonix -) 40 mg PO DAILY [facility] Thiamine HCl (Vitamin B1 -) 100 mg PO DAILY [facility] Last Admin: 01/20/20 09:23 Dose: 100 mg Documented by: - Objective Vital Signs: Vital Signs Temperature 98.2 F 01/20/20 14:05 Pulse Rate 89 01/20/20 14:05 Respiratory Rate 20 01/20/20 14:05 Blood Pressure 138/69 01/20/20 14:05 O2 Sat by Pulse Oximetry (%) 99 01/20/20 09:49 Constitutional: Yes: No Distress HENT: Yes: Atraumatic Neck: Yes: Supple Cardiovascular: Yes: Regular Rate and Rhythm Respiratory: Yes: CTA Bilaterally Gastrointestinal: Yes: Normal Bowel Sounds Extremities: Yes: WNL Neurological: Yes: Alert, Oriented Labs: CBC, BMP 01/17/20 05:35 01/20/20 06:36 INR, PTT INR 1.79 (0.83-1.09) H 01/13/20 18:45 Problem List - Problems (1) HERI (acute kidney injury) Assessment/Plan: ON IVF MONITOR CR RENAL ON BOARD Code(s): N17.9 - ACUTE KIDNEY FAILURE, UNSPECIFIED (2) Alcoholic cirrhosis Assessment/Plan: monitor lfts gi on board Code(s): K70.30 - ALCOHOLIC CIRRHOSIS OF LIVER WITHOUT ASCITES (3) Liver cirrhosis Code(s): K74.60 - UNSPECIFIED CIRRHOSIS OF LIVER (4) Rhabdomyolysis Assessment/Plan: IVF MONITOR CPK Code(s): M62.82 - RHABDOMYOLYSIS (5) Transaminitis Assessment/Plan: MONITOR ETOH RELATED? Code(s): R74.0 - NONSPEC ELEV OF LEVELS OF TRANSAMNS & LACTIC ACID DEHYDRGNSE (6) Alcohol dependence Code(s): F10.20 - ALCOHOL DEPENDENCE, UNCOMPLICATED (7) HLD (hyperlipidemia) Code(s): E78.5 - HYPERLIPIDEMIA, UNSPECIFIED (8) Hypertension Assessment/Plan: MONITOR on meds Code(s): I10 - ESSENTIAL (PRIMARY) HYPERTENSION Qualifiers: Hypertension type: essential hypertension Qualified Code(s): I10 - Essential (primary) hypertension (9) Anemia Assessment/Plan: STOOL OCCULT BLOOD ORDERED MONITOR CBC Code(s): D64.9 - ANEMIA, UNSPECIFIED Assessment/Plan Impression 1. HERI 2. nsaid use 3. liver cirrhosis 4. etoh abuse 5. cad 6. hld 7. htn 8.rhabdomyolysis MEDICINE COVERAGE FOR DR VALDIVIA TODAY
[2020-01-21 02:08] LABS: HEP B CORE AB, TOT Negative (Negative)
[2020-01-21] MEDS: METOCLOPRAMIDE HCL 10 MG TABLET (FP) PO SCH ×3 (06:29→17:03)
[2020-01-21] MEDS: FUROSEMIDE 40 MG/4 ML INJECTABLE VIAL IVPUSH SCH ×2 (06:29→15:01)
[2020-01-21] MEDS ORDERED: MAGNESIUM OXIDE 400 MG TABLET (FP) PO SCH (10:00)
[2020-01-21] MEDS: PANTOPRAZOLE 40 MG TABLET PO SCH (10:07)
[2020-01-21] MEDS: MULTIVITAMINS (DAILY MVI) TABLET (FP) PO SCH (10:07)
[2020-01-21] MEDS: NADOLOL 20 MG TABLET (FP) PO SCH (10:07)
[2020-01-21] MEDS: THIAMINE HCL 100 MG TABLET (FP) PO SCH (10:08)
[2020-01-21] MEDS: LACTULOSE 20 GM/30 ML UDC (FOR ORAL USE ONLY) PO SCH (10:10)
--- NOTE | 2020-01-21 10:22 | PN ---
Progress Note, Physician History of Present Illness: no new issues continues to feel weak gi onboard - Current Medication List Current Medications: Active Medications Furosemide (Lasix Injection -) 40 mg IVPUSH BID@0600,1400 [facility] Last Admin: 01/21/20 06:29 Dose: 40 mg Documented by: Lactulose (Cephulac (Oral Use)) 20 gm PO DAILY [facility] Last Admin: 01/21/20 10:10 Dose: 20 gm Documented by: Magnesium Oxide (Mag-Ox -) 400 mg PO DAILY [facility] Last Admin: 01/21/20 10:08 Dose: 400 mg Documented by: Metoclopramide HCl (Reglan -) 5 mg PO TIDAC [facility] Last Admin: 01/21/20 10:10 Dose: 5 mg Documented by: Multivitamins/Minerals/Vitamin C (Tab-A-Vit -) 1 tab PO DAILY [facility] Last Admin: 01/21/20 10:07 Dose: 1 tab Documented by: Nadolol (Corgard -) 20 mg PO DAILY [facility] Last Admin: 01/21/20 10:07 Dose: 20 mg Documented by: Pantoprazole Sodium (Protonix -) 40 mg PO DAILY [facility] Last Admin: 01/21/20 10:07 Dose: 40 mg Documented by: Thiamine HCl (Vitamin B1 -) 100 mg PO DAILY [facility] Last Admin: 01/21/20 10:08 Dose: 100 mg Documented by: - Objective Vital Signs: Vital Signs Temperature 98.2 F 01/21/20 06:00 Pulse Rate 96 H 01/21/20 06:00 Respiratory Rate 20 01/21/20 06:00 Blood Pressure 122/51 L 01/21/20 06:00 O2 Sat by Pulse Oximetry (%) 100 01/21/20 06:00 Constitutional: Yes: No Distress, Calm Cardiovascular: Yes: S1, S2 Respiratory: Yes: Regular, CTA Bilaterally Gastrointestinal: Yes: Normal Bowel Sounds, Soft Musculoskeletal: Yes: WNL Extremities: Yes: WNL Edema: LLE: 2+, RLE: 2+ Neurological: Yes: Alert, Oriented Labs: CBC, BMP 01/17/20 05:35 01/20/20 06:36 INR, PTT INR 1.79 (0.83-1.09) H 01/13/20 18:45 Assessment/Plan Problem List - Problems (1) Alcoholic cirrhosis Code(s): K70.30 - ALCOHOLIC CIRRHOSIS OF LIVER WITHOUT ASCITES (2) HERI (acute kidney injury) Code(s): N17.9 - ACUTE KIDNEY FAILURE, UNSPECIFIED (3) Anemia Code(s): D64.9 - ANEMIA, UNSPECIFIED (4) Rhabdomyolysis Code(s): M62.82 - RHABDOMYOLYSIS (5) Transaminitis Code(s): R74.0 - NONSPEC ELEV OF LEVELS OF TRANSAMNS & LACTIC ACID DEHYDRGNSE (6) Vomiting Code(s): R11.10 - VOMITING, UNSPECIFIED (7) CAD (coronary artery disease) Code(s): I25.10 - ATHSCL HEART DISEASE OF [place] CORONARY ARTERY W/O ANG PCTRS (8) HLD (hyperlipidemia) Code(s): E78.5 - HYPERLIPIDEMIA, UNSPECIFIED (9) Hypertension Code(s): I10 - ESSENTIAL (PRIMARY) HYPERTENSION Qualifiers: Hypertension type: essential hypertension Qualified Code(s): I10 - Essential (primary) hypertension (10) History of coronary artery stent placement Code(s): Z95.5 - PRESENCE OF CORONARY ANGIOPLASTY IMPLANT AND GRAFT plan continue current mgmt as per gi close watch rest as per the tem
--- NOTE | 2020-01-21 10:30 | PN.GI ---
GI Progress Note Subjective: pt seen and examined at bedside. He reports one episode vomiting yesterday. Denies nausea, abdominal pain, bloating. LFTs trending down - Objective Vital Signs: Vital Signs Temperature 98.2 F 01/21/20 06:00 Pulse Rate 96 H 01/21/20 06:00 Respiratory Rate 20 01/21/20 06:00 Blood Pressure 122/51 L 01/21/20 06:00 O2 Sat by Pulse Oximetry (%) 100 01/21/20 06:00 Constitutional: Well Nourished, No Distress, Calm Eyes: Yes: WNL, Conjunctiva Clear HENT: Yes: WNL, Atraumatic, Normocephalic Neck: Yes: WNL, Supple, Trachea Midline Cardiovascular: Yes: WNL, Regular Rate and Rhythm Respiratory: Yes: WNL, Regular, CTA Bilaterally Gastrointestinal Inspection: Yes: WNL. No: Distention ...Auscultate: Yes: Normoactive Bowel Sounds ...Palpate: Yes: Soft. No: Firm/Rigid, Guarding, Hepatomegaly, Mass, Pulsatile Mass, Splenomegaly, Tenderness Labs: CBC, BMP 01/17/20 05:35 01/20/20 06:36 INR, PTT INR 1.79 (0.83-1.09) H 01/13/20 18:45 Problem List - Problems (1) Nausea & vomiting Assessment/Plan: Continue PPI Continue Reglan 5mg TID before meals low fibre lactose free diet Code(s): R11.2 - NAUSEA WITH VOMITING, UNSPECIFIED (2) Hepatocellular injury Assessment/Plan: elevated LFTs secondary to Ischemia/ drug toxicity. LFTs trending down repeat LFTs in 48 hours Daily weights. Code(s): K76.9 - LIVER DISEASE, UNSPECIFIED (3) HERI (acute kidney injury) Assessment/Plan: IV hydration Code(s): N17.9 - ACUTE KIDNEY FAILURE, UNSPECIFIED (4) Alcoholic cirrhosis Assessment/Plan: elevated LFTs secondary to Ischemia/ drug toxicity. gabapentin d/ashleigh, LFTs trending down repeat LFTs in 48 hours Code(s): K70.30 - ALCOHOLIC CIRRHOSIS OF LIVER WITHOUT ASCITES (5) Rhabdomyolysis Assessment/Plan: IV hydration Code(s): M62.82 - RHABDOMYOLYSIS
--- NOTE | 2020-01-21 14:36 | PN ---
Progress Note, Physician History of Present Illness: Pt seen and examined at bedside. He is awake and alert. - Current Medication List Current Medications: Active Medications Furosemide (Lasix Injection -) 40 mg IVPUSH BID@0600,1400 [facility] Last Admin: 01/21/20 06:29 Dose: 40 mg Documented by: Lactulose (Cephulac (Oral Use)) 20 gm PO DAILY [facility] Last Admin: 01/21/20 10:10 Dose: 20 gm Documented by: Magnesium Oxide (Mag-Ox -) 400 mg PO DAILY [facility] Last Admin: 01/21/20 10:08 Dose: 400 mg Documented by: Metoclopramide HCl (Reglan -) 5 mg PO TIDAC [facility] Last Admin: 01/21/20 10:10 Dose: 5 mg Documented by: Multivitamins/Minerals/Vitamin C (Tab-A-Vit -) 1 tab PO DAILY [facility] Last Admin: 01/21/20 10:07 Dose: 1 tab Documented by: Nadolol (Corgard -) 20 mg PO DAILY [facility] Last Admin: 01/21/20 10:07 Dose: 20 mg Documented by: Pantoprazole Sodium (Protonix -) 40 mg PO DAILY [facility] Last Admin: 01/21/20 10:07 Dose: 40 mg Documented by: Thiamine HCl (Vitamin B1 -) 100 mg PO DAILY [facility] Last Admin: 01/21/20 10:08 Dose: 100 mg Documented by: - Objective Vital Signs: Vital Signs Temperature 98.7 F 01/21/20 13:54 Pulse Rate 97 H 01/21/20 13:54 Respiratory Rate 20 01/21/20 13:54 Blood Pressure 118/55 L 01/21/20 13:54 O2 Sat by Pulse Oximetry (%) 100 01/21/20 13:54 Constitutional: Yes: Calm Eyes: Yes: Conjunctiva Clear HENT: Yes: Atraumatic Cardiovascular: Yes: S1, S2 Respiratory: Yes: CTA Bilaterally Gastrointestinal: Yes: Soft, Abdomen, Obese Genitourinary: Yes: WNL Musculoskeletal: Yes: WNL Edema: Yes Edema: LLE: 2+, RLE: 2+ Neurological: Yes: Oriented Psychiatric: Yes: Oriented Labs: CBC, BMP 01/17/20 05:35 01/20/20 06:36 INR, PTT INR 1.79 (0.83-1.09) H 01/13/20 18:45 Problem List - Problems (1) HAI (acute kidney injury) Code(s): N17.9 - ACUTE KIDNEY FAILURE, UNSPECIFIED (2) Rhabdomyolysis Code(s): M62.82 - RHABDOMYOLYSIS Assessment/Plan Current Medications Generic Name Dose Route Start Last Admin Trade Name Mikey PRN Reason Stop Dose Admin Furosemide 40 mg 01/20/20 06:00 01/21/20 06:29 Lasix Injection - IVPUSH 40 mg BID@0600,1400 [facility] Administration Lactulose 20 gm 01/14/20 10:00 01/21/20 10:10 Cephulac (Oral Use) PO 20 gm DAILY [facility] Administration Magnesium Oxide 400 mg 01/21/20 10:00 01/21/20 10:08 Mag-Ox - PO 400 mg DAILY [facility] Administration Metoclopramide HCl 5 mg 01/20/20 16:30 01/21/20 10:10 Reglan - PO 5 mg TIDAC [facility] Administration Multivitamins/Minerals/Vitamin C 1 tab 01/14/20 10:00 01/21/20 10:07 Tab-A-Vit - PO 1 tab DAILY [facility] Administration Nadolol 20 mg 01/14/20 10:00 01/21/20 10:07 Corgard - PO 20 mg DAILY [facility] Administration Pantoprazole Sodium 40 mg 01/21/20 10:00 01/21/20 10:07 Protonix - PO 40 mg DAILY [facility] Administration Thiamine HCl 100 mg 01/14/20 10:00 01/21/20 10:08 Vitamin B1 - PO 100 mg DAILY [facility] Administration Impression 1. HAI 2. nsaid use 3. liver cirrhosis 4. etoh abuse 5. cad 6. hld 7. htn 8. rhabdo Plan - will place orders for labs again, spoke to nurse about to call me with results - cont lasix - monitor cpk - monitor volume status - limit fluid intake - hai likely secondary to rhabdo and nsaids
[2020-01-21 18:22] LABS: ALBUMIN 2.7 g/dl (3.4-5.0); BILIRUBIN,TOTAL 2.7 mg/dL (0.2-1); BLOOD UREA NITROGEN 24.3 mg/dL (7-18); CALCIUM 8.3 mg/dL (8.5-10.1); CREATININE 1.2 mg/dL (0.55-1.3); MAGNESIUM 1.2 mg/dL (1.8-2.4); TOT PROT 5.5 g/dl (6.4-8.2)
[2020-01-21] MEDS ORDERED: POTASSIUM CHLORIDE TABS 20 MEQ TABLET.ER (FP) PO ONE (19:30)
[2020-01-21] MEDS ORDERED: MAGNESIUM SULF 50% (8.12 MEQ/2 ML-1 GM VIAL) IVPB ONE (19:30)
[2020-01-21] MEDS: MAGNESIUM OXIDE 400 MG TABLET (FP) PO SCH ×2 (20:43→21:22)
[2020-01-21] MEDS: KCL 10 MEQ IVPB 10 MEQ/100 ML INFUS.BAG IVPB SCH ×2 (20:44→22:48)
--- NOTE | 2020-01-21 21:42 | PN ---
Progress Note, Physician - Current Medication List Current Medications: Active Medications Furosemide (Lasix Injection -) 40 mg IVPUSH BID@0600,1400 [facility] Last Admin: 01/21/20 15:01 Dose: 40 mg Documented by: Potassium Chloride (Potassium Chloride 10 Meq Premix Ivpb -) 10 meq in 100 mls @ 100 mls/hr IVPB Q60M [facility] Stop: 01/21/20 22:29 Last Admin: 01/21/20 20:44 Dose: 100 mls/hr Documented by: Lactulose (Cephulac (Oral Use)) 20 gm PO DAILY [facility] Last Admin: 01/21/20 10:10 Dose: 20 gm Documented by: Magnesium Oxide (Mag-Ox -) 400 mg PO BID [facility] Last Admin: 01/21/20 21:22 Dose: Not Given Documented by: Metoclopramide HCl (Reglan -) 5 mg PO TIDAC [facility] Last Admin: 01/21/20 17:03 Dose: 5 mg Documented by: Multivitamins/Minerals/Vitamin C (Tab-A-Vit -) 1 tab PO DAILY [facility] Last Admin: 01/21/20 10:07 Dose: 1 tab Documented by: Nadolol (Corgard -) 20 mg PO DAILY [facility] Last Admin: 01/21/20 10:07 Dose: 20 mg Documented by: Pantoprazole Sodium (Protonix -) 40 mg PO DAILY [facility] Last Admin: 01/21/20 10:07 Dose: 40 mg Documented by: Thiamine HCl (Vitamin B1 -) 100 mg PO DAILY [facility] Last Admin: 01/21/20 10:08 Dose: 100 mg Documented by: - Objective Vital Signs: Vital Signs Temperature 97.9 F 01/21/20 18:00 Pulse Rate 95 H 01/21/20 18:00 Respiratory Rate 20 01/21/20 18:00 Blood Pressure 138/71 01/21/20 18:00 O2 Sat by Pulse Oximetry (%) 100 01/21/20 19:59 Cardiovascular: Yes: WNL, Regular Rate and Rhythm Respiratory: Yes: Diminished Gastrointestinal: Yes: WNL, Normal Bowel Sounds, Soft, Abdomen, Obese, Ascites, Distention Edema: LLE: 2+, RLE: 2+ Labs: CBC, BMP 01/17/20 05:35 01/21/20 17:00 INR, PTT INR 1.79 (0.83-1.09) H 01/13/20 18:45 Problem List - Problems (1) HERI (acute kidney injury) Code(s): N17.9 - ACUTE KIDNEY FAILURE, UNSPECIFIED (2) Alcoholic cirrhosis Code(s): K70.30 - ALCOHOLIC CIRRHOSIS OF LIVER WITHOUT ASCITES (3) Rhabdomyolysis Code(s): M62.82 - RHABDOMYOLYSIS (4) Transaminitis Code(s): R74.0 - NONSPEC ELEV OF LEVELS OF TRANSAMNS & LACTIC * DO NOT USE * (5) Vomiting Code(s): R11.10 - VOMITING, UNSPECIFIED (6) HLD (hyperlipidemia) Code(s): E78.5 - HYPERLIPIDEMIA, UNSPECIFIED (7) Hypertension Code(s): I10 - ESSENTIAL (PRIMARY) HYPERTENSION Qualifiers: Hypertension type: essential hypertension Qualified Code(s): I10 - Essential (primary) hypertension (8) History of coronary artery stent placement Code(s): Z95.5 - PRESENCE OF CORONARY ANGIOPLASTY IMPLANT AND GRAFT (9) Morbid obesity Code(s): E66.01 - MORBID (SEVERE) OBESITY DUE TO EXCESS CALORIES (10) CAD (coronary artery disease) Code(s): I25.10 - ATHSCL HEART DISEASE OF [place] CORONARY ARTERY W/O ANG PCTRS
[2020-01-22] MEDS: KCL 10 MEQ IVPB 10 MEQ/100 ML INFUS.BAG IVPB SCH ×4 (03:00→22:05)
[2020-01-22] MEDS: METOCLOPRAMIDE HCL 10 MG TABLET (FP) PO SCH ×3 (06:54→17:42)
[2020-01-22] MEDS: FUROSEMIDE 40 MG/4 ML INJECTABLE VIAL IVPUSH SCH ×2 (06:55→17:36)
[2020-01-22 07:18] LABS: ALBUMIN 2.7 g/dl (3.4-5.0); BLOOD UREA NITROGEN 22.1 mg/dL (7-18); CALCIUM 8.1 mg/dL (8.5-10.1); CREATININE 1.2 mg/dL (0.55-1.3); MAGNESIUM 1.6 mg/dL (1.8-2.4); POTASSIUM 3.3 mmol/L (3.5-5.1); TOT PROT 5.5 g/dl (6.4-8.2)
--- NOTE | 2020-01-22 07:23 | PN ---
Progress Note, Physician Chief Complaint: Pt A&Ox3; lying in bed; fatigued; dyspneic on minimal exertion. History of Present Illness: Mr. Mann is a 55 year old male (b. [place]), with a significant past medical history of hypertension, hyperlipidemia, cirrhosis, GI bleed, CAD s/p coronary stents followed by CABG, morbid obesity, who presents to the ED for further evaluation of elevated LFTs. Pt was seen yesterday for leg pain; labs showed elevated LFTs,but the patient left AMA. Today he returns for further evaluation. No abd pain. C/o nausea. States he saw Dr. Pacheco 2 days ago and had blood in his stool at that time. Pt states he has been taking Motrin for leg and back pain every 4-5 hours. Pt states he also has had a change in his sleep/wake cycle. - Current Medication List Current Medications: Active Medications Furosemide (Lasix Injection -) 40 mg IVPUSH BID@0600,1400 [facility] Last Admin: 01/22/20 06:55 Dose: 40 mg Documented by: Lactulose (Cephulac (Oral Use)) 20 gm PO DAILY [facility] Last Admin: 01/21/20 10:10 Dose: 20 gm Documented by: Magnesium Oxide (Mag-Ox -) 400 mg PO BID [facility] Last Admin: 01/21/20 21:22 Dose: Not Given Documented by: Metoclopramide HCl (Reglan -) 5 mg PO TIDAC [facility] Last Admin: 01/22/20 06:54 Dose: 5 mg Documented by: Multivitamins/Minerals/Vitamin C (Tab-A-Vit -) 1 tab PO DAILY [facility] Last Admin: 01/21/20 10:07 Dose: 1 tab Documented by: Nadolol (Corgard -) 20 mg PO DAILY [facility] Last Admin: 01/21/20 10:07 Dose: 20 mg Documented by: Pantoprazole Sodium (Protonix -) 40 mg PO DAILY [facility] Last Admin: 01/21/20 10:07 Dose: 40 mg Documented by: Thiamine HCl (Vitamin B1 -) 100 mg PO DAILY [facility] Last Admin: 01/21/20 10:08 Dose: 100 mg Documented by: - Objective Vital Signs: Vital Signs Temperature 98.0 F 01/22/20 06:00 Pulse Rate 95 H 01/22/20 06:00 Respiratory Rate 20 01/22/20 06:00 Blood Pressure 125/76 01/22/20 06:00 O2 Sat by Pulse Oximetry (%) 100 01/21/20 22:00 Constitutional: Yes: Anxious, Obese Eyes: Yes: WNL Labs: CBC, BMP 01/17/20 05:35 01/22/20 05:25 INR, PTT INR 1.79 (0.83-1.09) H 01/13/20 18:45 Assessment/Plan 1. CAD post CABG with evidence of demand ischemic injury angina pectoris 2. Diastolic LV dysfunction with clinical class 0 NYHA classification LV failure 3. HTN 4. Dyslipidemia 5. Evidence of acute hepatitis; etiology to be determined 6. Acute renal insufficiency/failure 7. Rhabdomyolysis: improving 8. Anemia 9. Morbid obesity PLAN: 1. Continue Nadolol 20 mg qd; dose titration as needed, hemodynamics permitting 2. Ideally patient should be on HALEY inhibitor or angiotensin receptor allyson therapy, but considering the above-noted comorbidities, therapy initiation is to be deferred in view of evidence of acute renal insufficiency/failure- pending resolution 3. Ideally patient should be on statin therapy considering the above-noted comorbidities, therapy initiation is to be deferred in view of evidence of acute liver disease- pending resolution 4. Ideally patient should be on ASA therapy considering the above-noted comorbidities, therapy initiation is to be deferred in view of evidence of anemia- pending completion of evaluation 5. On furosemide 40 mg IVP bid; f/u BUN/Cr (improving), electrolytes, daily weight, Is and Os. F/u CK. 6. on magnesium oxide
[2020-01-22 07:28] LABS: BILIRUBIN,TOTAL 2.6 mg/dL (0.2-1)
--- NOTE | 2020-01-22 08:32 | PN ---
Progress Note, Physician History of Present Illness: Mr. Mann is a 55 year old male (b. [place]), with a significant past medical history of hypertension, hyperlipidemia, cirrhosis, GI bleed, CAD s/p coronary stents followed by CABG, morbid obesity, who presents to the ED for further evaluation of elevated LFTs. Pt was seen yesterday for leg pain; labs showed elevated LFTs,but the patient left AMA. Today he returns for further evaluation. No abd pain. C/o nausea. States he saw Dr. Pacheco 2 days ago and had blood in his stool at that time. Pt states he has been taking Motrin for leg and back pain every 4-5 hours. Pt states he also has had a change in his sleep/wake cycle. - Current Medication List Current Medications: Active Medications Furosemide (Lasix Injection -) 40 mg IVPUSH BID@0600,1400 [facility] Last Admin: 01/22/20 06:55 Dose: 40 mg Documented by: Lactulose (Cephulac (Oral Use)) 20 gm PO DAILY [facility] Last Admin: 01/21/20 10:10 Dose: 20 gm Documented by: Magnesium Oxide (Mag-Ox -) 400 mg PO BID [facility] Last Admin: 01/21/20 21:22 Dose: Not Given Documented by: Metoclopramide HCl (Reglan -) 5 mg PO TIDAC [facility] Last Admin: 01/22/20 06:54 Dose: 5 mg Documented by: Multivitamins/Minerals/Vitamin C (Tab-A-Vit -) 1 tab PO DAILY [facility] Last Admin: 01/21/20 10:07 Dose: 1 tab Documented by: Nadolol (Corgard -) 20 mg PO DAILY [facility] Last Admin: 01/21/20 10:07 Dose: 20 mg Documented by: Pantoprazole Sodium (Protonix -) 40 mg PO DAILY [facility] Last Admin: 01/21/20 10:07 Dose: 40 mg Documented by: Thiamine HCl (Vitamin B1 -) 100 mg PO DAILY [facility] Last Admin: 01/21/20 10:08 Dose: 100 mg Documented by: - Objective Vital Signs: Vital Signs Temperature 98.0 F 01/22/20 06:00 Pulse Rate 95 H 01/22/20 06:00 Respiratory Rate 20 01/22/20 06:00 Blood Pressure 125/76 01/22/20 06:00 O2 Sat by Pulse Oximetry (%) 100 01/21/20 22:00 Eyes: Yes: WNL, Conjunctiva Clear, EOM Intact HENT: Yes: WNL, Atraumatic, Normocephalic Neck: Yes: WNL, Supple, Trachea Midline Cardiovascular: Yes: WNL, Regular Rate and Rhythm Respiratory: Yes: WNL, Regular, CTA Bilaterally Gastrointestinal: Yes: WNL, Normal Bowel Sounds Genitourinary: Yes: WNL Musculoskeletal: Yes: WNL Extremities: Yes: WNL Edema: Yes Integumentary: Yes: WNL Neurological: Yes: WNL, Alert, Oriented ...Motor Strength: WNL Psychiatric: Yes: WNL Labs: CBC, BMP 01/17/20 05:35 01/22/20 05:25 INR, PTT INR 1.79 (0.83-1.09) H 01/13/20 18:45 Problem List - Problems (1) HERI (acute kidney injury) Code(s): N17.9 - ACUTE KIDNEY FAILURE, UNSPECIFIED (2) Alcoholic cirrhosis Code(s): K70.30 - ALCOHOLIC CIRRHOSIS OF LIVER WITHOUT ASCITES (3) Anemia Code(s): D64.9 - ANEMIA, UNSPECIFIED (4) Hepatocellular injury Code(s): K76.9 - LIVER DISEASE, UNSPECIFIED (5) Hyperammonemia Code(s): E72.20 - DISORDER OF UREA CYCLE METABOLISM, UNSPECIFIED (6) Leg cramping Code(s): R25.2 - CRAMP AND SPASM (7) Liver cirrhosis Code(s): K74.60 - UNSPECIFIED CIRRHOSIS OF LIVER (8) Morbid obesity Code(s): E66.01 - MORBID (SEVERE) OBESITY DUE TO EXCESS CALORIES (9) Nausea & vomiting Code(s): R11.2 - NAUSEA WITH VOMITING, UNSPECIFIED (10) Rhabdomyolysis Code(s): M62.82 - RHABDOMYOLYSIS (11) Transaminitis Code(s): R74.0 - NONSPEC ELEV OF LEVELS OF TRANSAMNS & LACTIC ACID DEHYDRGNSE (12) Vomiting Code(s): R11.10 - VOMITING, UNSPECIFIED (13) Alcohol dependence Code(s): F10.20 - ALCOHOL DEPENDENCE, UNCOMPLICATED (14) Alcohol dependence with uncomplicated withdrawal Code(s): F10.230 - ALCOHOL DEPENDENCE WITH WITHDRAWAL, UNCOMPLICATED (15) Alcoholic cirrhosis Code(s): K70.30 - ALCOHOLIC CIRRHOSIS OF LIVER WITHOUT ASCITES (16) Alcoholic hepatitis with ascites Code(s): K70.11 - ALCOHOLIC HEPATITIS WITH ASCITES (17) Atypical chest pain Code(s): R07.89 - OTHER CHEST PAIN (18) Back pain Code(s): M54.9 - DORSALGIA, UNSPECIFIED Qualifiers: Back pain location: low back pain Chronicity: unspecified Back pain laterality: unspecified Sciatica presence: unspecified whether sciatica present Qualified Code(s): M54.5 - Low back pain (19) CAD (coronary artery disease) Code(s): I25.10 - ATHSCL HEART DISEASE OF [place] CORONARY ARTERY W/O ANG PCTRS (20) Common cold virus Code(s): J00 - ACUTE NASOPHARYNGITIS [COMMON COLD] (21) Elevated LFTs Code(s): R79.89 - OTHER SPECIFIED ABNORMAL FINDINGS OF BLOOD CHEMISTRY (22) GI bleed Code(s): K92.2 - GASTROINTESTINAL HEMORRHAGE, UNSPECIFIED Qualifiers: GI bleed type/associated pathology: unspecified gastrointestinal hemorrhage type Qualified Code(s): K92.2 - Gastrointestinal hemorrhage, unspecified (23) Groin pain Code(s): R10.30 - LOWER ABDOMINAL PAIN, UNSPECIFIED (24) HLD (hyperlipidemia) Code(s): E78.5 - HYPERLIPIDEMIA, UNSPECIFIED (25) Hematemesis Code(s): K92.0 - HEMATEMESIS (26) Hepatic failure due to alcoholism Code(s): K70.40 - ALCOHOLIC HEPATIC FAILURE WITHOUT COMA (27) Hyperbilirubinemia Code(s): E80.6 - OTHER DISORDERS OF BILIRUBIN METABOLISM (28) Hypokalemia Code(s): E87.6 - HYPOKALEMIA (29) Insomnia Code(s): G47.00 - INSOMNIA, UNSPECIFIED (30) Jaundice Code(s): R17 - UNSPECIFIED JAUNDICE (31) Knee sprain Code(s): S83.90XA - SPRAIN OF UNSPECIFIED SITE OF UNSPECIFIED KNEE, INIT ENCNTR Qualifiers: Encounter type: initial encounter Involved ligament of knee: unspecified ligament Laterality: left Qualified Code(s): S83.92XA - Sprain of unspecified site of left knee, initial encounter (32) NSTEMI (non-ST elevated myocardial infarction) Code(s): I21.4 - NON-ST ELEVATION (NSTEMI) MYOCARDIAL INFARCTION (33) Syncope Code(s): R55 - SYNCOPE AND COLLAPSE (34) Acid reflux Code(s): K21.9 - GASTRO-ESOPHAGEAL REFLUX DISEASE WITHOUT ESOPHAGITIS Qualifiers: Esophagitis presence: esophagitis presence not specified Qualified Code(s): K21.9 - Gastro-esophageal reflux disease without esophagitis (35) HLD (hyperlipidemia) Code(s): E78.5 - HYPERLIPIDEMIA, UNSPECIFIED Qualifiers: Hyperlipidemia type: unspecified Qualified Code(s): E78.5 - Hyperlipidemia, unspecified (36) Hypertension Code(s): I10 - ESSENTIAL (PRIMARY) HYPERTENSION Qualifiers: Hypertension type: essential hypertension Qualified Code(s): I10 - Essenti al (primary) hypertension (37) Depression (emotion) Code(s): F32.9 - MAJOR DEPRESSIVE DISORDER, SINGLE EPISODE, UNSPECIFIED Qualifiers: Depression Type: unspecified Qualified Code(s): F32.9 - Major depressive disorder, single episode, unspecified (38) History of coronary artery stent placement Code(s): Z95.5 - PRESENCE OF CORONARY ANGIOPLASTY IMPLANT AND GRAFT Assessment/Plan 1. CAD post CABG with evidence of demand ischemic injury angina pectoris 2. Diastolic LV dysfunction with clinical decompensated LV failure 3. HTN 4. Dyslipidemia 5. Evidence of acute hepatitis; etiology to be determined 6. Acute renal insufficiency/failure 7. Rhabdomyolysis: improving 8. Anemia 9. Morbid obesity PLAN: 1. Continue Nadolol 20 mg qd; dose titration as needed, hemodynamics permitting 2. Ideally patient should be on HALEY inhibitor or angiotensin receptor allyson therapy, but considering the above-noted comorbidities, therapy initiation is to be deferred in view of evidence of acute renal insufficiency/failure- pending resolution 3. Ideally patient should be on statin therapy considering the above-noted comorbidities, therapy initiation is to be deferred in view of evidence of acute liver disease- pending resolution 4. Ideally patient should be on ASA therapy considering the above-noted comorbi dities, therapy initiation is to be deferred in view of evidence of anemia- pending completion of evaluation 5. Increse furosemide to 60 mg IVP bid; f/u BUN/Cr
[2020-01-22] MEDS ORDERED: PT OWN MED DRAWER 7, Y5N ONE (09:08)
[2020-01-22] MEDS: NADOLOL 20 MG TABLET (FP) PO SCH (09:13)
[2020-01-22] MEDS: MAGNESIUM OXIDE 400 MG TABLET (FP) PO SCH ×2 (09:13→22:05)
[2020-01-22] MEDS: LACTULOSE 20 GM/30 ML UDC (FOR ORAL USE ONLY) PO SCH (09:13)
[2020-01-22] MEDS: THIAMINE HCL 100 MG TABLET (FP) PO SCH (09:13)
[2020-01-22] MEDS: PANTOPRAZOLE 40 MG TABLET PO SCH (09:13)
[2020-01-22] MEDS: MULTIVITAMINS (DAILY MVI) TABLET (FP) PO SCH (09:13)
--- NOTE | 2020-01-22 11:28 | PN ---
Progress Note, Physician History of Present Illness: no new issues continues to feel weak gi onboard - Current Medication List Current Medications: Active Medications Furosemide (Lasix Injection -) 40 mg IVPUSH BID@0600,1400 [facility] Last Admin: 01/22/20 06:55 Dose: 40 mg Documented by: Lactulose (Cephulac (Oral Use)) 20 gm PO DAILY [facility] Last Admin: 01/22/20 09:13 Dose: 20 gm Documented by: Magnesium Oxide (Mag-Ox -) 400 mg PO BID [facility] Last Admin: 01/22/20 09:13 Dose: 400 mg Documented by: Metoclopramide HCl (Reglan -) 5 mg PO TIDAC [facility] Last Admin: 01/22/20 10:47 Dose: 5 mg Documented by: Multivitamins/Minerals/Vitamin C (Tab-A-Vit -) 1 tab PO DAILY [facility] Last Admin: 01/22/20 09:13 Dose: 1 tab Documented by: Nadolol (Corgard -) 20 mg PO DAILY [facility] Last Admin: 01/22/20 09:13 Dose: 20 mg Documented by: Pantoprazole Sodium (Protonix -) 40 mg PO DAILY [facility] Last Admin: 01/22/20 09:13 Dose: 40 mg Documented by: Thiamine HCl (Vitamin B1 -) 100 mg PO DAILY [facility] Last Admin: 01/22/20 09:13 Dose: 100 mg Documented by: - Objective Vital Signs: Vital Signs Temperature 98.7 F 01/22/20 09:37 Pulse Rate 103 H 01/22/20 09:37 Respiratory Rate 20 01/22/20 09:37 Blood Pressure 126/77 01/22/20 09:37 O2 Sat by Pulse Oximetry (%) 98 01/22/20 09:37 Constitutional: Yes: No Distress, Calm Gastrointestinal: Yes: Normal Bowel Sounds, Soft Musculoskeletal: Yes: WNL Extremities: Yes: WNL Neurological: Yes: Alert Psychiatric: Yes: Alert Labs: CBC, BMP 01/17/20 05:35 01/22/20 05:25 INR, PTT INR 1.79 (0.83-1.09) H 01/13/20 18:45 Assessment/Plan Problem List - Problems (1) Alcoholic cirrhosis Code(s): K70.30 - ALCOHOLIC CIRRHOSIS OF LIVER WITHOUT ASCITES (2) HERI (acute kidney injury) Code(s): N17.9 - ACUTE KIDNEY FAILURE, UNSPECIFIED (3) Anemia Code(s): D64.9 - ANEMIA, UNSPECIFIED (4) Rhabdomyolysis Code(s): M62.82 - RHABDOMYOLYSIS (5) Transaminitis Code(s): R74.0 - NONSPEC ELEV OF LEVELS OF TRANSAMNS & LACTIC ACID DEHYDRGNSE (6) Vomiting Code(s): R11.10 - VOMITING, UNSPECIFIED (7) CAD (coronary artery disease) Code(s): I25.10 - ATHSCL HEART DISEASE OF [place] CORONARY ARTERY W/O ANG PCTRS (8) HLD (hyperlipidemia) Code(s): E78.5 - HYPERLIPIDEMIA, UNSPECIFIED (9) Hypertension Code(s): I10 - ESSENTIAL (PRIMARY) HYPERTENSION Qualifiers: Hypertension type: essential hypertension Qualified Code(s): I10 - Essential (primary) hypertension (10) History of coronary artery stent placement Code(s): Z95.5 - PRESENCE OF CORONARY ANGIOPLASTY IMPLANT AND GRAFT plan continue current mgmt as per gi close watch rest as per the tem
[2020-01-22] MEDS ORDERED: FUROSEMIDE 40 MG/4 ML INJECTABLE VIAL IVPUSH ONE (12:00)
[2020-01-22] MEDS ORDERED: POTASSIUM CHLORIDE ORAL LIQUID 20 MEQ/15 ML PO ONE (12:00)
[2020-01-22] MEDS ORDERED: MAGNESIUM 1GM/D5W - 1 GM/100 ML IVPB IVPB ONE (12:00)
--- NOTE | 2020-01-22 12:39 | PN ---
Progress Note, Physician History of Present Illness: Pt seen and examined at bedside. He still complains of lower ext edema. - Current Medication List Current Medications: Active Medications Furosemide (Lasix Injection -) 40 mg IVPUSH BID@0600,1400 [facility] Last Admin: 01/22/20 06:55 Dose: 40 mg Documented by: Magnesium Sulfate/Dextrose (Magnesium 1gm/D5w -) 1 gm in 100 mls @ 100 mls/hr IVPB ONCE ONE Stop: 01/22/20 12:59 Last Admin: 01/22/20 11:53 Dose: 100 mls/hr Documented by: Lactulose (Cephulac (Oral Use)) 20 gm PO DAILY [facility] Last Admin: 01/22/20 09:13 Dose: 20 gm Documented by: Magnesium Oxide (Mag-Ox -) 400 mg PO BID [facility] Last Admin: 01/22/20 09:13 Dose: 400 mg Documented by: Metoclopramide HCl (Reglan -) 5 mg PO TIDAC [facility] Last Admin: 01/22/20 10:47 Dose: 5 mg Documented by: Multivitamins/Minerals/Vitamin C (Tab-A-Vit -) 1 tab PO DAILY [facility] Last Admin: 01/22/20 09:13 Dose: 1 tab Documented by: Nadolol (Corgard -) 20 mg PO DAILY [facility] Last Admin: 01/22/20 09:13 Dose: 20 mg Documented by: Pantoprazole Sodium (Protonix -) 40 mg PO DAILY [facility] Last Admin: 01/22/20 09:13 Dose: 40 mg Documented by: Thiamine HCl (Vitamin B1 -) 100 mg PO DAILY [facility] Last Admin: 01/22/20 09:13 Dose: 100 mg Documented by: - Objective Vital Signs: Vital Signs Temperature 98.7 F 01/22/20 09:37 Pulse Rate 103 H 01/22/20 09:37 Respiratory Rate 20 01/22/20 09:37 Blood Pressure 126/77 01/22/20 09:37 O2 Sat by Pulse Oximetry (%) 98 01/22/20 09:37 Constitutional: Yes: Calm Eyes: Yes: Conjunctiva Clear HENT: Yes: Atraumatic Neck: Yes: Supple Cardiovascular: Yes: S1, S2 Respiratory: Yes: CTA Bilaterally Gastrointestinal: Yes: Soft, Abdomen, Obese Genitourinary: Yes: WNL Musculoskeletal: Yes: WNL Edema: Yes Edema: LLE: 3+, RLE: 3+ Neurological: Yes: Oriented Psychiatric: Yes: Oriented Labs: CBC, BMP 01/17/20 05:35 01/22/20 05:25 INR, PTT INR 1.79 (0.83-1.09) H 01/13/20 18:45 Problem List - Problems (1) HAI (acute kidney injury) Code(s): N17.9 - ACUTE KIDNEY FAILURE, UNSPECIFIED (2) Rhabdomyolysis Code(s): M62.82 - RHABDOMYOLYSIS Assessment/Plan Current Medications Generic Name Dose Route Start Last Admin Trade Name Mikey PRN Reason Stop Dose Admin Furosemide 40 mg 01/20/20 06:00 01/22/20 06:55 Lasix Injection - IVPUSH 40 mg BID@0600,1400 [facility] Administration Magnesium Sulfate/Dextrose 1 gm in 100 mls @ 100 mls/hr 01/22/20 12:00 01/22/20 11:53 Magnesium 1gm/D5w - IVPB 01/22/20 12:59 100 mls/hr ONCE ONE Administration Lactulose 20 gm 01/14/20 10:00 01/22/20 09:13 Cephulac (Oral Use) PO 20 gm DAILY [facility] Administration Magnesium Oxide 400 mg 01/21/20 19:30 01/22/20 09:13 Mag-Ox - PO 400 mg BID [facility] Administration Metoclopramide HCl 5 mg 01/20/20 16:30 01/22/20 10:47 Reglan - PO 5 mg TIDAC [facility] Administration Multivitamins/Minerals/Vitamin C 1 tab 01/14/20 10:00 01/22/20 09:13 Tab-A-Vit - PO 1 tab DAILY [facility] Administration Nadolol 20 mg 01/14/20 10:00 01/22/20 09:13 Corgard - PO 20 mg DAILY [facility] Administration Pantoprazole Sodium 40 mg 01/21/20 10:00 01/22/20 09:13 Protonix - PO 40 mg DAILY [facility] Administration Thiamine HCl 100 mg 01/14/20 10:00 01/22/20 09:13 Vitamin B1 - PO 100 mg DAILY [facility] Administration Impression 1. HAI 2. nsaid use 3. liver cirrhosis 4. etoh abuse 5. cad 6. hld 7. htn 8. rhabdo Plan - replace mag - replace potassium - increase lasix dose - add aldactone - renal function improving - cpk improving - hai likely secondary to rhabdo and nsaids
--- NOTE | 2020-01-22 13:51 | PN ---
Progress Note, Physician History of Present Illness: no complaints - Current Medication List Current Medications: Active Medications Albumin Human (Albumin Human 25% -) 25 gm IVPB ONCE ONE Stop: 01/22/20 14:01 Furosemide (Lasix Injection -) 60 mg IVPUSH BID@0600,1400 [facility] Potassium Chloride (Potassium Chloride 10 Meq Premix Ivpb -) 10 meq in 100 mls @ 100 mls/hr IVPB Q60M [facility] Stop: 01/22/20 16:59 Lactulose (Cephulac (Oral Use)) 20 gm PO DAILY [facility] Last Admin: 01/22/20 09:13 Dose: 20 gm Documented by: Magnesium Oxide (Mag-Ox -) 400 mg PO BID [facility] Last Admin: 01/22/20 09:13 Dose: 400 mg Documented by: Magnesium Sulfate (Magnesium Sulfate) 2 gm IVPB ONCE ONE Stop: 01/22/20 14:01 Metoclopramide HCl (Reglan -) 5 mg PO TIDAC [facility] Last Admin: 01/22/20 10:47 Dose: 5 mg Documented by: Multivitamins/Minerals/Vitamin C (Tab-A-Vit -) 1 tab PO DAILY [facility] Last Admin: 01/22/20 09:13 Dose: 1 tab Documented by: Nadolol (Corgard -) 20 mg PO DAILY [facility] Last Admin: 01/22/20 09:13 Dose: 20 mg Documented by: Pantoprazole Sodium (Protonix -) 40 mg PO DAILY [facility] Last Admin: 01/22/20 09:13 Dose: 40 mg Documented by: Spironolactone (Aldactone -) 25 mg PO BID [facility] Thiamine HCl (Vitamin B1 -) 100 mg PO DAILY [facility] Last Admin: 01/22/20 09:13 Dose: 100 mg Documented by: - Objective Vital Signs: Vital Signs Temperature 98.7 F 01/22/20 09:37 Pulse Rate 103 H 01/22/20 09:37 Respiratory Rate 20 01/22/20 09:37 Blood Pressure 126/77 01/22/20 09:37 O2 Sat by Pulse Oximetry (%) 98 01/22/20 09:37 Constitutional: Yes: No Distress HENT: Yes: Atraumatic Neck: Yes: Supple Cardiovascular: Yes: Regular Rate and Rhythm Respiratory: Yes: Rhonchi Gastrointestinal: Yes: Normal Bowel Sounds Extremities: Yes: WNL Neurological: Yes: Alert, Oriented Labs: CBC, BMP 09/20/20 05:35 01/22/20 05:25 INR, PTT INR 1.79 (0.83-1.09) H 01/13/20 18:45 Problem List - Problems (1) HERI (acute kidney injury) Assessment/Plan: ON IVF MONITOR CR RENAL ON BOARD Code(s): N17.9 - ACUTE KIDNEY FAILURE, UNSPECIFIED (2) Alcoholic cirrhosis Assessment/Plan: monitor lfts gi on board Code(s): K70.30 - ALCOHOLIC CIRRHOSIS OF LIVER WITHOUT ASCITES (3) Liver cirrhosis Code(s): K74.60 - UNSPECIFIED CIRRHOSIS OF LIVER (4) Rhabdomyolysis Assessment/Plan: IVF MONITOR CPK Code(s): M62.82 - RHABDOMYOLYSIS (5) Transaminitis Assessment/Plan: MONITOR ETOH RELATED Code(s): R74.0 - NONSPEC ELEV OF LEVELS OF TRANSAMNS & LACTIC ACID DEHYDRGNSE (6) Alcohol dependence Code(s): F10.20 - ALCOHOL DEPENDENCE, UNCOMPLICATED (7) HLD (hyperlipidemia) Code(s): E78.5 - HYPERLIPIDEMIA, UNSPECIFIED (8) Hypertension Assessment/Plan: MONITOR on meds Code(s): I10 - ESSENTIAL (PRIMARY) HYPERTENSION Qualifiers: Hypertension type: essential hypertension Qualified Code(s): I10 - Essen tial (primary) hypertension (9) Anemia Assessment/Plan: STOOL OCCULT BLOOD ORDERED MONITOR CBC Code(s): D64.9 - ANEMIA, UNSPECIFIED Assessment/Plan Impression 1. HERI 2. nsaid use 3. liver cirrhosis 4. etoh abuse 5. cad 6. hld 7. htn 8.rhabdomyolysis [employer] FOR [facility] VALDIVIA TODAY
[2020-01-22] MEDS ORDERED: ALBUMIN HUMAN 25% 100 ML VIAL IVPB ONE (14:00)
[2020-01-22] MEDS ORDERED: MAGNESIUM SULF 50% (8.12 MEQ/2 ML-1 GM VIAL) IVPB ONE (14:00)
[2020-01-22] MEDS: SPIRONOLACTONE 25 MG TABLET PO SCH ×2 (14:09→21:59)
[2020-01-23] MEDS: FUROSEMIDE 40 MG/4 ML INJECTABLE VIAL IVPUSH SCH ×3 (05:56→15:22)
[2020-01-23] MEDS: METOCLOPRAMIDE HCL 10 MG TABLET (FP) PO SCH ×3 (06:03→17:50)
[2020-01-23 07:41] LABS: BILIRUBIN,TOTAL 3.1 mg/dL (0.2-1); BLOOD UREA NITROGEN 16.9 mg/dL (7-18); CALCIUM 8.6 mg/dL (8.5-10.1); CREATININE 1.1 mg/dL (0.55-1.3); MAGNESIUM 1.5 mg/dL (1.8-2.4); POTASSIUM 3.1 mmol/L (3.5-5.1); TOT PROT 5.9 g/dl (6.4-8.2)
[2020-01-23] MEDS: MULTIVITAMINS (DAILY MVI) TABLET (FP) PO SCH (09:59)
[2020-01-23] MEDS: PANTOPRAZOLE 40 MG TABLET PO SCH (09:59)
[2020-01-23] MEDS: MAGNESIUM OXIDE 400 MG TABLET (FP) PO SCH ×2 (09:59→21:41)
[2020-01-23] MEDS: NADOLOL 20 MG TABLET (FP) PO SCH (09:59)
[2020-01-23] MEDS: THIAMINE HCL 100 MG TABLET (FP) PO SCH (09:59)
[2020-01-23] MEDS: SPIRONOLACTONE 25 MG TABLET PO SCH ×2 (09:59→21:41)
[2020-01-23] MEDS: LACTULOSE 20 GM/30 ML UDC (FOR ORAL USE ONLY) PO SCH (10:01)
--- NOTE | 2020-01-23 11:32 | PN ---
Progress Note, Physician History of Present Illness: Mr. Mann is a 55 year old male (b. [place]), with a significant past medical history of hypertension, hyperlipidemia, cirrhosis, GI bleed, CAD s/p coronary stents followed by CABG, morbid obesity, who presents to the ED for further evaluation of elevated LFTs. Pt was seen yesterday for leg pain; labs showed elevated LFTs,but the patient left AMA. Today he returns for further evaluation. No abd pain. C/o nausea. States he saw Dr. Pacheco 2 days ago and had blood in his stool at that time. Pt states he has been taking Motrin for leg and back pain every 4-5 hours. Pt states he also has had a change in his sleep/wake cycle. - Current Medication List Current Medications: Active Medications Furosemide (Lasix Injection -) 60 mg IVPUSH BID@0600,1400 [facility] Last Admin: 01/23/20 05:56 Dose: 60 mg Documented by: Lactulose (Cephulac (Oral Use)) 20 gm PO DAILY [facility] Last Admin: 01/23/20 10:01 Dose: 20 gm Documented by: Magnesium Oxide (Mag-Ox -) 400 mg PO BID [facility] Last Admin: 01/23/20 09:59 Dose: 400 mg Documented by: Metoclopramide HCl (Reglan -) 5 mg PO TIDAC [facility] Last Admin: 01/23/20 10:01 Dose: 5 mg Documented by: Multivitamins/Minerals/Vitamin C (Tab-A-Vit -) 1 tab PO DAILY [facility] Last Admin: 01/23/20 09:59 Dose: 1 tab Documented by: Nadolol (Corgard -) 20 mg PO DAILY [facility] Last Admin: 01/23/20 09:59 Dose: 20 mg Documented by: Pantoprazole Sodium (Protonix -) 40 mg PO DAILY [facility] Last Admin: 01/23/20 09:59 Dose: 40 mg Documented by: Spironolactone (Aldactone -) 25 mg PO BID [facility] Last Admin: 01/23/20 09:59 Dose: 25 mg Documented by: Thiamine HCl (Vitamin B1 -) 100 mg PO DAILY [facility] Last Admin: 01/23/20 09:59 Dose: 100 mg Documented by: - Objective Vital Signs: Vital Signs Temperature 98.9 F 01/23/20 10:00 Pulse Rate 106 H 01/23/20 10:00 Respiratory Rate 18 09/26/20 10:00 Blood Pressure 150/95 01/23/20 10:00 O2 Sat by Pulse Oximetry (%) 98 01/23/20 10:00 Eyes: Yes: WNL, Conjunctiva Clear, EOM Intact HENT: Yes: WNL, Atraumatic, Normocephalic Neck: Yes: WNL, Supple, Trachea Midline Cardiovascular: Yes: WNL, Regular Rate and Rhythm Respiratory: Yes: WNL, Regular, CTA Bilaterally Gastrointestinal: Yes: WNL, Normal Bowel Sounds Genitourinary: Yes: WNL Musculoskeletal: Yes: WNL Extremities: Yes: WNL Edema: Yes Integumentary: Yes: WNL Neurological: Yes: WNL, Alert, Oriented ...Motor Strength: WNL Psychiatric: Yes: WNL Labs: CBC, BMP 01/17/20 05:35 01/23/20 05:45 INR, PTT INR 1.79 (0.83-1.09) H 01/13/20 18:45 Problem List - Problems (1) HERI (acute kidney injury) Code(s): N17.9 - ACUTE KIDNEY FAILURE, UNSPECIFIED (2) Alcoholic cirrhosis Code(s): K70.30 - ALCOHOLIC CIRRHOSIS OF LIVER WITHOUT ASCITES (3) Anemia Code(s): D64.9 - ANEMIA, UNSPECIFIED (4) Hepatocellular injury Code(s): K76.9 - LIVER DISEASE, UNSPECIFIED (5) Hyperammonemia Code(s): E72.20 - DISORDER OF UREA CYCLE METABOLISM, UNSPECIFIED (6) Leg cramping Code(s): R25.2 - CRAMP AND SPASM (7) Liver cirrhosis Code(s): K74.60 - UNSPECIFIED CIRRHOSIS OF LIVER (8) Morbid obesity Code(s): E66.01 - MORBID (SEVERE) OBESITY DUE TO EXCESS CALORIES (9) Nausea & vomiting Code(s): R11.2 - NAUSEA WITH VOMITING, UNSPECIFIED (10) Rhabdomyolysis Code(s): M62.82 - RHABDOMYOLYSIS (11) Transaminitis Code(s): R74.0 - NONSPEC ELEV OF LEVELS OF TRANSAMNS & LACTIC ACID DEHYDRGNSE (12) Vomiting Code(s): R11.10 - VOMITING, UNSPECIFIED (13) Alcohol dependence Code(s): F10.20 - ALCOHOL DEPENDENCE, UNCOMPLICATED (14) Alcohol dependence with uncomplicated withdrawal Code(s): F10.230 - ALCOHOL DEPENDENCE WITH WITHDRAWAL, UNCOMPLICATED (15) Alcoholic cirrhosis Code(s): K70.30 - ALCOHOLIC CIRRHOSIS OF LIVER WITHOUT ASCITES (16) Alcoholic hepatitis with ascites Code(s): K70.11 - ALCOHOLIC HEPATITIS WITH ASCITES (17) Atypical chest pain Code(s): R07.89 - OTHER CHEST PAIN (18) Back pain Code(s): M54.9 - DORSALGIA, UNSPECIFIED Qualifiers: Back pain location: low back pain Chronicity: unspecified Back pain laterality: unspecified Sciatica presence: unspecified whether sciatica present Qualified Code(s): M54.5 - Low back pain (19) CAD (coronary artery disease) Code(s): I25.10 - ATHSCL HEART DISEASE OF [place] CORONARY ARTERY W/O ANG PCTRS (20) Common cold virus Code(s): J00 - ACUTE NASOPHARYNGITIS [COMMON COLD] (21) Elevated LFTs Code(s): R79.89 - OTHER SPECIFIED ABNORMAL FINDINGS OF BLOOD CHEMISTRY (22) GI bleed Code(s): K92.2 - GASTROINTESTINAL HEMORRHAGE, UNSPECIFIED Qualifiers: GI bleed type/associated pathology: unspecified gastrointestinal hemorrhage type Qualified Code(s): K92.2 - Gastrointestinal hemorrhage, unspecified (23) Groin pain Code(s): R10.30 - LOWER ABDOMINAL PAIN, UNSPECIFIED (24) HLD (hyperlipidemia) Code(s): E78.5 - HYPERLIPIDEMIA, UNSPECIFIED (25) Hematemesis Code(s): K92.0 - HEMATEMESIS (26) Hepatic failure due to alcoholism Code(s): K70.40 - ALCOHOLIC HEPATIC FAILURE WITHOUT COMA (27) Hyperbilirubinemia Code(s): E80.6 - OTHER DISORDERS OF BILIRUBIN METABOLISM (28) Hypokalemia Code(s): E87.6 - HYPOKALEMIA (29) Insomnia Code(s): G47.00 - INSOMNIA, UNSPECIFIED (30) Jaundice Code(s): R17 - UNSPECIFIED JAUNDICE (31) Knee sprain Code(s): S83.90XA - SPRAIN OF UNSPECIFIED SITE OF UNSPECIFIED KNEE, INIT ENCNTR Qualifiers: Encounter type: initial encounter Involved ligament of knee: unspecified ligament Laterality: left Qualified Code(s): S83.92XA - Sprain of unspecified site of left knee, initial encounter (32) NSTEMI (non-ST elevated myocardial infarction) Code(s): I21.4 - NON-ST ELEVATION (NSTEMI) MYOCARDIAL INFARCTION (33) Syncope Code(s): R55 - SYNCOPE AND COLLAPSE (34) Acid reflux Code(s): K21.9 - GASTRO-ESOPHAGEAL REFLUX DISEASE WITHOUT ESOPHAGITIS Qualifiers: Esophagitis presence: esophagitis presence not specified Qualified Code(s): K21.9 - Gastro-esophageal reflux disease without esophagitis (35) HLD (hyperlipidemia) Code(s): E78.5 - HYPERLIPIDEMIA, UNSPECIFIED Qualifiers: Hyperlipidemia type: unspecified Qualified Code(s): E78.5 - Hyperlipidemia, unspecified (36) Hypertension Code(s): I10 - ESSENTIAL (PRIMARY) HYPERTENSION Qualifiers: Hypertension type: essential hypertension Qualified Code(s): I10 - Essen tial (primary) hypertension (37) Depression (emotion) Code(s): F32.9 - MAJOR DEPRESSIVE DISORDER, SINGLE EPISODE, UNSPECIFIED Qualifiers: Depression Type: unspecified Qualified Code(s): F32.9 - Major depressive disorder, single episode, unspecified (38) History of coronary artery stent placement Code(s): Z95.5 - PRESENCE OF CORONARY ANGIOPLASTY IMPLANT AND GRAFT Assessment/Plan 1. CAD post CABG with evidence of demand ischemic injury angina pectoris 2. Diastolic LV dysfunction with clinical decompensated LV failure 3. HTN 4. Dyslipidemia 5. Evidence of acute hepatitis; etiology to be determined 6. Acute renal insufficiency/failure 7. Rhabdomyolysis: improving 8. Anemia 9. Morbid obesity PLAN: 1. Continue Nadolol 20 mg qd; dose titration as needed, hemodynamics permitting 2. Ideally patient should be on HALEY inhibitor or angiotensin receptor allyson therapy, but considering the above-noted comorbidities, therapy initiation is to be deferred in view of evidence of acute renal insufficiency/failure- pending resolution 3. Ideally patient should be on statin therapy considering the above-noted comorbidities, therapy initiation is to be deferred in view of evidence of acute liver disease- pending resolution 4. Ideally patient should be on ASA therapy considering the above-noted comor bidities, therapy initiation is to be deferred in view of evidence of anemia- pending completion of evaluation 5. Increse furosemide to 60 mg IVP bid; f/u BUN/Cr
--- NOTE | 2020-01-23 15:00 | PN ---
Progress Note (short form) - Note Progress Note: RENAL Asleep rousable comfortable Last Vital Signs Temp Pulse Resp BP Pulse Ox 98.9 F 106 H 18 150/95 98 01/23/20 10:00 01/23/20 10:00 01/23/20 10:00 01/23/20 10:00 01/23/20 10:00 breathing comfortably cvs ss1s2 abd soft, distended ext +edema bilat CBC, BMP 01/17/20 05:35 01/23/20 05:45 Current Medications Generic Name Dose Route Start Last Admin Trade Name Mikey PRN Reason Stop Dose Admin Furosemide 60 mg 01/22/20 14:00 01/23/20 14:32 Lasix Injection - IVPUSH 60 mg BID@0600,1400 N[facility]ILA Administration Lactulose 20 gm 01/14/20 10:00 01/23/20 10:01 Cephulac (Oral Use) PO 20 gm DAILY [facility] Administration Magnesium Oxide 400 mg 01/21/20 19:30 01/23/20 09:59 Mag-Ox - PO 400 mg BID [facility] Administration Metoclopramide HCl 5 mg 01/20/20 16:30 01/23/20 10:01 Reglan - PO 5 mg TIDAC NABILA Administration Multivitamins/Minerals/Vitamin C 1 tab 01/14/20 10:00 01/23/20 09:59 Tab-A-Vit - PO 1 tab DAILY [facility] Administration Nadolol 20 mg 01/14/20 10:00 01/23/20 09:59 Corgard - PO 20 mg DAILY [facility] Administration Pantoprazole Sodium 40 mg 01/21/20 10:00 01/23/20 09:59 Protonix - PO 40 mg DAILY [facility] Administration Spironolactone 25 mg 01/22/20 13:45 01/23/20 09:59 Aldactone - PO 25 mg BID [facility] Administration Thiamine HCl 100 mg 01/14/20 10:00 01/23/20 09:59 Vitamin B1 - PO 100 mg DAILY [facility] Administration IMPRESSION 1. HERI 2. nsaid use 3. liver cirrhosis 4. etoh abuse 5. cad 6. hld 7. htn 8. rhabdo Plan continue current management hold lasix today only increase aldactone MV
--- NOTE | 2020-01-23 18:43 | PN ---
Progress Note, Physician History of Present Illness: Pt is alert and responsive, without distress. States he has been feeling cold. Afebrile. States he is walking with less difficulty since admission. - Current Medication List Current Medications: Active Medications Furosemide (Lasix Injection -) 60 mg IVPUSH BID@0600,1400 [facility] Last Admin: 01/23/20 15:22 Dose: Not Given Documented by: Lactulose (Cephulac (Oral Use)) 20 gm PO DAILY [facility] Last Admin: 01/23/20 10:01 Dose: 20 gm Documented by: Magnesium Oxide (Mag-Ox -) 400 mg PO BID [facility] Last Admin: 01/23/20 09:59 Dose: 400 mg Documented by: Metoclopramide HCl (Reglan -) 5 mg PO TIDAC [facility] Last Admin: 01/23/20 17:50 Dose: 5 mg Documented by: Multivitamins/Minerals/Vitamin C (Tab-A-Vit -) 1 tab PO DAILY [facility] Last Admin: 01/23/20 09:59 Dose: 1 tab Documented by: Nadolol (Corgard -) 20 mg PO DAILY [facility] Last Admin: 01/23/20 09:59 Dose: 20 mg Documented by: Pantoprazole Sodium (Protonix -) 40 mg PO DAILY [facility] Last Admin: 01/23/20 09:59 Dose: 40 mg Documented by: Spironolactone (Aldactone -) 50 mg PO BID [facility] Thiamine HCl (Vitamin B1 -) 100 mg PO DAILY [facility] Last Admin: 01/23/20 09:59 Dose: 100 mg Documented by: - Objective Vital Signs: Vital Signs Temperature 98.6 F 01/23/20 17:48 Pulse Rate 94 H 01/23/20 17:48 Respiratory Rate 18 01/23/20 17:48 Blood Pressure 139/87 01/23/20 17:48 O2 Sat by Pulse Oximetry (%) 98 01/23/20 17:48 Constitutional: Yes: No Distress, Calm Cardiovascular: Yes: Regular Rate and Rhythm Respiratory: Yes: CTA Bilaterally Gastrointestinal: Yes: Normal Bowel Sounds, Soft, Distention Genitourinary: Yes: WNL Edema: LLE: 2+, RLE: 2+ Integumentary: Yes: WNL Neurological: Yes: Alert, Oriented Labs: CBC, BMP 01/17/20 05:35 01/23/20 05:45 INR, PTT INR 1.79 (0.83-1.09) H 01/13/20 18:45 Laboratory Last Values WBC 14.5 K/mm3 (4.0-10.0) H 01/17/20 05:35 RBC 3.85 M/mm3 (4.00-5.60) L 01/17/20 05:35 Hgb 9.2 GM/dL (11.7-16.9) L 01/17/20 05:35 Hct 29.0 % (35.4-49) L 01/17/20 05:35 MCV 75.3 fl (80-96) L 01/17/20 05:35 MCH 23.9 pg (25.7-33.7) L 01/17/20 05:35 MCHC 31.7 g/dl (32.0-35.9) L 01/17/20 05:35 RDW 22.0 % (11.9-15.9) H 01/17/20 05:35 Plt Count 190 K/MM3 (134-434) 01/17/20 05:35 MPV 8.0 fl (7.5-11.1) 01/17/20 05:35 Absolute Neuts (auto) 9.8 K/mm3 (1.5-8.0) H 01/17/20 05:35 Neutrophils % 67.9 % (42.8-82.8) 01/17/20 05:35 Lymphocytes % 17.8 % (8-40) 01/17/20 05:35 Monocytes % 10.6 % (3.8-10.2) H 01/17/20 05:35 Eosinophils % 3.0 % (0-4.5) 01/17/20 05:35 Basophils % 0.7 % (0-2.0) 01/17/20 05:35 Nucleated RBC % 0 % (0-0) 01/17/20 05:35 Hypochromia 0 01/16/20 05:20 Platelet Estimate Decreased 01/16/20 05:20 Polychromasia 0 01/16/20 05:20 Poikilocytosis 0 01/16/20 05:20 Anisocytosis 2+ 01/16/20 05:20 Microcytosis 1+ 01/16/20 05:20 Macrocytosis 1+ 01/16/20 05:20 PT with INR 21.30 SEC (9.7-13.0) H 01/13/20 18:45 INR 1.79 (0.83-1.09) H 01/13/20 18:45 PTT (Actin FS) 38.3 SECONDS (25.2-36.5) H 01/13/20 18:45 Sodium 142 mmol/L (136-145) 01/23/20 05:45 Potassium 3.1 mmol/L (3.5-5.1) L 01/23/20 05:45 Chloride 110 mmol/L (98-107) H 01/23/20 05:45 Carbon Dioxide 24 mmol/L (21-32) 01/23/20 05:45 Anion Gap 8 MMOL/L (8-16) 01/23/20 05:45 BUN 16.9 mg/dL (7-18) 01/23/20 05:45 Creatinine 1.1 mg/dL (0.55-1.3) 01/23/20 05:45 Est GFR (CKD-EPI)AfAm 87.74 01/23/20 05:45 Est GFR (CKD-EPI)NonAf 75.70 01/23/20 05:45 Random Glucose 85 mg/dL (74-106) 01/23/20 05:45 Calcium 8.6 mg/dL (8.5-10.1) 01/23/20 05:45 Magnesium 1.5 mg/dL (1.8-2.4) L 01/23/20 05:45 Total Bilirubin 3.1 mg/dL (0.2-1) H 01/23/20 05:45 AST 320 U/L (15-37) H 01/23/20 05:45 ALT 220 U/L (13-61) H 01/23/20 05:45 Alkaline Phosphatase 76 U/L (45-117) 01/23/20 05:45 Ammonia 74.20 umol/L (11-32) H 01/13/20 16:20 Creatine Kinase 1378 U/L (26-308) H 01/23/20 05:45 Creatine Kinase Index 0.4 % (0.0-5.0) 01/23/20 05:45 CK-MB (CK-2) 6.0 ng/mL (0.5-3.6) H 01/23/20 05:45 Troponin I 0.07 ng/ml (0.00-0.05) H 01/13/20 16:06 Total Protein 5.9 g/dl (6.4-8.2) L 01/23/20 05:45 Total Protein (PEP) 5.7 g/dL (6.0-8.5) L 01/15/20 18:15 Albumin 3.0 g/dl (3.4-5.0) L 01/23/20 05:45 Albumin (PEP) 2.8 gm/dl (2.9-4.4) L 01/15/20 18:15 Globulin 2.9 g/dL (2.2-3.9) 01/15/20 18:15 Albumin/Globulin Ratio 1.0 (0.7-1.7) 01/15/20 18:15 Beta Globulins 0.9 gm/dL (0.7-1.3) 01/15/20 18:15 Triglycerides 99 mg/dL (0-150) 01/14/20 05:54 Cholesterol 104 mg/dL (50-200) 01/14/20 05:54 Total LDL Cholesterol 71 mg/dL (5-100) 01/14/20 05:54 HDL Cholesterol 29 mg/dL (40-60) L 01/14/20 05:54 TSH 2.21 uIU/ml (0.358-3.74) 01/14/20 05:54 Urine Color Dk yellow 01/14/20 22:15 Urine Appearance Turbid 01/14/20 22:15 Urine pH 5.0 (5.0-8.0) 01/14/20 22:15 Ur Specific [place] 1.013 (1.010-1.035) 01/14/20 22:15 Urine Protein 2+ (NEGATIVE) H 01/14/20 22:15 Urine Glucose (UA) Trace (NEGATIVE) 01/14/20 22:15 Urine Ketones Trace (NEGATIVE) H 01/14/20 22:15 Urine Blood 3+ (NEGATIVE) H 01/14/20 22:15 Urine Nitrite Negative (NEGATIVE) 01/14/20 22:15 Urine Bilirubin Negative (NEGATIVE) 01/14/20 22:15 Urine Urobilinogen 1.0 mg/dL (0.2-1.0) 01/14/20 22:15 Ur Leukocyte Esterase Trace (NEGATIVE) 01/14/20 22:15 Urine WBC (Auto) 178 /uL (0-25.8) 01/14/20 22:15 Urine RBC (Auto) 323.8 /uL (0-23.9) 01/14/20 22:15 Urine Casts (Auto) 11 /uL (0-3.1) 01/14/20 22:15 U Pathogenic Cast Auto 5-10 /lpf (NEGATIVE) 01/14/20 22:15 U Epithel Cells (Auto) 29 /uL (0-25.1) 01/14/20 22:15 Urine Bacteria (Auto) 9 /uL (0-1359) 01/14/20 22:15 Urine Yeast (Auto) Negative (NEGATIVE) 01/14/20 22:15 Ur Random Creatinine 181.0 mg/dL (30-150) H 01/14/20 22:15 Ur Random Sodium < 18 MMOL/L (40-220) L 01/14/20 22:15 Ur Random Potassium 33.0 MMOL/L (25-125) 01/14/20 22:15 Ur Random Chloride < 11 MMOL/L (110-250) L 01/14/20 22:15 Opiates Screen Negative ng/ml (DAAQFZ=555) 01/13/20 19:57 Methadone Screen Negative ng/ml (DXUTDN=952) 01/13/20 19:57 Barbiturate Screen Negative ng/ml (JNIQVP=567) 01/13/20 19:57 Phencyclidine Screen Negative ng/ml (CUTOFF=25) 01/13/20 19:57 Ur Amphetamines Screen Negative ng/ml (ZTBLOZ=517) 01/13/20 19:57 MDMA (Ecstasy) Screen Negative ng/ml (PMWWJC=228) 01/13/20 19:57 Benzodiazepines Screen Negative ng/ml (MAHASU=230) 01/13/20 19:57 Cocaine Screen Negative ng/ml (QMLNIR=950) 01/13/20 19:57 U Marijuana (THC) Screen Negative ng/ml (CUTOFF=50) 01/13/20 19:57 LLUVIA M-Luis Not observed g/dL (Not Observed) 01/15/20 18:15 KIM Screen Negative (.) 01/15/20 18:15 c-ANCA <1:20 titer (Neg:<1:20) 18 18:15 Proteinase 3 (PR3) <3.5 U/mL (0.0-3.5) 1820 18:15 p-ANCA <1:20 titer (Neg:<1:20) 18/20 18:15 Atypical p-ANCA <1:20 titer (Neg:<1:20) 18 18:15 Myeloperoxidase Ab <9.0 U/mL (0.0-9.0) 01/15/20 18:15 Double Strand DNA Ab <1 IU/mL (0-9) 01/15/20 18:15 Glomerular Base Memb Ab 7 units (0-20) 01/15/20 18:15 COVID-19 (PRANEETH) Not detected (Not Detected) 01/13/20 19:57 Hep A IgM Ab Confirm Negative (Negative) 01/15/20 18:15 Hepatitis A Ab Total Positive (Negative) H 01/15/20 18:15 Hep Bs Antigen Negative (Negative) 01/15/20 18:15 Hep Bs Antibody Reactive (.) 01/15/20 18:15 Hep B Core Total Ab Negative (Negative) 01/15/20 18:15 Hep B Core IgM Ab Negative (Negative) 01/15/20 18:15 Hepatitis Be Antibody Negative (Negative) 01/15/20 18:15 Hepatitis Be Antigen Negative (Negative) 01/15/20 18:15 HCV Quantitation Hcv not detected IU/mL (.) 01/15/20 18:15 HCV RNA log copies/mL TNP 01/15/20 18:15 Microbiology 01/13/20 19:57 Urine - Urine Clean Catch Urine Culture - Final Normal Urogenital Celia - ....Imaging Cat Scan: Report Reviewed Ultrasound: Report Reviewed MRI: Report Reviewed Problem List - Problems (1) HERI (acute kidney injury) Code(s): N17.9 - ACUTE KIDNEY FAILURE, UNSPECIFIED (2) Alcoholic cirrhosis Code(s): K70.30 - ALCOHOLIC CIRRHOSIS OF LIVER WITHOUT ASCITES (3) Anemia Code(s): D64.9 - ANEMIA, UNSPECIFIED (4) Morbid obesity Code(s): E66.01 - MORBID (SEVERE) OBESITY DUE TO EXCESS CALORIES (5) Nausea & vomiting Code(s): R11.2 - NAUSEA WITH VOMITING, UNSPECIFIED (6) Rhabdomyolysis Code(s): M62.82 - RHABDOMYOLYSIS (7) Transaminitis Code(s): R74.0 - NONSPEC ELEV OF LEVELS OF TRANSAMNS & LACTIC ACID DEHYDRGNSE (8) Alcohol dependence Code(s): F10.20 - ALCOHOL DEPENDENCE, UNCOMPLICATED (9) Back pain Code(s): M54.9 - DORSALGIA, UNSPECIFIED Qualifiers: Back pain location: low back pain Chronicity: unspecified Back pain laterality: unspecified Sciatica presence: unspecified whether sciatica present Qualified Code(s): M54.5 - Low back pain (10) CAD (coronary artery disease) Code(s): I25.10 - ATHSCL HEART DISEASE OF [place] CORONARY ARTERY W/O ANG PCTRS (11) Elevated LFTs Code(s): R79.89 - OTHER SPECIFIED ABNORMAL FINDINGS OF BLOOD CHEMISTRY Assessment/Plan -- pt afebrile but wbc last checked was trending up, pt c/o feeling cold but w/o other complaints -- repeat cbc -- CK, LFTs trended down vitals stable at this time, continue monitor
[2020-01-23] MEDS ORDERED: POTASSIUM CHLORIDE TABS 20 MEQ TABLET.ER (FP) PO ONE (22:04)
--- NOTE | 2020-01-23 22:04 | PN ---
Progress Note, Physician History of Present Illness: NO NEW COMPLAINTS - Current Medication List Current Medications: Active Medications Furosemide (Lasix Injection -) 60 mg IVPUSH BID@0600,1400 [facility] Last Admin: 01/23/20 15:22 Dose: Not Given Documented by: Lactulose (Cephulac (Oral Use)) 20 gm PO DAILY [facility] Last Admin: 01/23/20 10:01 Dose: 20 gm Documented by: Magnesium Oxide (Mag-Ox -) 400 mg PO BID [facility] Last Admin: 01/23/20 21:41 Dose: 400 mg Documented by: Metoclopramide HCl (Reglan -) 5 mg PO TIDAC [facility] Last Admin: 01/23/20 17:50 Dose: 5 mg Documented by: Multivitamins/Minerals/Vitamin C (Tab-A-Vit -) 1 tab PO DAILY [facility] Last Admin: 01/23/20 09:59 Dose: 1 tab Documented by: Nadolol (Corgard -) 20 mg PO DAILY [facility] Last Admin: 01/23/20 09:59 Dose: 20 mg Documented by: Pantoprazole Sodium (Protonix -) 40 mg PO DAILY [facility] Last Admin: 01/23/20 09:59 Dose: 40 mg Documented by: Spironolactone (Aldactone -) 50 mg PO BID [facility] Last Admin: 01/23/20 21:41 Dose: 50 mg Documented by: Thiamine HCl (Vitamin B1 -) 100 mg PO DAILY [facility] Last Admin: 01/23/20 09:59 Dose: 100 mg Documented by: - Objective Vital Signs: Vital Signs Temperature 98.6 F 01/23/20 17:48 Pulse Rate 94 H 01/23/20 17:48 Respiratory Rate 18 01/23/20 20:46 Blood Pressure 139/87 01/23/20 17:48 O2 Sat by Pulse Oximetry (%) 98 01/23/20 20:46 Neck: Yes: WNL, Supple Cardiovascular: Yes: WNL, Regular Rate and Rhythm Respiratory: Yes: WNL, Regular, CTA Bilaterally Gastrointestinal: Yes: Normal Bowel Sounds, Soft, Abdomen, Obese, Ascites, Distention Edema: LLE: 1+, RLE: 1+ Labs: CBC, BMP 01/17/20 05:35 01/23/20 05:45 INR, PTT INR 1.79 (0.83-1.09) H 01/13/20 18:45 Problem List - Problems (1) HERI (acute kidney injury) Code(s): N17.9 - ACUTE KIDNEY FAILURE, UNSPECIFIED (2) Alcoholic cirrhosis Code(s): K70.30 - ALCOHOLIC CIRRHOSIS OF LIVER WITHOUT ASCITES (3) Rhabdomyolysis Code(s): M62.82 - RHABDOMYOLYSIS (4) Transaminitis Code(s): R74.0 - NONSPEC ELEV OF LEVELS OF TRANSAMNS & LACTIC * DO NOT USE * (5) Vomiting Code(s): R11.10 - VOMITING, UNSPECIFIED (6) HLD (hyperlipidemia) Code(s): E78.5 - HYPERLIPIDEMIA, UNSPECIFIED (7) Hypertension Code(s): I10 - ESSENTIAL (PRIMARY) HYPERTENSION Qualifiers: Hypertension type: essential hypertension Qualified Code(s): I10 - Essential (primary) hypertension (8) History of coronary artery stent placement Code(s): Z95.5 - PRESENCE OF CORONARY ANGIOPLASTY IMPLANT AND GRAFT (9) Morbid obesity Code(s): E66.01 - MORBID (SEVERE) OBESITY DUE TO EXCESS CALORIES (10) CAD (coronary artery disease) Code(s): I25.10 - ATHSCL HEART DISEASE OF [place] CORONARY ARTERY W/O ANG PCTRS
[2020-01-24] MEDS: FUROSEMIDE 40 MG/4 ML INJECTABLE VIAL IVPUSH SCH ×2 (05:34→13:56)
[2020-01-24] MEDS: METOCLOPRAMIDE HCL 10 MG TABLET (FP) PO SCH ×3 (06:03→16:20)
[2020-01-24 07:06] LABS: BASO % 0.6 % (0-2.0); EOS % 2.3 % (0-4.5); HEMATOCRIT 25.4 % (35.4-49); HEMOGLOBIN 8.1 GM/dL (11.7-16.9); LYMPH % 29.8 % (8-40); MCH 24.2 pg (25.7-33.7); MEAN CELL VOLUME 75.6 fl (80-96); MEAN PLT VOLUME 7.3 fl (7.5-11.1); MONO % 13.2 % (3.8-10.2); NEUT % 54.1 % (42.8-82.8); PLATELET COUNT 136 K/MM3 (134-434); RBC 3.36 M/mm3 (4.00-5.60); RDW 22.3 % (11.9-15.9); WHITE BLOOD COUNT 9.2 K/mm3 (4.0-10.0)
[2020-01-24 07:25] LABS: BLOOD UREA NITROGEN 13.3 mg/dL (7-18); CALCIUM 8.1 mg/dL (8.5-10.1); POTASSIUM 3.3 mmol/L (3.5-5.1)
[2020-01-24 07:30] LABS: BILIRUBIN,TOTAL 2.9 mg/dL (0.2-1); CREATININE 0.9 mg/dL (0.55-1.3)
[2020-01-24 09:40] LABS: ANISOCYTOSIS 2+; MACROCYTOSIS 0; PLATELET ESTIMATE DECREASED; TARGET CELLS 1+
--- NOTE | 2020-01-24 10:00 | PN ---
Progress Note, Physician History of Present Illness: Mr. Mann is a 55 year old male (b. [place]), with a significant past medical history of hypertension, hyperlipidemia, cirrhosis, GI bleed, CAD s/p coronary stents followed by CABG, morbid obesity, who presents to the ED for further evaluation of elevated LFTs. Pt was seen yesterday for leg pain; labs showed elevated LFTs,but the patient left AMA. Today he returns for further evaluation. No abd pain. C/o nausea. States he saw Dr. Pacheco 2 days ago and had blood in his stool at that time. Pt states he has been taking Motrin for leg and back pain every 4-5 hours. Pt states he also has had a change in his sleep/wake cycle. - Current Medication List Current Medications: Active Medications Furosemide (Lasix Injection -) 60 mg IVPUSH BID@0600,1400 [facility] Last Admin: 01/24/20 05:34 Dose: 60 mg Documented by: Lactulose (Cephulac (Oral Use)) 20 gm PO DAILY [facility] Last Admin: 01/23/20 10:01 Dose: 20 gm Documented by: Magnesium Oxide (Mag-Ox -) 400 mg PO BID [facility] Last Admin: 01/23/20 21:41 Dose: 400 mg Documented by: Metoclopramide HCl (Reglan -) 5 mg PO TIDAC [facility] Last Admin: 01/24/20 06:03 Dose: 5 mg Documented by: Multivitamins/Minerals/Vitamin C (Tab-A-Vit -) 1 tab PO DAILY [facility] Last Admin: 01/23/20 09:59 Dose: 1 tab Documented by: Nadolol (Corgard -) 20 mg PO DAILY [facility] Last Admin: 01/23/20 09:59 Dose: 20 mg Documented by: Pantoprazole Sodium (Protonix -) 40 mg PO DAILY [facility] Last Admin: 01/23/20 09:59 Dose: 40 mg Documented by: Spironolactone (Aldactone -) 50 mg PO BID [facility] Last Admin: 01/23/20 21:41 Dose: 50 mg Documented by: Thiamine HCl (Vitamin B1 -) 100 mg PO DAILY [facility] Last Admin: 01/23/20 09:59 Dose: 100 mg Documented by: - Objective Vital Signs: Vital Signs Temperature 98.2 F 01/24/20 05:27 Pulse Rate 96 H 01/24/20 05:27 Respiratory Rate 20 0927/20 05:27 Blood Pressure 123/84 01/24/20 05:27 O2 Sat by Pulse Oximetry (%) 98 01/23/20 22:00 Eyes: Yes: WNL, Conjunctiva Clear, EOM Intact HENT: Yes: WNL, Atraumatic, Normocephalic Neck: Yes: WNL, Supple, Trachea Midline Cardiovascular: Yes: WNL, Regular Rate and Rhythm Respiratory: Yes: WNL, Regular, CTA Bilaterally Gastrointestinal: Yes: WNL, Normal Bowel Sounds Genitourinary: Yes: WNL Musculoskeletal: Yes: WNL Extremities: Yes: WNL Edema: Yes Edema: LLE: 2+, RLE: 2+ Integumentary: Yes: WNL Neurological: Yes: WNL, Alert, Oriented ...Motor Strength: WNL Psychiatric: Yes: WNL Labs: CBC, BMP 01/24/20 05:35 01/24/20 05:35 INR, PTT INR 1.79 (0.83-1.09) H 01/13/20 18:45 Problem List - Problems (1) HERI (acute kidney injury) Code(s): N17.9 - ACUTE KIDNEY FAILURE, UNSPECIFIED (2) Alcoholic cirrhosis Code(s): K70.30 - ALCOHOLIC CIRRHOSIS OF LIVER WITHOUT ASCITES (3) Anemia Code(s): D64.9 - ANEMIA, UNSPECIFIED (4) Hepatocellular injury Code(s): K76.9 - LIVER DISEASE, UNSPECIFIED (5) Hyperammonemia Code(s): E72.20 - DISORDER OF UREA CYCLE METABOLISM, UNSPECIFIED (6) Leg cramping Code(s): R25.2 - CRAMP AND SPASM (7) Liver cirrhosis Code(s): K74.60 - UNSPECIFIED CIRRHOSIS OF LIVER (8) Morbid obesity Code(s): E66.01 - MORBID (SEVERE) OBESITY DUE TO EXCESS CALORIES (9) Nausea & vomiting Code(s): R11.2 - NAUSEA WITH VOMITING, UNSPECIFIED (10) Rhabdomyolysis Code(s): M62.82 - RHABDOMYOLYSIS (11) Transaminitis Code(s): R74.0 - NONSPEC ELEV OF LEVELS OF TRANSAMNS & LACTIC ACID DEHYDRGNSE (12) Vomiting Code(s): R11.10 - VOMITING, UNSPECIFIED (13) Alcohol dependence Code(s): F10.20 - ALCOHOL DEPENDENCE, UNCOMPLICATED (14) Alcohol dependence with uncomplicated withdrawal Code(s): F10.230 - ALCOHOL DEPENDENCE WITH WITHDRAWAL, UNCOMPLICATED (15) Alcoholic cirrhosis Code(s): K70.30 - ALCOHOLIC CIRRHOSIS OF LIVER WITHOUT ASCITES (16) Alcoholic hepatitis with ascites Code(s): K70.11 - ALCOHOLIC HEPATITIS WITH ASCITES (17) Atypical chest pain Code(s): R07.89 - OTHER CHEST PAIN (18) Back pain Code(s): M54.9 - DORSALGIA, UNSPECIFIED Qualifiers: Back pain location: low back pain Chronicity: unspecified Back pain laterality: unspecified Sciatica presence: unspecified whether sciatica present Qualified Code(s): M54.5 - Low back pain (19) CAD (coronary artery disease) Code(s): I25.10 - ATHSCL HEART DISEASE OF [place] CORONARY ARTERY W/O ANG PCTRS (20) Common cold virus Code(s): J00 - ACUTE NASOPHARYNGITIS [COMMON COLD] (21) Elevated LFTs Code(s): R79.89 - OTHER SPECIFIED ABNORMAL FINDINGS OF BLOOD CHEMISTRY (22) GI bleed Code(s): K92.2 - GASTROINTESTINAL HEMORRHAGE, UNSPECIFIED Qualifiers: GI bleed type/associated pathology: unspecified gastrointestinal hemorrhage type Qualified Code(s): K92.2 - Gastrointestinal hemorrhage, unspecified (23) Groin pain Code(s): R10.30 - LOWER ABDOMINAL PAIN, UNSPECIFIED (24) HLD (hyperlipidemia) Code(s): E78.5 - HYPERLIPIDEMIA, UNSPECIFIED (25) Hematemesis Code(s): K92.0 - HEMATEMESIS (26) Hepatic failure due to alcoholism Code(s): K70.40 - ALCOHOLIC HEPATIC FAILURE WITHOUT COMA (27) Hyperbilirubinemia Code(s): E80.6 - OTHER DISORDERS OF BILIRUBIN METABOLISM (28) Hypokalemia Code(s): E87.6 - HYPOKALEMIA (29) Insomnia Code(s): G47.00 - INSOMNIA, UNSPECIFIED (30) Jaundice Code(s): R17 - UNSPECIFIED JAUNDICE (31) Knee sprain Code(s): S83.90XA - SPRAIN OF UNSPECIFIED SITE OF UNSPECIFIED KNEE, INIT ENCNTR Qualifiers: Encounter type: initial encounter Involved ligament of knee: unspecified ligament Laterality: left Qualified Code(s): S83.92XA - Sprain of unspecified site of left knee, initial encounter (32) NSTEMI (non-ST elevated myocardial infarction) Code(s): I21.4 - NON-ST ELEVATION (NSTEMI) MYOCARDIAL INFARCTION (33) Syncope Code(s): R55 - SYNCOPE AND COLLAPSE (34) Acid reflux Code(s): K21.9 - GASTRO-ESOPHAGEAL REFLUX DISEASE WITHOUT ESOPHAGITIS Qualifiers: Esophagitis presence: esophagitis presence not specified Qualified Code(s): K21.9 - Gastro-esophageal reflux disease without esophagitis (35) HLD (hyperlipidemia) Code(s): E78.5 - HYPERLIPIDEMIA, UNSPECIFIED Qualifiers: Hyperlipidemia type: unspecified Qualified Code(s): E78.5 - Hyperlipidemia, unspecified (36) Hypertension Code(s): I10 - ESSENTIAL (PRIMARY) HYPERTENSION Qualifiers: Hypertension type: essential hypertension Qualified Code(s): I10 - Essential (primary) hypertension (37) Depression (emotion) Code(s): F32.9 - MAJOR DEPRESSIVE DISORDER, SINGLE EPISODE, UNSPECIFIED Qualifiers: Depression Type: unspecified Qualified Code(s): F32.9 - Major depressive disorder, single episode, unspecified (38) History of coronary artery stent placement Code(s): Z95.5 - PRESENCE OF CORONARY ANGIOPLASTY IMPLANT AND GRAFT Assessment/Plan 1. CAD post CABG with evidence of demand ischemic injury angina pectoris 2. Diastolic LV dysfunction with clinical decompensated LV failure 3. HTN 4. Dyslipidemia 5. Evidence of acute hepatitis; etiology to be determined 6. Acute renal insufficiency/failure 7. Rhabdomyolysis: improving 8. Anemia 9. Morbid obesity PLAN: 1. Continue Nadolol 20 mg qd; dose titration as needed, hemodynamics permitting 2. Ideally patient should be on HALEY inhibitor or angiotensin receptor allyson therapy, but considering the above-noted comorbidities, therapy initiation is to be deferred in view of evidence of acute renal insufficiency/failure- pending resolution 3. Ideally patient should be on statin therapy considering the above-noted comorbidities, therapy initiation is to be deferred in view of evidence of acute liver disease- pending resolution 4. Ideally patient should be on ASA therapy considering the above-noted comorbidities, therapy initiation is to be deferred in view of evidence of anemia- pending completion of evaluation 5. Increse furosemide to 60 mg IVP bid; f/u BUN/Cr 6. Cont Aldacton supplement K
[2020-01-24] MEDS: NADOLOL 20 MG TABLET (FP) PO SCH (10:34)
[2020-01-24] MEDS: SPIRONOLACTONE 25 MG TABLET PO SCH ×2 (10:34→21:41)
[2020-01-24] MEDS: LACTULOSE 20 GM/30 ML UDC (FOR ORAL USE ONLY) PO SCH (10:34)
[2020-01-24] MEDS: MULTIVITAMINS (DAILY MVI) TABLET (FP) PO SCH (10:35)
[2020-01-24] MEDS: PANTOPRAZOLE 40 MG TABLET PO SCH (10:35)
[2020-01-24] MEDS: MAGNESIUM OXIDE 400 MG TABLET (FP) PO SCH ×2 (10:35→21:41)
[2020-01-24] MEDS: THIAMINE HCL 100 MG TABLET (FP) PO SCH (10:35)
--- NOTE | 2020-01-24 14:24 | PN ---
Progress Note (short form) - Note Progress Note: RENAL awake, seen in solarium comfortable Last Vital Signs Temp Pulse Resp BP Pulse Ox 98.2 F 98 H 18 143/86 98 01/24/20 05:27 01/24/20 10:00 01/24/20 10:00 01/24/20 10:00 01/24/20 09:00 breathing comfortably cvs ss1s2 abd soft, distended ext +edema bilat,legs are draining CBC, BMP 01/24/20 05:35 01/24/20 05:35 Current Medications Generic Name Dose Route Start Last Admin Trade Name Mikey PRN Reason Stop Dose Admin Furosemide 60 mg 01/22/20 14:00 01/24/20 13:56 Lasix Injection - IVPUSH 60 mg BID@0600,1400 [facility] Administration Lactulose 20 gm 01/14/20 10:00 01/24/20 10:34 Cephulac (Oral Use) PO 20 gm DAILY [facility] Administration Magnesium Oxide 400 mg 01/21/20 19:30 01/24/20 10:35 Mag-Ox - PO 400 mg BID [facility] Administration Metoclopramide HCl 5 mg 01/20/20 16:30 01/24/20 10:35 Reglan - PO 5 mg TIDAC [facility] Administration Multivitamins/Minerals/Vitamin C 1 tab 01/14/20 10:00 01/24/20 10:35 Tab-A-Vit - PO 1 tab DAILY [facility] Administration Nadolol 20 mg 01/14/20 10:00 01/24/20 10:34 Corgard - PO 20 mg DAILY [facility] Administration Pantoprazole Sodium 40 mg 01/21/20 10:00 01/24/20 10:35 Protonix - PO 40 mg DAILY [facility] Administration Spironolactone 50 mg 01/23/20 22:00 01/24/20 10:34 Aldactone - PO 50 mg BID [facility] Administration Thiamine HCl 100 mg 01/14/20 10:00 01/24/20 10:35 Vitamin B1 - PO 100 mg DAILY [facility] Administration IMPRESSION 1. HERI 2. nsaid use 3. liver cirrhosis 4. etoh abuse 5. cad 6. hld 7. htn 8. rhabdo Plan continue current management on higher dose of lasx and aldactone leg elevation k replacement MV
[2020-01-24] MEDS ORDERED: METOLAZONE 2.5 MG TABLET (FP) PO ONE (14:29)
--- NOTE | 2020-01-24 15:57 | PN ---
Progress Note, Physician History of Present Illness: Pt states he is feeling better. Breathing comfortably, ambulating more. Remains afebrile. WBC trended back down to normal, afebrile. - Current Medication List Current Medications: Active Medications Furosemide (Lasix Injection -) 60 mg IVPUSH BID@0600,1400 [facility] Last Admin: 01/24/20 13:56 Dose: 60 mg Documented by: Lactulose (Cephulac (Oral Use)) 20 gm PO DAILY [facility] Last Admin: 01/24/20 10:34 Dose: 20 gm Documented by: Magnesium Oxide (Mag-Ox -) 400 mg PO BID [facility] Last Admin: 01/24/20 10:35 Dose: 400 mg Documented by: Metoclopramide HCl (Reglan -) 5 mg PO TIDAC [facility] Last Admin: 01/24/20 10:35 Dose: 5 mg Documented by: Multivitamins/Minerals/Vitamin C (Tab-A-Vit -) 1 tab PO DAILY [facility] Last Admin: 01/24/20 10:35 Dose: 1 tab Documented by: Nadolol (Corgard -) 20 mg PO DAILY [facility] Last Admin: 01/24/20 10:34 Dose: 20 mg Documented by: Pantoprazole Sodium (Protonix -) 40 mg PO DAILY [facility] Last Admin: 01/24/20 10:35 Dose: 40 mg Documented by: Potassium Chloride (K-Dur -) 40 meq PO DAILY [facility] Spironolactone (Aldactone -) 50 mg PO BID [facility] Last Admin: 01/24/20 10:34 Dose: 50 mg Documented by: Thiamine HCl (Vitamin B1 -) 100 mg PO DAILY [facility] Last Admin: 01/24/20 10:35 Dose: 100 mg Documented by: - Objective Vital Signs: Vital Signs Temperature 98.0 F 01/24/20 14:00 Pulse Rate 82 01/24/20 14:00 Respiratory Rate 18 01/24/20 10:00 Blood Pressure 128/59 L 01/24/20 14:00 O2 Sat by Pulse Oximetry (%) 98 01/24/20 09:00 Constitutional: Yes: No Distress, Calm Cardiovascular: Yes: Regular Rate and Rhythm Respiratory: Yes: Regular Gastrointestinal: Yes: Normal Bowel Sounds, Soft, Abdomen, Obese Edema: LLE: 2+, RLE: 2+ Wound/Incision: Yes: Other (No open ulcer/purulence/erythema on LE) Neurological: Yes: Alert, Oriented Labs: CBC, BMP 01/24/20 05:35 01/24/20 05:35 INR, PTT INR 1.79 (0.83-1.09) H 01/13/20 18:45 Laboratory Results - last 24 hr 01/24/20 01/24/20 05:35 05:35 WBC 9.2 RBC 3.36 L Hgb 8.1 L Hct 25.4 L MCV 75.6 L MCH 24.2 L MCHC 32.0 RDW 22.3 H Plt Count 136 D MPV 7.3 L Absolute Neuts (auto) 4.9 Neutrophils % 54.1 D Lymphocytes % 29.8 D Monocytes % 13.2 H Eosinophils % 2.3 Basophils % 0.6 Nucleated RBC % 0 Hypochromia 0 Platelet Estimate Decreased Polychromasia 1+ Poikilocytosis 1+ Anisocytosis 2+ Microcytosis 2+ Macrocytosis 0 Target Cells 1+ Sodium 140 Potassium 3.3 L Chloride 107 Carbon Dioxide 23 Anion Gap 10 BUN 13.3 Creatinine 0.9 Est GFR (CKD-EPI)AfAm 111.83 Est GFR (CKD-EPI)NonAf 96.49 Random Glucose 93 Calcium 8.1 L Total Bilirubin 2.9 H AST 267 H ALT 199 H Alkaline Phosphatase 82 Total Protein 6.0 L Albumin 3.0 L Microbiology 01/13/20 19:57 Urine - Urine Clean Catch Urine Culture - Final Normal Urogenital Celia Problem List - Problems (1) HERI (acute kidney injury) Code(s): N17.9 - ACUTE KIDNEY FAILURE, UNSPECIFIED (2) Alcoholic cirrhosis Code(s): K70.30 - ALCOHOLIC CIRRHOSIS OF LIVER WITHOUT ASCITES (3) Anemia Code(s): D64.9 - ANEMIA, UNSPECIFIED (4) Morbid obesity Code(s): E66.01 - MORBID (SEVERE) OBESITY DUE TO EXCESS CALORIES (5) Nausea & vomiting Code(s): R11.2 - NAUSEA WITH VOMITING, UNSPECIFIED (6) Rhabdomyolysis Code(s): M62.82 - RHABDOMYOLYSIS (7) Transaminitis Code(s): R74.0 - NONSPEC ELEV OF LEVELS OF TRANSAMNS & LACTIC ACID DEHYDRGNSE (8) Alcohol dependence Code(s): F10.20 - ALCOHOL DEPENDENCE, UNCOMPLICATED (9) Back pain Code(s): M54.9 - DORSALGIA, UNSPECIFIED Qualifiers: Back pain location: low back pain Chronicity: unspecified Back pain laterality: unspecified Sciatica presence: unspecified whether sciatica present Qualified Code(s): M54.5 - Low back pain (10) CAD (coronary artery disease) Code(s): I25.10 - ATHSCL HEART DISEASE OF [place] CORONARY ARTERY W/O ANG PCTRS (11) Elevated LFTs Code(s): R79.89 - OTHER SPECIFIED ABNORMAL FINDINGS OF BLOOD CHEMISTRY Assessment/Plan -- Pt is afebrile, stating he is feeling better, less SOB -- wbc normal -- CK, LFTs trended down -- receiving diuresis vitals stable at this time, continue monitor off antibiotics
[2020-01-24] MEDS: POTASSIUM CHLORIDE TABS 20 MEQ TABLET.ER (FP) PO SCH (16:20)
--- NOTE | 2020-01-24 21:39 | PN ---
Progress Note, Physician History of Present Illness: Pt not ambulating bc of increase weakness/pain/bloating - Current Medication List Current Medications: Active Medications Furosemide (Lasix Injection -) 60 mg IVPUSH BID@0600,1400 [facility] Last Admin: 01/24/20 13:56 Dose: 60 mg Documented by: Lactulose (Cephulac (Oral Use)) 20 gm PO DAILY [facility] Last Admin: 01/24/20 10:34 Dose: 20 gm Documented by: Magnesium Oxide (Mag-Ox -) 400 mg PO BID [facility] Last Admin: 01/24/20 10:35 Dose: 400 mg Documented by: Metoclopramide HCl (Reglan -) 5 mg PO TIDAC [facility] Last Admin: 01/24/20 16:20 Dose: 5 mg Documented by: Multivitamins/Minerals/Vitamin C (Tab-A-Vit -) 1 tab PO DAILY [facility] Last Admin: 01/24/20 10:35 Dose: 1 tab Documented by: Nadolol (Corgard -) 20 mg PO DAILY [facility] Last Admin: 01/24/20 10:34 Dose: 20 mg Documented by: Pantoprazole Sodium (Protonix -) 40 mg PO DAILY [facility] Last Admin: 01/24/20 10:35 Dose: 40 mg Documented by: Potassium Chloride (K-Dur -) 40 meq PO DAILY [facility] Last Admin: 01/24/20 16:20 Dose: 40 meq Documented by: Spironolactone (Aldactone -) 50 mg PO BID [facility] Last Admin: 01/24/20 10:34 Dose: 50 mg Documented by: Thiamine HCl (Vitamin B1 -) 100 mg PO DAILY [facility] Last Admin: 01/24/20 10:35 Dose: 100 mg Documented by: - Objective Vital Signs: Vital Signs Temperature 97.9 F 01/24/20 18:00 Pulse Rate 86 01/24/20 18:00 Respiratory Rate 20 01/24/20 18:00 Blood Pressure 140/78 01/24/20 18:00 O2 Sat by Pulse Oximetry (%) 98 01/24/20 09:00 Neck: Yes: WNL, Supple Cardiovascular: Yes: WNL, Regular Rate and Rhythm Respiratory: Yes: Diminished Gastrointestinal: Yes: Normal Bowel Sounds, Soft, Abdomen, Obese, Ascites, Distention Edema: LLE: 2+, RLE: 2+ Labs: CBC, BMP 01/24/20 05:35 01/24/20 05:35 INR, PTT INR 1.79 (0.83-1.09) H 01/13/20 18:45 Problem List - Problems (1) HERI (acute kidney injury) Assessment/Plan: Resolved ?Due to rhabdo vs acute kidney injury ?Hepatorenal syndrome Cont to monitor labs Improved BUN/creatinine Code(s): N17.9 - ACUTE KIDNEY FAILURE, UNSPECIFIED (2) Alcoholic cirrhosis Assessment/Plan: Elevated LFT's are improving Gabapentin dc'ed Cont nadolol Increase ascites Cont IV diuresis Code(s): K70.30 - ALCOHOLIC CIRRHOSIS OF LIVER WITHOUT ASCITES (3) Rhabdomyolysis Assessment/Plan: Decreased cpk Code(s): M62.82 - RHABDOMYOLYSIS (4) Transaminitis Assessment/Plan: Due to alcoholic cirrhosis Improving Code(s): R74.0 - NONSPEC ELEV OF LEVELS OF TRANSAMNS & LACTIC ACID DEHYDRGNSE (5) Vomiting Code(s): R11.10 - VOMITING, UNSPECIFIED (6) HLD (hyperlipidemia) Assessment/Plan: Statin on hold due to elevated LFT's/cirrhosis Code(s): E78.5 - HYPERLIPIDEMIA, UNSPECIFIED (7) Hypertension Assessment/Plan: BP stable Pt is off antihypertensives Code(s): I10 - ESSENTIAL (PRIMARY) HYPERTENSION Qualifiers: Hypertension type: essential hypertension Qualified Code(s): I10 - Essential (primary) hypertension (8) History of coronary artery stent placement Code(s): Z95.5 - PRESENCE OF CORONARY ANGIOPLASTY IMPLANT AND GRAFT (9) Morbid obesity Code(s): E66.01 - MORBID (SEVERE) OBESITY DUE TO EXCESS CALORIES (10) CAD (coronary artery disease) Code(s): I25.10 - ATHSCL HEART DISEASE OF [place] CORONARY ARTERY W/O ANG PCTRS
[2020-01-24] MEDS ORDERED: MELATONIN 5 MG TABLETS PO ONE (23:15)
[2020-01-25] MEDS: FUROSEMIDE 40 MG/4 ML INJECTABLE VIAL IVPUSH SCH ×2 (06:40→15:24)
[2020-01-25] MEDS: METOCLOPRAMIDE HCL 10 MG TABLET (FP) PO SCH ×3 (06:41→16:03)
[2020-01-25 07:20] LABS: ALBUMIN 2.7 g/dl (3.4-5.0); BILIRUBIN,TOTAL 2.3 mg/dL (0.2-1); BLOOD UREA NITROGEN 10.4 mg/dL (7-18); CALCIUM 8.1 mg/dL (8.5-10.1); TOT PROT 5.7 g/dl (6.4-8.2)
[2020-01-25 07:29] LABS: POTASSIUM 2.9 mmol/L (3.5-5.1)
--- NOTE | 2020-01-25 09:15 | PN ---
Progress Note, Physician History of Present Illness: Mr. Mann is a 55 year old male (b. [place]), with a significant past medical history of hypertension, hyperlipidemia, cirrhosis, GI bleed, CAD s/p coronary stents followed by CABG, morbid obesity, who presents to the ED for further evaluation of elevated LFTs. Pt was seen yesterday for leg pain; labs showed elevated LFTs,but the patient left AMA. Today he returns for further evaluation. No abd pain. C/o nausea. States he saw Dr. Pacheco 2 days ago and had blood in his stool at that time. Pt states he has been taking Motrin for leg and back pain every 4-5 hours. Pt states he also has had a change in his sleep/wake cycle. - Current Medication List Current Medications: Active Medications Furosemide (Lasix Injection -) 60 mg IVPUSH BID@0600,1400 [facility] Last Admin: 01/25/20 06:40 Dose: 60 mg Documented by: Potassium Chloride (Potassium Chloride 10 Meq Premix Ivpb -) 10 meq in 100 mls @ 100 mls/hr IVPB Q1H [facility] Stop: 01/25/20 11:59 Lactulose (Cephulac (Oral Use)) 20 gm PO DAILY [facility] Last Admin: 01/24/20 10:34 Dose: 20 gm Documented by: Magnesium Oxide (Mag-Ox -) 400 mg PO BID [facility] Last Admin: 01/24/20 21:41 Dose: 400 mg Documented by: Metoclopramide HCl (Reglan -) 5 mg PO TIDAC [facility] Last Admin: 01/25/20 06:41 Dose: 5 mg Documented by: Multivitamins/Minerals/Vitamin C (Tab-A-Vit -) 1 tab PO DAILY [facility] Last Admin: 01/24/20 10:35 Dose: 1 tab Documented by: Nadolol (Corgard -) 20 mg PO DAILY [facility] Last Admin: 01/24/20 10:34 Dose: 20 mg Documented by: Pantoprazole Sodium (Protonix -) 40 mg PO DAILY [facility] Last Admin: 01/24/20 10:35 Dose: 40 mg Documented by: Potassium Chloride (K-Dur -) 40 meq PO DAILY [facility] Last Admin: 01/24/20 16:20 Dose: 40 meq Documented by: Spironolactone (Aldactone -) 50 mg PO BID [facility] Last Admin: 01/24/20 21:41 Dose: 50 mg Documented by: Thiamine HCl (Vitamin B1 -) 100 mg PO DAILY [facility] Last Admin: 01/24/20 10:35 Dose: 100 mg Documented by: - Objective Vital Signs: Vital Signs Temperature 97.9 F 01/25/20 06:00 Pulse Rate 88 01/25/20 06:00 Respiratory Rate 01/25/20 06:00 Blood Pressure 127/73 01/25/20 06:00 O2 Sat by Pulse Oximetry (%) 98 01/24/20 21:00 Eyes: Yes: WNL, Conjunctiva Clear, EOM Intact HENT: Yes: WNL, Atraumatic, Normocephalic Neck: Yes: WNL, Supple, Trachea Midline Cardiovascular: Yes: WNL, Regular Rate and Rhythm Respiratory: Yes: WNL, Regular, CTA Bilaterally Gastrointestinal: Yes: WNL, Normal Bowel Sounds Genitourinary: Yes: WNL Musculoskeletal: Yes: WNL Extremities: Yes: WNL Edema: Yes Integumentary: Yes: WNL Neurological: Yes: WNL, Alert, Oriented ...Motor Strength: WNL Psychiatric: Yes: WNL Labs: CBC, BMP 01/24/20 05:35 01/25/20 05:30 INR, PTT INR 1.79 (0.83-1.09) H 01/13/20 18:45 Problem List - Problems (1) HERI (acute kidney injury) Code(s): N17.9 - ACUTE KIDNEY FAILURE, UNSPECIFIED (2) Alcoholic cirrhosis Code(s): K70.30 - ALCOHOLIC CIRRHOSIS OF LIVER WITHOUT ASCITES (3) Anemia Code(s): D64.9 - ANEMIA, UNSPECIFIED (4) Hepatocellular injury Code(s): K76.9 - LIVER DISEASE, UNSPECIFIED (5) Hyperammonemia Code(s): E72.20 - DISORDER OF UREA CYCLE METABOLISM, UNSPECIFIED (6) Leg cramping Code(s): R25.2 - CRAMP AND SPASM (7) Liver cirrhosis Code(s): K74.60 - UNSPECIFIED CIRRHOSIS OF LIVER (8) Morbid obesity Code(s): E66.01 - MORBID (SEVERE) OBESITY DUE TO EXCESS CALORIES (9) Nausea & vomiting Code(s): R11.2 - NAUSEA WITH VOMITING, UNSPECIFIED (10) Rhabdomyolysis Code(s): M62.82 - RHABDOMYOLYSIS (11) Transaminitis Code(s): R74.0 - NONSPEC ELEV OF LEVELS OF TRANSAMNS & LACTIC ACID DEHYDRGNSE (12) Vomiting Code(s): R11.10 - VOMITING, UNSPECIFIED (13) Alcohol dependence Code(s): F10.20 - ALCOHOL DEPENDENCE, UNCOMPLICATED (14) Alcohol dependence with uncomplicated withdrawal Code(s): F10.230 - ALCOHOL DEPENDENCE WITH WITHDRAWAL, UNCOMPLICATED (15) Alcoholic cirrhosis Code(s): K70.30 - ALCOHOLIC CIRRHOSIS OF LIVER WITHOUT ASCITES (16) Alcoholic hepatitis with ascites Code(s): K70.11 - ALCOHOLIC HEPATITIS WITH ASCITES (17) Atypical chest pain Code(s): R07.89 - OTHER CHEST PAIN (18) Back pain Code(s): M54.9 - DORSALGIA, UNSPECIFIED Qualifiers: Back pain location: low back pain Chronicity: unspecified Back pain laterality: unspecified Sciatica presence: unspecified whether sciatica present Qualified Code(s): M54.5 - Low back pain (19) CAD (coronary artery disease) Code(s): I25.10 - ATHSCL HEART DISEASE OF [place] CORONARY ARTERY W/O ANG PCTRS (20) Common cold virus Code(s): J00 - ACUTE NASOPHARYNGITIS [COMMON COLD] (21) Elevated LFTs Code(s): R79.89 - OTHER SPECIFIED ABNORMAL FINDINGS OF BLOOD CHEMISTRY (22) GI bleed Code(s): K92.2 - GASTROINTESTINAL HEMORRHAGE, UNSPECIFIED Qualifiers: GI bleed type/associated pathology: unspecified gastrointestinal hemorrhage type Qualified Code(s): K92.2 - Gastrointestinal hemorrhage, unspecified (23) Groin pain Code(s): R10.30 - LOWER ABDOMINAL PAIN, UNSPECIFIED (24) HLD (hyperlipidemia) Code(s): E78.5 - HYPERLIPIDEMIA, UNSPECIFIED (25) Hematemesis Code(s): K92.0 - HEMATEMESIS (26) Hepatic failure due to alcoholism Code(s): K70.40 - ALCOHOLIC HEPATIC FAILURE WITHOUT COMA (27) Hyperbilirubinemia Code(s): E80.6 - OTHER DISORDERS OF BILIRUBIN METABOLISM (28) Hypokalemia Code(s): E87.6 - HYPOKALEMIA (29) Insomnia Code(s): G47.00 - INSOMNIA, UNSPECIFIED (30) Jaundice Code(s): R17 - UNSPECIFIED JAUNDICE (31) Knee sprain Code(s): S83.90XA - SPRAIN OF UNSPECIFIED SITE OF UNSPECIFIED KNEE, INIT ENCNTR Qualifiers: Encounter type: initial encounter Involved ligament of knee: unspecified ligament Laterality: left Qualified Code(s): S83.92XA - Sprain of unspecified site of left knee, initial encounter (32) NSTEMI (non-ST elevated myocardial infarction) Code(s): I21.4 - NON-ST ELEVATION (NSTEMI) MYOCARDIAL INFARCTION (33) Syncope Code(s): R55 - SYNCOPE AND COLLAPSE (34) Acid reflux Code(s): K21.9 - GASTRO-ESOPHAGEAL REFLUX DISEASE WITHOUT ESOPHAGITIS Qualifiers: Esophagitis presence: esophagitis presence not specified Qualified Code(s): K21.9 - Gastro-esophageal reflux disease without esophagitis (35) HLD (hyperlipidemia) Code(s): E78.5 - HYPERLIPIDEMIA, UNSPECIFIED Qualifiers: Hyperlipidemia type: unspecified Qualified Code(s): E78.5 - Hyperlipidemia, unspecified (36) Hypertension Code(s): I10 - ESSENTIAL (PRIMARY) HYPERTENSION Qualifiers: Hypertension type: essential hypertension Qualified Code(s): I10 - Essential (primary) hypertension (37) Depression (emotion) Code(s): F32.9 - MAJOR DEPRESSIVE DISORDER, SINGLE EPISODE, UNSPECIFIED Qualifiers: Depression Type: unspecified Qualified Code(s): F32.9 - Major depressive disorder, single episode, unspecified (38) History of coronary artery stent placement Code(s): Z95.5 - PRESENCE OF CORONARY ANGIOPLASTY IMPLANT AND GRAFT Assessment/Plan 1. CAD post CABG with evidence of demand ischemic injury angina pectoris 2. Diastolic LV dysfunction with clinical decompensated LV failure 3. HTN 4. Dyslipidemia 5. Evidence of acute hepatitis; etiology to be determined 6. Acute renal insufficiency/failure 7. Rhabdomyolysis: improving 8. Anemia 9. Morbid obesity PLAN: 1. Continue Nadolol 20 mg qd; dose titration as needed, hemodynamics permitting 2. Ideally patient should be on HALEY inhibitor or angiotensin receptor allyson th erapy, but considering the above-noted comorbidities, therapy initiation is to be deferred in view of evidence of acute renal insufficiency/failure- pending resolution 3. Ideally patient should be on statin therapy considering the above-noted comorbidities, therapy initiation is to be deferred in view of evidence of acute liver disease- pending resolution 4. Ideally patient should be on ASA therapy considering the above-noted comorbidities, therapy initiation is to be deferred in view of evidence of anemia- pending completion of evaluation 5. Cont furosemide f/u BUN/Cr 6. Cont Aldacton supplement K
[2020-01-25] MEDS: KCL 10 MEQ IVPB 10 MEQ/100 ML INFUS.BAG IVPB SCH ×3 (09:59→15:24)
[2020-01-25] MEDS: POTASSIUM CHLORIDE TABS 20 MEQ TABLET.ER (FP) PO SCH (10:00)
[2020-01-25] MEDS: PANTOPRAZOLE 40 MG TABLET PO SCH (10:00)
[2020-01-25] MEDS: MULTIVITAMINS (DAILY MVI) TABLET (FP) PO SCH (10:00)
[2020-01-25] MEDS: MAGNESIUM OXIDE 400 MG TABLET (FP) PO SCH ×2 (10:00→23:03)
[2020-01-25] MEDS: SPIRONOLACTONE 25 MG TABLET PO SCH ×2 (10:00→23:03)
[2020-01-25] MEDS: LACTULOSE 20 GM/30 ML UDC (FOR ORAL USE ONLY) PO SCH ×2 (10:01→10:09)
[2020-01-25] MEDS: THIAMINE HCL 100 MG TABLET (FP) PO SCH (10:01)
[2020-01-25] MEDS ORDERED: PT OWN MED DRAWER 7, Y5N ONE (10:10)
[2020-01-25] MEDS: NADOLOL 20 MG TABLET (FP) PO SCH (10:23)
--- NOTE | 2020-01-25 14:20 | PN ---
Progress Note, Physician History of Present Illness: no new issues continues to feel weak liver enzymes s till high - Current Medication List Current Medications: Active Medications Furosemide (Lasix Injection -) 60 mg IVPUSH BID@0600,1400 [facility] Last Admin: 01/25/20 06:40 Dose: 60 mg Documented by: Lactulose (Cephulac (Oral Use)) 20 gm PO DAILY [facility] Last Admin: 01/25/20 10:09 Dose: Not Given Documented by: Magnesium Oxide (Mag-Ox -) 400 mg PO BID [facility] Last Admin: 01/25/20 10:00 Dose: 400 mg Documented by: Metoclopramide HCl (Reglan -) 5 mg PO TIDAC [facility] Last Admin: 01/25/20 11:15 Dose: Not Given Documented by: Multivitamins/Minerals/Vitamin C (Tab-A-Vit -) 1 tab PO DAILY [facility] Last Admin: 01/25/20 10:00 Dose: 1 tab Documented by: Nadolol (Corgard -) 20 mg PO DAILY [facility] Last Admin: 01/25/20 10:23 Dose: 20 mg Documented by: Pantoprazole Sodium (Protonix -) 40 mg PO DAILY [facility] Last Admin: 01/25/20 10:00 Dose: 40 mg Documented by: Potassium Chloride (K-Dur -) 40 meq PO DAILY [facility] Last Admin: 01/25/20 10:00 Dose: 40 meq Documented by: Spironolactone (Aldactone -) 50 mg PO BID [facility] Last Admin: 01/25/20 10:00 Dose: 50 mg Documented by: Thiamine HCl (Vitamin B1 -) 100 mg PO DAILY [facility] Last Admin: 01/25/20 10:01 Dose: 100 mg Documented by: - Objective Vital Signs: Vital Signs Temperature 97.9 F 01/25/20 06:00 Pulse Rate 88 01/25/20 06:00 Respiratory Rate 20 01/25/20 06:00 Blood Pressure 127/73 01/25/20 06:00 O2 Sat by Pulse Oximetry (%) 98 01/24/20 21:00 Constitutional: Yes: Calm, Other Neck: Yes: Supple, Trachea Midline Cardiovascular: Yes: S1, S2 Respiratory: Yes: Regular, CTA Bilaterally Gastrointestinal: Yes: Normal Bowel Sounds, Soft Musculoskeletal: Yes: WNL Extremities: Yes: WNL Neurological: Yes: Alert Psychiatric: Yes: Alert, Oriented Labs: CBC, BMP 01/24/20 05:35 01/25/20 05:30 INR, PTT INR 1.79 (0.83-1.09) H 01/13/20 18:45 Assessment/Plan Problem List - Problems (1) Alcoholic cirrhosis Code(s): K70.30 - ALCOHOLIC CIRRHOSIS OF LIVER WITHOUT ASCITES (2) HERI (acute kidney injury) Code(s): N17.9 - ACUTE KIDNEY FAILURE, UNSPECIFIED (3) Anemia Code(s): D64.9 - ANEMIA, UNSPECIFIED (4) Rhabdomyolysis Code(s): M62.82 - RHABDOMYOLYSIS (5) Transaminitis Code(s): R74.0 - NONSPEC ELEV OF LEVELS OF TRANSAMNS & LACTIC ACID DEHYDRGNSE (6) Vomiting Code(s): R11.10 - VOMITING, UNSPECIFIED (7) CAD (coronary artery disease) Code(s): I25.10 - ATHSCL HEART DISEASE OF [place] CORONARY ARTERY W/O ANG PCTRS (8) HLD (hyperlipidemia) Code(s): E78.5 - HYPERLIPIDEMIA, UNSPECIFIED (9) Hypertension Code(s): I10 - ESSENTIAL (PRIMARY) HYPERTENSION Qualifiers: Hypertension type: essential hypertension Qualified Code(s): I10 - [place] l (primary) hypertension (10) History of coronary artery stent placement Code(s): Z95.5 - PRESENCE OF CORONARY ANGIOPLASTY IMPLANT AND GRAFT plan continue current mgmt as per gi close watch rest as per the tem
[2020-01-25] MEDS ORDERED: POTASSIUM CHLORIDE ORAL LIQUID 20 MEQ/15 ML PO ONE (14:48)
[2020-01-25] MEDS ORDERED: MAGNESIUM SULF 50% (8.12 MEQ/2 ML-1 GM VIAL) IVPB ONE (14:51)
--- NOTE | 2020-01-25 14:51 | PN ---
Progress Note, Physician History of Present Illness: Pt seen and examined at bedside. He is awake and alert. He says that he feels better. - Current Medication List Current Medications: Active Medications Furosemide (Lasix Injection -) 60 mg IVPUSH BID@0600,1400 [facility] Last Admin: 01/25/20 06:40 Dose: 60 mg Documented by: Lactulose (Cephulac (Oral Use)) 20 gm PO DAILY [facility] Last Admin: 01/25/20 10:09 Dose: Not Given Documented by: Magnesium Oxide (Mag-Ox -) 400 mg PO BID [facility] Last Admin: 01/25/20 10:00 Dose: 400 mg Documented by: Metoclopramide HCl (Reglan -) 5 mg PO TIDAC [facility] Last Admin: 01/25/20 11:15 Dose: Not Given Documented by: Multivitamins/Minerals/Vitamin C (Tab-A-Vit -) 1 tab PO DAILY [facility] Last Admin: 01/25/20 10:00 Dose: 1 tab Documented by: Nadolol (Corgard -) 20 mg PO DAILY [facility] Last Admin: 01/25/20 10:23 Dose: 20 mg Documented by: Pantoprazole Sodium (Protonix -) 40 mg PO DAILY [facility] Last Admin: 01/25/20 10:00 Dose: 40 mg Documented by: Potassium Chloride (K-Dur -) 40 meq PO DAILY [facility] Last Admin: 01/25/20 10:00 Dose: 40 meq Documented by: Potassium Chloride (Potassium Chloride Oral Liquid) 40 meq PO ONCE ONE Stop: 01/25/20 14:49 Spironolactone (Aldactone -) 50 mg PO BID [facility] Last Admin: 01/25/20 10:00 Dose: 50 mg Documented by: Thiamine HCl (Vitamin B1 -) 100 mg PO DAILY [facility] Last Admin: 01/25/20 10:01 Dose: 100 mg Documented by: - Objective Vital Signs: Vital Signs Temperature 97.9 F 01/25/20 06:00 Pulse Rate 88 01/25/20 06:00 Respiratory Rate 20 01/25/20 06:00 Blood Pressure 127/73 01/25/20 06:00 O2 Sat by Pulse Oximetry (%) 98 01/24/20 21:00 Constitutional: Yes: Calm Eyes: Yes: Conjunctiva Clear HENT: Yes: Atraumatic Neck: Yes: Supple Cardiovascular: Yes: S1, S2 Respiratory: Yes: CTA Bilaterally Gastrointestinal: Yes: Normal Bowel Sounds, Soft Genitourinary: Yes: WNL Edema: Yes Edema: LLE: 3+, RLE: 3+ Neurological: Yes: Oriented Psychiatric: Yes: Oriented Labs: CBC, BMP 01/24/20 05:35 01/25/20 05:30 INR, PTT INR 1.79 (0.83-1.09) H 01/13/20 18:45 Problem List - Problems (1) HERI (acute kidney injury) Code(s): N17.9 - ACUTE KIDNEY FAILURE, UNSPECIFIED (2) Rhabdomyolysis Code(s): M62.82 - RHABDOMYOLYSIS Assessment/Plan Current Medications Generic Name Dose Route Start Last Admin Trade Name Freq PRN Reason Stop Dose Admin Furosemide 60 mg 01/22/20 14:00 01/25/20 06:40 Lasix Injection - IVPUSH 60 mg BID@0600,1400 [facility] Administration Lactulose 20 gm 01/14/20 10:00 01/25/20 10:09 Cephulac (Oral Use) PO Not Given DAILY [facility] Magnesium Oxide 400 mg 01/21/20 19:30 01/25/20 10:00 Mag-Ox - PO 400 mg BID [facility] Administration Metoclopramide HCl 5 mg 01/20/20 16:30 01/25/20 11:15 Reglan - PO Not Given TIDAC [facility] Multivitamins/Minerals/Vitamin C 1 tab 01/14/20 10:00 01/25/20 10:00 Tab-A-Vit - PO 1 tab DAILY [facility] Administration Nadolol 20 mg 01/14/20 10:00 01/25/20 10:23 Corgard - PO 20 mg DAILY [facility] Administration Pantoprazole Sodium 40 mg 01/21/20 10:00 01/25/20 10:00 Protonix - PO 40 mg DAILY [facility] Administration Potassium Chloride 40 meq 01/24/20 14:30 01/25/20 10:00 K-Dur - PO 40 meq DAILY [facility] Administration Potassium Chloride 40 meq 01/25/20 14:48 Potassium Chloride Oral Liquid PO 01/25/20 14:49 ONCE ONE Spironolactone 50 mg 01/23/20 22:00 01/25/20 10:00 Aldactone - PO 50 mg BID [facility] Administration Thiamine HCl 100 mg 01/14/20 10:00 01/25/20 10:01 Vitamin B1 - PO 100 mg DAILY [facility] Administration Impression 1. HERI 2. nsaid use 3. liver cirrhosis 4. etoh abuse 5. cad 6. hld 7. htn 8. rhabdo Plan - replace potassium - hold off metolazone - cont lasix - increase dose of aldactone - repeat labs in am - renal function improving - cpk improving - heri likely secondary to rhabdo and nsaids
--- NOTE | 2020-01-25 19:47 | PN ---
Progress Note, Physician History of Present Illness: no complaints - Current Medication List Current Medications: Active Medications Furosemide (Lasix Injection -) 60 mg IVPUSH BID@0600,1400 [facility] Last Admin: 01/25/20 15:24 Dose: 60 mg Documented by: Lactulose (Cephulac (Oral Use)) 20 gm PO DAILY [facility] Last Admin: 01/25/20 10:09 Dose: Not Given Documented by: Magnesium Oxide (Mag-Ox -) 400 mg PO BID [facility] Last Admin: 01/25/20 10:00 Dose: 400 mg Documented by: Metoclopramide HCl (Reglan -) 5 mg PO TIDAC [facility] Last Admin: 01/25/20 16:03 Dose: Not Given Documented by: Multivitamins/Minerals/Vitamin C (Tab-A-Vit -) 1 tab PO DAILY [facility] Last Admin: 01/25/20 10:00 Dose: 1 tab Documented by: Nadolol (Corgard -) 20 mg PO DAILY [facility] Last Admin: 01/25/20 10:23 Dose: 20 mg Documented by: Pantoprazole Sodium (Protonix -) 40 mg PO DAILY [facility] Last Admin: 01/25/20 10:00 Dose: 40 mg Documented by: Potassium Chloride (K-Dur -) 40 meq PO DAILY [facility] Last Admin: 01/25/20 10:00 Dose: 40 meq Documented by: Spironolactone (Aldactone -) 100 mg PO BID [facility] Thiamine HCl (Vitamin B1 -) 100 mg PO DAILY [facility] Last Admin: 01/25/20 10:01 Dose: 100 mg Documented by: - Objective Vital Signs: Vital Signs Temperature 98.3 F 01/25/20 19:10 Pulse Rate 92 H 01/25/20 19:10 Respiratory Rate 20 01/25/20 19:10 Blood Pressure 125/66 01/25/20 19:10 O2 Sat by Pulse Oximetry (%) 100 01/25/20 19:10 Constitutional: Yes: No Distress HENT: Yes: Atraumatic Neck: Yes: Supple Cardiovascular: Yes: Regular Rate and Rhythm Respiratory: Yes: Rhonchi Gastrointestinal: Yes: Normal Bowel Sounds Extremities: Yes: WNL Neurological: Yes: Alert, Oriented Labs: CBC, BMP 01/24/20 05:35 01/25/20 05:30 INR, PTT INR 1.79 (0.83-1.09) H 01/13/20 18:45 Problem List - Problems (1) HERI (acute kidney injury) Assessment/Plan: ON IVF MONITOR CR RENAL ON BOARD Code(s): N17.9 - ACUTE KIDNEY FAILURE, UNSPECIFIED (2) Alcoholic cirrhosis Assessment/Plan: monitor lfts gi on board Code(s): K70.30 - ALCOHOLIC CIRRHOSIS OF LIVER WITHOUT ASCITES (3) Liver cirrhosis Code(s): K74.60 - UNSPECIFIED CIRRHOSIS OF LIVER (4) Rhabdomyolysis Assessment/Plan: IVF MONITOR CPK Code(s): M62.82 - RHABDOMYOLYSIS (5) Transaminitis Assessment/Plan: MONITOR ETOH RELATED Code(s): R74.0 - NONSPEC ELEV OF LEVELS OF TRANSAMNS & LACTIC ACID DEHYDRGNSE (6) Alcohol dependence Code(s): F10.20 - ALCOHOL DEPENDENCE, UNCOMPLICATED (7) HLD (hyperlipidemia) Code(s): E78.5 - HYPERLIPIDEMIA, UNSPECIFIED (8) Hypertension Assessment/Plan: MONITOR on meds Code(s): I10 - ESSENTIAL (PRIMARY) HYPERTENSION Qualifiers: Hypertension type: essential hypertension Qualified Code(s): I10 - Essential (primary) hypertension (9) Anemia Assessment/Plan: STOOL OCCULT BLOOD ORDERED MONITOR CBC Code(s): D64.9 - ANEMIA, UNSPECIFIED (10) Morbid obesity Assessment/Plan: replace and monitor Code(s): E66.01 - MORBID (SEVERE) OBESITY DUE TO EXCESS CALORIES Assessment/Plan Assessment 1. CAD post CABG with evidence of demand ischemic injury angina pectoris 2. Diastolic LV dysfunction with clinical decompensated LV failure 3. HTN 4. Dyslipidemia 5. Evidence of acute hepatitis; etiology to be determined 6. Acute renal insufficiency/failure 7. Rhabdomyolysis: improving 8. Anemia 9. Morbid obesity plan as previosly mentioned COVERING FR DR VALDIVIA TODAY
[2020-01-25] MEDS: diphenhydrAMINE HCL 25 MG CAPSULE (FP) PO PRN (23:05)
[2020-01-26] MEDS: METOCLOPRAMIDE HCL 10 MG TABLET (FP) PO SCH ×3 (06:25→16:30)
[2020-01-26] MEDS: FUROSEMIDE 40 MG/4 ML INJECTABLE VIAL IVPUSH SCH ×4 (06:26→14:38)
[2020-01-26 08:29] LABS: ALBUMIN 2.8 g/dl (3.4-5.0); BILIRUBIN,TOTAL 2.8 mg/dL (0.2-1); BLOOD UREA NITROGEN 10.3 mg/dL (7-18); CALCIUM 7.8 mg/dL (8.5-10.1); MAGNESIUM 1.1 mg/dL (1.8-2.4)
[2020-01-26 08:38] LABS: POTASSIUM 3.1 mmol/L (3.5-5.1)
[2020-01-26] MEDS: LACTULOSE 20 GM/30 ML UDC (FOR ORAL USE ONLY) PO SCH (10:07)
[2020-01-26] MEDS: SPIRONOLACTONE 25 MG TABLET PO SCH ×2 (10:08→21:08)
[2020-01-26] MEDS: THIAMINE HCL 100 MG TABLET (FP) PO SCH (10:08)
[2020-01-26] MEDS: PANTOPRAZOLE 40 MG TABLET PO SCH (10:08)
[2020-01-26] MEDS: MULTIVITAMINS (DAILY MVI) TABLET (FP) PO SCH (10:09)
[2020-01-26] MEDS: MAGNESIUM OXIDE 400 MG TABLET (FP) PO SCH ×2 (10:09→21:08)
[2020-01-26] MEDS: POTASSIUM CHLORIDE TABS 20 MEQ TABLET.ER (FP) PO SCH (10:09)
[2020-01-26] MEDS: NADOLOL 20 MG TABLET (FP) PO SCH (10:09)
--- NOTE | 2020-01-26 10:16 | EKG ---
Test Reason : Blood Pressure : / mmHG Vent. Rate : 086 BPM Atrial Rate : 086 BPM P-R Int : 154 ms QRS Dur : 102 ms QT Int : 404 ms P-R-T Axes : 038 028 017 degrees QTc Int : 483 ms NORMAL SINUS RHYTHM PROLONGED QT ABNORMAL ECG WHEN COMPARED WITH ECG OF 13-JAN-2020 18:15, T WAVE INVERSION NO LONGER EVIDENT IN ANTERIOR LEADS Confirmed by MD Joanna, Nestor ([id number]) on 01/26/2020 10:15:37 AM Referred By: WILDER MIRSOLOMON [facility] Confirmed By:Nestor Marshall MD
--- NOTE | 2020-01-26 13:14 | PN ---
Progress Note, Physician History of Present Illness: Pt seen and examined at bedside. He is awake and alert. He feels that his edema is starting to improve. - Current Medication List Current Medications: Active Medications Diphenhydramine HCl (Benadryl -) 50 mg PO HS PRN PRN Reason: INSOMNIA Last Admin: 01/25/20 23:05 Dose: 50 mg Documented by: Furosemide (Lasix Injection -) 60 mg IVPUSH BID@0600,1400 [facility] Last Admin: 01/26/20 13:02 Dose: Not Given Documented by: Lactulose (Cephulac (Oral Use)) 20 gm PO DAILY [facility] Last Admin: 01/26/20 10:07 Dose: 20 gm Documented by: Magnesium Oxide (Mag-Ox -) 400 mg PO BID [facility] Last Admin: 01/26/20 10:09 Dose: 400 mg Documented by: Metoclopramide HCl (Reglan -) 5 mg PO TIDAC [facility] Last Admin: 01/26/20 10:08 Dose: 5 mg Documented by: Multivitamins/Minerals/Vitamin C (Tab-A-Vit -) 1 tab PO DAILY [facility] Last Admin: 01/26/20 10:09 Dose: 1 tab Documented by: Nadolol (Corgard -) 20 mg PO DAILY [facility] Last Admin: 01/26/20 10:09 Dose: 20 mg Documented by: Pantoprazole Sodium (Protonix -) 40 mg PO DAILY [facility] Last Admin: 01/26/20 10:08 Dose: 40 mg Documented by: Potassium Chloride (K-Dur -) 40 meq PO DAILY [facility] Last Admin: 01/26/20 10:09 Dose: 40 meq Documented by: Spironolactone (Aldactone -) 100 mg PO BID [facility] Last Admin: 01/26/20 10:08 Dose: 100 mg Documented by: Thiamine HCl (Vitamin B1 -) 100 mg PO DAILY [facility] Last Admin: 01/26/20 10:08 Dose: 100 mg Documented by: - Objective Vital Signs: Vital Signs Temperature 98 F 01/26/20 09:00 Pulse Rate 92 H 01/26/20 09:00 Respiratory Rate 20 01/26/20 09:00 Blood Pressure 127/67 01/26/20 09:00 O2 Sat by Pulse Oximetry (%) 100 01/26/20 09:00 Constitutional: Yes: Calm Eyes: Yes: Conjunctiva Clear HENT: Yes: Atraumatic Cardiovascular: Yes: S1, S2 Gastrointestinal: Yes: Soft Genitourinary: Yes: WNL Breast(s): Yes: Gynecomastia Edema: Yes Edema: LLE: 3+, RLE: 3+ Neurological: Yes: Oriented Psychiatric: Yes: Oriented Labs: CBC, BMP 01/24/20 05:35 01/26/20 07:16 INR, PTT INR 1.79 (0.83-1.09) H 01/13/20 18:45 Problem List - Problems (1) HERI (acute kidney injury) Code(s): N17.9 - ACUTE KIDNEY FAILURE, UNSPECIFIED (2) Rhabdomyolysis Code(s): M62.82 - RHABDOMYOLYSIS Assessment/Plan Current Medications Generic Name Dose Route Start Last Admin Trade Name Freq PRN Reason Stop Dose Admin Diphenhydramine HCl 50 mg 01/25/20 21:23 01/25/20 23:05 Benadryl - PO 50 mg HS PRN Administration INSOMNIA Furosemide 60 mg 01/22/20 14:00 01/26/20 13:02 Lasix Injection - IVPUSH Not Given BID@0600,1400 [facility] Potassium Chloride 10 meq in 100 mls @ 100 mls/hr 01/26/20 14:00 Potassium Chloride 10 Meq Premix Ivpb - IVPB 01/26/20 16:59 Q60M [facility] Lactulose 20 gm 01/14/20 10:00 01/26/20 10:07 Cephulac (Oral Use) PO 20 gm DAILY [facility] Administration Magnesium Oxide 400 mg 01/21/20 19:30 01/26/20 10:09 Mag-Ox - PO 400 mg BID [facility] Administration Magnesium Sulfate 2 gm 01/26/20 13:12 Magnesium Sulfate IVPB 01/26/20 13:13 ONCE ONE Metoclopramide HCl 5 mg 01/20/20 16:30 01/26/20 10:08 Reglan - PO 5 mg TIDAC [facility] Administration Multivitamins/Minerals/Vitamin C 1 tab 01/14/20 10:00 01/26/20 10:09 Tab-A-Vit - PO 1 tab DAILY [facility] Administration Nadolol 20 mg 01/14/20 10:00 01/26/20 10:09 Corgard - PO 20 mg DAILY [facility] Administration Pantoprazole Sodium 40 mg 01/21/20 10:00 01/26/20 10:08 Protonix - PO 40 mg DAILY [facility] Administration Potassium Chloride 40 meq 01/24/20 14:30 01/26/20 10:09 K-Dur - PO 40 meq DAILY [facility] Administration Potassium Chloride 40 meq 01/26/20 13:12 Potassium Chloride Oral Liquid PO 01/26/20 13:13 ONCE ONE Spironolactone 100 mg 01/25/20 14:51 01/26/20 10:08 Aldactone - PO 100 mg BID [facility] Administration Thiamine HCl 100 mg 01/14/20 10:00 01/26/20 10:08 Vitamin B1 - PO 100 mg DAILY [facility] Administration Impression 1. HERI 2. nsaid use 3. liver cirrhosis 4. etoh abuse 5. cad 6. hld 7. htn 8. rhabdo 9. volume overload Plan - replace potassium - replace mag - repeat labs in am - cont diuretics - monitor weights - heri likely secondary to rhabdo and nsaids
[2020-01-26] MEDS ORDERED: MAGNESIUM 2GM/50ML STERILE WATER IVPB IVPB ONE (14:00)
[2020-01-26] MEDS: KCL 10 MEQ IVPB 10 MEQ/100 ML INFUS.BAG IVPB SCH ×3 (14:00→16:29)
[2020-01-26] MEDS ORDERED: POTASSIUM CHLORIDE ORAL LIQUID 20 MEQ/15 ML PO ONE ×2 (14:00→22:00)
--- NOTE | 2020-01-26 14:00 | PN ---
Progress Note, Physician History of Present Illness: no new issues continues to feel weak edema of the leg - Current Medication List Current Medications: Active Medications Diphenhydramine HCl (Benadryl -) 50 mg PO HS PRN PRN Reason: INSOMNIA Last Admin: 01/25/20 23:05 Dose: 50 mg Documented by: Furosemide (Lasix Injection -) 80 mg IVPUSH BID@0600,1400 [facility] Potassium Chloride (Potassium Chloride 10 Meq Premix Ivpb -) 10 meq in 100 mls @ 100 mls/hr IVPB Q60M [facility] Stop: 01/26/20 16:59 Lactulose (Cephulac (Oral Use)) 20 gm PO DAILY [facility] Last Admin: 01/26/20 10:07 Dose: 20 gm Documented by: Magnesium Oxide (Mag-Ox -) 400 mg PO BID [facility] Last Admin: 01/26/20 10:09 Dose: 400 mg Documented by: Magnesium Sulfate (Magnesium Sulf 2 G/50 Ml Bag) 2 gm IVPB ONCE ONE Stop: 01/26/20 14:01 Metoclopramide HCl (Reglan -) 5 mg PO TIDAC [facility] Last Admin: 01/26/20 10:08 Dose: 5 mg Documented by: Multivitamins/Minerals/Vitamin C (Tab-A-Vit -) 1 tab PO DAILY [facility] Last Admin: 01/26/20 10:09 Dose: 1 tab Documented by: Nadolol (Corgard -) 20 mg PO DAILY [facility] Last Admin: 01/26/20 10:09 Dose: 20 mg Documented by: Pantoprazole Sodium (Protonix -) 40 mg PO DAILY [facility] Last Admin: 01/26/20 10:08 Dose: 40 mg Documented by: Potassium Chloride (K-Dur -) 40 meq PO DAILY [facility] Last Admin: 01/26/20 10:09 Dose: 40 meq Documented by: Potassium Chloride (Potassium Chloride Oral Liquid) 40 meq PO ONCE ONE Stop: 01/26/20 14:01 Potassium Chloride (Potassium Chloride Oral Liquid) 40 meq PO ONCE ONE Stop: 01/26/20 22:01 Spironolactone (Aldactone -) 100 mg PO BID [facility] Last Admin: 01/26/20 10:08 Dose: 100 mg Documented by: Thiamine HCl (Vitamin B1 -) 100 mg PO DAILY [facility] Last Admin: 01/26/20 10:08 Dose: 100 mg Documented by: - Objective Vital Signs: Vital Signs Temperature 97.9 F 01/26/20 13:28 Pulse Rate 89 01/26/20 13:28 Respiratory Rate 20 01/26/20 13:28 Blood Pressure 110/71 01/26/20 13:28 O2 Sat by Pulse Oximetry (%) 100 01/26/20 09:00 Constitutional: Yes: No Distress, Calm Cardiovascular: Yes: S1, S2 Respiratory: Yes: Regular, CTA Bilaterally Gastrointestinal: Yes: Normal Bowel Sounds, Soft Musculoskeletal: Yes: WNL Extremities: Yes: Other Wound/Incision: Yes: Clean/Dry Neurological: Yes: Alert, Oriented Psychiatric: Yes: Alert, Oriented Labs: CBC, BMP 01/24/20 05:35 01/26/20 07:16 INR, PTT INR 1.79 (0.83-1.09) H 01/13/20 18:45 Assessment/Plan Problem List - Problems (1) Alcoholic cirrhosis Code(s): K70.30 - ALCOHOLIC CIRRHOSIS OF LIVER WITHOUT ASCITES (2) HERI (acute kidney injury) Code(s): N17.9 - ACUTE KIDNEY FAILURE, UNSPECIFIED (3) Anemia Code(s): D64.9 - ANEMIA, UNSPECIFIED (4) Rhabdomyolysis Code(s): M62.82 - RHABDOMYOLYSIS (5) Transaminitis Code(s): R74.0 - NONSPEC ELEV OF LEVELS OF TRANSAMNS & LACTIC ACID DEHYDRGNSE (6) Vomiting Code(s): R11.10 - VOMITING, UNSPECIFIED (7) CAD (coronary artery disease) Code(s): I25.10 - ATHSCL HEART DISEASE OF [place] CORONARY ARTERY W/O ANG PCTRS (8) HLD (hyperlipidemia) Code(s): E78.5 - HYPERLIPIDEMIA, UNSPECIFIED (9) Hypertension Code(s): I10 - ESSENTIAL (PRIMARY) HYPERTENSION Qualifiers: Hypertension type: essential hypertension Qualified Code(s): I10 - Essential (primary) hypertension (10) History of coronary artery stent placement Code(s): Z95.5 - PRESENCE OF CORONARY ANGIOPLASTY IMPLANT AND GRAFT plan continue current mgmt as per gi close watch rest as per the [facility]
--- NOTE | 2020-01-26 15:58 | PN ---
Progress Note, Physician Chief Complaint: Pt A&Ox3; lying in bed; fatigued; remains uncomfortable when trying to change position, and dyspneic on minimal exertion. History of Present Illness: Mr. Mann is a 55 year old male (b. [place]), with a significant past medical history of hypertension, hyperlipidemia, cirrhosis, GI bleed, CAD s/p coronary stents followed by CABG, morbid obesity, who presents to the ED for further evaluation of elevated LFTs. Pt was seen yesterday for leg pain; labs showed elevated LFTs,but the patient left AMA. Today he returns for further evaluation. No abd pain. C/o nausea. States he saw Dr. Pacheco 2 days ago and had blood in his stool at that time. Pt states he has been taking Motrin for leg and back pain every 4-5 hours. Pt states he also has had a change in his sleep/wake cycle. - Current Medication List Current Medications: Active Medications Diphenhydramine HCl (Benadryl -) 50 mg PO HS PRN PRN Reason: INSOMNIA Last Admin: 01/25/20 23:05 Dose: 50 mg Documented by: Furosemide (Lasix Injection -) 80 mg IVPUSH BID@0600,1400 [facility] Last Admin: 01/26/20 14:38 Dose: 80 mg Documented by: Potassium Chloride (Potassium Chloride 10 Meq Premix Ivpb -) 10 meq in 100 mls @ 100 mls/hr IVPB Q60M [facility] Stop: 01/26/20 16:59 Last Admin: 01/26/20 15:40 Dose: 100 mls/hr Documented by: Lactulose (Cephulac (Oral Use)) 20 gm PO DAILY [facility] Last Admin: 01/26/20 10:07 Dose: 20 gm Documented by: Magnesium Oxide (Mag-Ox -) 400 mg PO BID [facility] Last Admin: 01/26/20 10:09 Dose: 400 mg Documented by: Metoclopramide HCl (Reglan -) 5 mg PO TIDAC [facility] Last Admin: 01/26/20 10:08 Dose: 5 mg Documented by: Multivitamins/Minerals/Vitamin C (Tab-A-Vit -) 1 tab PO DAILY [facility] Last Admin: 01/26/20 10:09 Dose: 1 tab Documented by: Nadolol (Corgard -) 20 mg PO DAILY [facility] Last Admin: 01/26/20 10:09 Dose: 20 mg Documented by: Pantoprazole Sodium (Protonix -) 40 mg PO DAILY [facility] Last Admin: 01/26/20 10:08 Dose: 40 mg Documented by: Potassium Chloride (K-Dur -) 40 meq PO DAILY [facility] Last Admin: 01/26/20 10:09 Dose: 40 meq Documented by: Potassium Chloride (Potassium Chloride Oral Liquid) 40 meq PO ONCE ONE Stop: 01/26/20 22:01 Spironolactone (Aldactone -) 100 mg PO BID [facility] Last Admin: 01/26/20 10:08 Dose: 100 mg Documented by: Thiamine HCl (Vitamin B1 -) 100 mg PO DAILY [facility] Last Admin: 01/26/20 10:08 Dose: 100 mg Documented by: - Objective Vital Signs: Vital Signs Temperature 97.9 F 01/26/20 13:28 Pulse Rate 89 01/26/20 13:28 Respiratory Rate 20 01/26/20 13:28 Blood Pressure 110/71 01/26/20 13:28 O2 Sat by Pulse Oximetry (%) 100 01/26/20 09:00 Constitutional: Yes: Anxious, Obese Eyes: Yes: WNL Neck: Yes: WNL Cardiovascular: Yes: S1, S2 Respiratory: Yes: Diminished Gastrointestinal: Yes: Abdomen, Obese ...Rectal Exam: Yes: Deferred Genitourinary: No: Anuria Musculoskeletal: Yes: Back Pain, Joint Stiffness, Joint Swelling, Muscle Weakness Extremities: Yes: Cool Edema: Yes Edema: LLE: 2+, RLE: 2+ Peripheral Pulses WNL: Yes Integumentary: Yes: WNL Neurological: Yes: Alert, Oriented, Unsteady Gait, Weakness Psychiatric: Yes: Alert, Oriented, Other (anxiety/depression) Labs: CBC, BMP 01/24/20 05:35 01/26/20 07:16 INR, PTT INR 1.79 (0.83-1.09) H 01/13/20 18:45 Abnormal Lab Results 01/26/20 07:16 Potassium 3.1 L Random Glucose 109 H Calcium 7.8 L Magnesium 1.1 L Total Bilirubin 2.8 H AST 170 H ALT 161 H Total Protein 6.0 L Albumin 2.8 L - ....Imaging Chest X-ray: Image Reviewed EKG: Image Reviewed Assessment/Plan 1. CAD post CABG with evidence of demand ischemic injury angina pectoris 2. Diastolic LV dysfunction with clinical class 0 NYHA classification LV failure 3. HTN 4. Dyslipidemia 5. Evidence of acute hepatitis; etiology to be determined 6. Acute renal insufficiency/failure 7. Rhabdomyolysis: improving 8. Anemia 9. Morbid obesity 10. Marked electrolyte depletion 11. prolonged QTc Rec: Replete all electrolytes. Ideally, keep K 4.0-4.5, Mg 2.0-2.4, PO4 2.5-4.9. EKG; f/u QTc. f/u CK On nadolol, spironolactone, furosemide. F/u Is and Os; BUn/Cr, electrolytes, daily weight.
[2020-01-26] MEDS ORDERED: MAGNESIUM SULFATE IN WATER 2 GM/50 ML IVPB IVPB ONE (16:02)
[2020-01-26] MEDS: diphenhydrAMINE HCL 25 MG CAPSULE (FP) PO PRN (21:08)
--- NOTE | 2020-01-26 22:27 | PN ---
Progress Note, Physician History of Present Illness: NO NEW COMPLAINTS - Current Medication List Current Medications: Active Medications Diphenhydramine HCl (Benadryl -) 50 mg PO HS PRN PRN Reason: INSOMNIA Last Admin: 01/26/20 21:08 Dose: 50 mg Documented by: Furosemide (Lasix Injection -) 80 mg IVPUSH BID@0600,1400 [facility] Last Admin: 01/26/20 14:38 Dose: 80 mg Documented by: Lactulose (Cephulac (Oral Use)) 20 gm PO DAILY [facility] Last Admin: 01/26/20 10:07 Dose: 20 gm Documented by: Magnesium Oxide (Mag-Ox -) 400 mg PO BID [facility] Last Admin: 01/26/20 21:08 Dose: 400 mg Documented by: Metoclopramide HCl (Reglan -) 5 mg PO TIDAC [facility] Last Admin: 01/26/20 16:30 Dose: 5 mg Documented by: Multivitamins/Minerals/Vitamin C (Tab-A-Vit -) 1 tab PO DAILY [facility] Last Admin: 01/26/20 10:09 Dose: 1 tab Documented by: Nadolol (Corgard -) 20 mg PO DAILY [facility] Last Admin: 01/26/20 10:09 Dose: 20 mg Documented by: Pantoprazole Sodium (Protonix -) 40 mg PO DAILY [facility] Last Admin: 01/26/20 10:08 Dose: 40 mg Documented by: Potassium Chloride (K-Dur -) 40 meq PO DAILY [facility] Last Admin: 01/26/20 10:09 Dose: 40 meq Documented by: Spironolactone (Aldactone -) 100 mg PO BID [facility] Last Admin: 01/26/20 21:08 Dose: 100 mg Documented by: Thiamine HCl (Vitamin B1 -) 100 mg PO DAILY [facility] Last Admin: 01/26/20 10:08 Dose: 100 mg Documented by: - Objective Vital Signs: Vital Signs Temperature 98.3 F 01/26/20 21:08 Pulse Rate 98 H 01/26/20 21:08 Respiratory Rate 18 01/26/20 21:08 Blood Pressure 129/64 01/26/20 21:08 O2 Sat by Pulse Oximetry (%) 100 01/26/20 21:08 Cardiovascular: Yes: WNL, Regular Rate and Rhythm Respiratory: Yes: Diminished Gastrointestinal: Yes: Normal Bowel Sounds, Soft, Abdomen, Obese, Ascites, Distention Edema: LLE: 1+, RLE: 1+ Labs: CBC, BMP 01/24/20 05:35 01/26/20 07:16 INR, PTT INR 1.79 (0.83-1.09) H 01/13/20 18:45 Problem List - Problems (1) HERI (acute kidney injury) Code(s): N17.9 - ACUTE KIDNEY FAILURE, UNSPECIFIED (2) Alcoholic cirrhosis Code(s): K70.30 - ALCOHOLIC CIRRHOSIS OF LIVER WITHOUT ASCITES (3) Rhabdomyolysis Code(s): M62.82 - RHABDOMYOLYSIS (4) Transaminitis Code(s): R74.0 - NONSPEC ELEV OF LEVELS OF TRANSAMNS & LACTIC * DO NOT USE * (5) Vomiting Code(s): R11.10 - VOMITING, UNSPECIFIED (6) HLD (hyperlipidemia) Code(s): E78.5 - HYPERLIPIDEMIA, UNSPECIFIED (7) Hypertension Code(s): I10 - ESSENTIAL (PRIMARY) HYPERTENSION Qualifiers: Hypertension type: essential hypertension Qualified Code(s): I10 - Essential (primary) hypertension (8) History of coronary artery stent placement Code(s): Z95.5 - PRESENCE OF CORONARY ANGIOPLASTY IMPLANT AND GRAFT (9) Morbid obesity Code(s): E66.01 - MORBID (SEVERE) OBESITY DUE TO EXCESS CALORIES (10) CAD (coronary artery disease) Code(s): I25.10 - ATHSCL HEART DISEASE OF [place] CORONARY ARTERY W/O ANG PCTRS
[2020-01-27] MEDS: FUROSEMIDE 40 MG/4 ML INJECTABLE VIAL IVPUSH SCH ×3 (06:00→14:24)
[2020-01-27] MEDS: METOCLOPRAMIDE HCL 10 MG TABLET (FP) PO SCH ×3 (06:01→16:02)
[2020-01-27 09:01] LABS: ALBUMIN 2.8 g/dl (3.4-5.0); BILIRUBIN,TOTAL 2.3 mg/dL (0.2-1); BLOOD UREA NITROGEN 12.4 mg/dL (7-18); CALCIUM 8.2 mg/dL (8.5-10.1); MAGNESIUM 1.6 mg/dL (1.8-2.4); PHOSPHOROUS 3.1 mg/dL (2.5-4.9); POTASSIUM 3.8 mmol/L (3.5-5.1); TOT PROT 6.1 g/dl (6.4-8.2)
[2020-01-27] MEDS: MULTIVITAMINS (DAILY MVI) TABLET (FP) PO SCH (09:05)
[2020-01-27] MEDS: POTASSIUM CHLORIDE TABS 20 MEQ TABLET.ER (FP) PO SCH (09:05)
[2020-01-27] MEDS: NADOLOL 20 MG TABLET (FP) PO SCH (09:05)
[2020-01-27] MEDS: PANTOPRAZOLE 40 MG TABLET PO SCH (09:05)
[2020-01-27] MEDS: LACTULOSE 20 GM/30 ML UDC (FOR ORAL USE ONLY) PO SCH (09:05)
[2020-01-27] MEDS: THIAMINE HCL 100 MG TABLET (FP) PO SCH (09:06)
[2020-01-27] MEDS: MAGNESIUM OXIDE 400 MG TABLET (FP) PO SCH ×2 (09:06→21:38)
[2020-01-27] MEDS: SPIRONOLACTONE 25 MG TABLET PO SCH ×2 (09:06→21:38)
--- NOTE | 2020-01-27 09:18 | PN ---
Progress Note, Physician History of Present Illness: no new issues weakness - Current Medication List Current Medications: Active Medications Diphenhydramine HCl (Benadryl -) 50 mg PO HS PRN PRN Reason: INSOMNIA Last Admin: 01/26/20 21:08 Dose: 50 mg Documented by: Furosemide (Lasix Injection -) 80 mg IVPUSH BID@0600,1400 [facility] Last Admin: 01/27/20 06:00 Dose: 80 mg Documented by: Lactulose (Cephulac (Oral Use)) 20 gm PO DAILY [facility] Last Admin: 01/27/20 09:05 Dose: 20 gm Documented by: Magnesium Oxide (Mag-Ox -) 400 mg PO BID [facility] Last Admin: 01/27/20 09:06 Dose: 400 mg Documented by: Metoclopramide HCl (Reglan -) 5 mg PO TIDAC [facility] Last Admin: 01/27/20 06:01 Dose: 5 mg Documented by: Multivitamins/Minerals/Vitamin C (Tab-A-Vit -) 1 tab PO DAILY [facility] Last Admin: 01/27/20 09:05 Dose: 1 tab Documented by: Nadolol (Corgard -) 20 mg PO DAILY [facility] Last Admin: 01/27/20 09:05 Dose: 20 mg Documented by: Pantoprazole Sodium (Protonix -) 40 mg PO DAILY [facility] Last Admin: 01/27/20 09:05 Dose: 40 mg Documented by: Potassium Chloride (K-Dur -) 40 meq PO DAILY [facility] Last Admin: 01/27/20 09:05 Dose: 40 meq Documented by: Spironolactone (Aldactone -) 100 mg PO BID [facility] Last Admin: 01/27/20 09:06 Dose: 100 mg Documented by: Thiamine HCl (Vitamin B1 -) 100 mg PO DAILY [facility] Last Admin: 01/27/20 09:06 Dose: 100 mg Documented by: - Objective Vital Signs: Vital Signs Temperature 98.6 F 01/27/20 05:56 Pulse Rate 90 01/27/20 05:56 Respiratory Rate 20 01/27/20 05:56 Blood Pressure 142/79 01/27/20 05:56 O2 Sat by Pulse Oximetry (%) 98 01/27/20 05:56 Constitutional: Yes: No Distress, Calm Cardiovascular: Yes: S1, S2 Respiratory: Yes: Regular, CTA Bilaterally Gastrointestinal: Yes: Normal Bowel Sounds, Soft Musculoskeletal: Yes: WNL Extremities: Yes: WNL Neurological: Yes: Alert, Oriented Psychiatric: Yes: Alert, Oriented Labs: CBC, BMP 01/24/20 05:35 01/27/20 07:27 INR, PTT INR 1.79 (0.83-1.09) H 01/13/20 18:45 Assessment/Plan Problem List - Problems (1) Alcoholic cirrhosis Code(s): K70.30 - ALCOHOLIC CIRRHOSIS OF LIVER WITHOUT ASCITES (2) HERI (acute kidney injury) Code(s): N17.9 - ACUTE KIDNEY FAILURE, UNSPECIFIED (3) Anemia Code(s): D64.9 - ANEMIA, UNSPECIFIED (4) Rhabdomyolysis Code(s): M62.82 - RHABDOMYOLYSIS (5) Transaminitis Code(s): R74.0 - NONSPEC ELEV OF LEVELS OF TRANSAMNS & LACTIC ACID DEHYDRGNSE (6) Vomiting Code(s): R11.10 - VOMITING, UNSPECIFIED (7) CAD (coronary artery disease) Code(s): I25.10 - ATHSCL HEART DISEASE OF [place] CORONARY ARTERY W/O ANG PCTRS (8) HLD (hyperlipidemia) Code(s): E78.5 - HYPERLIPIDEMIA, UNSPECIFIED (9) Hypertension Code(s): I10 - ESSENTIAL (PRIMARY) HYPERTENSION Qualifiers: Hypertension type: essential hypertension Qualified Code(s): I10 - Essential (primary) hypertension (10) History of coronary artery stent placement Code(s): Z95.5 - PRESENCE OF CORONARY ANGIOPLASTY IMPLANT AND GRAFT plan continue current mgmt as per gi close watch rest as per the tem
[2020-01-27] MEDS ORDERED: MAGNESIUM 2GM/50ML STERILE WATER IVPB IVPB ONE ×2 (10:00→22:00)
--- NOTE | 2020-01-27 11:04 | PN ---
Progress Note, Physician History of Present Illness: Mr. Mann is a 55 year old male (b. [place]), with a significant past medical history of hypertension, hyperlipidemia, cirrhosis, GI bleed, CAD s/p coronary stents followed by CABG, morbid obesity, who presents to the ED for further evaluation of elevated LFTs. Pt was seen yesterday for leg pain; labs showed elevated LFTs,but the patient left AMA. Today he returns for further evaluation. No abd pain. C/o nausea. States he saw Dr. Pacheco 2 days ago and had blood in his stool at that time. Pt states he has been taking Motrin for leg and back pain every 4-5 hours. Pt states he also has had a change in his sleep/wake cycle. - Current Medication List Current Medications: Active Medications Diphenhydramine HCl (Benadryl -) 50 mg PO HS PRN PRN Reason: INSOMNIA Last Admin: 01/26/20 21:08 Dose: 50 mg Documented by: Furosemide (Lasix Injection -) 80 mg IVPUSH BID@0600,1400 [facility] Last Admin: 01/27/20 06:00 Dose: 80 mg Documented by: Lactulose (Cephulac (Oral Use)) 20 gm PO DAILY [facility] Last Admin: 01/27/20 09:05 Dose: 20 gm Documented by: Magnesium Oxide (Mag-Ox -) 400 mg PO BID [facility] Last Admin: 01/27/20 09:06 Dose: 400 mg Documented by: Metoclopramide HCl (Reglan -) 5 mg PO TIDAC [facility] Last Admin: 01/27/20 10:40 Dose: 5 mg Documented by: Multivitamins/Minerals/Vitamin C (Tab-A-Vit -) 1 tab PO DAILY [facility] Last Admin: 01/27/20 09:05 Dose: 1 tab Documented by: Nadolol (Corgard -) 20 mg PO DAILY [facility] Last Admin: 01/27/20 09:05 Dose: 20 mg Documented by: Pantoprazole Sodium (Protonix -) 40 mg PO DAILY [facility] Last Admin: 01/27/20 09:05 Dose: 40 mg Documented by: Potassium Chloride (K-Dur -) 40 meq PO DAILY [facility] Last Admin: 01/27/20 09:05 Dose: 40 meq Documented by: Spironolactone (Aldactone -) 100 mg PO BID [facility] Last Admin: 01/27/20 09:06 Dose: 100 mg Documented by: Thiamine HCl (Vitamin B1 -) 100 mg PO DAILY [facility] Last Admin: 01/27/20 09:06 Dose: 100 mg Documented by: - Objective Vital Signs: Vital Signs Temperature 98.8 F 01/27/20 09:00 Pulse Rate 96 H 01/27/20 09:00 Respiratory Rate 20 01/27/20 09:00 Blood Pressure 135/73 01/27/20 09:00 O2 Sat by Pulse Oximetry (%) 100 01/27/20 09:00 Eyes: Yes: WNL, Conjunctiva Clear, EOM Intact HENT: Yes: WNL, Atraumatic, Normocephalic Neck: Yes: WNL, Supple, Trachea Midline Cardiovascular: Yes: WNL, Regular Rate and Rhythm Respiratory: Yes: WNL, Regular, CTA Bilaterally Gastrointestinal: Yes: WNL, Normal Bowel Sounds Genitourinary: Yes: WNL Musculoskeletal: Yes: WNL Extremities: Yes: WNL Edema: Yes Integumentary: Yes: WNL Neurological: Yes: WNL, Alert, Oriented ...Motor Strength: WNL Psychiatric: Yes: WNL Labs: CBC, BMP 01/24/20 05:35 01/27/20 07:27 INR, PTT INR 1.79 (0.83-1.09) H 01/13/20 18:45 Problem List - Problems (1) HERI (acute kidney injury) Code(s): N17.9 - ACUTE KIDNEY FAILURE, UNSPECIFIED (2) Alcoholic cirrhosis Code(s): K70.30 - ALCOHOLIC CIRRHOSIS OF LIVER WITHOUT ASCITES (3) Anemia Code(s): D64.9 - ANEMIA, UNSPECIFIED (4) Hepatocellular injury Code(s): K76.9 - LIVER DISEASE, UNSPECIFIED (5) Hyperammonemia Code(s): E72.20 - DISORDER OF UREA CYCLE METABOLISM, UNSPECIFIED (6) Leg cramping Code(s): R25.2 - CRAMP AND SPASM (7) Liver cirrhosis Code(s): K74.60 - UNSPECIFIED CIRRHOSIS OF LIVER (8) Morbid obesity Code(s): E66.01 - MORBID (SEVERE) OBESITY DUE TO EXCESS CALORIES (9) Nausea & vomiting Code(s): R11.2 - NAUSEA WITH VOMITING, UNSPECIFIED (10) Rhabdomyolysis Code(s): M62.82 - RHABDOMYOLYSIS (11) Transaminitis Code(s): R74.0 - NONSPEC ELEV OF LEVELS OF TRANSAMNS & LACTIC ACID DEHYDRGNSE (12) Vomiting Code(s): R11.10 - VOMITING, UNSPECIFIED (13) Alcohol dependence Code(s): F10.20 - ALCOHOL DEPENDENCE, UNCOMPLICATED (14) Alcohol dependence with uncomplicated withdrawal Code(s): F10.230 - ALCOHOL DEPENDENCE WITH WITHDRAWAL, UNCOMPLICATED (15) Alcoholic cirrhosis Code(s): K70.30 - ALCOHOLIC CIRRHOSIS OF LIVER WITHOUT ASCITES (16) Alcoholic hepatitis with ascites Code(s): K70.11 - ALCOHOLIC HEPATITIS WITH ASCITES (17) Atypical chest pain Code(s): R07.89 - OTHER CHEST PAIN (18) Back pain Code(s): M54.9 - DORSALGIA, UNSPECIFIED Qualifiers: Back pain location: low back pain Chronicity: unspecified Back pain laterality: unspecified Sciatica presence: unspecified whether sciatica present Qualified Code(s): M54.5 - Low back pain (19) CAD (coronary artery disease) Code(s): I25.10 - ATHSCL HEART DISEASE OF [place] CORONARY ARTERY W/O ANG PCTRS (20) Common cold virus Code(s): J00 - ACUTE NASOPHARYNGITIS [COMMON COLD] (21) Elevated LFTs Code(s): R79.89 - OTHER SPECIFIED ABNORMAL FINDINGS OF BLOOD CHEMISTRY (22) GI bleed Code(s): K92.2 - GASTROINTESTINAL HEMORRHAGE, UNSPECIFIED Qualifiers: GI bleed type/associated pathology: unspecified gastrointestinal hemorrhage type Qualified Code(s): K92.2 - Gastrointestinal hemorrhage, unspecified (23) Groin pain Code(s): R10.30 - LOWER ABDOMINAL PAIN, UNSPECIFIED (24) HLD (hyperlipidemia) Code(s): E78.5 - HYPERLIPIDEMIA, UNSPECIFIED (25) Hematemesis Code(s): K92.0 - HEMATEMESIS (26) Hepatic failure due to alcoholism Code(s): K70.40 - ALCOHOLIC HEPATIC FAILURE WITHOUT COMA (27) Hyperbilirubinemia Code(s): E80.6 - OTHER DISORDERS OF BILIRUBIN METABOLISM (28) Hypokalemia Code(s): E87.6 - HYPOKALEMIA (29) Insomnia Code(s): G47.00 - INSOMNIA, UNSPECIFIED (30) Jaundice Code(s): R17 - UNSPECIFIED JAUNDICE (31) Knee sprain Code(s): S83.90XA - SPRAIN OF UNSPECIFIED SITE OF UNSPECIFIED KNEE, INIT ENCNTR Qualifiers: Encounter type: initial encounter Involved ligament of knee: unspecified ligament Laterality: left Qualified Code(s): S83.92XA - Sprain of unspecified site of left knee, initial encounter (32) NSTEMI (non-ST elevated myocardial infarction) Code(s): I21.4 - NON-ST ELEVATION (NSTEMI) MYOCARDIAL INFARCTION (33) Syncope Code(s): R55 - SYNCOPE AND COLLAPSE (34) Acid reflux Code(s): K21.9 - GASTRO-ESOPHAGEAL REFLUX DISEASE WITHOUT ESOPHAGITIS Qualifiers: Esophagitis presence: esophagitis presence not specified Qualified Code(s): K21.9 - Gastro-esophageal reflux disease without esophagitis (35) HLD (hyperlipidemia) Code(s): E78.5 - HYPERLIPIDEMIA, UNSPECIFIED Qualifiers: Hyperlipidemia type: unspecified Qualified Code(s): E78.5 - Hyperlipidemia, unspecified (36) Hypertension Code(s): I10 - ESSENTIAL (PRIMARY) HYPERTENSION Qualifiers: Hypertension type: essential hypertension Qualified Code(s): I10 - Essential (primary) hypertension (37) Depression (emotion) Code(s): F32.9 - MAJOR DEPRESSIVE DISORDER, SINGLE EPISODE, UNSPECIFIED Qualifiers: Depression Type: unspecified Qualified Code(s): F32.9 - Major depressive disorder, single episode, unspecified (38) History of coronary artery stent placement Code(s): Z95.5 - PRESENCE OF CORONARY ANGIOPLASTY IMPLANT AND GRAFT Assessment/Plan 1. CAD post CABG with evidence of demand ischemic injury angina pectoris 2. Diastolic LV dysfunction with clinical class 0 NYHA classification LV failure 3. HTN 4. Dyslipidemia 5. Evidence of acute hepatitis; etiology to be determined 6. Acute renal insufficiency/failure 7. Rhabdomyolysis: improving 8. Anemia 9. Morbid obesity 10. Marked electrolyte depletion 11. prolonged QTc Rec: Replete all electrolytes. Ideally, keep K 4.0-4.5, Mg 2.0-2.4, PO4 2.5-4.9. EKG; f/u QTc. f/u CK On nadolol, spironolactone, furosemide. F/u Is and Os; BUn/Cr, electrolytes, daily weight.
--- NOTE | 2020-01-27 11:52 | PN ---
Progress Note, Physician History of Present Illness: Pt seen and examined at bedside. He is awake and alert. He feels that edema is starting to improve. - Current Medication List Current Medications: Active Medications Diphenhydramine HCl (Benadryl -) 50 mg PO HS PRN PRN Reason: INSOMNIA Last Admin: 01/26/20 21:08 Dose: 50 mg Documented by: Furosemide (Lasix Injection -) 80 mg IVPUSH BID@0600,1400 [facility] Last Admin: 01/27/20 06:00 Dose: 80 mg Documented by: Lactulose (Cephulac (Oral Use)) 20 gm PO DAILY [facility] Last Admin: 01/27/20 09:05 Dose: 20 gm Documented by: Magnesium Oxide (Mag-Ox -) 400 mg PO BID [facility] Last Admin: 01/27/20 09:06 Dose: 400 mg Documented by: Metoclopramide HCl (Reglan -) 5 mg PO TIDAC [facility] Last Admin: 01/27/20 10:40 Dose: 5 mg Documented by: Multivitamins/Minerals/Vitamin C (Tab-A-Vit -) 1 tab PO DAILY [facility] Last Admin: 01/27/20 09:05 Dose: 1 tab Documented by: Nadolol (Corgard -) 20 mg PO DAILY [facility] Last Admin: 01/27/20 09:05 Dose: 20 mg Documented by: Pantoprazole Sodium (Protonix -) 40 mg PO DAILY [facility] Last Admin: 01/27/20 09:05 Dose: 40 mg Documented by: Potassium Chloride (K-Dur -) 40 meq PO DAILY [facility] Last Admin: 01/27/20 09:05 Dose: 40 meq Documented by: Spironolactone (Aldactone -) 100 mg PO BID [facility] Last Admin: 01/27/20 09:06 Dose: 100 mg Documented by: Thiamine HCl (Vitamin B1 -) 100 mg PO DAILY [facility] Last Admin: 01/27/20 09:06 Dose: 100 mg Documented by: - Objective Vital Signs: Vital Signs Temperature 98.8 F 01/27/20 09:00 Pulse Rate 96 H 01/27/20 09:00 Respiratory Rate 20 01/27/20 09:00 Blood Pressure 135/73 01/27/20 09:00 O2 Sat by Pulse Oximetry (%) 100 01/27/20 09:00 Constitutional: Yes: Calm Eyes: Yes: Conjunctiva Clear HENT: Yes: Atraumatic Neck: Yes: Supple Cardiovascular: Yes: S1, S2 Respiratory: Yes: CTA Bilaterally Gastrointestinal: Yes: Soft, Abdomen, Obese Genitourinary: Yes: WNL Musculoskeletal: Yes: WNL Edema: Yes Edema: LLE: 2+, RLE: 2+ Neurological: Yes: Oriented Psychiatric: Yes: Oriented Labs: CBC, BMP 01/24/20 05:35 01/27/20 07:27 INR, PTT INR 1.79 (0.83-1.09) H 01/13/20 18:45 Problem List - Problems (1) HERI (acute kidney injury) Code(s): N17.9 - ACUTE KIDNEY FAILURE, UNSPECIFIED (2) Rhabdomyolysis Code(s): M62.82 - RHABDOMYOLYSIS Assessment/Plan Current Medications Generic Name Dose Route Start Last Admin Trade Name Freq PRN Reason Stop Dose Admin Diphenhydramine HCl 50 mg 01/25/20 21:23 01/26/20 21:08 Benadryl - PO 50 mg HS PRN Administration INSOMNIA Furosemide 80 mg 01/26/20 13:15 01/27/20 06:00 Lasix Injection - IVPUSH 80 mg BID@0600,1400 [facility] Administration Lactulose 20 gm 01/14/20 10:00 01/27/20 09:05 Cephulac (Oral Use) PO 20 gm DAILY [facility] Administration Magnesium Oxide 400 mg 01/21/20 19:30 01/27/20 09:06 Mag-Ox - PO 400 mg BID [facility] Administration Metoclopramide HCl 5 mg 01/20/20 16:30 01/27/20 10:40 Reglan - PO 5 mg TIDAC N[facility] Administration Multivitamins/Minerals/Vitamin C 1 tab 01/14/20 10:00 01/27/20 09:05 Tab-A-Vit - PO 1 tab DAILY [facility] Administration Nadolol 20 mg 01/14/20 10:00 01/27/20 09:05 Corgard - PO 20 mg DAILY [facility] Administration Pantoprazole Sodium 40 mg 01/21/20 10:00 01/27/20 09:05 Protonix - PO 40 mg DAILY [facility] Administration Potassium Chloride 40 meq 01/24/20 14:30 01/27/20 09:05 K-Dur - PO 40 meq DAILY [facility] Administration Spironolactone 100 mg 01/25/20 14:51 01/27/20 09:06 Aldactone - PO 100 mg BID [facility] Administration Thiamine HCl 100 mg 01/14/20 10:00 01/27/20 09:06 Vitamin B1 - PO 100 mg DAILY [facility] Administration Impression 1. HERI 2. nsaid use 3. liver cirrhosis 4. etoh abuse 5. cad 6. hld 7. htn 8. rhabdo 9. volume overload Plan - replace mag - cont to monitor lytes - repeat labs in am - will put lasix back to 60 as bicarb rising - monitor weights - heri likely secondary to rhabdo and nsaids
--- NOTE | 2020-01-27 12:56 | EKG ---
Test Reason : Blood Pressure : / mmHG Vent. Rate : 092 BPM Atrial Rate : 092 BPM P-R Int : 152 ms QRS Dur : 094 ms QT Int : 406 ms P-R-T Axes : 041 033 034 degrees QTc Int : 502 ms NORMAL SINUS RHYTHM PROLONGED QT ABNORMAL ECG WHEN COMPARED WITH ECG OF 25-JAN-2020 15:10, NO SIGNIFICANT CHANGE WAS FOUND Confirmed by MD Marshall Edward ([id number]) on 01/27/2020 12:56:12 PM Referred By: Confirmed By:Nestor Marshall MD
[2020-01-27] MEDS: diphenhydrAMINE HCL 25 MG CAPSULE (FP) PO PRN (21:38)
--- NOTE | 2020-01-27 21:56 | PN ---
Progress Note, Physician History of Present Illness: Pt complains of lump on RLQ - Current Medication List Current Medications: Active Medications Diphenhydramine HCl (Benadryl -) 50 mg PO HS PRN PRN Reason: INSOMNIA Last Admin: 01/27/20 21:38 Dose: 50 mg Documented by: Furosemide (Lasix Injection -) 60 mg IVPUSH BID@0600,1400 [facility] Last Admin: 01/27/20 14:24 Dose: Not Given Documented by: Lactulose (Cephulac (Oral Use)) 20 gm PO DAILY [facility] Last Admin: 01/27/20 09:05 Dose: 20 gm Documented by: Magnesium Oxide (Mag-Ox -) 400 mg PO BID [facility] Last Admin: 01/27/20 21:38 Dose: 400 mg Documented by: Magnesium Sulfate (Magnesium Sulf 2 G/50 Ml Bag) 2 gm IVPB ONCE ONE Stop: 01/27/20 22:01 Last Admin: 01/27/20 21:38 Dose: 2 gm Documented by: Metoclopramide HCl (Reglan -) 5 mg PO TIDAC [facility] Last Admin: 01/27/20 16:02 Dose: 5 mg Documented by: Multivitamins/Minerals/Vitamin C (Tab-A-Vit -) 1 tab PO DAILY [facility] Last Admin: 01/27/20 09:05 Dose: 1 tab Documented by: Nadolol (Corgard -) 20 mg PO DAILY [facility] Last Admin: 01/27/20 09:05 Dose: 20 mg Documented by: Pantoprazole Sodium (Protonix -) 40 mg PO DAILY [facility] Last Admin: 01/27/20 09:05 Dose: 40 mg Documented by: Potassium Chloride (K-Dur -) 40 meq PO DAILY [facility] Last Admin: 01/27/20 09:05 Dose: 40 meq Documented by: Potassium Chloride (Potassium Chloride Oral Liquid) 40 meq PO ONCE ONE Stop: 01/27/20 22:01 Last Admin: 01/27/20 21:38 Dose: 40 meq Documented by: Spironolactone (Aldactone -) 100 mg PO BID [facility] Last Admin: 01/27/20 21:38 Dose: 100 mg Documented by: Thiamine HCl (Vitamin B1 -) 100 mg PO DAILY [facility] Last Admin: 01/27/20 09:06 Dose: 100 mg Documented by: - Objective Vital Signs: Vital Signs Temperature 98.5 F 01/27/20 21:40 Pulse Rate 95 H 01/27/20 21:40 Respiratory Rate 18 01/27/20 21:40 Blood Pressure 126/64 01/27/20 21:40 O2 Sat by Pulse Oximetry (%) 98 01/27/20 21:40 Cardiovascular: Yes: WNL, Regular Rate and Rhythm Respiratory: Yes: WNL, Regular, CTA Bilaterally Gastrointestinal: Yes: WNL, Normal Bowel Sounds, Soft Edema: LLE: 2+, RLE: 2+ Labs: CBC, BMP 01/24/20 05:35 01/27/20 07:27 INR, PTT INR 1.79 (0.83-1.09) H 01/13/20 18:45 Problem List - Problems (1) HERI (acute kidney injury) Assessment/Plan: Resolved ?Due to rhabdo vs acute kidney injury Cont to monitor labs Improved BUN/creatinine Code(s): N17.9 - ACUTE KIDNEY FAILURE, UNSPECIFIED (2) Alcoholic cirrhosis Assessment/Plan: Elevated LFT's are improving Gabapentin dc'ed Cont nadolol Increase ascites Cont IV diuresis LasixIV dose decreased Cont spironolactone Code(s): K70.30 - ALCOHOLIC CIRRHOSIS OF LIVER WITHOUT ASCITES (3) Rhabdomyolysis Assessment/Plan: Decreased cpk Code(s): M62.82 - RHABDOMYOLYSIS (4) Transaminitis Assessment/Plan: Due to alcoholic cirrhosis Improving Code(s): R74.0 - NONSPEC ELEV OF LEVELS OF TRANSAMNS & LACTIC ACID DEHYDRGNSE (5) Vomiting Code(s): R11.10 - VOMITING, UNSPECIFIED (6) HLD (hyperlipidemia) Assessment/Plan: Statin on hold due to elevated LFT's/cirrhosis Code(s): E78.5 - HYPERLIPIDEMIA, UNSPECIFIED (7) Hypertension Assessment/Plan: BP stable Pt is off antihypertensives Code(s): I10 - ESSENTIAL (PRIMARY) HYPERTENSION Qualifiers: Hypertension type: essential hypertension Qualified Code(s): I10 - Essential (primary) hypertension (8) History of coronary artery stent placement Code(s): Z95.5 - PRESENCE OF CORONARY ANGIOPLASTY IMPLANT AND GRAFT (9) Morbid obesity Code(s): E66.01 - MORBID (SEVERE) OBESITY DUE TO EXCESS CALORIES (10) CAD (coronary artery disease) Code(s): I25.10 - ATHSCL HEART DISEASE OF [place] CORONARY ARTERY W/O ANG PCTRS
[2020-01-27] MEDS ORDERED: POTASSIUM CHLORIDE ORAL LIQUID 20 MEQ/15 ML PO ONE (22:00)
[2020-01-28] MEDS: FUROSEMIDE 40 MG/4 ML INJECTABLE VIAL IVPUSH SCH ×2 (06:14→13:38)
[2020-01-28] MEDS: METOCLOPRAMIDE HCL 10 MG TABLET (FP) PO SCH ×3 (06:14→17:29)
[2020-01-28 07:55] LABS: ALBUMIN 2.9 g/dl (3.4-5.0); CALCIUM 8.6 mg/dL (8.5-10.1); CREATININE 1.2 mg/dL (0.55-1.3); MAGNESIUM 2.1 mg/dL (1.8-2.4); POTASSIUM 4.1 mmol/L (3.5-5.1)
[2020-01-28 07:57] LABS: BILIRUBIN,TOTAL 2.3 mg/dL (0.2-1); PHOSPHOROUS 3.1 mg/dL (2.5-4.9); TOT PROT 6.4 g/dl (6.4-8.2)
--- NOTE | 2020-01-28 08:30 | PN ---
Progress Note, Physician History of Present Illness: weakness no new issues - Current Medication List Current Medications: Active Medications Diphenhydramine HCl (Benadryl -) 50 mg PO HS PRN PRN Reason: INSOMNIA Last Admin: 01/27/20 21:38 Dose: 50 mg Documented by: Furosemide (Lasix Injection -) 60 mg IVPUSH BID@0600,1400 [facility] Last Admin: 01/28/20 06:14 Dose: 60 mg Documented by: Lactulose (Cephulac (Oral Use)) 20 gm PO DAILY [facility] Last Admin: 01/27/20 09:05 Dose: 20 gm Documented by: Magnesium Oxide (Mag-Ox -) 400 mg PO BID [facility] Last Admin: 01/27/20 21:38 Dose: 400 mg Documented by: Metoclopramide HCl (Reglan -) 5 mg PO TIDAC [facility] Last Admin: 01/28/20 06:14 Dose: 5 mg Documented by: Multivitamins/Minerals/Vitamin C (Tab-A-Vit -) 1 tab PO DAILY [facility] Last Admin: 01/27/20 09:05 Dose: 1 tab Documented by: Nadolol (Corgard -) 20 mg PO DAILY [facility] Last Admin: 01/27/20 09:05 Dose: 20 mg Documented by: Pantoprazole Sodium (Protonix -) 40 mg PO DAILY [facility] Last Admin: 01/27/20 09:05 Dose: 40 mg Documented by: Potassium Chloride (K-Dur -) 40 meq PO DAILY [facility] Last Admin: 01/27/20 09:05 Dose: 40 meq Documented by: Spironolactone (Aldactone -) 100 mg PO BID [facility] Last Admin: 01/27/20 21:38 Dose: 100 mg Documented by: Thiamine HCl (Vitamin B1 -) 100 mg PO DAILY [facility] Last Admin: 01/27/20 09:06 Dose: 100 mg Documented by: - Objective Vital Signs: Vital Signs Temperature 98.8 F 01/28/20 06:00 Pulse Rate 99 H 01/28/20 06:00 Respiratory Rate 18 01/28/20 06:00 Blood Pressure 131/56 L 01/28/20 06:00 O2 Sat by Pulse Oximetry (%) 98 01/28/20 06:00 Constitutional: Yes: Mild Distress Cardiovascular: Yes: S1, S2 Respiratory: Yes: Regular, CTA Bilaterally Musculoskeletal: Yes: WNL Extremities: Yes: WNL Edema: LLE: 1+, RLE: 1+ Neurological: Yes: Alert, Oriented Psychiatric: Yes: Alert, Oriented Labs: CBC, BMP 01/24/20 05:35 01/28/20 06:42 INR, PTT INR 1.79 (0.83-1.09) H 01/13/20 18:45 Assessment/Plan Problem List - Problems (1) Alcoholic cirrhosis Code(s): K70.30 - ALCOHOLIC CIRRHOSIS OF LIVER WITHOUT ASCITES (2) HERI (acute kidney injury) Code(s): N17.9 - ACUTE KIDNEY FAILURE, UNSPECIFIED (3) Anemia Code(s): D64.9 - ANEMIA, UNSPECIFIED (4) Rhabdomyolysis Code(s): M62.82 - RHABDOMYOLYSIS (5) Transaminitis Code(s): R74.0 - NONSPEC ELEV OF LEVELS OF TRANSAMNS & LACTIC ACID DEHYDRGNSE (6) Vomiting Code(s): R11.10 - VOMITING, UNSPECIFIED (7) CAD (coronary artery disease) Code(s): I25.10 - ATHSCL HEART DISEASE OF [place] CORONARY ARTERY W/O ANG PCTRS (8) HLD (hyperlipidemia) Code(s): E78.5 - HYPERLIPIDEMIA, UNSPECIFIED (9) Hypertension Code(s): I10 - ESSENTIAL (PRIMARY) HYPERTENSION Qualifiers: Hypertension type: essential hypertension Qualified Code(s): I10 - Essential (primary) hypertension (10) History of coronary artery stent placement Code(s): Z95.5 - PRESENCE OF CORONARY ANGIOPLASTY IMPLANT AND GRAFT plan continue current mgmt as per gi close watch rest as per the tem
[2020-01-28] MEDS: SPIRONOLACTONE 25 MG TABLET PO SCH ×2 (09:10→21:29)
[2020-01-28] MEDS: NADOLOL 20 MG TABLET (FP) PO SCH (09:10)
[2020-01-28] MEDS: THIAMINE HCL 100 MG TABLET (FP) PO SCH (09:10)
[2020-01-28] MEDS: POTASSIUM CHLORIDE TABS 20 MEQ TABLET.ER (FP) PO SCH (09:10)
[2020-01-28] MEDS: MULTIVITAMINS (DAILY MVI) TABLET (FP) PO SCH (09:10)
[2020-01-28] MEDS: PANTOPRAZOLE 40 MG TABLET PO SCH (09:10)
[2020-01-28] MEDS: MAGNESIUM OXIDE 400 MG TABLET (FP) PO SCH ×2 (09:11→21:30)
[2020-01-28] MEDS: LACTULOSE 20 GM/30 ML UDC (FOR ORAL USE ONLY) PO SCH (09:11)
[2020-01-28 09:41] VITALS: BMI 37.6
--- NOTE | 2020-01-28 11:44 | PN ---
Progress Note, Physician Chief Complaint: Pt A&Ox3; lying in bed; feels better (calm; no pain; not dyspneic at rest); legs are still swollen, and asks how his abdominal study regarding palpable mass was. History of Present Illness: Mr. Mann is a 55 year old male (b. [place]), with a significant past medical history of hypertension, hyperlipidemia, cirrhosis, GI bleed, CAD s/p coronary stents followed by CABG, morbid obesity, who presents to the ED for further evaluation of elevated LFTs. Pt was seen yesterday for leg pain; labs showed elevated LFTs,but the patient left AMA. Today he returns for further evaluation. No abd pain. C/o nausea. States he saw Dr. Pacheco 2 days ago and had blood in his stool at that time. Pt states he has been taking Motrin for leg and back pain every 4-5 hours. Pt states he also has had a change in his sleep/wake cycle. - Current Medication List Current Medications: Active Medications Diphenhydramine HCl (Benadryl -) 50 mg PO HS PRN PRN Reason: INSOMNIA Last Admin: 01/27/20 21:38 Dose: 50 mg Documented by: Furosemide (Lasix Injection -) 60 mg IVPUSH BID@0600,1400 [facility] Last Admin: 01/28/20 06:14 Dose: 60 mg Documented by: Lactulose (Cephulac (Oral Use)) 20 gm PO DAILY [facility] Last Admin: 01/28/20 09:11 Dose: 20 gm Documented by: Magnesium Oxide (Mag-Ox -) 400 mg PO BID [facility] Last Admin: 01/28/20 09:11 Dose: 400 mg Documented by: Metoclopramide HCl (Reglan -) 5 mg PO TIDAC [facility] Last Admin: 01/28/20 11:09 Dose: 5 mg Documented by: Multivitamins/Minerals/Vitamin C (Tab-A-Vit -) 1 tab PO DAILY [facility] Last Admin: 01/28/20 09:10 Dose: 1 tab Documented by: Nadolol (Corgard -) 20 mg PO DAILY [facility] Last Admin: 01/28/20 09:10 Dose: 20 mg Documented by: Pantoprazole Sodium (Protonix -) 40 mg PO DAILY [facility] Last Admin: 01/28/20 09:10 Dose: 40 mg Documented by: Potassium Chloride (K-Dur -) 40 meq PO DAILY [facility] Last Admin: 01/28/20 09:10 Dose: 40 meq Documented by: Spironolactone (Aldactone -) 100 mg PO BID [facility] Last Admin: 01/28/20 09:10 Dose: 100 mg Documented by: Thiamine HCl (Vitamin B1 -) 100 mg PO DAILY [facility] Last Admin: 01/28/20 09:10 Dose: 100 mg Documented by: - Objective Vital Signs: Vital Signs Temperature 98.9 F 01/28/20 08:44 Pulse Rate 98 H 01/28/20 08:44 Respiratory Rate 18 01/28/20 09:00 Blood Pressure 135/72 01/28/20 08:44 O2 Sat by Pulse Oximetry (%) 99 01/28/20 09:00 Constitutional: Yes: No Distress, Obese Eyes: Yes: WNL Cardiovascular: Yes: S1, S2, S4 Respiratory: Yes: Diminished Gastrointestinal: Yes: Soft, Abdomen, Obese, Palpable Mass (RUQ) ...Rectal Exam: Yes: Deferred Genitourinary: Yes: Anuria Breast(s): Yes: WNL Musculoskeletal: Yes: Back Pain, Joint Stiffness, Joint Swelling, Muscle Weakness Extremities: Yes: Cool Edema: Yes Edema: LLE: 2+, RLE: 2+ Peripheral Pulses WNL: Yes Neurological: Yes: Alert, Oriented, Weakness Psychiatric: Yes: Other (anxeity) Labs: CBC, BMP 01/24/20 05:35 01/28/20 06:42 INR, PTT INR 1.79 (0.83-1.09) H 01/13/20 18:45 - ....Imaging Chest X-ray: Image Reviewed Ultrasound: Image Reviewed EKG: Image Reviewed Assessment/Plan 1. CAD post CABG with evidence of demand ischemic injury angina pectoris 2. Diastolic LV dysfunction with clinical class 0 NYHA classification LV failure 3. HTN 4. Dyslipidemia 5. Evidence of acute hepatitis; etiology to be determined 6. Acute renal insufficiency/failure 7. Rhabdomyolysis: improving 8. Anemia 9. Morbid obesity 10. Marked electrolyte depletion 11. prolonged QTc 12. Abdominal cyst Rec: Maintain electrolytes (normal today); Ideally, keep K 4.0-4.5, Mg 2.0-2.4, PO4 2.5-4.9. EKG; f/u QTc (slight increase to 502 msec). If possible, decrease or stop use of metaclopramide and diphenhydramine. f/u CK On nadolol, spironolactone, furosemide. F/u Is and Os; BUn/Cr, electrolytes, daily weight. F/u abdominal cyst.
--- NOTE | 2020-01-28 13:57 | EKG ---
Test Reason : Blood Pressure : / mmHG Vent. Rate : 086 BPM Atrial Rate : 086 BPM P-R Int : 150 ms QRS Dur : 094 ms QT Int : 394 ms P-R-T Axes : 042 038 050 degrees QTc Int : 471 ms NORMAL SINUS RHYTHM NORMAL ECG WHEN COMPARED WITH ECG OF 27-JAN-2020 10:50, NO SIGNIFICANT CHANGE WAS FOUND Confirmed by CHARITY BATES MD ([id number]) on 01/28/2020 1:57:43 PM Referred By: Confirmed By:CHARITY BATES MD
--- NOTE | 2020-01-28 14:44 | PN ---
Progress Note, Physician History of Present Illness: Pt seen and examined at bedside. He feels that his edema is improving. - Current Medication List Current Medications: Active Medications Diphenhydramine HCl (Benadryl -) 50 mg PO HS PRN PRN Reason: INSOMNIA Last Admin: 01/27/20 21:38 Dose: 50 mg Documented by: Furosemide (Lasix Injection -) 60 mg IVPUSH BID@0600,1400 [facility] Last Admin: 01/28/20 13:38 Dose: 60 mg Documented by: Lactulose (Cephulac (Oral Use)) 20 gm PO DAILY [facility] Last Admin: 01/28/20 09:11 Dose: 20 gm Documented by: Magnesium Oxide (Mag-Ox -) 400 mg PO BID [facility] Last Admin: 01/28/20 09:11 Dose: 400 mg Documented by: Metoclopramide HCl (Reglan -) 5 mg PO TIDAC [facility] Last Admin: 01/28/20 11:09 Dose: 5 mg Documented by: Multivitamins/Minerals/Vitamin C (Tab-A-Vit -) 1 tab PO DAILY [facility] Last Admin: 01/28/20 09:10 Dose: 1 tab Documented by: Nadolol (Corgard -) 20 mg PO DAILY [facility] Last Admin: 01/28/20 09:10 Dose: 20 mg Documented by: Pantoprazole Sodium (Protonix -) 40 mg PO DAILY [facility] Last Admin: 01/28/20 09:10 Dose: 40 mg Documented by: Potassium Chloride (K-Dur -) 40 meq PO DAILY [facility] Last Admin: 01/28/20 09:10 Dose: 40 meq Documented by: Spironolactone (Aldactone -) 100 mg PO BID [facility] Last Admin: 01/28/20 09:10 Dose: 100 mg Documented by: Thiamine HCl (Vitamin B1 -) 100 mg PO DAILY [facility] Last Admin: 01/28/20 09:10 Dose: 100 mg Documented by: - Objective Vital Signs: Vital Signs Temperature 98.6 F 01/28/20 14:20 Pulse Rate 84 01/28/20 14:20 Respiratory Rate 18 01/28/20 14:20 Blood Pressure 130/64 01/28/20 14:20 O2 Sat by Pulse Oximetry (%) 99 01/28/20 09:00 Constitutional: Yes: Calm Eyes: Yes: Conjunctiva Clear HENT: Yes: Atraumatic Neck: Yes: Supple Cardiovascular: Yes: S1, S2 Respiratory: Yes: CTA Bilaterally Gastrointestinal: Yes: Soft, Abdomen, Obese Genitourinary: Yes: WNL Musculoskeletal: Yes: WNL Edema: Yes Edema: LLE: 2+, RLE: 2+ Neurological: Yes: Oriented Psychiatric: Yes: Oriented Labs: CBC, BMP 01/24/20 05:35 01/28/20 06:42 INR, PTT INR 1.79 (0.83-1.09) H 01/13/20 18:45 Problem List - Problems (1) HERI (acute kidney injury) Code(s): N17.9 - ACUTE KIDNEY FAILURE, UNSPECIFIED (2) Rhabdomyolysis Code(s): M62.82 - RHABDOMYOLYSIS Assessment/Plan Current Medications Generic Name Dose Route Start Last Admin Trade Name Freq PRN Reason Stop Dose Admin Diphenhydramine HCl 50 mg 01/25/20 21:23 01/27/20 21:38 Benadryl - PO 50 mg HS PRN Administration INSOMNIA Furosemide 60 mg 01/27/20 12:15 01/28/20 13:38 Lasix Injection - IVPUSH 60 mg BID@0600,1400 [facility] Administration Lactulose 20 gm 01/14/20 10:00 01/28/20 09:11 Cephulac (Oral Use) PO 20 gm DAILY [facility] Administration Magnesium Oxide 400 mg 01/21/20 19:30 01/28/20 09:11 Mag-Ox - PO 400 mg BID [facility] Administration Metoclopramide HCl 5 mg 01/20/20 16:30 01/28/20 11:09 Reglan - PO 5 mg TIDAC [facility] Administration Multivitamins/Minerals/Vitamin C 1 tab 01/14/20 10:00 01/28/20 09:10 Tab-A-Vit - PO 1 tab DAILY [facility] Administration Nadolol 20 mg 01/14/20 10:00 01/28/20 09:10 Corgard - PO 20 mg DAILY [facility] Administration Pantoprazole Sodium 40 mg 01/21/20 10:00 01/28/20 09:10 Protonix - PO 40 mg DAILY [facility] Administration Potassium Chloride 40 meq 01/24/20 14:30 01/28/20 09:10 K-Dur - PO 40 meq DAILY [facility] Administration Spironolactone 100 mg 01/25/20 14:51 01/28/20 09:10 Aldactone - PO 100 mg BID [facility] Administration Thiamine HCl 100 mg 01/14/20 10:00 01/28/20 09:10 Vitamin B1 - PO 100 mg DAILY [facility] Administration Impression 1. HERI 2. nsaid use 3. liver cirrhosis 4. etoh abuse 5. cad 6. hld 7. htn 8. rhabdo 9. volume overload Plan - cont lasix - cont aldactone - lytes stable - cont supplements - pt has lost about 20 pound so far - repeat labs in am - heri likely secondary to rhabdo and nsaids
--- NOTE | 2020-01-28 17:42 | PN ---
Progress Note, Physician History of Present Illness: no complaints - Current Medication List Current Medications: Active Medications Diphenhydramine HCl (Benadryl -) 50 mg PO HS PRN PRN Reason: INSOMNIA Last Admin: 01/27/20 21:38 Dose: 50 mg Documented by: Furosemide (Lasix Injection -) 60 mg IVPUSH BID@0600,1400 [facility] Last Admin: 01/28/20 13:38 Dose: 60 mg Documented by: Lactulose (Cephulac (Oral Use)) 20 gm PO DAILY [facility] Last Admin: 01/28/20 09:11 Dose: 20 gm Documented by: Magnesium Oxide (Mag-Ox -) 400 mg PO BID [facility] Last Admin: 01/28/20 09:11 Dose: 400 mg Documented by: Metoclopramide HCl (Reglan -) 5 mg PO TIDAC [facility] Last Admin: 01/28/20 17:29 Dose: 5 mg Documented by: Multivitamins/Minerals/Vitamin C (Tab-A-Vit -) 1 tab PO DAILY [facility] Last Admin: 01/28/20 09:10 Dose: 1 tab Documented by: Nadolol (Corgard -) 20 mg PO DAILY [facility] Last Admin: 01/28/20 09:10 Dose: 20 mg Documented by: Pantoprazole Sodium (Protonix -) 40 mg PO DAILY [facility] Last Admin: 01/28/20 09:10 Dose: 40 mg Documented by: Potassium Chloride (K-Dur -) 40 meq PO DAILY [facility] Last Admin: 01/28/20 09:10 Dose: 40 meq Documented by: Spironolactone (Aldactone -) 100 mg PO BID [facility] Last Admin: 01/28/20 09:10 Dose: 100 mg Documented by: Thiamine HCl (Vitamin B1 -) 100 mg PO DAILY [facility] Last Admin: 01/28/20 09:10 Dose: 100 mg Documented by: - Objective Vital Signs: Vital Signs Temperature 98.6 F 01/28/20 14:20 Pulse Rate 84 01/28/20 14:20 Respiratory Rate 18 01/28/20 14:20 Blood Pressure 130/64 01/28/20 14:20 O2 Sat by Pulse Oximetry (%) 99 01/28/20 09:00 Constitutional: Yes: No Distress HENT: Yes: Atraumatic Neck: Yes: Supple Cardiovascular: Yes: Regular Rate and Rhythm Respiratory: Yes: Rhonchi Gastrointestinal: Yes: Normal Bowel Sounds Extremities: Yes: WNL Edema: Yes Edema: LLE: 1+, RLE: 1+ Neurological: Yes: Alert, Oriented Labs: CBC, BMP 01/24/20 05:35 01/28/20 06:42 INR, PTT INR 1.79 (0.83-1.09) H 01/13/20 18:45 Problem List - Problems (1) HERI (acute kidney injury) Assessment/Plan: ON IVF MONITOR CR RENAL ON BOARD Code(s): N17.9 - ACUTE KIDNEY FAILURE, UNSPECIFIED (2) Alcoholic cirrhosis Assessment/Plan: monitor lfts gi on board Code(s): K70.30 - ALCOHOLIC CIRRHOSIS OF LIVER WITHOUT ASCITES (3) Liver cirrhosis Code(s): K74.60 - UNSPECIFIED CIRRHOSIS OF LIVER (4) Rhabdomyolysis Assessment/Plan: IVF MONITOR CPK trended down Code(s): M62.82 - RHABDOMYOLYSIS (5) Transaminitis Assessment/Plan: MONITOR ETOH RELATED Code(s): R74.0 - NONSPEC ELEV OF LEVELS OF TRANSAMNS & LACTIC * DO NOT USE * (6) Alcohol dependence Code(s): F10.20 - ALCOHOL DEPENDENCE, UNCOMPLICATED (7) HLD (hyperlipidemia) Code(s): E78.5 - HYPERLIPIDEMIA, UNSPECIFIED (8) Hypertension Assessment/Plan: MONITOR on meds Code(s): I10 - ESSENTIAL (PRIMARY) HYPERTENSION Qualifiers: Hypertension type: essential hypertension Qualified Code(s): I10 - Essential (primary) hypertension (9) Anemia Assessment/Plan: STOOL OCCULT BLOOD ORDERED MONITOR CBC Code(s): D64.9 - ANEMIA, UNSPECIFIED (10) Morbid obesity Assessment/Plan: replace and monitor Code(s): E66.01 - MORBID (SEVERE) OBESITY DUE TO EXCESS CALORIES (11) CHF (congestive heart failure) Assessment/Plan: iv lasix and other meds per cardiology Code(s): I50.9 - HEART FAILURE, UNSPECIFIED Assessment/Plan COVERING FOR DR SKIP CALDERA
[2020-01-28] MEDS: diphenhydrAMINE HCL 25 MG CAPSULE (FP) PO PRN (21:36)
[2020-01-29] MEDS: FUROSEMIDE 40 MG/4 ML INJECTABLE VIAL IVPUSH SCH ×2 (06:12→14:29)
[2020-01-29] MEDS: METOCLOPRAMIDE HCL 10 MG TABLET (FP) PO SCH ×3 (06:12→16:56)
[2020-01-29 08:51] LABS: ALBUMIN 2.9 g/dl (3.4-5.0); BILIRUBIN,TOTAL 2.4 mg/dL (0.2-1); BLOOD UREA NITROGEN 13.5 mg/dL (7-18); CALCIUM 8.6 mg/dL (8.5-10.1); CREATININE 1.2 mg/dL (0.55-1.3); MAGNESIUM 1.7 mg/dL (1.8-2.4); POTASSIUM 3.5 mmol/L (3.5-5.1); TOT PROT 6.6 g/dl (6.4-8.2)
--- NOTE | 2020-01-29 09:31 | PN ---
Progress Note, Physician History of Present Illness: Mr. Mann is a 55 year old male (b. [place]), with a significant past medical history of hypertension, hyperlipidemia, cirrhosis, GI bleed, CAD s/p coronary stents followed by CABG, morbid obesity, who presents to the ED for further evaluation of elevated LFTs. Pt was seen yesterday for leg pain; labs showed elevated LFTs,but the patient left AMA. Today he returns for further evaluation. No abd pain. C/o nausea. States he saw Dr. Pacheco 2 days ago and had blood in his stool at that time. Pt states he has been taking Motrin for leg and back pain every 4-5 hours. Pt states he also has had a change in his sleep/wake cycle. - Current Medication List Current Medications: Active Medications Diphenhydramine HCl (Benadryl -) 50 mg PO HS PRN PRN Reason: INSOMNIA Last Admin: 01/28/20 21:36 Dose: 50 mg Documented by: Furosemide (Lasix Injection -) 60 mg IVPUSH BID@0600,1400 [facility] Last Admin: 01/29/20 06:12 Dose: 60 mg Documented by: Lactulose (Cephulac (Oral Use)) 20 gm PO DAILY [facility] Last Admin: 01/28/20 09:11 Dose: 20 gm Documented by: Magnesium Oxide (Mag-Ox -) 400 mg PO BID [facility] Last Admin: 01/28/20 21:30 Dose: 400 mg Documented by: Metoclopramide HCl (Reglan -) 5 mg PO TIDAC [facility] Last Admin: 01/29/20 06:12 Dose: 5 mg Documented by: Multivitamins/Minerals/Vitamin C (Tab-A-Vit -) 1 tab PO DAILY [facility] Last Admin: 01/28/20 09:10 Dose: 1 tab Documented by: Nadolol (Corgard -) 20 mg PO DAILY [facility] Last Admin: 01/28/20 09:10 Dose: 20 mg Documented by: Pantoprazole Sodium (Protonix -) 40 mg PO DAILY [facility] Last Admin: 01/28/20 09:10 Dose: 40 mg Documented by: Potassium Chloride (K-Dur -) 40 meq PO DAILY [facility] Last Admin: 01/28/20 09:10 Dose: 40 meq Documented by: Spironolactone (Aldactone -) 100 mg PO BID [facility] Last Admin: 01/28/20 21:29 Dose: 100 mg Documented by: Thiamine HCl (Vitamin B1 -) 100 mg PO DAILY [facility] Last Admin: 01/28/20 09:10 Dose: 100 mg Documented by: - Objective Vital Signs: Vital Signs Temperature 98.9 F 01/29/20 06:00 Pulse Rate 96 H 01/29/20 06:00 Respiratory Rate 18 01/28/20 22:00 Blood Pressure 149/77 01/29/20 06:00 O2 Sat by Pulse Oximetry (%) 100 01/29/20 06:00 Eyes: Yes: WNL, Conjunctiva Clear, EOM Intact HENT: Yes: WNL, Atraumatic, Normocephalic Neck: Yes: WNL, Supple, Trachea Midline Cardiovascular: Yes: WNL, Regular Rate and Rhythm Respiratory: Yes: WNL, Regular, CTA Bilaterally Gastrointestinal: Yes: WNL, Normal Bowel Sounds Genitourinary: Yes: WNL Musculoskeletal: Yes: WNL Extremities: Yes: WNL Edema: Yes Integumentary: Yes: WNL Neurological: Yes: WNL, Alert, Oriented ...Motor Strength: WNL Psychiatric: Yes: WNL Labs: CBC, BMP 01/24/20 05:35 01/29/20 06:59 INR, PTT INR 1.79 (0.83-1.09) H 01/13/20 18:45 Problem List - Problems (1) HERI (acute kidney injury) Code(s): N17.9 - ACUTE KIDNEY FAILURE, UNSPECIFIED (2) Alcoholic cirrhosis Code(s): K70.30 - ALCOHOLIC CIRRHOSIS OF LIVER WITHOUT ASCITES (3) Anemia Code(s): D64.9 - ANEMIA, UNSPECIFIED (4) Hepatocellular injury Code(s): K76.9 - LIVER DISEASE, UNSPECIFIED (5) Hyperammonemia Code(s): E72.20 - DISORDER OF UREA CYCLE METABOLISM, UNSPECIFIED (6) Leg cramping Code(s): R25.2 - CRAMP AND SPASM (7) Liver cirrhosis Code(s): K74.60 - UNSPECIFIED CIRRHOSIS OF LIVER (8) Morbid obesity Code(s): E66.01 - MORBID (SEVERE) OBESITY DUE TO EXCESS CALORIES (9) Nausea & vomiting Code(s): R11.2 - NAUSEA WITH VOMITING, UNSPECIFIED (10) Rhabdomyolysis Code(s): M62.82 - RHABDOMYOLYSIS (11) Transaminitis Code(s): R74.0 - NONSPEC ELEV OF LEVELS OF TRANSAMNS & LACTIC * DO NOT USE * (12) Vomiting Code(s): R11.10 - VOMITING, UNSPECIFIED (13) Alcohol dependence Code(s): F10.20 - ALCOHOL DEPENDENCE, UNCOMPLICATED (14) Alcohol dependence with uncomplicated withdrawal Code(s): F10.230 - ALCOHOL DEPENDENCE WITH WITHDRAWAL, UNCOMPLICATED (15) Alcoholic cirrhosis Code(s): K70.30 - ALCOHOLIC CIRRHOSIS OF LIVER WITHOUT ASCITES (16) Alcoholic hepatitis with ascites Code(s): K70.11 - ALCOHOLIC HEPATITIS WITH ASCITES (17) Atypical chest pain Code(s): R07.89 - OTHER CHEST PAIN (18) Back pain Code(s): M54.9 - DORSALGIA, UNSPECIFIED Qualifiers: Back pain location: low back pain Chronicity: unspecified Back pain laterality: unspecified Sciatica presence: unspecified whether sciatica present Qualified Code(s): M54.5 - Low back pain (19) CAD (coronary artery disease) Code(s): I25.10 - ATHSCL HEART DISEASE OF [place] CORONARY ARTERY W/O ANG PCTRS (20) Common cold virus Code(s): J00 - ACUTE NASOPHARYNGITIS [COMMON COLD] (21) Elevated LFTs Code(s): R79.89 - OTHER SPECIFIED ABNORMAL FINDINGS OF BLOOD CHEMISTRY (22) GI bleed Code(s): K92.2 - GASTROINTESTINAL HEMORRHAGE, UNSPECIFIED Qualifiers: GI bleed type/associated pathology: unspecified gastrointestinal hemorrhage type Qualified Code(s): K92.2 - Gastrointestinal hemorrhage, unspecified (23) Groin pain Code(s): R10.30 - LOWER ABDOMINAL PAIN, UNSPECIFIED (24) HLD (hyperlipidemia) Code(s): E78.5 - HYPERLIPIDEMIA, UNSPECIFIED (25) Hematemesis Code(s): K92.0 - HEMATEMESIS (26) Hepatic failure due to alcoholism Code(s): K70.40 - ALCOHOLIC HEPATIC FAILURE WITHOUT COMA (27) Hyperbilirubinemia Code(s): E80.6 - OTHER DISORDERS OF BILIRUBIN METABOLISM (28) Hypokalemia Code(s): E87.6 - HYPOKALEMIA (29) Insomnia Code(s): G47.00 - INSOMNIA, UNSPECIFIED (30) Jaundice Code(s): R17 - UNSPECIFIED JAUNDICE (31) Knee sprain Code(s): S83.90XA - SPRAIN OF UNSPECIFIED SITE OF UNSPECIFIED KNEE, INIT ENCNTR Qualifiers: Encounter type: initial encounter Involved ligament of knee: unspecified ligament Laterality: left Qualified Code(s): S83.92XA - Sprain of unspecified site of left knee, initial encounter (32) NSTEMI (non-ST elevated myocardial infarction) Code(s): I21.4 - NON-ST ELEVATION (NSTEMI) MYOCARDIAL INFARCTION (33) Syncope Code(s): R55 - SYNCOPE AND COLLAPSE (34) Acid reflux Code(s): K21.9 - GASTRO-ESOPHAGEAL REFLUX DISEASE WITHOUT ESOPHAGITIS Qualifiers: Esophagitis presence: esophagitis presence not specified Qualified Code(s): K21.9 - Gastro-esophageal reflux disease without esophagitis (35) HLD (hyperlipidemia) Code(s): E78.5 - HYPERLIPIDEMIA, UNSPECIFIED Qualifiers: Hyperlipidemia type: unspecified Qualified Code(s): E78.5 - Hyperlipidemia, unspecified (36) Hypertension Code(s): I10 - ESSENTIAL (PRIMARY) HYPERTENSION Qualifiers: Hypertension type: essential hypertension Qualified Code(s): I10 - Essential (primary) hypertension (37) Depression (emotion) Code(s): F32.9 - MAJOR DEPRESSIVE DISORDER, SINGLE EPISODE, UNSPECIFIED Qualifiers: Depression Type: unspecified Qualified Code(s): F32.9 - Major depressive disorder, single episode, unspecified (38) History of coronary artery stent placement Code(s): Z95.5 - PRESENCE OF CORONARY ANGIOPLASTY IMPLANT AND GRAFT Assessment/Plan 1. CAD post CABG with evidence of demand ischemic injury angina pectoris 2. Diastolic LV dysfunction with clinical class 0 NYHA classification LV failure 3. HTN 4. Dyslipidemia 5. Evidence of acute hepatitis; etiology to be determined 6. Acute renal insufficiency/failure 7. Rhabdomyolysis: improving 8. Anemia 9. Morbid obesity 10. Marked electrolyte depletion 11. prolonged QTc 12. Abdominal cyst Rec: Maintain electrolytes (normal today); Ideally, keep K 4.0-4.5, Mg 2.0-2.4, PO4 2.5-4.9. EKG; f/u QTc (slight increase to 502 msec). If possible, decrease or stop use of metaclopramide and diphenhydramine. f/u CK On nadolol, spironolactone, furosemide. F/u Is and Os; BUn/Cr, electrolytes, daily weight. F/u abdominal cyst.
[2020-01-29] MEDS: SPIRONOLACTONE 25 MG TABLET PO SCH ×2 (09:40→22:33)
[2020-01-29] MEDS: NADOLOL 20 MG TABLET (FP) PO SCH (09:40)
[2020-01-29] MEDS: MAGNESIUM OXIDE 400 MG TABLET (FP) PO SCH ×2 (09:40→22:33)
[2020-01-29] MEDS: PANTOPRAZOLE 40 MG TABLET PO SCH (09:40)
[2020-01-29] MEDS: THIAMINE HCL 100 MG TABLET (FP) PO SCH (09:40)
[2020-01-29] MEDS: LACTULOSE 20 GM/30 ML UDC (FOR ORAL USE ONLY) PO SCH (09:40)
[2020-01-29] MEDS: MULTIVITAMINS (DAILY MVI) TABLET (FP) PO SCH (09:40)
[2020-01-29] MEDS: POTASSIUM CHLORIDE TABS 20 MEQ TABLET.ER (FP) PO SCH (09:47)
--- NOTE | 2020-01-29 10:29 | EKG ---
Test Reason : Blood Pressure : / mmHG Vent. Rate : 092 BPM Atrial Rate : 092 BPM P-R Int : 146 ms QRS Dur : 096 ms QT Int : 390 ms P-R-T Axes : 053 044 053 degrees QTc Int : 482 ms NORMAL SINUS RHYTHM PROLONGED QT ABNORMAL ECG Confirmed by NIRAJ FLOR MD ([id number]) on 01/29/2020 10:28:48 AM Referred By: Confirmed By:NIRAJ FLOR MD
--- NOTE | 2020-01-29 10:29 | PN ---
Progress Note, Physician History of Present Illness: stable liver enzymes trending down - Current Medication List Current Medications: Active Medications Diphenhydramine HCl (Benadryl -) 50 mg PO HS PRN PRN Reason: INSOMNIA Last Admin: 01/28/20 21:36 Dose: 50 mg Documented by: Furosemide (Lasix Injection -) 60 mg IVPUSH BID@0600,1400 [facility] Last Admin: 01/29/20 06:12 Dose: 60 mg Documented by: Lactulose (Cephulac (Oral Use)) 20 gm PO DAILY [facility] Last Admin: 01/29/20 09:40 Dose: 20 gm Documented by: Magnesium Oxide (Mag-Ox -) 400 mg PO BID [facility] Last Admin: 01/29/20 09:40 Dose: 400 mg Documented by: Metoclopramide HCl (Reglan -) 5 mg PO TIDAC [facility] Last Admin: 01/29/20 06:12 Dose: 5 mg Documented by: Multivitamins/Minerals/Vitamin C (Tab-A-Vit -) 1 tab PO DAILY [facility] Last Admin: 01/29/20 09:40 Dose: 1 tab Documented by: Nadolol (Corgard -) 20 mg PO DAILY [facility] Last Admin: 01/29/20 09:40 Dose: 20 mg Documented by: Pantoprazole Sodium (Protonix -) 40 mg PO DAILY [facility] Last Admin: 01/29/20 09:40 Dose: 40 mg Documented by: Potassium Chloride (K-Dur -) 40 meq PO DAILY [facility] Last Admin: 01/29/20 09:47 Dose: 40 meq Documented by: Spironolactone (Aldactone -) 100 mg PO BID [facility] Last Admin: 01/29/20 09:40 Dose: 100 mg Documented by: Thiamine HCl (Vitamin B1 -) 100 mg PO DAILY [facility] Last Admin: 01/29/20 09:40 Dose: 100 mg Documented by: - Objective Vital Signs: Vital Signs Temperature 98.9 F 01/29/20 06:00 Pulse Rate 96 H 01/29/20 06:00 Respiratory Rate 18 01/28/20 22:00 Blood Pressure 149/77 01/29/20 06:00 O2 Sat by Pulse Oximetry (%) 100 01/29/20 06:00 Constitutional: Yes: No Distress, Calm Cardiovascular: Yes: S1, S2 Musculoskeletal: Yes: WNL Extremities: Yes: Other Edema: LLE: 2+, RLE: 2+ Neurological: Yes: Alert, Oriented Psychiatric: Yes: Alert, Oriented Labs: CBC, BMP 01/24/20 05:35 01/29/20 06:59 INR, PTT INR 1.79 (0.83-1.09) H 01/13/20 18:45 Assessment/Plan Problem List - Problems (1) Alcoholic cirrhosis Code(s): K70.30 - ALCOHOLIC CIRRHOSIS OF LIVER WITHOUT ASCITES (2) HERI (acute kidney injury) Code(s): N17.9 - ACUTE KIDNEY FAILURE, UNSPECIFIED (3) Anemia Code(s): D64.9 - ANEMIA, UNSPECIFIED (4) Rhabdomyolysis Code(s): M62.82 - RHABDOMYOLYSIS (5) Transaminitis Code(s): R74.0 - NONSPEC ELEV OF LEVELS OF TRANSAMNS & LACTIC ACID DEHYDRGNSE (6) Vomiting Code(s): R11.10 - VOMITING, UNSPECIFIED (7) CAD (coronary artery disease) Code(s): I25.10 - ATHSCL HEART DISEASE OF [place] CORONARY ARTERY W/O ANG PCTRS (8) HLD (hyperlipidemia) Code(s): E78.5 - HYPERLIPIDEMIA, UNSPECIFIED (9) Hypertension Code(s): I10 - ESSENTIAL (PRIMARY) HYPERTENSION Qualifiers: Hypertension type: essential hypertension Qualified Code(s): I10 - Essential (primary) hypertension (10) History of coronary artery stent placement Code(s): Z95.5 - PRESENCE OF CORONARY ANGIOPLASTY IMPLANT AND GRAFT plan continue current mgmt as per gi close watch rest as per the tem
[2020-01-29] MEDS ORDERED: MAGNESIUM 2GM/50ML STERILE WATER IVPB IVPB ONE (13:49)
--- NOTE | 2020-01-29 13:49 | PN ---
Progress Note, Physician History of Present Illness: Pt seen and examined at bedside. He is awake and alert. he feels that edema is improving. He is able to ambulate without shortness of breath. - Current Medication List Current Medications: Active Medications Diphenhydramine HCl (Benadryl -) 50 mg PO HS PRN PRN Reason: INSOMNIA Last Admin: 01/28/20 21:36 Dose: 50 mg Documented by: Furosemide (Lasix Injection -) 60 mg IVPUSH BID@0600,1400 [facility] Last Admin: 01/29/20 06:12 Dose: 60 mg Documented by: Lactulose (Cephulac (Oral Use)) 20 gm PO DAILY [facility] Last Admin: 01/29/20 09:40 Dose: 20 gm Documented by: Magnesium Oxide (Mag-Ox -) 400 mg PO BID [facility] Last Admin: 01/29/20 09:40 Dose: 400 mg Documented by: Metoclopramide HCl (Reglan -) 5 mg PO TIDAC [facility] Last Admin: 01/29/20 12:06 Dose: 5 mg Documented by: Multivitamins/Minerals/Vitamin C (Tab-A-Vit -) 1 tab PO DAILY [facility] Last Admin: 01/29/20 09:40 Dose: 1 tab Documented by: Nadolol (Corgard -) 20 mg PO DAILY [facility] Last Admin: 01/29/20 09:40 Dose: 20 mg Documented by: Pantoprazole Sodium (Protonix -) 40 mg PO DAILY [facility] Last Admin: 01/29/20 09:40 Dose: 40 mg Documented by: Potassium Chloride (K-Dur -) 40 meq PO DAILY [facility] Last Admin: 01/29/20 09:47 Dose: 40 meq Documented by: Spironolactone (Aldactone -) 100 mg PO BID [facility] Last Admin: 01/29/20 09:40 Dose: 100 mg Documented by: Thiamine HCl (Vitamin B1 -) 100 mg PO DAILY [facility] Last Admin: 01/29/20 09:40 Dose: 100 mg Documented by: - Objective Vital Signs: Vital Signs Temperature 98.9 F 01/29/20 06:00 Pulse Rate 96 H 01/29/20 06:00 Respiratory Rate 18 01/28/20 22:00 Blood Pressure 149/77 01/29/20 06:00 O2 Sat by Pulse Oximetry (%) 100 01/29/20 09:00 Constitutional: Yes: Calm Eyes: Yes: Conjunctiva Clear HENT: Yes: Atraumatic Cardiovascular: Yes: S1, S2 Respiratory: Yes: CTA Bilaterally Gastrointestinal: Yes: Normal Bowel Sounds, Soft, Abdomen, Obese Genitourinary: Yes: WNL Musculoskeletal: Yes: WNL Edema: Yes Edema: LLE: 2+, RLE: 2+ Neurological: Yes: Oriented Psychiatric: Yes: Oriented Labs: CBC, BMP 01/24/20 05:35 01/29/20 06:59 INR, PTT INR 1.79 (0.83-1.09) H 01/13/20 18:45 Problem List - Problems (1) HERI (acute kidney injury) Code(s): N17.9 - ACUTE KIDNEY FAILURE, UNSPECIFIED (2) Rhabdomyolysis Code(s): M62.82 - RHABDOMYOLYSIS Assessment/Plan Current Medications Generic Name Dose Route Start Last Admin Trade Name Freq PRN Reason Stop Dose Admin Diphenhydramine HCl 50 mg 01/25/20 21:23 01/28/20 21:36 Benadryl - PO 50 mg HS PRN Administration INSOMNIA Furosemide 60 mg 01/27/20 12:15 01/29/20 06:12 Lasix Injection - IVPUSH 60 mg BID@0600,1400 [facility] Administration Lactulose 20 gm 01/14/20 10:00 01/29/20 09:40 Cephulac (Oral Use) PO 20 gm DAILY [facility] Administration Magnesium Oxide 400 mg 01/21/20 19:30 01/29/20 09:40 Mag-Ox - PO 400 mg BID [facility] Administration Metoclopramide HCl 5 mg 01/20/20 16:30 01/29/20 12:06 Reglan - PO 5 mg TIDAC [facility] Administration Multivitamins/Minerals/Vitamin C 1 tab 01/14/20 10:00 01/29/20 09:40 Tab-A-Vit - PO 1 tab DAILY [facility] Administration Nadolol 20 mg 01/14/20 10:00 01/29/20 09:40 Corgard - PO 20 mg DAILY [facility] Administration Pantoprazole Sodium 40 mg 01/21/20 10:00 01/29/20 09:40 Protonix - PO 40 mg DAILY [facility] Administration Potassium Chloride 40 meq 01/24/20 14:30 01/29/20 09:47 K-Dur - PO 40 meq DAILY [facility] Administration Spironolactone 100 mg 01/25/20 14:51 01/29/20 09:40 Aldactone - PO 100 mg BID [facility] Administration Thiamine HCl 100 mg 01/14/20 10:00 01/29/20 09:40 Vitamin B1 - PO 100 mg DAILY [facility] Administration Impression 1. HERI 2. nsaid use 3. liver cirrhosis 4. etoh abuse 5. cad 6. hld 7. htn 8. rhabdo 9. volume overload Plan - will need outpt follow up - can swith to lasix 80 mg po BID, aldactone 100 mg po bid as outpt - can see in office on Saturday to check labs - discharge with potassium supplements - monitor daily weights - heri likely secondary to rhabdo and nsaids
[2020-01-29] MEDS ORDERED: MAGNESIUM 1GM/D5W 100ML - 100 ML IVPB IVPB ONE (20:00)
--- NOTE | 2020-01-29 21:23 | PN ---
Progress Note, Physician History of Present Illness: NO NEW COMPLAINTS - Current Medication List Current Medications: Active Medications Diphenhydramine HCl (Benadryl -) 50 mg PO HS PRN PRN Reason: INSOMNIA Last Admin: 01/28/20 21:36 Dose: 50 mg Documented by: Furosemide (Lasix -) 80 mg PO BID@0600,1400 [facility] Lactulose (Cephulac (Oral Use)) 20 gm PO DAILY [facility] Last Admin: 01/29/20 09:40 Dose: 20 gm Documented by: Magnesium Oxide (Mag-Ox -) 400 mg PO BID [facility] Last Admin: 01/29/20 09:40 Dose: 400 mg Documented by: Metoclopramide HCl (Reglan -) 5 mg PO TIDAC [facility] Last Admin: 01/29/20 16:56 Dose: 5 mg Documented by: Multivitamins/Minerals/Vitamin C (Tab-A-Vit -) 1 tab PO DAILY [facility] Last Admin: 01/29/20 09:40 Dose: 1 tab Documented by: Nadolol (Corgard -) 20 mg PO DAILY [facility] Last Admin: 01/29/20 09:40 Dose: 20 mg Documented by: Pantoprazole Sodium (Protonix -) 40 mg PO DAILY [facility] Last Admin: 01/29/20 09:40 Dose: 40 mg Documented by: Potassium Chloride (K-Dur -) 40 meq PO DAILY [facility] Last Admin: 01/29/20 09:47 Dose: 40 meq Documented by: Spironolactone (Aldactone -) 100 mg PO BID [facility] Last Admin: 01/29/20 09:40 Dose: 100 mg Documented by: Thiamine HCl (Vitamin B1 -) 100 mg PO DAILY [facility] Last Admin: 01/29/20 09:40 Dose: 100 mg Documented by: - Objective Vital Signs: Vital Signs Temperature 98.3 F 01/29/20 14:50 Pulse Rate 80 01/29/20 14:50 Respiratory Rate 20 01/29/20 14:50 Blood Pressure 126/80 01/29/20 14:50 O2 Sat by Pulse Oximetry (%) 100 01/29/20 09:00 Cardiovascular: Yes: WNL, Regular Rate and Rhythm Respiratory: Yes: Diminished Gastrointestinal: Yes: Normal Bowel Sounds, Soft, Abdomen, Obese, Ascites, Distention Edema: LLE: 1+, RLE: 1+ Labs: CBC, BMP 01/24/20 05:35 10/02/20 06:59 INR, PTT INR 1.79 (0.83-1.09) H 01/13/20 18:45 Problem List - Problems (1) HERI (acute kidney injury) Code(s): N17.9 - ACUTE KIDNEY FAILURE, UNSPECIFIED (2) Alcoholic cirrhosis Code(s): K70.30 - ALCOHOLIC CIRRHOSIS OF LIVER WITHOUT ASCITES (3) Rhabdomyolysis Code(s): M62.82 - RHABDOMYOLYSIS (4) Transaminitis Code(s): R74.0 - NONSPEC ELEV OF LEVELS OF TRANSAMNS & LACTIC * DO NOT USE * (5) Vomiting Code(s): R11.10 - VOMITING, UNSPECIFIED (6) HLD (hyperlipidemia) Code(s): E78.5 - HYPERLIPIDEMIA, UNSPECIFIED (7) Hypertension Code(s): I10 - ESSENTIAL (PRIMARY) HYPERTENSION Qualifiers: Hypertension type: essential hypertension Qualified Code(s): I10 - Essential (primary) hypertension (8) History of coronary artery stent placement Code(s): Z95.5 - PRESENCE OF CORONARY ANGIOPLASTY IMPLANT AND GRAFT (9) Morbid obesity Code(s): E66.01 - MORBID (SEVERE) OBESITY DUE TO EXCESS CALORIES (10) CAD (coronary artery disease) Code(s): I25.10 - ATHSCL HEART DISEASE OF [place] CORONARY ARTERY W/O ANG PCTRS
[2020-01-30] MEDS: diphenhydrAMINE HCL 25 MG CAPSULE (FP) PO PRN (00:02)
[2020-01-30] MEDS ORDERED: FUROSEMIDE 40 MG TABLET (FP) PO SCH (06:00)
[2020-01-30] MEDS: METOCLOPRAMIDE HCL 10 MG TABLET (FP) PO SCH ×2 (06:58→10:50)
[2020-01-30 08:36] LABS: ALBUMIN 2.9 g/dl (3.4-5.0); BILIRUBIN,TOTAL 2.3 mg/dL (0.2-1); BLOOD UREA NITROGEN 12.8 mg/dL (7-18); CALCIUM 8.5 mg/dL (8.5-10.1); CREATININE 1.2 mg/dL (0.55-1.3); MAGNESIUM 2.2 mg/dL (1.8-2.4); POTASSIUM 3.6 mmol/L (3.5-5.1); TOT PROT 6.4 g/dl (6.4-8.2)
[2020-01-30] MEDS: SPIRONOLACTONE 25 MG TABLET PO SCH (10:50)
[2020-01-30] MEDS: LACTULOSE 20 GM/30 ML UDC (FOR ORAL USE ONLY) PO SCH (10:50)
[2020-01-30] MEDS: MAGNESIUM OXIDE 400 MG TABLET (FP) PO SCH (10:50)
[2020-01-30] MEDS: PANTOPRAZOLE 40 MG TABLET PO SCH (10:50)
[2020-01-30] MEDS: MULTIVITAMINS (DAILY MVI) TABLET (FP) PO SCH (10:50)
[2020-01-30] MEDS: POTASSIUM CHLORIDE TABS 20 MEQ TABLET.ER (FP) PO SCH (10:50)
[2020-01-30] MEDS: THIAMINE HCL 100 MG TABLET (FP) PO SCH (10:51)
[2020-01-30] MEDS: NADOLOL 20 MG TABLET (FP) PO SCH (10:51)
--- NOTE | 2020-01-30 11:45 | PN ---
Progress Note, Physician - Current Medication List Current Medications: Active Medications Diphenhydramine HCl (Benadryl -) 50 mg PO HS PRN PRN Reason: INSOMNIA Last Admin: 01/30/20 00:02 Dose: 50 mg Documented by: Furosemide (Lasix -) 80 mg PO BID@0600,1400 [facility] Last Admin: 01/30/20 05:47 Dose: 80 mg Documented by: Lactulose (Cephulac (Oral Use)) 20 gm PO DAILY [facility] Last Admin: 01/30/20 10:50 Dose: 20 gm Documented by: Magnesium Oxide (Mag-Ox -) 400 mg PO BID [facility] Last Admin: 01/30/20 10:50 Dose: 400 mg Documented by: Metoclopramide HCl (Reglan -) 5 mg PO TIDAC [facility] Last Admin: 01/30/20 10:50 Dose: 5 mg Documented by: Multivitamins/Minerals/Vitamin C (Tab-A-Vit -) 1 tab PO DAILY [facility] Last Admin: 01/30/20 10:50 Dose: 1 tab Documented by: Nadolol (Corgard -) 20 mg PO DAILY [facility] Last Admin: 01/30/20 10:51 Dose: 20 mg Documented by: Pantoprazole Sodium (Protonix -) 40 mg PO DAILY [facility] Last Admin: 01/30/20 10:50 Dose: 40 mg Documented by: Potassium Chloride (K-Dur -) 40 meq PO DAILY [facility] Last Admin: 01/30/20 10:50 Dose: 40 meq Documented by: Spironolactone (Aldactone -) 100 mg PO BID [facility] Last Admin: 01/30/20 10:50 Dose: 100 mg Documented by: Thiamine HCl (Vitamin B1 -) 100 mg PO DAILY [facility] Last Admin: 01/30/20 10:51 Dose: 100 mg Documented by: - Objective Vital Signs: Vital Signs Temperature 98.3 F 01/30/20 06:02 Pulse Rate 83 01/30/20 06:02 Respiratory Rate 18 01/30/20 06:02 Blood Pressure 143/93 01/30/20 06:02 O2 Sat by Pulse Oximetry (%) 97 01/30/20 06:02 Labs: CBC, BMP 01/24/20 05:35 01/30/20 07:05 INR, PTT INR 1.79 (0.83-1.09) H 01/13/20 18:45
[2020-01-30 14:03] VITALS: BP 112/60; PULSE 93; TEMP 98.1
--- NOTE | 2020-01-30 14:46 | PN ---
Progress Note, Physician History of Present Illness: Pt seen and examined at bedside. He is awake and alert. He feels edema is improving. - Current Medication List Current Medications: Active Medications Diphenhydramine HCl (Benadryl -) 50 mg PO HS PRN PRN Reason: INSOMNIA Last Admin: 01/30/20 00:02 Dose: 50 mg Documented by: Furosemide (Lasix -) 80 mg PO BID@0600,1400 [facility] Last Admin: 01/30/20 05:47 Dose: 80 mg Documented by: Lactulose (Cephulac (Oral Use)) 20 gm PO DAILY [facility] Last Admin: 01/30/20 10:50 Dose: 20 gm Documented by: Magnesium Oxide (Mag-Ox -) 400 mg PO BID [facility] Last Admin: 01/30/20 10:50 Dose: 400 mg Documented by: Metoclopramide HCl (Reglan -) 5 mg PO TIDAC [facility] Last Admin: 01/30/20 10:50 Dose: 5 mg Documented by: Multivitamins/Minerals/Vitamin C (Tab-A-Vit -) 1 tab PO DAILY [facility] Last Admin: 01/30/20 10:50 Dose: 1 tab Documented by: Nadolol (Corgard -) 20 mg PO DAILY [facility] Last Admin: 01/30/20 10:51 Dose: 20 mg Documented by: Pantoprazole Sodium (Protonix -) 40 mg PO DAILY [facility] Last Admin: 01/30/20 10:50 Dose: 40 mg Documented by: Potassium Chloride (K-Dur -) 40 meq PO DAILY [facility] Last Admin: 01/30/20 10:50 Dose: 40 meq Documented by: Spironolactone (Aldactone -) 100 mg PO BID [facility] Last Admin: 01/30/20 10:50 Dose: 100 mg Documented by: Thiamine HCl (Vitamin B1 -) 100 mg PO DAILY [facility] Last Admin: 01/30/20 10:51 Dose: 100 mg Documented by: - Objective Vital Signs: Vital Signs Temperature 98.1 F 01/30/20 14:00 Pulse Rate 93 H 01/30/20 14:00 Respiratory Rate 18 01/30/20 14:00 Blood Pressure 112/60 01/30/20 14:00 O2 Sat by Pulse Oximetry (%) 98 01/30/20 14:00 Constitutional: Yes: Calm Eyes: Yes: Conjunctiva Clear HENT: Yes: Atraumatic Neck: Yes: Supple Cardiovascular: Yes: S1, S2 Respiratory: Yes: CTA Bilaterally Gastrointestinal: Yes: Normal Bowel Sounds, Soft Genitourinary: Yes: WNL Musculoskeletal: Yes: WNL Edema: Yes Edema: LLE: 2+, RLE: 2+ Neurological: Yes: Oriented Psychiatric: Yes: Oriented Labs: CBC, BMP 01/24/20 05:35 01/30/20 07:05 INR, PTT INR 1.79 (0.83-1.09) H 01/13/20 18:45 Problem List - Problems (1) HERI (acute kidney injury) Code(s): N17.9 - ACUTE KIDNEY FAILURE, UNSPECIFIED (2) Rhabdomyolysis Code(s): M62.82 - RHABDOMYOLYSIS Assessment/Plan Current Medications Generic Name Dose Route Start Last Admin Trade Name Freq PRN Reason Stop Dose Admin Diphenhydramine HCl 50 mg 01/25/20 21:23 01/30/20 00:02 Benadryl - PO 50 mg HS PRN Administration INSOMNIA Furosemide 80 mg 01/30/20 06:00 01/30/20 05:47 Lasix - PO 80 mg BID@0600,1400 [facility] Administration Lactulose 20 gm 01/14/20 10:00 01/30/20 10:50 Cephulac (Oral Use) PO 20 gm DAILY [facility] Administration Magnesium Oxide 400 mg 01/21/20 19:30 01/30/20 10:50 Mag-Ox - PO 400 mg BID [facility]ILA Administration Metoclopramide HCl 5 mg 01/20/20 16:30 01/30/20 10:50 Reglan - PO 5 mg TIDAC NABILA Administration Multivitamins/Minerals/Vitamin C 1 tab 01/14/20 10:00 01/30/20 10:50 Tab-A-Vit - PO 1 tab DAILY [facility]A Administration Nadolol 20 mg 01/14/20 10:00 01/30/20 10:51 Corgard - PO 20 mg DAILY [facility]ABILA Administration Pantoprazole Sodium 40 mg 01/21/20 10:00 01/30/20 10:50 Protonix - PO 40 mg DAILY [facility]A Administration Potassium Chloride 40 meq 01/24/20 14:30 01/30/20 10:50 K-Dur - PO 40 meq DAILY [facility] Administration Spironolactone 100 mg 01/25/20 14:51 01/30/20 10:50 Aldactone - PO 100 mg BID [facility]A Administration Thiamine HCl 100 mg 01/14/20 10:00 01/30/20 10:51 Vitamin B1 - PO 100 mg DAILY [facility] Administration Selected Entries 01/23/20 06:00 Weight 285 lb Impression 1. HERI 2. nsaid use 3. liver cirrhosis 4. etoh abuse 5. cad 6. hld 7. htn 8. rhabdo 9. volume overload Plan - cont lasix and aldactone - will need close outpt follow up - went over plan in detail - cont potassium supplements as well - lasix 80 po bid and aldacotne 100 mg po bid - daily weights - avoid etoh
== END 2020-01-30 16:33 | disposition home or self-care (01) | DRG 683 ==
LOC: JER 15:55 → JERBED 18:41 → J4W 01-15 01:04 → J6S 01-25 14:32
PROVIDERS: ADMIT Internal Medicine; ATTEND Internal Medicine
DX: N17.9 Acute kidney failure, unspecified (principal); M62.82 Rhabdomyolysis; I50.32 Chronic diastolic (congestive) heart failure; K70.30 Alcoholic cirrhosis of liver without ascites; I25.10 Atherosclerotic heart disease of native coronary artery without angina pectoris; I10 Essential (primary) hypertension; E78.5 Hyperlipidemia, unspecified; Z87.891 Personal history of nicotine dependence; R74.01 Elevation of levels of liver transaminase levels; D64.9 Anemia, unspecified; E66.01 Morbid (severe) obesity due to excess calories; I11.0 Hypertensive heart disease with heart failure; Z68.37 Body mass index [BMI] 37.0-37.9, adult; Z95.5 Presence of coronary angioplasty implant and graft; F10.20 Alcohol dependence, uncomplicated; R94.31 Abnormal electrocardiogram [ECG] [EKG]
CPT/HCPCS: 36415; 71045-TC-FY; 74176-TC; 76705-TC; 76775-TC; 76856-TC; 80053; 80061; 80307; 81003; 82140; 82436; 82550; 82553; 82565; 83516; 83520; 83721; 83735; 84100; 84133; 84155; 84165; 84300; 84443; 84484; 85025; 85610; 85730; 86038; 86225; 86256; 86704; 86706; 86707; 86708; 86709; 87086; 87340; 87522; 93005; 93010; 93306-TC; 97116-GP; 97161-GP; 99285-25; J1644; P9047; U0003

== ENCOUNTER 2020-03-17 18:20 | Observation (INO) | payer BC ==
[2020-03-17] MEDS ORDERED: CEFTRIAXONE 1,000 MG in DEXTROSE 5%-WATER - 50 ML IVPB ONE (20:33)
[2020-03-17] MEDS ORDERED: PANTOPRAZOLE SODIUM 40 MG VIAL IVPUSH ONE (20:33)
[2020-03-17] MEDS ORDERED: PANTOPRAZOLE SODIUM 40 MG VIAL ONE (20:39)
[2020-03-17] MEDS ORDERED: CEFTRIAXONE 1 GM/50 ML BAG ONE (20:39)
[2020-03-17 20:42] LABS: BASO % 0.9 % (0-2.0); EOS % 1.5 % (0-4.5); HEMATOCRIT 31.3 % (35.4-49); LYMPH % 39.3 % (8-40); MCHC 31.9 g/dl (32.0-35.9); MEAN CELL VOLUME 81.3 fl (80-96); MEAN PLT VOLUME 8.9 fl (7.5-11.1); NEUT % 44.3 % (42.8-82.8); PLATELET COUNT 101 K/MM3 (134-434); RBC 3.85 M/mm3 (4.00-5.60); RDW 24.4 % (11.9-15.9); WHITE BLOOD COUNT 5.2 K/mm3 (4.0-10.0)
[2020-03-17 20:49] LABS: INR 1.82 (0.83-1.09)
[2020-03-17 20:52] LABS: ACTIVATED PTT 33.8 SECONDS (25.2-36.5)
[2020-03-17 21:07] LABS: POTASSIUM 3.2 mmol/L (3.5-5.1)
[2020-03-17 21:09] LABS: ALBUMIN 3.1 g/dl (3.4-5.0); BLOOD UREA NITROGEN 8.9 mg/dL (7-18)
[2020-03-17 21:13] LABS: CREATININE 1.2 mg/dL (0.55-1.3)
[2020-03-17 21:15] LABS: BILIRUBIN,TOTAL 2.5 mg/dL (0.2-1); TOT PROT 6.6 g/dl (6.4-8.2)
[2020-03-18] MEDS ORDERED: POTASSIUM CHLORIDE TABS 20 MEQ TABLET.ER (FP) PO ONE (00:16)
[2020-03-18 00:53] VITALS: BMI 37.4
[2020-03-18] MEDS ORDERED: FUROSEMIDE 40 MG TABLET (FP) PO SCH (06:00)
[2020-03-18 06:45] LABS: BASO % 0.8 % (0-2.0); EOS % 1.4 % (0-4.5); HEMATOCRIT 28.5 % (35.4-49); LYMPH % 42.8 % (8-40); MCH 25.7 pg (25.7-33.7); MCHC 31.5 g/dl (32.0-35.9); MEAN CELL VOLUME 81.8 fl (80-96); MEAN PLT VOLUME 8.7 fl (7.5-11.1); MONO % 13.7 % (3.8-10.2); NEUT % 41.3 % (42.8-82.8); PLATELET COUNT 81 K/MM3 (134-434); RBC 3.48 M/mm3 (4.00-5.60); RDW 24.5 % (11.9-15.9); WHITE BLOOD COUNT 3.8 K/mm3 (4.0-10.0)
[2020-03-18 07:00] LABS: POTASSIUM 3.4 mmol/L (3.5-5.1)
[2020-03-18 07:07] LABS: ALBUMIN 2.6 g/dl (3.4-5.0); BLOOD UREA NITROGEN 8.2 mg/dL (7-18); CALCIUM 7.6 mg/dL (8.5-10.1)
[2020-03-18 07:10] LABS: BILIRUBIN,TOTAL 1.8 mg/dL (0.2-1); CREATININE 1.1 mg/dL (0.55-1.3); TOT PROT 5.6 g/dl (6.4-8.2)
[2020-03-18] MEDS ORDERED: NADOLOL 20 MG TABLET (FP) PO SCH (10:00)
[2020-03-18] MEDS ORDERED: THIAMINE HCL 100 MG TABLET (FP) PO SCH (10:00)
[2020-03-18] MEDS ORDERED: MAGNESIUM OXIDE 400 MG TABLET (FP) PO SCH (10:00)
[2020-03-18] MEDS ORDERED: FERROUS SO4 325 MG TABLET (FP) PO SCH (10:00)
[2020-03-18] MEDS ORDERED: LACTULOSE 20 GM/30 ML UDC (FOR ORAL USE ONLY) PO SCH (10:00)
[2020-03-18] MEDS ORDERED: SPIRONOLACTONE 25 MG TABLET PO SCH ×3 (10:00)
[2020-03-18] MEDS ORDERED: PANTOPRAZOLE 40 MG TABLET PO SCH ×2 (10:00)
[2020-03-18 12:52] VITALS: BP 115/55; PULSE 106; TEMP 98
[2020-03-19] MEDS ORDERED: FUROSEMIDE 40 MG TABLET (FP) PO SCH (10:00)
== END 2020-03-18 18:32 | disposition home or self-care (01) ==
LOC: JER 18:20 → JERBED 20:41 → INTOOBSV 20:41 → UNDOADMOB 20:41 → JERBED 03-18 00:26 → J4S 03-18 00:26 → JERBED 03-18 10:08
PROVIDERS: ADMIT Internal Medicine; ATTEND Internal Medicine
PROC: 3E03329 Introduction of Other Anti-infective into Peripheral Vein, Percutaneous Approach (ICD-10-PCS; principal; 2020-03-18)
PROC: 3E033GC Introduction of Other Therapeutic Substance into Peripheral Vein, Percutaneous Approach (ICD-10-PCS; 2020-03-18)
DX: K92.2 Gastrointestinal hemorrhage, unspecified (principal); K70.30 Alcoholic cirrhosis of liver without ascites; F10.10 Alcohol abuse, uncomplicated; K21.9 Gastro-esophageal reflux disease without esophagitis; E66.01 Morbid (severe) obesity due to excess calories; Z68.37 Body mass index [BMI] 37.0-37.9, adult; I10 Essential (primary) hypertension; E78.5 Hyperlipidemia, unspecified; I25.82 Chronic total occlusion of coronary artery; Z95.5 Presence of coronary angioplasty implant and graft; Z91.14 Patient's other noncompliance with medication regimen; Z87.891 Personal history of nicotine dependence; D64.9 Anemia, unspecified; G47.30 Sleep apnea, unspecified; K76.0 Fatty (change of) liver, not elsewhere classified
CPT/HCPCS: 36415; 71045-TC-FY; 76604; 76705-TC; 80053; 82272; 85025; 85610; 85730; 86850; 86900; 86901; 93005; 93010; 93308; 96365; 96375; 99285-25; C9803; G0378; U0003

== ENCOUNTER 2020-07-13 20:55 | Inpatient (IN) | payer BC ==
[2020-07-14 00:25] VITALS: BMI 37.0
[2020-07-14] MEDS ORDERED: IBUPROFEN 400 MG TABLET (FP) PO PRN (01:13)
[2020-07-14] MEDS ORDERED: MAGNESIUM CITRATE 300 ML BOTTLE PO PRN (01:13)
[2020-07-14] MEDS ORDERED: MENTHOL/PHENOL 1 EACH UD MM PRN (01:13)
[2020-07-14] MEDS ORDERED: BISMUTH SUBSALICYLATE 524 MG/30 ML UD PO PRN (01:13)
[2020-07-14] MEDS ORDERED: ACETAMINOPHEN 325 MG TABLET (FP) PO PRN ×2 (01:13)
[2020-07-14] MEDS ORDERED: MAG HYDROX/AL HYDROX/SIMETH 30 ML UNIT-DOSE CUP PO PRN (01:13)
[2020-07-14] MEDS ORDERED: MAGNESIUM HYDROX 2400MG/30ML ORAL SUSPENSION 30 ML CUP PO PRN (01:13)
[2020-07-14] MEDS ORDERED: METHOCARBAMOL 500 MG TABLET PO PRN (01:13)
[2020-07-14] MEDS ORDERED: LORazepam 1 MG TABLET PO PRN (01:13)
[2020-07-14] MEDS ORDERED: ONDANSETRON *ODT* 4 MG TABLET SL PRN (01:13)
[2020-07-14] MEDS ORDERED: LORazepam 1 MG TABLET ONE (01:49)
[2020-07-14] MEDS ORDERED: LORazepam 2 MG TABLET ONE (05:47)
[2020-07-14] MEDS: LORazepam 2 MG TABLET PO SCH ×4 (05:47→22:39)
[2020-07-14] MEDS: PANTOPRAZOLE 40 MG TABLET PO SCH (11:03)
[2020-07-14] MEDS: SPIRONOLACTONE 25 MG TABLET PO SCH ×2 (11:03→22:37)
[2020-07-14] MEDS: PRENATAL VITAMINS W/ FOLIC ACID TABLET (FP) PO SCH (11:04)
[2020-07-14] MEDS ORDERED: SUVOREXANT 10 MG TABLET PO PRN (22:00)
[2020-07-14] MEDS: THIAMINE HCL 100 MG TABLET (FP) PO SCH (22:38)
[2020-07-14] MEDS: MELATONIN 5 MG TABLETS PO SCH (22:38)
[2020-07-15] MEDS: LORazepam 1 MG TABLET PO SCH ×4 (06:04→22:36)
[2020-07-15] MEDS: SPIRONOLACTONE 25 MG TABLET PO SCH ×2 (10:44→22:36)
[2020-07-15] MEDS: PANTOPRAZOLE 40 MG TABLET PO SCH (10:45)
[2020-07-15] MEDS: PRENATAL VITAMINS W/ FOLIC ACID TABLET (FP) PO SCH (10:45)
[2020-07-15 11:59] LABS: HEMATOCRIT 37.9 % (35.4-49); HEMOGLOBIN 12.6 GM/dL (11.7-16.9); MCH 29.8 pg (25.7-33.7); MCHC 33.2 g/dl (32.0-35.9); MEAN CELL VOLUME 89.9 fl (80-96); MEAN PLT VOLUME 8.3 fl (7.5-11.1); PLATELET COUNT 102 K/MM3 (134-434); RBC 4.21 M/mm3 (4.00-5.60); RDW 16.5 % (11.9-15.9); WHITE BLOOD COUNT 4.4 K/mm3 (4.0-10.0)
[2020-07-15 12:39] LABS: POTASSIUM 3.3 mmol/L (3.5-5.1)
[2020-07-15 12:56] LABS: BILIRUBIN,TOTAL 3.5 mg/dL (0.2-1); TOT PROT 6.6 g/dl (6.4-8.2)
[2020-07-15 12:57] LABS: ALBUMIN 3.2 g/dl (3.4-5.0); BLOOD UREA NITROGEN 5.2 mg/dL (7-18); CALCIUM 8.9 mg/dL (8.5-10.1)
[2020-07-15 20:17] VITALS: TEMP 98.2
[2020-07-15] MEDS: MELATONIN 5 MG TABLETS PO SCH (22:36)
[2020-07-15] MEDS: THIAMINE HCL 100 MG TABLET (FP) PO SCH (22:36)
[2020-07-16] MEDS ORDERED: LORazepam 0.5 MG TABLET PO PRN
[2020-07-16] MEDS: LORazepam 0.5 MG TABLET PO SCH ×2 (05:13→10:38)
[2020-07-16 09:50] VITALS: BP 145/80; PULSE 106
[2020-07-16] MEDS: PANTOPRAZOLE 40 MG TABLET PO SCH (10:38)
[2020-07-16] MEDS: PRENATAL VITAMINS W/ FOLIC ACID TABLET (FP) PO SCH (10:38)
[2020-07-16] MEDS: SPIRONOLACTONE 25 MG TABLET PO SCH (10:38)
[2020-07-17] MEDS ORDERED: LORazepam 0.5 MG TABLET PO ONE (05:00)
== END 2020-07-16 13:50 | disposition home or self-care (01) | DRG 897 ==
LOC: YASAS 20:55 → Y6N 07-14 10:23
PROVIDERS: ADMIT Allergy & Immunology; ATTEND Allergy & Immunology
PROC: HZ2ZZZZ Detoxification Services for Substance Abuse Treatment (ICD-10-PCS; principal; 2020-07-14)
DX: F10.230 Alcohol dependence with withdrawal, uncomplicated (principal); F10.282 Alcohol dependence with alcohol-induced sleep disorder; F34.1 Dysthymic disorder; F41.9 Anxiety disorder, unspecified; D64.9 Anemia, unspecified; I25.10 Atherosclerotic heart disease of native coronary artery without angina pectoris; I11.0 Hypertensive heart disease with heart failure; I50.9 Heart failure, unspecified; Z95.1 Presence of aortocoronary bypass graft; Z95.5 Presence of coronary angioplasty implant and graft; I25.2 Old myocardial infarction; G47.30 Sleep apnea, unspecified; K70.30 Alcoholic cirrhosis of liver without ascites; K21.9 Gastro-esophageal reflux disease without esophagitis; E66.9 Obesity, unspecified; Z68.37 Body mass index [BMI] 37.0-37.9, adult; Z87.19 Personal history of other diseases of the digestive system; Z87.891 Personal history of nicotine dependence
CPT/HCPCS: 36415; 71046-TC-FY; 80053; 85027; 86593; 86780; 93005; 93010; C9803; U0003

== ENCOUNTER 2020-08-08 15:32 | Observation (INO) | payer BC ==
[2020-08-08] MEDS ORDERED: ONDANSETRON 4 MG/2 ML VIAL IVPB ONE (17:45)
[2020-08-08] MEDS ORDERED: ONDANSETRON 4 MG/2 ML VIAL ONE (18:02)
[2020-08-08] MEDS ORDERED: PANTOPRAZOLE SODIUM 40 MG VIAL IVPB ONE (18:03)
[2020-08-08] MEDS ORDERED: PANTOPRAZOLE SODIUM 40 MG VIAL ONE (18:07)
[2020-08-08 18:40] LABS: BASO % 0.6 % (0-2.0); EOS % 0.1 % (0-4.5); HEMATOCRIT 38.3 % (35.4-49); HEMOGLOBIN 12.8 GM/dL (11.7-16.9); LYMPH % 14.8 % (8-40); MCH 29.8 pg (25.7-33.7); MCHC 33.5 g/dl (32.0-35.9); MEAN PLT VOLUME 8.7 fl (7.5-11.1); MONO % 7.3 % (3.8-10.2); NEUT % 77.2 % (42.8-82.8); PLATELET COUNT 111 K/MM3 (134-434); RBC 4.31 M/mm3 (4.00-5.60); RDW 16.1 % (11.9-15.9); WHITE BLOOD COUNT 6.3 K/mm3 (4.0-10.0)
[2020-08-08 18:49] LABS: INR 1.58 (0.83-1.09); PROTHROMBIN TIME (PATIENT) 19.2 SEC (9.7-13.0)
[2020-08-08 18:52] LABS: ACTIVATED PTT 33.6 SECONDS (25.2-36.5)
[2020-08-08 18:57] LABS: CHLORIDE 102 mmol/L (98-107); SODIUM 135 mmol/L (136-145)
[2020-08-08 19:00] LABS: ALBUMIN 3.5 g/dl (3.4-5.0); ANION GAP 7 MMOL/L (8-16); BLOOD UREA NITROGEN 4.8 mg/dL (7-18); CALCIUM 8.4 mg/dL (8.5-10.1); CO2 26 mmol/L (21-32); GLUCOSE,RANDOM 104 mg/dL (74-106); LIPASE 157 U/L (73-393); MAGNESIUM 1.5 mg/dL (1.8-2.4)
[2020-08-08 19:01] LABS: AMYLASE 75 U/L (25-115)
[2020-08-08 19:03] LABS: CREATININE 0.8 mg/dL (0.55-1.3); SGOT/AST 84 U/L (15-37); SGPT/ALT 35 U/L (13-61)
[2020-08-08 19:04] LABS: BILIRUBIN,TOTAL 2.6 mg/dL (0.2-1)
[2020-08-08 19:05] LABS: TOT PROT 7.2 g/dl (6.4-8.2)
[2020-08-08 19:06] LABS: ALK PHOS 88 U/L (45-117)
[2020-08-08] MEDS ORDERED: LACTULOSE 20 GM/30 ML UDC (FOR ORAL USE ONLY) PO ONE (20:01)
[2020-08-08] MEDS ORDERED: LACTULOSE 20 GM/30 ML UDC (FOR ORAL USE ONLY) ONE (20:09)
[2020-08-08] MEDS ORDERED: DIPHTH,PERTUSS(ACELL),TET 0.5 ML DISP.SYRIN IM ONE (20:44)
[2020-08-09] MEDS ORDERED: diphenhydrAMINE HCL 25 MG CAPSULE (FP) PO ONE ×2 (01:01→01:11)
[2020-08-09 01:44] LABS: EPI CELLS 10 /uL (0-25.1); HYALINE CASTS 3 /uL (0-3.1); PH,URINE 7.5 (5.0-8.0); URINE APPEARANCE CLEAR; URINE BILIRUBIN 2+ (NEGATIVE); URINE COLOR ORANGE; URINE GLUCOSE (UA) NEGATIVE (NEGATIVE); URINE KETONE TRACE (NEGATIVE); URINE LEUK ESTERASE TRACE (NEGATIVE); URINE NITRITE POSITIVE (NEGATIVE); URINE PROTEIN 1+ (NEGATIVE); URINE WBC 7 /uL (0-25.8)
[2020-08-09 04:03] VITALS: BMI 38.7
[2020-08-09] MEDS: FUROSEMIDE 40 MG TABLET (FP) PO SCH ×2 (05:10→13:09)
[2020-08-09 09:47] LABS: BASO % 0.5 % (0-2.0); EOS % 0.9 % (0-4.5); HEMATOCRIT 38.7 % (35.4-49); LYMPH % 27.1 % (8-40); MCH 30.4 pg (25.7-33.7); MCHC 33.7 g/dl (32.0-35.9); MEAN CELL VOLUME 90.3 fl (80-96); MEAN PLT VOLUME 8.7 fl (7.5-11.1); MONO % 9.4 % (3.8-10.2); NEUT % 62.1 % (42.8-82.8); PLATELET COUNT 107 K/MM3 (134-434); RBC 4.28 M/mm3 (4.00-5.60); RDW 16.1 % (11.9-15.9); WHITE BLOOD COUNT 5.9 K/mm3 (4.0-10.0)
[2020-08-09 10:29] LABS: ALBUMIN 3.3 g/dl (3.4-5.0); BLOOD UREA NITROGEN 4.1 mg/dL (7-18); CALCIUM 9.1 mg/dL (8.5-10.1)
[2020-08-09] MEDS ORDERED: PT OWN MED DRAWER 7, Y5N ONE ×2 (10:30→20:47)
[2020-08-09 10:33] LABS: BILIRUBIN,TOTAL 3.3 mg/dL (0.2-1)
[2020-08-09 10:34] LABS: TOT PROT 6.8 g/dl (6.4-8.2)
[2020-08-09] MEDS: FOLIC ACID 1 MG TABLET (FP) PO SCH (10:42)
[2020-08-09] MEDS: NADOLOL 20 MG TABLET (FP) PO SCH (10:42)
[2020-08-09] MEDS: SPIRONOLACTONE 25 MG TABLET PO SCH ×2 (10:43→21:00)
[2020-08-09] MEDS: FERROUS SO4 325 MG TABLET (FP) PO SCH (10:43)
[2020-08-09] MEDS: MAGNESIUM OXIDE 400 MG TABLET (FP) PO SCH ×2 (10:43→21:00)
[2020-08-09] MEDS: diphenhydrAMINE HCL 25 MG CAPSULE (FP) PO PRN ×2 (10:43→22:14)
[2020-08-09] MEDS: PANTOPRAZOLE 40 MG TABLET PO SCH (10:43)
[2020-08-09] MEDS: LACTULOSE 20 GM/30 ML UDC (FOR ORAL USE ONLY) PO SCH (13:01)
[2020-08-09] MEDS: RIFAXIMIN 200 MG TABLET PO SCH ×2 (17:40→22:14)
[2020-08-10] MEDS: RIFAXIMIN 200 MG TABLET PO SCH ×2 (05:43→14:25)
[2020-08-10] MEDS: FUROSEMIDE 40 MG TABLET (FP) PO SCH ×2 (05:43→14:25)
[2020-08-10] MEDS: PANTOPRAZOLE 40 MG TABLET PO SCH (09:09)
[2020-08-10] MEDS: FERROUS SO4 325 MG TABLET (FP) PO SCH (09:09)
[2020-08-10] MEDS: MAGNESIUM OXIDE 400 MG TABLET (FP) PO SCH (09:09)
[2020-08-10] MEDS: FOLIC ACID 1 MG TABLET (FP) PO SCH (09:09)
[2020-08-10] MEDS: SPIRONOLACTONE 25 MG TABLET PO SCH (09:09)
[2020-08-10] MEDS: NADOLOL 20 MG TABLET (FP) PO SCH (09:10)
[2020-08-10] MEDS: LACTULOSE 20 GM/30 ML UDC (FOR ORAL USE ONLY) PO SCH (09:10)
[2020-08-10 15:45] VITALS: BP 110/62; PULSE 73; TEMP 98.2
== END 2020-08-10 17:26 | disposition home or self-care (01) ==
LOC: JER 15:32 → INTOOBSV 20:11 → UNDOADMOB 20:11 → JERBED 20:11 → J5S 08-09 03:13 → JERBED 08-09 08:50 → J5S 08-09 08:50
PROVIDERS: ADMIT Internal Medicine; ATTEND Internal Medicine
PROC: 3E033GC Introduction of Other Therapeutic Substance into Peripheral Vein, Percutaneous Approach (ICD-10-PCS; principal; 2020-08-09)
DX: K70.30 Alcoholic cirrhosis of liver without ascites (principal); Z95.1 Presence of aortocoronary bypass graft; R10.13 Epigastric pain; I25.83 Coronary atherosclerosis due to lipid rich plaque; F10.20 Alcohol dependence, uncomplicated; I10 Essential (primary) hypertension; K92.2 Gastrointestinal hemorrhage, unspecified; E78.00 Pure hypercholesterolemia, unspecified; K92.9 Disease of digestive system, unspecified; R25.1 Tremor, unspecified; E72.20 Disorder of urea cycle metabolism, unspecified; F41.8 Other specified anxiety disorders; G47.30 Sleep apnea, unspecified; I25.10 Atherosclerotic heart disease of native coronary artery without angina pectoris; Z87.891 Personal history of nicotine dependence
CPT/HCPCS: 36415; 71046-TC-FY; 76705-TC; 80053; 81003; 82140; 82150; 82550; 82553; 83690; 83735; 84484; 85025; 85610; 85730; 93005; 93010; 99285-25; C9803; G0378; U0003; U0005

== ENCOUNTER 2021-05-08 17:22 | Inpatient (IN) | payer BC ==
[2021-05-08 22:39] LABS: INR 1.7 (0.83-1.09); PROTHROMBIN TIME (PATIENT) 19.7 SEC (9.7-13.0)
[2021-05-08 22:42] LABS: ACTIVATED PTT 39.1 SECONDS (25.2-36.5)
[2021-05-08 23:01] LABS: BASO % 0.7 % (0-2.0); EOS % 0.8 % (0-4.5); HEMATOCRIT 39.9 % (35.4-49); HEMOGLOBIN 13.9 GM/dL (11.7-16.9); LYMPH % 23.2 % (8-40); MCH 34.2 pg (25.7-33.7); MCHC 34.8 g/dl (32.0-35.9); MEAN CELL VOLUME 98.2 fl (80-96); MEAN PLT VOLUME 8.1 fl (7.5-11.1); MONO % 9.6 % (3.8-10.2); NEUT % 65.7 % (42.8-82.8); PLATELET COUNT 98 10^3/uL (134-434); RBC 4.06 M/mm3 (4.00-5.60); RDW 15.3 % (11.9-15.9); WHITE BLOOD COUNT 6.2 K/mm3 (4.0-10.0)
[2021-05-08 23:15] LABS: CHLORIDE 99 mmol/L (98-107); SODIUM 139 mmol/L (136-145)
[2021-05-08 23:21] LABS: SGOT/AST 182 U/L (15-37)
[2021-05-08 23:22] LABS: BILIRUBIN,DIRECT 4.9 mg/dL (0.0-0.2)
[2021-05-08 23:23] LABS: BILIRUBIN,TOTAL 6.9 mg/dL (0.2-1)
[2021-05-08 23:36] LABS: ALBUMIN 3.2 g/dl (3.4-5.0); ALK PHOS 182 U/L (45-117); ANION GAP 11 MMOL/L (8-16); BLOOD UREA NITROGEN 7.7 mg/dL (7-18); CALCIUM 8.2 mg/dL (8.5-10.1); CO2 29 mmol/L (21-32); CREATININE 1.2 mg/dL (0.55-1.3); GLUCOSE,RANDOM 91 mg/dL (74-106); MAGNESIUM 1.7 mg/dL (1.8-2.4); PHOSPHOROUS 2.2 mg/dL (2.5-4.9); SGPT/ALT 73 U/L (13-61); TOT PROT 7.2 g/dl (6.4-8.2)
[2021-05-08] MEDS ORDERED: POTASSIUM CHLORIDE 20 MEQ PREMIX IVPB 100 ML IVPB ONE (23:54)
[2021-05-08] MEDS ORDERED: POTASSIUM CHLORIDE ORAL LIQUID 20 MEQ/15 ML PO ONE (23:55)
[2021-05-09 00:13] LABS: URINE APPEARANCE CLEAR; URINE BILIRUBIN NEGATIVE (NEGATIVE); URINE COLOR YELLOW; URINE GLUCOSE (UA) NEGATIVE (NEGATIVE); URINE KETONE NEGATIVE (NEGATIVE); URINE LEUK ESTERASE NEGATIVE (NEGATIVE); URINE NITRITE NEGATIVE (NEGATIVE); URINE PROTEIN NEGATIVE (NEGATIVE)
[2021-05-09] MEDS ORDERED: MAGNESIUM OXIDE 400 MG TABLET (FP) PO ONE (00:13)
[2021-05-09] MEDS ORDERED: ACETAMINOPHEN 325 MG TABLET (FP) ONE (00:48)
[2021-05-09] MEDS ORDERED: POTASSIUM CHLORIDE ORAL LIQUID 20 MEQ/15 ML ONE (02:38)
[2021-05-09] MEDS ORDERED: KCL 10 MEQ IVPB 20 MEQ/200 ML INFUS.BAG IVPB ONE (02:38)
[2021-05-09] MEDS ORDERED: MAGNESIUM OXIDE 400 MG TABLET (FP) ONE (03:25)
[2021-05-09] MEDS ORDERED: ONDANSETRON *ODT* 4 MG TABLET SL ONE (03:50)
[2021-05-09] MEDS ORDERED: ONDANSETRON *ODT* 4 MG TABLET ONE (03:50)
[2021-05-09] MEDS: KCL 10 MEQ IVPB 10 MEQ/100 ML INFUS.BAG IVPB SCH ×2 (03:56→05:07)
[2021-05-09 06:48] LABS: LACTIC ACID 2.5 mmol/L (0.4-2.0)
[2021-05-09 07:04] LABS: ALBUMIN 2.8 g/dl (3.4-5.0); BLOOD UREA NITROGEN 7.2 mg/dL (7-18); CALCIUM 8.4 mg/dL (8.5-10.1)
[2021-05-09 07:07] LABS: CREATININE 1.1 mg/dL (0.55-1.3)
[2021-05-09 07:09] LABS: TOT PROT 6.4 g/dl (6.4-8.2)
[2021-05-09] MEDS ORDERED: POTASSIUM CHLORIDE TABS 20 MEQ TABLET.ER (FP) PO ONE (10:08)
[2021-05-09] MEDS ORDERED: MAGNESIUM SULFATE IN WATER 2 GM/50 ML IVPB IVPB ONE (10:30)
[2021-05-09] MEDS ORDERED: MAGNESIUM 2GM/50ML STERILE WATER IVPB IVPB ONE (10:45)
[2021-05-09] MEDS: NAPH,MB-DB/K PH,MBDB POWDER PACKET PO SCH ×2 (10:52→21:56)
[2021-05-09] MEDS: SPIRONOLACTONE 25 MG TABLET PO SCH ×2 (10:52→21:56)
[2021-05-09] MEDS ORDERED: FUROSEMIDE 40 MG TABLET (FP) ONE (14:44)
[2021-05-09] MEDS: FUROSEMIDE 40 MG TABLET (FP) PO SCH (14:48)
[2021-05-09] MEDS: LACTULOSE 20 GM/30 ML UDC (FOR ORAL USE ONLY) PO SCH (21:56)
[2021-05-09 22:16] VITALS: BMI 42.3
[2021-05-10] MEDS ORDERED: BENZOCAINE 28 GM HEMORRHOIDAL OINTMENT RC ONE (03:28)
[2021-05-10] MEDS: FUROSEMIDE 40 MG TABLET (FP) PO SCH ×2 (06:17→13:52)
[2021-05-10 08:55] LABS: ALBUMIN 2.8 g/dl (3.4-5.0); BLOOD UREA NITROGEN 7.2 mg/dL (7-18); CALCIUM 8.6 mg/dL (8.5-10.1)
[2021-05-10 08:56] LABS: MAGNESIUM 1.8 mg/dL (1.8-2.4)
[2021-05-10 08:58] LABS: CREATININE 1.2 mg/dL (0.55-1.3); PHOSPHOROUS 2.8 mg/dL (2.5-4.9)
[2021-05-10 09:00] LABS: BILIRUBIN,TOTAL 7.2 mg/dL (0.2-1); TOT PROT 6.3 g/dl (6.4-8.2)
[2021-05-10] MEDS: SPIRONOLACTONE 25 MG TABLET PO SCH ×2 (09:50→21:27)
[2021-05-10] MEDS: LACTULOSE 20 GM/30 ML UDC (FOR ORAL USE ONLY) PO SCH ×2 (09:51→21:28)
[2021-05-10] MEDS: NAPH,MB-DB/K PH,MBDB POWDER PACKET PO SCH ×2 (09:51→21:27)
[2021-05-10] MEDS: THIAMINE HCL 100 MG TABLET (FP) PO SCH (09:51)
[2021-05-10] MEDS: PANTOPRAZOLE 40 MG TABLET PO SCH (09:51)
[2021-05-10] MEDS: NADOLOL 20 MG TABLET (FP) PO SCH (11:31)
[2021-05-10] MEDS ORDERED: POTASSIUM CHLORIDE TABS 20 MEQ TABLET.ER (FP) PO ONE ×2 (13:33→20:00)
[2021-05-10] MEDS ORDERED: KCL 10 MEQ IVPB 10 MEQ/100 ML INFUS.BAG IVPB SCH (13:45)
[2021-05-10] MEDS: diphenhydrAMINE HCL 25 MG CAPSULE (FP) PO PRN (22:49)
[2021-05-11] MEDS: FUROSEMIDE 40 MG TABLET (FP) PO SCH ×2 (06:15→13:32)
[2021-05-11 07:52] LABS: BASO % 0.6 % (0-2.0); EOS % 1.4 % (0-4.5); HEMATOCRIT 35.2 % (35.4-49); LYMPH % 29.3 % (8-40); MCH 33.9 pg (25.7-33.7); MCHC 34.1 g/dl (32.0-35.9); MEAN CELL VOLUME 99.6 fl (80-96); MEAN PLT VOLUME 8.4 fl (7.5-11.1); NEUT % 55.7 % (42.8-82.8); PLATELET COUNT 69 10^3/uL (134-434); RBC 3.54 M/mm3 (4.00-5.60); RDW 15.9 % (11.9-15.9); WHITE BLOOD COUNT 4.3 K/mm3 (4.0-10.0)
[2021-05-11 08:12] LABS: ALBUMIN 2.4 g/dl (3.4-5.0); BLOOD UREA NITROGEN 7.8 mg/dL (7-18); CALCIUM 8.3 mg/dL (8.5-10.1)
[2021-05-11 08:15] LABS: CREATININE 1.2 mg/dL (0.55-1.3)
[2021-05-11 08:17] LABS: BILIRUBIN,TOTAL 6.7 mg/dL (0.2-1); TOT PROT 5.6 g/dl (6.4-8.2)
[2021-05-11] MEDS: LACTULOSE 20 GM/30 ML UDC (FOR ORAL USE ONLY) PO SCH (10:47)
[2021-05-11] MEDS: SPIRONOLACTONE 25 MG TABLET PO SCH ×2 (10:47→21:59)
[2021-05-11] MEDS: NAPH,MB-DB/K PH,MBDB POWDER PACKET PO SCH ×2 (10:47→21:54)
[2021-05-11] MEDS: PANTOPRAZOLE 40 MG TABLET PO SCH (10:48)
[2021-05-11] MEDS: THIAMINE HCL 100 MG TABLET (FP) PO SCH (10:48)
[2021-05-11] MEDS ORDERED: POTASSIUM CHLORIDE TABS 20 MEQ TABLET.ER (FP) PO ONE ×2 (11:26→16:24)
[2021-05-11] MEDS: NADOLOL 20 MG TABLET (FP) PO SCH (13:32)
[2021-05-11] MEDS: HYDROCORTISONE 2.5% TOPICAL CREAM 30 GM TUBE TP SCH (21:56)
[2021-05-11] MEDS: diphenhydrAMINE HCL 25 MG CAPSULE (FP) PO PRN (22:03)
[2021-05-12] MEDS: FUROSEMIDE 40 MG TABLET (FP) PO SCH ×2 (05:34→14:04)
[2021-05-12] MEDS: SPIRONOLACTONE 25 MG TABLET PO SCH (09:01)
[2021-05-12] MEDS: NAPH,MB-DB/K PH,MBDB POWDER PACKET PO SCH (09:02)
[2021-05-12] MEDS: PANTOPRAZOLE 40 MG TABLET PO SCH (09:02)
[2021-05-12] MEDS: THIAMINE HCL 100 MG TABLET (FP) PO SCH (09:02)
[2021-05-12] MEDS: NADOLOL 20 MG TABLET (FP) PO SCH (09:02)
[2021-05-12] MEDS ORDERED: LACTULOSE 20 GM/30 ML UDC (FOR ORAL USE ONLY) PO SCH (10:00)
[2021-05-12] MEDS: HYDROCORTISONE 2.5% TOPICAL CREAM 30 GM TUBE TP SCH (11:52)
[2021-05-12 13:10] LABS: BASO % 0.6 % (0-2.0); EOS % 1.8 % (0-4.5); HEMATOCRIT 38.5 % (35.4-49); HEMOGLOBIN 12.7 GM/dL (11.7-16.9); LYMPH % 23.6 % (8-40); MCH 33.6 pg (25.7-33.7); MCHC 33.1 g/dl (32.0-35.9); MEAN CELL VOLUME 101.5 fl (80-96); MEAN PLT VOLUME 8.5 fl (7.5-11.1); MONO % 11.8 % (3.8-10.2); NEUT % 62.2 % (42.8-82.8); PLATELET COUNT 89 10^3/uL (134-434); RBC 3.79 M/mm3 (4.00-5.60); RDW 16.1 % (11.9-15.9); WHITE BLOOD COUNT 5.2 K/mm3 (4.0-10.0)
[2021-05-12 13:54] LABS: BLOOD UREA NITROGEN 8.5 mg/dL (7-18)
[2021-05-12 13:57] LABS: CALCIUM 8.7 mg/dL (8.5-10.1)
[2021-05-12 13:58] LABS: ALBUMIN 2.6 g/dl (3.4-5.0)
[2021-05-12 14:01] LABS: CREATININE 1.2 mg/dL (0.55-1.3)
[2021-05-12 14:02] LABS: BILIRUBIN,TOTAL 6.5 mg/dL (0.2-1)
[2021-05-12 14:03] LABS: TOT PROT 5.9 g/dl (6.4-8.2)
[2021-05-12 15:57] VITALS: BP 118/69; PULSE 81; TEMP 98.3
[2021-05-12] MEDS ORDERED: POTASSIUM CHLORIDE TABS 20 MEQ TABLET.ER (FP) PO ONE (18:09)
== END 2021-05-12 18:39 | disposition home or self-care (01) | DRG 392 ==
LOC: JER 17:22 → JERBED 05-09 04:17 → OBSVTOIN 05-09 17:35 → J7W 05-09 20:26
PROVIDERS: ADMIT Internal Medicine; ATTEND Internal Medicine
DX: K59.00 Constipation, unspecified (principal); Z68.41 Body mass index [BMI] 40.0-44.9, adult; I50.32 Chronic diastolic (congestive) heart failure; F10.230 Alcohol dependence with withdrawal, uncomplicated; E87.6 Hypokalemia; K70.30 Alcoholic cirrhosis of liver without ascites; I25.2 Old myocardial infarction; I11.0 Hypertensive heart disease with heart failure; F10.20 Alcohol dependence, uncomplicated; E78.5 Hyperlipidemia, unspecified; I25.10 Atherosclerotic heart disease of native coronary artery without angina pectoris; F32.A Depression, unspecified; Z95.1 Presence of aortocoronary bypass graft; E66.01 Morbid (severe) obesity due to excess calories; G47.30 Sleep apnea, unspecified; R74.01 Elevation of levels of liver transaminase levels; K64.4 Residual hemorrhoidal skin tags; E83.42 Hypomagnesemia
CPT/HCPCS: 36415; 71046-TC-FY; 74177-TC; 76705-TC; 80053; 80307; 81003; 82140; 82248; 82550; 82553; 83605; 83690; 83735; 84100; 84484; 85025; 85610; 85730; 93005; 93010; 99285-25; C9803; G0378; Q0162; U0003; U0005

== ENCOUNTER 2021-10-13 13:55 | Emergency (ER) | payer BC, OTHER ==
[2021-10-13 14:21] VITALS: BMI 38.0
[2021-10-13 15:59] LABS: EOS % 7.7 % (0-4.5); HEMATOCRIT 38.7 % (35.4-49); HEMOGLOBIN 12.9 GM/dL (11.7-16.9); LYMPH % 16.6 % (8-40); MCH 32.1 pg (25.7-33.7); MCHC 33.4 g/dl (32.0-35.9); MONO % 10.2 % (3.8-10.2); NEUT % 64.5 % (42.8-82.8); PLATELET COUNT 113 10^3/uL (134-434); RBC 4.03 M/mm3 (4.00-5.60); WHITE BLOOD COUNT 8.9 K/mm3 (4.0-10.0)
[2021-10-13 16:22] LABS: ALBUMIN 3.5 g/dl (3.4-5.0); BLOOD UREA NITROGEN 10.3 mg/dL (7-18); CALCIUM 9.2 mg/dL (8.5-10.1)
[2021-10-13 16:23] LABS: MAGNESIUM 2.1 mg/dL (1.8-2.4)
[2021-10-13 16:25] LABS: BILIRUBIN,DIRECT 2.1 mg/dL (0.0-0.2); CREATININE 1.4 mg/dL (0.55-1.3)
[2021-10-13 16:26] LABS: INR 1.95 (0.83-1.09); PROTHROMBIN TIME (PATIENT) 22.6 SEC (9.7-13.0)
[2021-10-13 16:27] LABS: BILIRUBIN,TOTAL 3.1 mg/dL (0.2-1); TOT PROT 7.9 g/dl (6.4-8.2)
[2021-10-13 16:29] LABS: ACTIVATED PTT 33.2 SECONDS (25.2-36.5)
[2021-10-13] MEDS ORDERED: LACTULOSE 20 GM/30 ML UDC (FOR ORAL USE ONLY) PO ONE (18:32)
[2021-10-13] MEDS ORDERED: LACTULOSE 20 GM/30 ML UDC (FOR ORAL USE ONLY) ONE (18:39)
[2021-10-13 21:19] VITALS: BP 147/79; PULSE 77; TEMP 98.6
== END 2021-10-13 21:41 | disposition home or self-care (01) ==
LOC: JER 13:55
PROC: 3E033GC Introduction of Other Therapeutic Substance into Peripheral Vein, Percutaneous Approach (ICD-10-PCS; principal; 2021-10-13)
DX: R25.1 Tremor, unspecified (principal)
CPT/HCPCS: 36415; 71045-TC-FY; 76705-TC; 80053; 82140; 82248; 82550; 82962; 83690; 83735; 84100; 84443; 84484; 85025; 85610; 85730; 93005; 93010; 99285-25; C9803-CS; U0003; U0005

== ENCOUNTER 2021-11-29 00:16 | Emergency (ER) | payer OTHER ==
[2021-11-29 01:19] VITALS: BP 118/79; PULSE 85; RESP 17; TEMP 98.1; BMI 40.6
== END 2021-11-29 01:57 | disposition home or self-care (01) ==
LOC: JER 00:16
DX: Z59.1 Inadequate housing (principal)
CPT/HCPCS: 99282-25

== ENCOUNTER 2021-11-29 11:49 | Inpatient (IN) | payer OTHER ==
[2021-11-29] MEDS ORDERED: chlordiazePOXIDE HCL 25 MG CAPSULE PO ONE (12:49)
[2021-11-29] MEDS ORDERED: chlordiazePOXIDE HCL 25 MG CAPSULE ONE ×2 (12:55→22:57)
[2021-11-29 14:00] LABS: BASO % 1.9 % (0-2.0); EOS % 0.6 % (0-4.5); HEMATOCRIT 33.1 % (35.4-49); HEMOGLOBIN 11.2 GM/dL (11.7-16.9); LYMPH % 18.4 % (8-40); MCH 31.1 pg (25.7-33.7); MCHC 33.9 g/dl (32.0-35.9); MEAN CELL VOLUME 91.8 fl (80-96); MEAN PLT VOLUME 6.8 fl (7.5-11.1); MONO % 13.6 % (3.8-10.2); NEUT % 65.5 % (42.8-82.8); PLATELET COUNT 158 10^3/uL (134-434); RBC 3.61 M/mm3 (4.00-5.60); RDW 17.1 % (11.9-15.9); WHITE BLOOD COUNT 6.5 K/mm3 (4.0-10.0)
[2021-11-29 14:02] LABS: VENOUS O2 SATURATION 60.7 % (70-80); VENOUS PCO2 39.3 mmHg (38-52); VENOUS PH 7.351 (7.310-7.410)
[2021-11-29 14:18] LABS: INR 1.61 (0.83-1.09); PROTHROMBIN TIME (PATIENT) 18.6 SEC (9.7-13.0)
[2021-11-29 14:30] LABS: ALBUMIN 3.1 g/dl (3.4-5.0); BLOOD UREA NITROGEN 11.9 mg/dL (7-18); CALCIUM 8.1 mg/dL (8.5-10.1); MAGNESIUM 2.1 mg/dL (1.8-2.4)
[2021-11-29 14:33] LABS: CREATININE 1.2 mg/dL (0.55-1.3)
[2021-11-29 14:35] LABS: TOT PROT 7.5 g/dl (6.4-8.2)
[2021-11-29 14:39] LABS: N-TERMINAL BNP 55.8 pg/ml (5-125)
[2021-11-29] MEDS ORDERED: HEPARIN NA (PORCINE) 5,000 UNITS/ML 1ML VIAL ONE (22:57)
[2021-11-29] MEDS ORDERED: FERROUS SO4 325 MG TABLET (FP) ONE (22:57)
[2021-11-29] MEDS ORDERED: LACTULOSE 20 GM/30 ML UDC (FOR ORAL USE ONLY) ONE (22:57)
[2021-11-29] MEDS: FERROUS SO4 325 MG TABLET (FP) PO SCH (23:05)
[2021-11-29] MEDS: LACTULOSE 20 GM/30 ML UDC (FOR ORAL USE ONLY) PO SCH (23:05)
[2021-11-29] MEDS: HEPARIN NA (PORCINE) 5,000 UNITS/ML 1ML VIAL SQ SCH (23:05)
[2021-11-29] MEDS: chlordiazePOXIDE HCL 25 MG CAPSULE PO SCH (23:05)
[2021-11-30] MEDS ORDERED: ACETAMINOPHEN 1000 MG/100 ML BAG IVPB ONE (02:24)
[2021-11-30] MEDS ORDERED: chlordiazePOXIDE HCL 25 MG CAPSULE PO ONE (02:25)
[2021-11-30] MEDS ORDERED: ACETAMINOPHEN INJECTION 100 ML IVPB ONE (02:28)
[2021-11-30] MEDS ORDERED: chlordiazePOXIDE HCL 25 MG CAPSULE ONE ×2 (02:28→06:42)
[2021-11-30] MEDS ORDERED: FUROSEMIDE 40 MG/4 ML INJECTABLE VIAL ONE (06:42)
[2021-11-30] MEDS: FUROSEMIDE 40 MG/4 ML INJECTABLE VIAL IVPUSH SCH ×2 (06:49→13:06)
[2021-11-30] MEDS: chlordiazePOXIDE HCL 25 MG CAPSULE PO SCH ×3 (06:49→22:22)
[2021-11-30 08:01] LABS: BASO % 0.9 % (0-2.0); EOS % 0.7 % (0-4.5); HEMATOCRIT 29.6 % (35.4-49); LYMPH % 20.5 % (8-40); MCH 30.9 pg (25.7-33.7); MCHC 33.8 g/dl (32.0-35.9); MEAN CELL VOLUME 91.4 fl (80-96); MEAN PLT VOLUME 6.9 fl (7.5-11.1); MONO % 15.3 % (3.8-10.2); NEUT % 62.6 % (42.8-82.8); PLATELET COUNT 108 10^3/uL (134-434); RBC 3.24 M/mm3 (4.00-5.60); WHITE BLOOD COUNT 5.3 K/mm3 (4.0-10.0)
[2021-11-30] MEDS ORDERED: LACTULOSE 20 GM/30 ML UDC (FOR ORAL USE ONLY) ONE (08:01)
[2021-11-30] MEDS ORDERED: FOLIC ACID 1 MG TABLET (FP) ONE (08:01)
[2021-11-30] MEDS ORDERED: THIAMINE HCL 100 MG TABLET (FP) ONE (08:01)
[2021-11-30] MEDS ORDERED: ESCITALOPRAM OXALATE 10 MG TABLET ONE (08:01)
[2021-11-30] MEDS ORDERED: PANTOPRAZOLE 40 MG TABLET PO ONE (08:01)
[2021-11-30] MEDS ORDERED: FERROUS SO4 325 MG TABLET (FP) ONE (08:02)
[2021-11-30] MEDS ORDERED: SPIRONOLACTONE 25 MG TABLET ONE (08:02)
[2021-11-30] MEDS ORDERED: HEPARIN NA (PORCINE) 5,000 UNITS/ML 1ML VIAL ONE (08:02)
[2021-11-30 08:38] LABS: ALBUMIN 2.6 g/dl (3.4-5.0); BLOOD UREA NITROGEN 13.9 mg/dL (7-18); CREATININE 1.1 mg/dL (0.55-1.3)
[2021-11-30 08:39] LABS: BILIRUBIN,TOTAL 4.4 mg/dL (0.2-1)
[2021-11-30 08:40] LABS: TOT PROT 6.3 g/dl (6.4-8.2)
[2021-11-30 08:41] LABS: CALCIUM 7.9 mg/dL (8.5-10.1)
[2021-11-30] MEDS: FERROUS SO4 325 MG TABLET (FP) PO SCH ×2 (09:04→22:22)
[2021-11-30] MEDS: LACTULOSE 20 GM/30 ML UDC (FOR ORAL USE ONLY) PO SCH ×2 (09:04→22:22)
[2021-11-30] MEDS: SPIRONOLACTONE 25 MG TABLET PO SCH (09:04)
[2021-11-30] MEDS: FOLIC ACID 1 MG TABLET (FP) PO SCH (09:04)
[2021-11-30] MEDS: HEPARIN NA (PORCINE) 5,000 UNITS/ML 1ML VIAL SQ SCH ×2 (09:05→22:22)
[2021-11-30] MEDS: THIAMINE HCL 100 MG TABLET (FP) PO SCH (09:05)
[2021-11-30] MEDS: ESCITALOPRAM OXALATE 10 MG TABLET PO SCH (09:05)
[2021-11-30] MEDS: PANTOPRAZOLE 40 MG TABLET PO SCH (09:05)
[2021-11-30] MEDS: NADOLOL 20 MG TABLET (FP) PO SCH (11:15)
[2021-12-01] MEDS: FUROSEMIDE 40 MG/4 ML INJECTABLE VIAL IVPUSH SCH ×2 (05:11→17:23)
[2021-12-01] MEDS: chlordiazePOXIDE HCL 25 MG CAPSULE PO SCH ×3 (05:12→22:33)
[2021-12-01] MEDS: LACTULOSE 20 GM/30 ML UDC (FOR ORAL USE ONLY) PO SCH ×2 (10:29→22:33)
[2021-12-01] MEDS: HEPARIN NA (PORCINE) 5,000 UNITS/ML 1ML VIAL SQ SCH ×2 (10:30→22:33)
[2021-12-01] MEDS: PANTOPRAZOLE 40 MG TABLET PO SCH (10:31)
[2021-12-01] MEDS: FERROUS SO4 325 MG TABLET (FP) PO SCH ×2 (10:31→22:33)
[2021-12-01] MEDS: SPIRONOLACTONE 25 MG TABLET PO SCH (10:31)
[2021-12-01] MEDS: ESCITALOPRAM OXALATE 10 MG TABLET PO SCH (10:31)
[2021-12-01] MEDS: THIAMINE HCL 100 MG TABLET (FP) PO SCH (10:31)
[2021-12-01] MEDS: NADOLOL 20 MG TABLET (FP) PO SCH (10:31)
[2021-12-01] MEDS: FOLIC ACID 1 MG TABLET (FP) PO SCH (10:32)
[2021-12-01] MEDS ORDERED: IBUPROFEN 400 MG TABLET (FP) PO ONE (22:15)
[2021-12-02] MEDS: FUROSEMIDE 40 MG/4 ML INJECTABLE VIAL IVPUSH SCH ×2 (06:12→13:22)
[2021-12-02] MEDS: chlordiazePOXIDE HCL 25 MG CAPSULE PO SCH ×2 (06:12→13:22)
[2021-12-02 08:23] LABS: EOS % 1.7 % (0-4.5); HEMATOCRIT 31.4 % (35.4-49); HEMOGLOBIN 10.6 GM/dL (11.7-16.9); LYMPH % 27.9 % (8-40); MCH 31.5 pg (25.7-33.7); MCHC 33.8 g/dl (32.0-35.9); MEAN CELL VOLUME 93.1 fl (80-96); MEAN PLT VOLUME 7.2 fl (7.5-11.1); MONO % 9.6 % (3.8-10.2); NEUT % 59.8 % (42.8-82.8); PLATELET COUNT 136 10^3/uL (134-434); RBC 3.38 M/mm3 (4.00-5.60); RDW 17.4 % (11.9-15.9); WHITE BLOOD COUNT 6.7 K/mm3 (4.0-10.0)
[2021-12-02 08:50] LABS: CALCIUM 8.8 mg/dL (8.5-10.1)
[2021-12-02 08:51] LABS: ALBUMIN 2.7 g/dl (3.4-5.0); BLOOD UREA NITROGEN 15.9 mg/dL (7-18)
[2021-12-02 08:54] LABS: CREATININE 1.7 mg/dL (0.55-1.3)
[2021-12-02 08:55] LABS: BILIRUBIN,TOTAL 3.2 mg/dL (0.2-1); TOT PROT 6.4 g/dl (6.4-8.2)
[2021-12-02] MEDS: LACTULOSE 20 GM/30 ML UDC (FOR ORAL USE ONLY) PO SCH ×2 (09:29→21:34)
[2021-12-02] MEDS: THIAMINE HCL 100 MG TABLET (FP) PO SCH (09:29)
[2021-12-02] MEDS: ESCITALOPRAM OXALATE 10 MG TABLET PO SCH (09:29)
[2021-12-02] MEDS: FERROUS SO4 325 MG TABLET (FP) PO SCH ×2 (09:29→21:34)
[2021-12-02] MEDS: FOLIC ACID 1 MG TABLET (FP) PO SCH (09:30)
[2021-12-02] MEDS: PANTOPRAZOLE 40 MG TABLET PO SCH (09:30)
[2021-12-02] MEDS: SPIRONOLACTONE 25 MG TABLET PO SCH (09:30)
[2021-12-02] MEDS: HEPARIN NA (PORCINE) 5,000 UNITS/ML 1ML VIAL SQ SCH ×2 (09:31→21:35)
[2021-12-02] MEDS: NADOLOL 20 MG TABLET (FP) PO SCH (09:39)
[2021-12-02] MEDS: chlordiazePOXIDE HCL 10 MG CAPSULE PO SCH (21:34)
[2021-12-03] MEDS: chlordiazePOXIDE HCL 10 MG CAPSULE PO SCH ×2 (06:17→13:21)
[2021-12-03] MEDS: FUROSEMIDE 40 MG/4 ML INJECTABLE VIAL IVPUSH SCH ×2 (06:17→13:21)
[2021-12-03] MEDS: SPIRONOLACTONE 25 MG TABLET PO SCH (10:15)
[2021-12-03] MEDS: NADOLOL 20 MG TABLET (FP) PO SCH (10:15)
[2021-12-03] MEDS: THIAMINE HCL 100 MG TABLET (FP) PO SCH (10:15)
[2021-12-03] MEDS: ESCITALOPRAM OXALATE 10 MG TABLET PO SCH (10:15)
[2021-12-03] MEDS: PANTOPRAZOLE 40 MG TABLET PO SCH (10:16)
[2021-12-03] MEDS: FERROUS SO4 325 MG TABLET (FP) PO SCH ×2 (10:16→21:51)
[2021-12-03] MEDS: LACTULOSE 20 GM/30 ML UDC (FOR ORAL USE ONLY) PO SCH ×2 (10:16→22:27)
[2021-12-03] MEDS: FOLIC ACID 1 MG TABLET (FP) PO SCH (10:16)
[2021-12-03] MEDS: HEPARIN NA (PORCINE) 5,000 UNITS/ML 1ML VIAL SQ SCH ×2 (10:16→21:51)
[2021-12-03] MEDS ORDERED: IBUPROFEN 400 MG TABLET (FP) PO ONE (14:15)
[2021-12-03] MEDS: chlordiazePOXIDE 5 MG CAPSULE PO SCH (22:27)
[2021-12-04] MEDS: FUROSEMIDE 40 MG/4 ML INJECTABLE VIAL IVPUSH SCH ×2 (05:47→13:31)
[2021-12-04] MEDS: chlordiazePOXIDE 5 MG CAPSULE PO SCH ×3 (05:47→22:06)
[2021-12-04 08:19] LABS: BASO % 0.9 % (0-2.0); EOS % 2.9 % (0-4.5); HEMATOCRIT 30.7 % (35.4-49); HEMOGLOBIN 10.6 GM/dL (11.7-16.9); LYMPH % 22.6 % (8-40); MCH 31.7 pg (25.7-33.7); MCHC 34.3 g/dl (32.0-35.9); MEAN CELL VOLUME 92.3 fl (80-96); MONO % 10.1 % (3.8-10.2); NEUT % 63.5 % (42.8-82.8); PLATELET COUNT 145 10^3/uL (134-434); RBC 3.33 M/mm3 (4.00-5.60); RDW 17.3 % (11.9-15.9); WHITE BLOOD COUNT 7.5 K/mm3 (4.0-10.0)
[2021-12-04 08:35] LABS: ALBUMIN 2.6 g/dl (3.4-5.0); BLOOD UREA NITROGEN 17.5 mg/dL (7-18); CALCIUM 8.7 mg/dL (8.5-10.1)
[2021-12-04 08:39] LABS: CREATININE 1.9 mg/dL (0.55-1.3)
[2021-12-04 08:40] LABS: TOT PROT 6.4 g/dl (6.4-8.2)
[2021-12-04 08:43] LABS: BILIRUBIN,TOTAL 2.7 mg/dL (0.2-1)
[2021-12-04] MEDS: HEPARIN NA (PORCINE) 5,000 UNITS/ML 1ML VIAL SQ SCH ×2 (10:00→22:04)
[2021-12-04] MEDS: PANTOPRAZOLE 40 MG TABLET PO SCH (10:01)
[2021-12-04] MEDS: FERROUS SO4 325 MG TABLET (FP) PO SCH ×2 (10:01→22:05)
[2021-12-04] MEDS: FOLIC ACID 1 MG TABLET (FP) PO SCH (10:01)
[2021-12-04] MEDS: THIAMINE HCL 100 MG TABLET (FP) PO SCH (10:01)
[2021-12-04] MEDS: SPIRONOLACTONE 25 MG TABLET PO SCH (10:01)
[2021-12-04] MEDS: NADOLOL 20 MG TABLET (FP) PO SCH (10:02)
[2021-12-04] MEDS: LACTULOSE 20 GM/30 ML UDC (FOR ORAL USE ONLY) PO SCH ×2 (10:13→22:04)
[2021-12-04] MEDS: ESCITALOPRAM OXALATE 10 MG TABLET PO SCH (10:13)
[2021-12-04] MEDS ORDERED: ACETAMINOPHEN 325 MG TABLET (FP) PO ONE (15:15)
[2021-12-04 16:59] VITALS: BMI 38.5
[2021-12-05] MEDS: chlordiazePOXIDE 5 MG CAPSULE PO SCH ×2 (06:02→13:51)
[2021-12-05 08:41] VITALS: RESP 20
[2021-12-05 08:55] LABS: ALBUMIN 2.5 g/dl (3.4-5.0); BLOOD UREA NITROGEN 21.1 mg/dL (7-18); CALCIUM 8.7 mg/dL (8.5-10.1)
[2021-12-05 08:58] LABS: CREATININE 1.9 mg/dL (0.55-1.3)
[2021-12-05 08:59] LABS: BILIRUBIN,TOTAL 2.4 mg/dL (0.2-1); TOT PROT 6.2 g/dl (6.4-8.2)
[2021-12-05] MEDS ORDERED: REGADENOSON 0.4 MG/5 ML PRE-FILLED SYRINGE IVPUSH ONE ×2 (09:36→10:30)
[2021-12-05] MEDS: NADOLOL 20 MG TABLET (FP) PO SCH (11:00)
[2021-12-05] MEDS: FERROUS SO4 325 MG TABLET (FP) PO SCH ×2 (11:00→23:00)
[2021-12-05] MEDS: HEPARIN NA (PORCINE) 5,000 UNITS/ML 1ML VIAL SQ SCH ×2 (11:00→23:00)
[2021-12-05] MEDS: ESCITALOPRAM OXALATE 10 MG TABLET PO SCH (11:00)
[2021-12-05] MEDS: FOLIC ACID 1 MG TABLET (FP) PO SCH (11:00)
[2021-12-05] MEDS: SPIRONOLACTONE 25 MG TABLET PO SCH (11:00)
[2021-12-05] MEDS: THIAMINE HCL 100 MG TABLET (FP) PO SCH (11:00)
[2021-12-05] MEDS: PANTOPRAZOLE 40 MG TABLET PO SCH (11:00)
[2021-12-05] MEDS: LACTULOSE 20 GM/30 ML UDC (FOR ORAL USE ONLY) PO SCH ×3 (11:34→23:00)
[2021-12-05] MEDS: ALBUMIN HUMAN 25% 100 ML VIAL IV SCH ×2 (11:42→15:15)
[2021-12-05] MEDS: ALBUMIN HUMAN 25% 12.5 GM/50 ML VIAL IV SCH ×2 (17:57→18:48)
[2021-12-06 01:04] LABS: PH,URINE 5.5 (5.0-8.0); URINE APPEARANCE CLEAR; URINE BILIRUBIN NEGATIVE (NEGATIVE); URINE COLOR YELLOW; URINE GLUCOSE (UA) NEGATIVE (NEGATIVE); URINE KETONE NEGATIVE (NEGATIVE); URINE LEUK ESTERASE NEGATIVE (NEGATIVE); URINE NITRITE NEGATIVE (NEGATIVE); URINE PROTEIN NEGATIVE (NEGATIVE); URINE UROBILINOGEN 0.2 mg/dL (0.2-1.0)
[2021-12-06 02:14] VITALS: BP 119/66; PULSE 87; TEMP 98.6
== END 2021-12-06 02:00 | disposition short-term general hospital (02) | DRG 198 ==
LOC: JER 11:49 → UNDOADMOB 17:23 → OBSVTOIN 17:23 → JERBED 17:23 → INTOOBSV 17:23 → JERBED 11-30 10:03 → J4W 11-30 10:03 → JERBED 12-01 13:18 → OBSVTOIN 12-05 13:22
PROVIDERS: ADMIT Internal Medicine; ATTEND Internal Medicine
PROC: HZ2ZZZZ Detoxification Services for Substance Abuse Treatment (ICD-10-PCS; principal; 2021-12-05)
DX: I25.110 Atherosclerotic heart disease of native coronary artery with unstable angina pectoris (principal); R07.9 Chest pain, unspecified; F10.20 Alcohol dependence, uncomplicated; E72.20 Disorder of urea cycle metabolism, unspecified; I50.32 Chronic diastolic (congestive) heart failure; N17.9 Acute kidney failure, unspecified; R18.8 Other ascites; I11.0 Hypertensive heart disease with heart failure; I25.10 Atherosclerotic heart disease of native coronary artery without angina pectoris; K21.9 Gastro-esophageal reflux disease without esophagitis; E78.5 Hyperlipidemia, unspecified; K70.30 Alcoholic cirrhosis of liver without ascites; E66.01 Morbid (severe) obesity due to excess calories; Z68.38 Body mass index [BMI] 38.0-38.9, adult; E87.70 Fluid overload, unspecified; Z95.1 Presence of aortocoronary bypass graft; Z98.61 Coronary angioplasty status; K76.0 Fatty (change of) liver, not elsewhere classified
CPT/HCPCS: 0241U-QW; 36415; 71045-TC-FY; 76775-TC; 78452-TC; 80053; 80061; 81003; 82140; 82436; 82570; 82803; 83036; 83735; 83880; 84133; 84300; 84484; 85025; 85610; 93005; 93010; 93017; 93306-TC; 99285-25; A9502; C1887; C9803-CS; G0378; J1644; J2785; P9047; U0003; U0005